=== PATIENT | female | born 1955 | race Caucasian/White ===

== ENCOUNTER 2018-11-24 14:44 | Inpatient (IN) | payer OTHER ==
--- NOTE | 2018-11-24 16:06 | R.PREADM ---
SCREENING DATE AND TIME 11/24/2018 15:05 (CDT) ANTICIPATED REHAB ADMISSION DATE 11/26/2018 REFERRING FACILITY [facility] REFERRAL DATE AND TIME 11/24/2018 15:05 (CDT) ACUTE ADMIT DATE 11/18/2018 Previous Rehabilitation(s): No. 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 Kevin Paniagua M.D. MR# [id number] [facility] [id number] NAME CARLI SINGH ADDRESS [address] [place] [address] DATE OF 1955 AGE 63 SSN# [id number] GENDER female MARITAL STATUS RACE white ADMIT FROM 02 - [facility] PRE-HOSPITAL LIVING SETTING 01 - Home (private home/apt. board/care, assisted living, jail, transitional living) HOME TYPE AND DETAILS Type of home: single family house # of levels in the residence: 1 # of steps to enter the residence: 0 # of steps within the residence: 0 PRE-HOSPITAL LIVING WITH Family/Relatives FAMILY SUPPORT Yes PRIMARY FAMILY CONTACT NAME Nuvia Humphrey PRIMARY FAMILY CONTACT PHONE PRIMARY FAMILY CONTACT RELATIONSHIP Friend PHONE PRIMARY FAMILY CONTACT ON ADM.? no IS PRIMARY FAMILY CONTACT AUTH. REP.? no 1ST EMERGENCY CONTACT Nuvia Humphrey 1ST CONTACT PHONE 1ST CONTACT RELATIONSHIP Friend PHONE 1ST CONTACT ON ADM. no IS 1ST CONTACT AUTH. REP.? no PHONE 2ND CONTACT ON ADM.? no PATIENT EMPLOYMENT STATUS Retired (for age) PATIENT EMPLOYER No Employer PAYOR INFORMATION: 1ST PAYOR NAME HERMINIO 1ST PAYOR INJURY/ILLNESS DUE TO ACCIDENT? No ANOTHER GREEN PARTY RESPONSIBLE? No PRIMARY REHAB/ACUTE DIAGNOSIS: Left Middle Cerebellar Peduncle and Left Cerebellar Hemisphere ONSET DATE 11/18/2018 REHAB IMPAIRMENT CATEGORY (JING): 01 Stroke (STR) MEETS 60% rule AFFECTED EXTREMITIES: RLE, and RUE PRIMARY DIAGNOSIS-RELATED SURGERIES: Thrombectomy COMORBID REHAB/ACUTE DIAGNOSES: - N/A COPD Heavy smoker HTN Atrial Fibrillation CAD Heart failure with pacemaker INTERVENTIONS: - COPD 02 sats Medications Nebulizers Oxygen Resp. therapy X-rays - Atrial Fibrillation Anticoagulation Medications VS - CAD 02 sats Activity management Medications VS RISK FOR COMPLICATIONS: - COPD Acute Resp failure Pneumonia Resp. Arrest - Atrial Fibrillation CVA Heart failure Limb embolus - CAD CHF Cardiac Arrest VT Pain SUMMARY OF ACUTE HOSPITALIZATION: Pt. is a 63 yo Right-handed white female. On 11/18/2018 Pt. presented to [facility] with sudden onset of right-side weakness. On 11/18/2018 she was admitted to [facility] with diagnosis Left Middle Cerebellar Peduncle and Left Cerebellar Hemisphere. Her impairment category is Stroke 01 - Right Body (Left Brain) (01.2). Pre-morbidly, Pt. was independent/mod-I in Self-Care, Sphincter Control, Transfers Control, Locomotio n, Communication, and Social Cognition; and she had good Sphincter Control. Currently, she has deficits of Self-Care, Transfers Control, Locomotion, Endurance, Balance, and Safe ty Awareness. Pt. is now referred to [facility] for acute in-patient rehabilitation in order to maximize patient's functional independence in activities of daily living, strength, ROM, and mobi lity. Patient has realistic goal of being discharged at assistance level 6-Mauricio to reside at Home with Fam liset/Relatives. Carli Singh is a 63 year old female that lives in a single jourdan house with her , not driving or working. Patient was independent without an assistive device. On 11/18/2018, daughter heard the patient screaming for her and when she walked into the room, she noted that patients leg was kicked out, confused and attempted to stand up but unable to and was attempting to reach her nebulizer machine and brought to ER and was admitted to [facility] and treated. She is now medically stable but in need of 24-hour nursing, doctor supervision and oversite while receivi ng active and ongoing intensive PT, OT expected to participate in 3hours of therapy a day/15 hours per week and receive care with an intensive interdisciplinary approach. PAST MEDICAL HISTORY Atrial Fibrillation CAD COPD HTN Heart failure with pacemaker Heavy smoker PAST SURGICAL HISTORY: Angioplasty, multiple PACEMAKER PLACEMENT MEDICATION ALLERGIES: No Known Drug Allergies (NKDA) ENVIRONMENTAL ALLERGIES: None Known - Substance Allergies None Known - Other Allergies None Known CODE STATUS: Full code WEIGHT/HEIGHT/BMI: WEIGHT 140 lbs HEIGHT 5' 6" BMI 22.6 DIET: - Diet Type Regular - Diet - Solid Texture Regular - Diet - Liquid Texture Regular - Tube Feed N/A REVIEW OF SYSTEMS: - Gen Alert and awake Lying in bed No apparent distress Oriented to: person, time, and place - Vital Signs Temperature: 96.1 F SBP/DBP: 137/70 Pulse: 79 Resp: 19 Vital signs stable, afebrile - CVS RRR VITAL SIGNS Temperature: 96.1 F SBP/DBP: 137/70 Pulse: 79 Resp: 19 Vital signs stable, afebrile CURRENT SPHINCTER CONTROL: Pre-hospital bladder status: continent # of bladder accidents in the last 7 days prior to screenin Pre-hospital bowel status: continent # of bowel accidents in the last 7 days prior to screenin Last Bowel Movement Date: 11/24/2018 DETAILED CURRENT FUNCTIONAL STATUS: - Bladder accident frequency: Ind - No accidents in the past 7 days - Bowel accident frequency: Ind - No accidents in the past 7 days - Walking score based on distance walked: 1(<=50ft) - Wheelchair score based on distance traveled: 0(N/A) FUNCTIONAL STATUS: - Self-Care A. Eating Ind sup B. Grooming Ind sup C. Bathing Ind Syeda D. Dressing - Upper Ind Syeda E. Dressing - Lower Ind modA F. Toileting Ind modA - Sphincter Control G: Bladder control Ind Ind H: Bowel control Ind Ind - Transfers Control I. Bed/Chair/Wheelchair Ind Syeda J. Toilet Ind Syeda K. Tub/Shower Ind ADNO - Locomotion L. Walk/Wheelchair (C) Ind modA L. Walk/Wheelchair (W) Ind modA M. Stairs Ind ADNO - Communication N. Comprehension (B) Ind Ind O. Expression (B) Ind Ind - Social Cognition P. Social Interaction Ind Ind Q. Problem Solving Ind Ind R. Memory Ind Ind - Endurance Fair - Balance Fair - Safety Awareness Fair CURRENT FUNC. DEFICITS: Self-Care, Transfers Control, Locomotion, Endurance, Balance, and Safety Awareness THERAPY NOTES FROM ACUTE CARE: Attached. SPECIAL NEEDS: - Safety Concerns Skin breakdown precautions needed due to skin breakdown risk PATIENT NEEDS ACTIVE AND ONGOING THERAPEUTIC INTERVENTION OF MULTIPLE THERAPY DISCIPLINES, INCLUDING: - Occupational Therapy Evaluate and Treat. Visual Perceptual Training. Cognitive Retraining. - Speech Therapy Cognitive Training. Memory Strategies. Expressive Language Skills. Speech Intelligibility Training. R eceptive Language Skills. - Physical Therapy Evaluate and Treat. PATIENT NEEDS CLOSE MEDICAL SUPERVISION BY A REHABILITATION PHYSICIAN FOR: Bowel and Bladder Management Coordination of Treatment Team Medical and Co-Morbidity Management Pain Management DVT Management PATIENT REQUIRES 24X7 REHAB NURSING FOR MEDICAL AND FUNCTIONAL MGT. OF THE FOLLOWING DEFICITS: ADL's Ambulation Bowel and Bladder Management Communication Disease Management Medication Management Patient/Family Education Providing Safe Environment Transfers Pain Management DVT Management PATIENT REQUIRES INTENSIVE, COORDINATED INTERDISCIPLINARY APPROACH TO REHAB: Arranging Home Equipment/Services Discharge Planning Family Intervention/Training Knowledge Architect/Case Management PATIENT REHAB POTENTIAL: Expected level of measurable improvement will be of a practical value to patient's functional capacit y or adaptations to impairments Has a viable Discharge Plan Medically appropriate; condition is sufficiently stable to participate in intensive rehab program Patient is able and expected to receive 3 hours of individualized therapy daily on at least 5 of ever y 7 days Patient's prognosis for significant practical improvement within a reasonable period of time appears Good DISCHARGE PLAN: - Estimated Length of Stay (days) 17. - Consensus on plan Discharge plan has been discussed with primary caregiver. Patient/Family is in agreement with the renee n. Primary caregiver is in agreement with the plan. - Patient/Family Goals Return home with assistance. - Planned Living Setting Upon Discharge Home, to live with Family/Relatives. Transitional Living. RECOMMENDED CARE LEVEL: IRF RECOMMENDATION DETAILS: Recommended Admission to Comprehensive Rehabilitation Program to Increase Functional [place] SCREENER'S COMPLETENESS CONFIRMATION: - Screening Confirmation The patient data collection on this preadmission screening form is finished PHYSICIANS REVIEW AND ADMISSION DETERMINATION Admit - Based on my review of the Pre-Admission Screening results, in my medical judgment and experie nce, I concur with the findings and recommend admission to [facility], as this patient requires an IRF level of care. SIGNATURE PANEL: Clinical Liaison - [electronically] signed by Raymond Barger on 11/24/2018 at 15:34 (CDT) Physician Reviewer - [electronically] signed by Dr. Kevin Paniagua M.D. on 11/24/2018 at 16:07 (CDT )
--- OUTSIDE RECORDS SUMMARY | 2018-11-25 10:56 | XMS REPORT | Clinical Summary ---
:1955 Author Organization [facility] Address [address] [place] [id number] Care Team Providers Name Role Phone Unavailable Primary Care Provider Unavailable Allergies Not on File Medications Not on file Active Problems Not on file Social History Tobacco Use Types Packs/Day Years Used Date Never Assessed Sex Assigned at Date Recorded Not on file Job Start Date Occupation Industry Not on file Not on file Not on file Travel History Travel Start Travel End No recent travel history available. Last Filed Vital Signs Not on file Plan of Treatment Not on file Results Not on fileafter 11/24/2017 Insurance Payer Benefit Plan / Group Subscriber ID Type Phone Address HERMINIO DURHAM AXSON xxxxxxxxxxx
[2018-11-25] MEDS ORDERED: ALBUTEROL INHALER 60 PUFF/8 GM IH PRN (12:30)
[2018-11-25] MEDS: GABAPENTIN 100 MG CAP PO SCH ×2 (14:05→21:35)
[2018-11-25] MEDS: NA CHLORIDE 0.9% 1,000 ML IV SCH (14:05)
[2018-11-25] MEDS: METOPROLOL TAR 25 MG TAB PO SCH ×2 (17:01→23:46)
[2018-11-25] MEDS ORDERED: DOCUSATE NA/SENNA CONC 1 TAB PO PRN (18:50)
[2018-11-25] MEDS: NYSTATIN 500,000 UNIT/5 ML UDC PO SCH (21:36)
[2018-11-25] MEDS: ATORVASTATIN 80 MG TAB PO SCH (21:36)
[2018-11-25] MEDS: APIXABAN 5 MG TABLET PO SCH (21:36)
[2018-11-25] MEDS: ADVAIR IH SCH (21:37)
[2018-11-25] MEDS: DOXEPIN HCL 25 MG CAP PO SCH (21:55)
[2018-11-25] MEDS ORDERED: DOXEPIN HCL 25 MG CAP ONE (22:09)
--- NOTE | 2018-11-26 00:53 | FAST ---
SHIFT START DATE/TIME: 11/25/2018 19:00 (CDT) SHIFT END DATE/TIME: 11/26/2018 07:00 (CDT) NAME BRITTANY SINGH DATE OF : 1955 DATE OF ADMISSION: 11/25/2018 10:53 (CDT) PHONE: AGE: 63 N# [id number] GENDER: Female ENCOUNTER PHYSICIAN: Dr. Kevin Paniagua M.D. ADMISSION DIAGNOSIS: - Stroke 01 - Right Body (Left Brain) (01.2) Left Middle Cerebellar Peduncle and Left Cerebellar Hemisphere. EATING: Activity did not occur on this shift EATING - SCORE: 0-UNK GROOMING: Activity did not occur on this shift GROOMING - SCORE: 0-UNK BATHING: Activity did not occur on this shift BATHING - SCORE: 0-UNK DRESSING - UPPER BODY: Patient is not dressing in public clothing ARTICLES SCORE Total number of steps: 0 DRESSING - UPPER BODY - SCORE: 0-UNK DRESSING - LOWER BODY: Patient is not dressing in public clothing ARTICLES SCORE Total number of steps: 0 DRESSING - LOWER BODY - SCORE: 0-UNK TOILETING: TOILETING - STEP 1: Does the patient require the assistance of a person or device, or need extra time with toileting? Yes . TOILETING - STEP 2: Does the patient require the assistance of a helper? Yes. TOILETING - STEP 3: How much assistance does the patient require from the helper? Hands-on assistance from the helper TOILETING - STEP 4: Of the 3 tasks: 1) Adjusting clothing prior to use, 2) Cleansing of perineal area, 3) Adjusting clot cierra after use; How many tasks does the patient perform WITHOUT assistance of the helper? Two tasks TOILETING - SCORE: 3-MOD BLADDER MANAGEMENT: BLADDER MANAGEMENT - STEP 1: Does the patient control the bladder completely and intentionally without equipment or devices or med ications, and is always continent? No. BLADDER MANAGEMENT - STEP 2: Does the patient require the assistance of a helper? Yes. BLADDER MANAGEMENT - STEP 3: How much assistance does the patient require from the helper? Only set-up of equipment - such as plac ing it within reach of the patient or emptying a device - to maintain either satisfactory voiding pat tern or managing an external device, such as an absorbent pad, ileal device, or catheter BLADDER MANAGEMENT - SCORE: 5-SUP BOWEL MANAGEMENT: Activity did not occur on this shift BOWEL MANAGEMENT - SCORE: 7-IND TRANSFERS: BED, CHAIR, WHEELCHAIR: TRANSFERS: BED, CHAIR, WHEELCHAIR - STEP 1: Does the patient require assistance of a person or device, or need extra time with bed, chair, or whe elchair transfers? Yes. TRANSFERS: BED, CHAIR, WHEELCHAIR - STEP 2: Does the patient require the assistance of a helper? Yes. TRANSFERS: BED, CHAIR, WHEELCHAIR - STEP 3: How much assistance does the patient require from the helper? Steadying/guiding assistance TRANSFERS: BED, CHAIR, WHEELCHAIR - SCORE: 4-MIN TRANSFERS: TOILET: TRANSFERS: TOILET - STEP 1: Does the patient require the assistance of a person or device, or need extra time with toilet transfe rs? Yes. TRANSFERS: TOILET - STEP 2: Does the patient require the assistance of a helper? Yes. TRANSFERS: TOILET - STEP 3: How much assistance does the patient require from the helper? Patient performs half or more of the tr ansferring tasks TRANSFERS: TOILET - STEP 4: Does the patient need only incidental help such as contact guard or steadying during toilet transfer? Yes. TRANSFERS: TOILET - SCORE: 4-MIN TRANSFERS: SHOWER: Activity did not occur on this shift TRANSFERS: SHOWER - SCORE: 0-UNK TRANSFERS: TUB: Activity did not occur on this shift TRANSFERS: TUB - SCORE: 0-UNK LOCOMOTION: WALK: Activity did not occur on this shift LOCOMOTION: WALK - SCORE: 0-UNK LOCOMOTION: WHEELCHAIR: Activity did not occur on this shift LOCOMOTION: WHEELCHAIR - SCORE: 0-UNK COMPREHENSION: COMPREHENSION: TYPE: Both COMPREHENSION - STEP 1: Does the patient require help from a person or device, or need extra time to understand complex and a bstract ideas (such as current events, finances, discharge planning, medical issues, relationships, e tc)? Yes. COMPREHENSION - STEP 2: Does the patient require help to understand questions or statements about basic needs or ideas (such as hunger, thirst, sleep, safety, daily schedule, room location, or discomfort) half or more of the t tashi? Yes. COMPREHENSION - STEP 3: Is the patient basically able to understand and respond appropriately and consistently? Yes. COMPREHENSION - SCORE: 2-MAX EXPRESSION EXPRESSION: TYPE: Both EXPRESSION - STEP 1: Does the patient require help from a person or device, or need extra time expressing complex and abst ract ideas (such as current events, finances, discharge planning, medical issues, relationships, etc) ? Yes. EXPRESSION - STEP 2: Does the patient require help to express basic necessities or ideas (such as hunger, thirst, sleep, s afety, daily schedule, room location, or discomfort) half or more of the time? Yes. EXPRESSION - STEP 3: Is the patient basically unable to express or does s/he express inappropriately or inconsistently corrie pite prompting? No. EXPRESSION - SCORE: 2-MAX SOCIAL INTERACTION: SOCIAL INTERACTION - STEP 1: Does the patient require a helper to interact with others in social and therapeutic situations? No. SOCIAL INTERACTION - STEP 2: Does the patient need extra time in social situations, OR does s/he interact with staff, other patien ts, and family members ONLY in structured environments, OR does s/he require medication for social in teraction? Yes, patient requires medication for social interaction SOCIAL INTERACTION - SCORE: 6-NAHUN PROBLEM SOLVING: PROBLEM SOLVING - STEP 1: Does the patient need help from a person or device, or need extra time to solve complex problems such as managing a checking account or confronting interpersonal problems? Yes. PROBLEM SOLVING - STEP 2: Does the patient solve basic routine problems half or more of the time? No. PROBLEM SOLVING - STEP 3: Does the patient need help to solve problems all the time or is s/he unable to solve problems? Yes. P atient needs help to solve problems all the time or is unable to solve problems PROBLEM SOLVING - SCORE: 1-DEP MEMORY: MEMORY - STEP 1: Does the patient need help from a person or device, or need extra time to remember frequently encount ered people, daily routines, and executing requests? Yes. MEMORY - STEP 2: How often does the patient need help to remember frequently encountered people, daily routines, and e xecuting requests? More than 50% of the time MEMORY - STEP 3: Does the patient need help to remember all of the time OR does s/he not effectively recognize and rem ember? No. Patient does not need help all the time MEMORY - SCORE: 2-MAX SIGNATURE PANEL: The following modified sections: Eating - Score, Grooming - Score, Dressing - Upper Body - Score, Tavo ssing - Lower Body - Score, Toileting - Score, Bladder Management - Score, Bowel Management - Score, Transfers: Bed, Chair, Wheelchair - Score, Transfers: Toilet - Score, Transfers: Shower - Score, Lewis sfers: Tub - Score, Locomotion: Walk - Score, Locomotion: Wheelchair - Score, Comprehension - Score, Expression - Score, Social Interaction - Score, Problem Solving - Score, Memory - Score were [electro nically] signed by Elli Perez CNA on TueNov 26 2018 00:52:31 GMT-0500 (Central Daylight Time)
[2018-11-26] MEDS: NA CHLORIDE 0.9% 1,000 ML IV SCH ×3 (02:15→20:59)
[2018-11-26] MEDS: METOPROLOL TAR 25 MG TAB PO SCH ×3 (05:30→16:55)
[2018-11-26 06:10] LABS: Eosinophils % 1.6 % (0-4.4); Hematocrit 35.2 % (36.0-45.0); Lymphocytes % 42.9 % (15.3-44.8); MPV 10.8 fL (7.6-11.3); Monocytes % 6.9 % (3.3-12.3)
[2018-11-26 06:29] LABS: Albumin 3.3 g/dL (3.4-5.0); Magnesium 1.9 mg/dL (1.8-2.4); Potassium 3.6 mmol/L (3.5-5.1); Prealbumin 19.2 mg/dL (20-40)
[2018-11-26 06:47] LABS: Urine White Blood Cell Casts OK
[2018-11-26 06:48] LABS: Anisocytosis 1+; Blood Morphology Comment NOTED (NOT SEEN); Platelet Estimate ADEQ
[2018-11-26] MEDS ORDERED: AMLODIPINE 5 MG TAB PO SCH (08:00)
[2018-11-26] MEDS: ADVAIR IH SCH ×2 (08:00→20:58)
[2018-11-26] MEDS ORDERED: LISINOPRIL 20 MG TAB PO SCH (08:00)
[2018-11-26] MEDS: GABAPENTIN 100 MG CAP PO SCH ×3 (08:05→20:57)
[2018-11-26] MEDS: FUROSEMIDE 20 MG TABLET PO SCH (08:05)
[2018-11-26] MEDS: APIXABAN 5 MG TABLET PO SCH ×2 (08:06→20:57)
[2018-11-26] MEDS: NYSTATIN 500,000 UNIT/5 ML UDC PO SCH ×3 (08:07→20:57)
[2018-11-26] MEDS: NICOTINE 14 MG/PAT TD SCH (12:44)
--- NOTE | 2018-11-26 12:59 | FAST ---
ENCOUNTER DATE AND TIME: 11/26/2018 08:00 (CDT) NAME BRITTANY SINGH DATE OF : 1955 DATE OF ADMISSION: 11/25/2018 10:53 (CDT) PHONE: AGE: 63 SSN# [id number] GENDER: Female ENCOUNTER PHYSICIAN: Dr. Kevin Paniagua M.D. ADMISSION DIAGNOSIS: - Stroke 01 - Right Body (Left Brain) (01.2) Left Middle Cerebellar Peduncle and Left Cerebellar Hemisphere. EATING: Activity did not occur on this shift EATING - SCORE: 0-UNK GROOMING: Comb/brush hair Oral care Wash, rinse, and dry face GROOMING - STEP 1: Does the patient require the assistance of a person or device, or need extra time when grooming? Yes. GROOMING - STEP 2: Does the patient require the assistance of a helper? Yes. GROOMING - STEP 3: How much assistance does the patient require from the helper? Only prior equipment preparation/set up from the helper GROOMING - SCORE: 5-SUP BATHING: Abdomen Buttocks Chest Left arm Left lower leg and foot Left upper leg Perineal area Right arm Right lower leg and foot Right upper leg BATHING - STEP 1: Does the patient require the assistance of a person or device, or need extra time when bathing? Yes. BATHING - STEP 2: Does the patient require the assistance of a helper? Yes. BATHING - STEP 3: How much assistance does the patient require from the helper? More than just incidental help BATHING - STEP 4: What percent of the body parts did the patient bathe WITHOUT the helper? Half or more of the body par ts BATHING - SCORE: 3-MOD DRESSING - UPPER BODY: Patient is not dressing in public clothing ARTICLES SCORE Total number of steps: 0 DRESSING - UPPER BODY - SCORE: 0-UNK DRESSING - LOWER BODY: Sock - Left foot (one step) Sock - Right foot (one step) Underwear (three steps) ARTICLES SCORE Total number of steps: 5 DRESSING - LOWER BODY - STEP 1: Does the patient require help from a person or device, or need extra time when dressing below the diego st? Yes. DRESSING - LOWER BODY - STEP 2: Does the patient require the assistance of a helper? Yes. DRESSING - LOWER BODY - STEP 3: Does the helper touch the patient while dressing? Yes. DRESSING - LOWER BODY - STEP 4: How many of the total steps does the patient complete on his/her own? 0 DRESSING - LOWER BODY - STEP 5: Does patient require total assistance for dressing below the waist such as the helper holding clothin g and performing basically all the activities? Yes. DRESSING - LOWER BODY - SCORE: 1-DEP TOILETING: TOILETING - STEP 1: Does the patient require the assistance of a person or device, or need extra time with toileting? Yes . TOILETING - STEP 2: Does the patient require the assistance of a helper? Yes. TOILETING - STEP 3: How much assistance does the patient require from the helper? Hands-on assistance from the helper TOILETING - STEP 4: Of the 3 tasks: 1) Adjusting clothing prior to use, 2) Cleansing of perineal area, 3) Adjusting clot cierra after use; How many tasks does the patient perform WITHOUT assistance of the helper? One task TOILETING - SCORE: 2-MAX BLADDER MANAGEMENT: Activity did not occur on this shift BLADDER MANAGEMENT - SCORE: 7-IND BOWEL MANAGEMENT: Activity did not occur on this shift BOWEL MANAGEMENT - SCORE: 7-IND TRANSFERS: BED, CHAIR, WHEELCHAIR: Activity did not occur on this shift TRANSFERS: BED, CHAIR, WHEELCHAIR - SCORE: 0-UNK TRANSFERS: TOILET: TRANSFERS: TOILET - STEP 1: Does the patient require the assistance of a person or device, or need extra time with toilet transfe rs? Yes. TRANSFERS: TOILET - STEP 2: Does the patient require the assistance of a helper? Yes. TRANSFERS: TOILET - STEP 3: How much assistance does the patient require from the helper? Patient performs less than half of the transferring tasks TRANSFERS: TOILET - STEP 4: Does the patient require total assistance for the toilet transfer such as the helper doing basically all the lifting? No. TRANSFERS: TOILET - SCORE: 2-MAX TRANSFERS: SHOWER: Activity did not occur on this shift TRANSFERS: SHOWER - SCORE: 0-UNK TRANSFERS: TUB: TRANSFERS: TUB - STEP 1: Does the patient require the assistance of a person or device, or need extra time with tub transfers? Yes. TRANSFERS: TUB - STEP 2: Does the patient require the assistance of a helper? Yes. TRANSFERS: TUB - STEP 3: How much assistance does the patient require from the helper? More than incidental help TRANSFERS: TUB - STEP 4: How much more help does the patient require from the helper? Fraser lifts patient up out of the wheel chair AND down onto the tub bench TRANSFERS: TUB - SCORE: 2-MAX LOCOMOTION: WALK: Activity did not occur on this shift LOCOMOTION: WALK - SCORE: 0-UNK LOCOMOTION: WHEELCHAIR: Activity did not occur on this shift LOCOMOTION: WHEELCHAIR - SCORE: 0-UNK LOCOMOTION: STAIRS: Activity did not occur on this shift LOCOMOTION: STAIRS - SCORE: 0-UNK COMPREHENSION: COMPREHENSION: TYPE: Both COMPREHENSION - STEP 1: Does the patient require help from a person or device, or need extra time to understand complex and a bstract ideas (such as current events, finances, discharge planning, medical issues, relationships, e tc)? Yes. COMPREHENSION - STEP 2: Does the patient require help to understand questions or statements about basic needs or ideas (such as hunger, thirst, sleep, safety, daily schedule, room location, or discomfort) half or more of the t tashi? No. COMPREHENSION - STEP 3: How often does the patient need help to understand directions and conversation about basic needs? 10% - 24% of the time COMPREHENSION - SCORE: 4-MIN EXPRESSION EXPRESSION: TYPE: Both EXPRESSION - STEP 1: Does the patient require help from a person or device, or need extra time expressing complex and abst ract ideas (such as current events, finances, discharge planning, medical issues, relationships, etc) ? Yes. EXPRESSION - STEP 2: Does the patient require help to express basic necessities or ideas (such as hunger, thirst, sleep, s afety, daily schedule, room location, or discomfort) half or more of the time? No. EXPRESSION - STEP 3: How often does the patient need help to express directions and conversation about basic needs? 10-24% of the time EXPRESSION - SCORE: 4-MIN SOCIAL INTERACTION: SOCIAL INTERACTION - STEP 1: Does the patient require a helper to interact with others in social and therapeutic situations? Yes. SOCIAL INTERACTION - STEP 2: Does the patient interact appropriately half or more of the time? Yes. SOCIAL INTERACTION - STEP 3: How often does the patient need help to interact appropriately? 10-24% of the time SOCIAL INTERACTION - SCORE: 4-MIN PROBLEM SOLVING: PROBLEM SOLVING - STEP 1: Does the patient need help from a person or device, or need extra time to solve complex problems such as managing a checking account or confronting interpersonal problems? Yes. PROBLEM SOLVING - STEP 2: Does the patient solve basic routine problems half or more of the time? Yes. PROBLEM SOLVING - STEP 3: How often does the patient need help to solve basic routine problems? 25%-49% of the time PROBLEM SOLVING - SCORE: 3-MOD MEMORY: MEMORY - STEP 1: Does the patient need help from a person or device, or need extra time to remember frequently encount ered people, daily routines, and executing requests? Yes. MEMORY - STEP 2: How often does the patient need help to remember frequently encountered people, daily routines, and e xecuting requests? 25% - 49% of the time MEMORY - SCORE: 3-MOD SIGNATURE PANEL: The following modified sections: Problem Solving - Score, Memory - Score, Social Interaction - Score, Expression - Score, Comprehension - Score, Transfers: Bed, Chair, Wheelchair - Score, Transfers: Miriam wer - Score, Transfers: Toilet - Score, Transfers: Tub - Score, Eating - Score, Grooming - Score, Bat cierra - Score, Dressing - Upper Body - Score, Dressing - Lower Body - Score, Toileting - Score were [e lectronically] signed by Viridiana Lowery OT on TueNov 26 2018 12:58:36 T-0500 ([facility])
--- NOTE | 2018-11-26 15:02 | FAST ---
SHIFT START DATE/TIME: 11/26/2018 07:00 (CDT) SHIFT END DATE/TIME: 11/26/2018 19:00 (CDT) NAME BRITTANY SINGH DATE OF : 1955 DATE OF ADMISSION: 11/25/2018 10:53 (CDT) PHONE: AGE: 63 N# [id number] GENDER: Female ENCOUNTER PHYSICIAN: Dr. Kevin Paniagua M.D. ADMISSION DIAGNOSIS: - Stroke 01 - Right Body (Left Brain) (01.2) Left Middle Cerebellar Peduncle and Left Cerebellar Hemisphere. EATING: EATING - STEP 1: Does the patient require the assistance of a person or device, or need extra time when eating? Yes. EATING - STEP 2: Does the patient require the assistance of a helper? Yes. EATING - STEP 3: Does the patient perform half or more of the eating tasks? Yes. EATING - STEP 4: Does the patient need only supervision, cuing, coaxing OR help to apply an orthosis OR help to cut fo od, open containers, pour liquids, or butter bread? Yes. EATING - SCORE: 5-SUP GROOMING: Comb/brush hair Wash, rinse, and dry face Wash, rinse, and dry hands GROOMING - STEP 1: Does the patient require the assistance of a person or device, or need extra time when grooming? Yes. GROOMING - STEP 2: Does the patient require the assistance of a helper? Yes. GROOMING - STEP 3: How much assistance does the patient require from the helper? Incidental touching assistance from the helper while grooming GROOMING - SCORE: 4-MIN BATHING: Activity did not occur on this shift BATHING - SCORE: 0-UNK DRESSING - UPPER BODY: Activity did not occur on this shift ARTICLES SCORE Total number of steps: 0 DRESSING - UPPER BODY - SCORE: 0-UNK DRESSING - LOWER BODY: Activity did not occur on this shift ARTICLES SCORE Total number of steps: 0 DRESSING - LOWER BODY - SCORE: 0-UNK TOILETING: TOILETING - STEP 1: Does the patient require the assistance of a person or device, or need extra time with toileting? Yes . TOILETING - STEP 2: Does the patient require the assistance of a helper? Yes. TOILETING - STEP 3: How much assistance does the patient require from the helper? Hands-on assistance from the helper TOILETING - STEP 4: Of the 3 tasks: 1) Adjusting clothing prior to use, 2) Cleansing of perineal area, 3) Adjusting clot cierra after use; How many tasks does the patient perform WITHOUT assistance of the helper? One task TOILETING - SCORE: 2-MAX BLADDER MANAGEMENT: BLADDER MANAGEMENT - STEP 1: Does the patient control the bladder completely and intentionally without equipment or devices or med ications, and is always continent? No. BLADDER MANAGEMENT - STEP 2: Does the patient require the assistance of a helper? Yes. BLADDER MANAGEMENT - STEP 3: How much assistance does the patient require from the helper? Only supervision, stand-by, cuing, or c oaxing BLADDER MANAGEMENT - SCORE: 5-SUP BLADDER MANAGEMENT - FREQUENCY OF ACCIDENTS: BLADDER MANAGEMENT(FA) - STEP 1: How many accidents has the patient had during the current shift? 0 BOWEL MANAGEMENT: Activity did not occur on this shift BOWEL MANAGEMENT - SCORE: 7-IND BOWEL MANAGEMENT - FREQUENCY OF ACCIDENTS: BOWEL MANAGEMENT(FA) - STEP 1: How many accidents has the patient had during the current shift? 0 TRANSFERS: BED, CHAIR, WHEELCHAIR: TRANSFERS: BED, CHAIR, WHEELCHAIR - STEP 1: Does the patient require assistance of a person or device, or need extra time with bed, chair, or whe elchair transfers? Yes. TRANSFERS: BED, CHAIR, WHEELCHAIR - STEP 2: Does the patient require the assistance of a helper? Yes. TRANSFERS: BED, CHAIR, WHEELCHAIR - STEP 3: How much assistance does the patient require from the helper? Steadying/guiding assistance TRANSFERS: BED, CHAIR, WHEELCHAIR - SCORE: 4-MIN TRANSFERS: TOILET: TRANSFERS: TOILET - STEP 1: Does the patient require the assistance of a person or device, or need extra time with toilet transfe rs? Yes. TRANSFERS: TOILET - STEP 2: Does the patient require the assistance of a helper? Yes. TRANSFERS: TOILET - STEP 3: How much assistance does the patient require from the helper? Patient performs less than half of the transferring tasks TRANSFERS: TOILET - STEP 4: Does the patient require total assistance for the toilet transfer such as the helper doing basically all the lifting? Yes. TRANSFERS: TOILET - SCORE: 1-DEP TRANSFERS: SHOWER: Activity did not occur on this shift TRANSFERS: SHOWER - SCORE: 0-UNK TRANSFERS: TUB: Activity did not occur on this shift TRANSFERS: TUB - SCORE: 0-UNK LOCOMOTION: WALK: Activity did not occur on this shift LOCOMOTION: WALK - SCORE: 0-UNK LOCOMOTION: WHEELCHAIR: Activity did not occur on this shift LOCOMOTION: WHEELCHAIR - SCORE: 0-UNK COMPREHENSION: COMPREHENSION: TYPE: Both COMPREHENSION - STEP 1: Does the patient require help from a person or device, or need extra time to understand complex and a bstract ideas (such as current events, finances, discharge planning, medical issues, relationships, e tc)? Yes. COMPREHENSION - STEP 2: Does the patient require help to understand questions or statements about basic needs or ideas (such as hunger, thirst, sleep, safety, daily schedule, room location, or discomfort) half or more of the t tashi? Yes. COMPREHENSION - STEP 3: Is the patient basically able to understand and respond appropriately and consistently? Yes. COMPREHENSION - SCORE: 2-MAX EXPRESSION EXPRESSION: TYPE: Both EXPRESSION - STEP 1: Does the patient require help from a person or device, or need extra time expressing complex and abst ract ideas (such as current events, finances, discharge planning, medical issues, relationships, etc) ? Yes. EXPRESSION - STEP 2: Does the patient require help to express basic necessities or ideas (such as hunger, thirst, sleep, s afety, daily schedule, room location, or discomfort) half or more of the time? No. EXPRESSION - STEP 3: How often does the patient need help to express directions and conversation about basic needs? 10-24% of the time EXPRESSION - SCORE: 4-MIN SOCIAL INTERACTION: SOCIAL INTERACTION - STEP 1: Does the patient require a helper to interact with others in social and therapeutic situations? Yes. SOCIAL INTERACTION - STEP 2: Does the patient interact appropriately half or more of the time? Yes. SOCIAL INTERACTION - STEP 3: How often does the patient need help to interact appropriately? 10-24% of the time SOCIAL INTERACTION - SCORE: 4-MIN PROBLEM SOLVING: PROBLEM SOLVING - STEP 1: Does the patient need help from a person or device, or need extra time to solve complex problems such as managing a checking account or confronting interpersonal problems? Yes. PROBLEM SOLVING - STEP 2: Does the patient solve basic routine problems half or more of the time? Yes. PROBLEM SOLVING - STEP 3: How often does the patient need help to solve basic routine problems? 25%-49% of the time PROBLEM SOLVING - SCORE: 3-MOD MEMORY: MEMORY - STEP 1: Does the patient need help from a person or device, or need extra time to remember frequently encount ered people, daily routines, and executing requests? Yes. MEMORY - STEP 2: How often does the patient need help to remember frequently encountered people, daily routines, and e xecuting requests? 25% - 49% of the time MEMORY - SCORE: 3-MOD SIGNATURE PANEL: The following modified sections: Eating - Score, Grooming - Score, Bathing - Score, Dressing - Upper Body - Score, Dressing - Lower Body - Score, Toileting - Score, Bladder Management - Score, Bowel Man agement - Score, Transfers: Bed, Chair, Wheelchair - Score, Transfers: Shower - Score, Transfers: Tub - Score, Locomotion: Walk - Score, Locomotion: Wheelchair - Score, Comprehension - Score, Expression - Score, Social Interaction - Score, Problem Solving - Score, Memory - Score, Transfers: Toilet - Sc ore were [electronically] signed by Natasha Seo, C.N.A. on TueNov 26 2018 15:01:32 T-0500 ([facility])
[2018-11-26 18:09] LABS: Urine Appearance CLOUDY; Urine Bilirubin NEGATIVE (NEG); Urine Blood NEGATIVE (NEG); Urine Color YELLOW; Urine Glucose NEGATIVE (NEG); Urine Protein NEGATIVE (NEG); Urine Specific Gravity 1.015 (1.005-1.030); Urine Urobilinogen 0.2 mg/dL (0.2-1.0); Urine pH 5.5 (5.0-7.0)
[2018-11-26 18:34] LABS: Urine Bacteria 20-50 /HPF (<20); Urine Culture Reflex Order NOT NEEDED; Urine Mucus MOD /HPF (NONE SEEN); Urine RBC NONE SEEN /HPF (NONE SEEN)
[2018-11-26] MEDS: DOXEPIN HCL 25 MG CAP PO SCH (20:57)
[2018-11-26] MEDS: ATORVASTATIN 80 MG TAB PO SCH (20:57)
[2018-11-26] MEDS: DOCUSATE NA/SENNA CONC 1 TAB PO SCH (20:58)
[2018-11-26] MEDS: D5 0.45 NS 1,000 ML IV SCH (21:46)
--- NOTE | 2018-11-26 22:48 | R.HP ---
FACILITY: [facility] ENCOUNTER DATE AND TIME: 11/26/2018 22:42 (CDT) MR#: [id number] NAME CARLI SINGH ADDRESS: [address] [place]: [place] [address] PHONE: DATE OF : 1955 AGE: 63 SSN# [id number] GENDER: Female DEXTERITY Right-handed MARITAL STATUS RACE White PRE-HOSPITAL LIVING SETTING 01 - Home (private home/apt. board/care, assisted living, detention, transitional living) PRE-HOSPITAL LIVING WITH Family/Relatives ENCOUNTER PHYSICIAN: Dr. Kevin Paniagua M.D. REFERRING DOCTOR: maricruz Rankin DATE OF ADMISSION: 11/25/2018 10:53 (CDT) REFERRING FACILITY [facility] HOME TYPE AND DETAILS: Type of home: single family house # of levels in the residence: 1 # of steps to enter the residence: 0 # of steps within the residence: 0 ADMISSION DIAGNOSIS: Left Middle Cerebellar Peduncle and Left Cerebellar Hemisphere ONSET DATE: 11/18/2018 PRIMARY DIAGNOSIS-RELATED SURGERIES: Thrombectomy SECONDARY/COMORBID DIAGNOSES (TIERED): - N/A COPD Heavy smoker HTN Atrial Fibrillation CAD Heart failure with pacemaker HISTORY OF PRESENT ILLNESS (HPI): Pt. is a 63 yo Right-handed white female. On 11/18/2018 Pt. presented to [facility] with sudden onset of right-side weakness. On 11/18/2018 she was admitted to [facility] with diagnosis Left Middle Cerebellar Peduncle and Left Cerebellar Hemisphere. Her impairment category is Stroke 01 - Right Body (Left Brain) (01.2). Pre-morbidly, Pt. was independent/mod-I in Self-Care, Sphincter Control, Transfers Control, Locomotio n, Communication, and Social Cognition; and she had good Sphincter Control. Currently, she has deficits of Self-Care, Transfers Control, Locomotion, Endurance, Balance, and Safe ty Awareness. Pt. is now referred to [facility] for acute in-patient rehabilitation in order to maximize patient's functional independence in activities of daily living, strength, ROM, and mobi lity. Patient has realistic goal of being discharged at assistance level 6-Mauricio to reside at Home with Fam liset/Relatives. Carli Singh is a 63 year old female that lives in a single jourdan house with her , not driving or working. Patient was independent without an assistive device. On 11/18/2018, daughter heard the patient screaming for her and when she walked into the room, she noted that patients leg was kicked out, confused and attempted to stand up but unable to and was attempting to reach her nebulizer machine and brought to ER and was admitted to [facility] and treated. She is now medically stable but in need of 24-hour nursing, doctor supervision and oversite while receivi ng active and ongoing intensive PT, OT expected to participate in 3hours of therapy a day/15 hours per week and receive care with an intensive interdisciplinary approach. MEDICATION ALLERGIES: No Known Drug Allergies (NKDA) ENVIRONMENTAL ALLERGIES: None Known - Substance Allergies None Known - Other Allergies None Known PAST MEDICAL HISTORY: Atrial Fibrillation CAD COPD HTN Heart failure with pacemaker Heavy smoker PAST SURGICAL HISTORY: Angioplasty, multiple PACEMAKER PLACEMENT FAMILY HISTORY: Family history is not contributory. SOCIAL HISTORY: - Home Living Family/Relatives REVIEW OF SYSTEMS: - Gen No Chills Fatigue No Fever - Eyes Double Vision No itchiness - ENMT Difficulty Swallowing - CVS No Chest Discomfort No Chest Pain Fatigue No Weight Gain - Resp No Cough No Shortness of Breath - GI Continent No Abdominal Pain No Constipation No Diarrhea - Continent No Kidney Pain No Painful Urination No Urinary Urgency - MSK No Joint Pain No Muscle Cramps Stiffness - Skin No Itching No Rash No Suspicious Lesions - Neuro Coordination Difficulty Difficulty with Concentration Memory Loss No Seizures Weakness - Psych No Anxiety No Depression No HIV Exposure No Persistent Infections No Seasonal Allergies - Endo No Cold/Heat Intolerance No Excessive Hunger No Excessive Thirst No Excessive Urination PHYSICAL EXAM - Gen Alert and awake Lying in bed No apparent distress Oriented to: person, time, and place - Skin No breakdown No abnormalities - Eyes No abnormalities - ENMT No abnormalities - Neck No abnormalities - CVS RRR - Chest No abnormalities - Abd + bowel sounds - GI Soft Deferred - No abnormalities - Ext No significant edema. - MSK Right lower extremity incoordination and mild weakness - Neuro Right lower extremity incoordination and mild weakness - Psych No abnormalities VITAL SIGNS Temperature: 96.1 F SBP/DBP: 137/70 Pulse: 79 Resp: 19 NURSING: - Shower allowing shower - Bladder care per protocol - Skin care per protocol PRECAUTIONS: - Weight Bearing Precaution WBAT right LE ACTIVITIES OOB only with supervision FUNCTIONAL STATUS: - Self-Care A. Eating Ind sup B. Grooming Ind sup C. Bathing Ind Syeda D. Dressing - Upper Ind Syeda E. Dressing - Lower Ind modA F. Toileting Ind modA - Sphincter Control G: Bladder control Ind Ind H: Bowel control Ind Ind - Transfers Control I. Bed/Chair/Wheelchair Ind Syeda J. Toilet Ind Syeda K. Tub/Shower Ind ADNO - Locomotion L. Walk/Wheelchair (C) Ind modA L. Walk/Wheelchair (W) Ind modA M. Stairs Ind ADNO - Communication N. Comprehension (B) Ind Ind O. Expression (B) Ind Ind - Social Cognition P. Social Interaction Ind Ind Q. Problem Solving Ind Ind R. Memory Ind Ind - Endurance Fair - Balance Fair - Safety Awareness Fair [facility] DEFICITS: Self-Care, Transfers Control, Locomotion, Endurance, Balance, and Safety Awareness ASSESSMENT: Pt. is a 63 yo Right-handed white female.On 11/18/2018 Pt. presented to [facility] with sudden onset of right-side weakness.On 11/18/2018 she was admitted to [facility] with diagnosis Left M iddle Cerebellar Peduncle and Left Cerebellar Hemisphere.Her impairment category is Stroke 01 - Righ t Body (Left Brain) (01.2).Pre-morbidly, Pt. was independent/mod-I in Self-Care, Sphincter Control, T ransfers Control, Locomotion, Communication, and Social Cognition; and she had good Sphincter Control .Currently, she has deficits of Self-Care, Transfers Control, Locomotion, Endurance, Balance, and Saf ety Awareness.[facility]. [facility] maximize patient's functional independence in activities of daily living, strength, ROM, and mobility.- Rehab Goal Patient has realistic goal of being discharged at assistance level 6-Mauricio to reside at Home with Fam liset/Relatives. Carli Singh is a 63 year old female that lives in a single jourdan house with her , not driving or working. Patient was independent without an assistive device. On 11/18/2018, daughter heard the patient screaming for her and when she walked into the room, she noted that patients leg was kicked out, confused and attempted to stand up but unable to and was attempting to reach her nebulizer machine and brought to ER and was admitted to [facility] and treated. She is now medically stable but in need of 24-hour nursing, doctor supervision and oversite while joel ng active and ongoing intensive PT, OT expected to participate in 3hours of therapy a day/15 hours per week and receive care with an intensive interdisciplinary approach.REHAB PLAN: for Dementia, TBI, Stroke, or others - Physical Therapy Gait dysfunction - to improve, our physical therapists will perform initial evaluation of pt's status upon admission and devise an individualized program for Gait Training, and Wheel Chair mobility Inability to transfer - to improve, our physical therapists will perform initial evaluation of pt's s tatus upon admission and devise an individualized program for Bed mobility Need for home safety evaluation - to improve, our physical therapists will perform initial evaluation of pt's status upon admission and devise an individualized program for Home Evaluation Need in caregiver upon discharge - to improve, our physical therapists will perform initial evaluatio n of pt's status upon admission and devise an individualized program for Caregiver Training New precaution - to improve, our physical therapists will perform initial evaluation of pt's status u ramonita admission and devise an individualized program for Patient precaution education Edema - to improve, our physical therapists will perform initial evaluation of pt's status upon admi ssion and devise an individualized program for Elevation Training, and Lymphedema Therapy Poor balance - to improve, our physical therapists will perform initial evaluation of pt's status upo n admission and devise an individualized program for Balance Training Poor endurance - to improve, our physical therapists will perform initial evaluation of pt's status u ramonita admission and devise an individualized program for Endurance Training Weakness - to improve, our physical therapists will perform initial evaluation of pt's status upon ad mission and devise an individualized program for Aquatic Therapy, Neuromuscular Reeducation, and Stre ngthening Achieving independence - to improve, our physical therapists will perform initial evaluation of pt's status upon admission and devise an individualized program for Community Reintegration Activities - Occupational Therapy ADL deficits - to improve, our occupation therapists will perform initial evaluation of pt's status u ramonita admission and devise an individualized program for Bathing, Bed mobility, Community Reintegration , Cooking, Dressing, Eating, Fine Motor Skills, Grooming, Homemaking, Kitchen Mobility, Laundry, Gloria ent Education, Safety Awareness, Splinting - Positioning, Transfers(Toilet, Tub, Shower), and Wheel C hair Management Need for care management coordinator - to improve, our occupation therapists will perform initial evaluation of pt's s tatus upon admission and devise an individualized program for Caregiver Training Weakness - to improve, our occupation therapists will perform initial evaluation of pt's status upon admission and devise an individualized program for Aquatic Therapy, Balance, Endurance, UE ROM, and U E strengthening MEDICAL PLAN: - Diet Type Regular - Diet - Liquid Texture Regular - Tube Feed N/A - Bladder care per protocol - Weight Bearing Precaution WBAT LE - Skin care per protocol - Diet - Solid Texture Regular - Shower shower DISCHARGE PLAN: - Estimated Length of Stay (days) 17. - Consensus on plan Discharge plan has been discussed with primary caregiver. Patient/Family is in agreement with the renee n. Primary caregiver is in agreement with the plan. - Patient/Family Goals Return home with assistance. - Planned Living Setting Upon Discharge Home, to live with Family/Relatives. Transitional Living. SIGNATURE PANEL: (CDT)
--- NOTE | 2018-11-27 01:11 | FAST ---
SHIFT START DATE/TIME: 11/26/2018 19:00 (CDT) SHIFT END DATE/TIME: 11/27/2018 07:00 (CDT) NAME BRITTANY SINGH DATE OF : 1955 DATE OF ADMISSION: 11/25/2018 10:53 (CDT) PHONE: AGE: 63 N# [id number] GENDER: Female ENCOUNTER PHYSICIAN: Dr. Kevin Paniagua M.D. ADMISSION DIAGNOSIS: - Stroke 01 - Right Body (Left Brain) (01.2) Left Middle Cerebellar Peduncle and Left Cerebellar Hemisphere. EATING: Activity did not occur on this shift EATING - SCORE: 0-UNK GROOMING: Activity did not occur on this shift GROOMING - SCORE: 0-UNK BATHING: Activity did not occur on this shift BATHING - SCORE: 0-UNK DRESSING - UPPER BODY: Patient is not dressing in public clothing ARTICLES SCORE Total number of steps: 0 DRESSING - UPPER BODY - SCORE: 0-UNK DRESSING - LOWER BODY: Patient is not dressing in public clothing ARTICLES SCORE Total number of steps: 0 DRESSING - LOWER BODY - SCORE: 0-UNK TOILETING: TOILETING - STEP 1: Does the patient require the assistance of a person or device, or need extra time with toileting? Yes . TOILETING - STEP 2: Does the patient require the assistance of a helper? Yes. TOILETING - STEP 3: How much assistance does the patient require from the helper? Hands-on assistance from the helper TOILETING - STEP 4: Of the 3 tasks: 1) Adjusting clothing prior to use, 2) Cleansing of perineal area, 3) Adjusting clot cierra after use; How many tasks does the patient perform WITHOUT assistance of the helper? No tasks; h elper performs all three tasks TOILETING - SCORE: 1-DEP BLADDER MANAGEMENT: [place] removes incontinent device (Depends, pull ups, etc.); cleans the patient after accident / inco ntinent episode; and, applies new incontinent device. BLADDER MANAGEMENT - SCORE: 1-DEP BOWEL MANAGEMENT: Activity did not occur on this shift BOWEL MANAGEMENT - SCORE: 7-IND TRANSFERS: BED, CHAIR, WHEELCHAIR: TRANSFERS: BED, CHAIR, WHEELCHAIR - STEP 1: Does the patient require assistance of a person or device, or need extra time with bed, chair, or whe elchair transfers? Yes. TRANSFERS: BED, CHAIR, WHEELCHAIR - STEP 2: Does the patient require the assistance of a helper? Yes. TRANSFERS: BED, CHAIR, WHEELCHAIR - STEP 3: How much assistance does the patient require from the helper? Steadying/guiding assistance TRANSFERS: BED, CHAIR, WHEELCHAIR - SCORE: 4-MIN TRANSFERS: TOILET: TRANSFERS: TOILET - STEP 1: Does the patient require the assistance of a person or device, or need extra time with toilet transfe rs? Yes. TRANSFERS: TOILET - STEP 2: Does the patient require the assistance of a helper? Yes. TRANSFERS: TOILET - STEP 3: How much assistance does the patient require from the helper? Patient performs half or more of the tr ansferring tasks TRANSFERS: TOILET - STEP 4: Does the patient need only incidental help such as contact guard or steadying during toilet transfer? Yes. TRANSFERS: TOILET - SCORE: 4-MIN TRANSFERS: SHOWER: Activity did not occur on this shift TRANSFERS: SHOWER - SCORE: 0-UNK TRANSFERS: TUB: Activity did not occur on this shift TRANSFERS: TUB - SCORE: 0-UNK LOCOMOTION: WALK: Activity did not occur on this shift LOCOMOTION: WALK - SCORE: 0-UNK LOCOMOTION: WHEELCHAIR: Activity did not occur on this shift LOCOMOTION: WHEELCHAIR - SCORE: 0-UNK COMPREHENSION: COMPREHENSION: TYPE: Both COMPREHENSION - STEP 1: Does the patient require help from a person or device, or need extra time to understand complex and a bstract ideas (such as current events, finances, discharge planning, medical issues, relationships, e tc)? Yes. COMPREHENSION - STEP 2: Does the patient require help to understand questions or statements about basic needs or ideas (such as hunger, thirst, sleep, safety, daily schedule, room location, or discomfort) half or more of the t tashi? Yes. COMPREHENSION - STEP 3: Is the patient basically able to understand and respond appropriately and consistently? Yes. COMPREHENSION - SCORE: 2-MAX EXPRESSION EXPRESSION: TYPE: Both EXPRESSION - STEP 1: Does the patient require help from a person or device, or need extra time expressing complex and abst ract ideas (such as current events, finances, discharge planning, medical issues, relationships, etc) ? Yes. EXPRESSION - STEP 2: Does the patient require help to express basic necessities or ideas (such as hunger, thirst, sleep, s afety, daily schedule, room location, or discomfort) half or more of the time? Yes. EXPRESSION - STEP 3: Is the patient basically unable to express or does s/he express inappropriately or inconsistently corrie pite prompting? No. EXPRESSION - SCORE: 2-MAX SOCIAL INTERACTION: SOCIAL INTERACTION - STEP 1: Does the patient require a helper to interact with others in social and therapeutic situations? Yes. SOCIAL INTERACTION - STEP 2: Does the patient interact appropriately half or more of the time? No. SOCIAL INTERACTION - STEP 3: How often does the patient interact appropriately? More than 25% of the time SOCIAL INTERACTION - SCORE: 2-MAX PROBLEM SOLVING: PROBLEM SOLVING - STEP 1: Does the patient need help from a person or device, or need extra time to solve complex problems such as managing a checking account or confronting interpersonal problems? Yes. PROBLEM SOLVING - STEP 2: Does the patient solve basic routine problems half or more of the time? No. PROBLEM SOLVING - STEP 3: Does the patient need help to solve problems all the time or is s/he unable to solve problems? No. Kirit langley can sometimes solve problems PROBLEM SOLVING - SCORE: 2-MAX MEMORY: MEMORY - STEP 1: Does the patient need help from a person or device, or need extra time to remember frequently encount ered people, daily routines, and executing requests? Yes. MEMORY - STEP 2: How often does the patient need help to remember frequently encountered people, daily routines, and e xecuting requests? More than 50% of the time MEMORY - STEP 3: Does the patient need help to remember all of the time OR does s/he not effectively recognize and rem ember? No. Patient does not need help all the time MEMORY - SCORE: 2-MAX SIGNATURE PANEL: The following modified sections: Eating - Score, Grooming - Score, Dressing - Upper Body - Score, Tavo ssing - Lower Body - Score, Toileting - Score, Bladder Management - Score, Bowel Management - Score, Transfers: Bed, Chair, Wheelchair - Score, Transfers: Toilet - Score, Transfers: Shower - Score, Lewis sfers: Tub - Score, Locomotion: Walk - Score, Locomotion: Wheelchair - Score, Comprehension - Score, Expression - Score, Social Interaction - Score, Problem Solving - Score, Memory - Score were [electro nically] signed by Elli Perez CNA on TueNov 27 2018 01:10:40 GMT-0500 (Central Daylight Time)
[2018-11-27] MEDS: METOPROLOL TAR 25 MG TAB PO SCH ×2 (05:23→17:01)
[2018-11-27] MEDS: ADVAIR IH SCH ×2 (07:39→20:50)
[2018-11-27] MEDS: NICOTINE 14 MG/PAT TD SCH (07:40)
[2018-11-27] MEDS: LISINOPRIL 20 MG TAB PO SCH (07:41)
[2018-11-27] MEDS: APIXABAN 5 MG TABLET PO SCH ×2 (07:41→20:49)
[2018-11-27] MEDS: DIGOXIN 0.125 MG TABLET PO SCH (07:42)
[2018-11-27] MEDS: FUROSEMIDE 20 MG TABLET PO SCH (07:42)
[2018-11-27 07:57] LABS: Digoxin Level 0.1 ng/mL (0.80-2.00); Potassium 3.8 mmol/L (3.5-5.1)
[2018-11-27] MEDS: GABAPENTIN 100 MG CAP PO SCH ×3 (08:53→20:49)
[2018-11-27] MEDS: NYSTATIN 500,000 UNIT/5 ML UDC PO SCH ×3 (08:54→20:49)
--- NOTE | 2018-11-27 11:45 | RAD REPORT ---
EXAM DESCRIPTION: RAD - Barium Swallow Modified - 11/27/2018 11:26 am CLINICAL HISTORY: CVA FINDINGS: Laryngeal penetration cleared. Aspiration with delayed ineffective cough with thin by teaspoon. Pharyngeal residue vallecular posterior wall mild with honey cleared on subsequent swallow. Delayed onset swakkiw (1-2 seconds),reduced laryngeal elevation and hyolaryngeal protraction reduced mastication (took +45 seconds to chew small piece of terry cracker. Fluoroscopy time 3 MINS AND 52 SECS Twenty-one fluoroscopic spot series obtained
--- NOTE | 2018-11-27 12:29 | FAST ---
ENCOUNTER DATE AND TIME: 11/27/2018 08:00 (CDT) NAME BRITTANY SINGH DATE OF : 1955 DATE OF ADMISSION: 11/25/2018 10:53 (CDT) PHONE: AGE: 63 SSN# [id number] GENDER: Female ENCOUNTER PHYSICIAN: Dr. Kevin Paniagua M.D. ADMISSION DIAGNOSIS: - Stroke 01 - Right Body (Left Brain) (01.2) Left Middle Cerebellar Peduncle and Left Cerebellar Hemisphere. EATING: Activity did not occur on this shift EATING - SCORE: 0-UNK GROOMING: Activity did not occur on this shift GROOMING - SCORE: 0-UNK BATHING: Activity did not occur on this shift BATHING - SCORE: 0-UNK DRESSING - UPPER BODY: Activity did not occur on this shift Patient is not dressing in public clothing ARTICLES SCORE Total number of steps: 0 DRESSING - UPPER BODY - SCORE: 0-UNK DRESSING - LOWER BODY: Activity did not occur on this shift Patient is not dressing in public clothing ARTICLES SCORE Total number of steps: 0 DRESSING - LOWER BODY - SCORE: 0-UNK TOILETING: Activity did not occur on this shift TOILETING - SCORE: 0-UNK BLADDER MANAGEMENT: Activity did not occur on this shift BLADDER MANAGEMENT - SCORE: 7-IND BOWEL MANAGEMENT: Activity did not occur on this shift BOWEL MANAGEMENT - SCORE: 7-IND TRANSFERS: BED, CHAIR, WHEELCHAIR: TRANSFERS: BED, CHAIR, WHEELCHAIR - STEP 1: Does the patient require assistance of a person or device, or need extra time with bed, chair, or whe elchair transfers? Yes. TRANSFERS: BED, CHAIR, WHEELCHAIR - STEP 2: Does the patient require the assistance of a helper? Yes. TRANSFERS: BED, CHAIR, WHEELCHAIR - STEP 3: How much assistance does the patient require from the helper? Steadying/guiding assistance TRANSFERS: BED, CHAIR, WHEELCHAIR - SCORE: 4-MIN TRANSFERS: TOILET: Activity did not occur on this shift TRANSFERS: TOILET - SCORE: 0-UNK TRANSFERS: SHOWER: Activity did not occur on this shift TRANSFERS: SHOWER - SCORE: 0-UNK TRANSFERS: TUB: Activity did not occur on this shift TRANSFERS: TUB - SCORE: 0-UNK LOCOMOTION: WALK: LOCOMOTION: WALK - STEP 1: Does the patient need help from a person or device, or need extra time to walk 150 feet? Yes. LOCOMOTION: WALK - STEP 2: How much assistance does the patient require to walk a minimum of 150 feet? Only incidental help such as contact guarding or steadying LOCOMOTION: WALK - SCORE: 4-MIN LOCOMOTION: WHEELCHAIR: LOCOMOTION: WHEELCHAIR - STEP 1: Does the patient need help to go 150 feet in a wheelchair? Yes. LOCOMOTION: WHEELCHAIR - STEP 2: How much assistance does the patient need from the helper? More than incidental help LOCOMOTION: WHEELCHAIR - SCORE: 3-MOD LOCOMOTION: STAIRS: Activity did not occur on this shift LOCOMOTION: STAIRS - SCORE: 0-UNK COMPREHENSION: COMPREHENSION - SCORE: 0-UNK EXPRESSION EXPRESSION - SCORE: 0-UNK SOCIAL INTERACTION: SOCIAL INTERACTION - SCORE: 0-UNK PROBLEM SOLVING: PROBLEM SOLVING - SCORE: 0-UNK MEMORY: MEMORY - SCORE: 0-UNK SIGNATURE PANEL: The following modified sections: Transfers: Bed, Chair, Wheelchair - Score, Transfers: Toilet - Score , Locomotion: Walk - Score, Locomotion: Wheelchair - Score, Locomotion: Stairs - Score were [[email or web address]] signed by Tania Jarrett PTA on TueNov 27 2018 12:29:07 GMT-0500 (Central Daylight Time)
--- NOTE | 2018-11-27 14:19 | FAST ---
SHIFT START DATE/TIME: 11/27/2018 07:00 (CDT) SHIFT END DATE/TIME: 11/27/2018 19:00 (CDT) NAME BRITTANY SINGH DATE OF : 1955 DATE OF ADMISSION: 11/25/2018 10:53 (CDT) PHONE: AGE: 63 N# [id number] GENDER: Female ENCOUNTER PHYSICIAN: Dr. Kevin Paniagua M.D. ADMISSION DIAGNOSIS: - Stroke 01 - Right Body (Left Brain) (01.2) Left Middle Cerebellar Peduncle and Left Cerebellar Hemisphere. EATING: EATING - STEP 1: Does the patient require the assistance of a person or device, or need extra time when eating? Yes. EATING - STEP 2: Does the patient require the assistance of a helper? Yes. EATING - STEP 3: Does the patient perform half or more of the eating tasks? Yes. EATING - STEP 4: Does the patient need only supervision, cuing, coaxing OR help to apply an orthosis OR help to cut fo od, open containers, pour liquids, or butter bread? Yes. EATING - SCORE: 5-SUP GROOMING: Activity did not occur on this shift GROOMING - SCORE: 0-UNK BATHING: Activity did not occur on this shift BATHING - SCORE: 0-UNK DRESSING - UPPER BODY: Activity did not occur on this shift ARTICLES SCORE Total number of steps: 0 DRESSING - UPPER BODY - SCORE: 0-UNK DRESSING - LOWER BODY: Activity did not occur on this shift ARTICLES SCORE Total number of steps: 0 DRESSING - LOWER BODY - SCORE: 0-UNK TOILETING: TOILETING - STEP 1: Does the patient require the assistance of a person or device, or need extra time with toileting? Yes . TOILETING - STEP 2: Does the patient require the assistance of a helper? Yes. TOILETING - STEP 3: How much assistance does the patient require from the helper? Hands-on assistance from the helper TOILETING - STEP 4: Of the 3 tasks: 1) Adjusting clothing prior to use, 2) Cleansing of perineal area, 3) Adjusting clot cierra after use; How many tasks does the patient perform WITHOUT assistance of the helper? Two tasks TOILETING - SCORE: 3-MOD BLADDER MANAGEMENT: BLADDER MANAGEMENT - STEP 1: Does the patient control the bladder completely and intentionally without equipment or devices or med ications, and is always continent? No. BLADDER MANAGEMENT - STEP 2: Does the patient require the assistance of a helper? No, patient requires and independently uses an a ssistive device, such as a urinal, bedpan, bedside commode, catheter, absorbent pad, or collecting de vice BLADDER MANAGEMENT - SCORE: 6-NAHUN BOWEL MANAGEMENT: Activity did not occur on this shift BOWEL MANAGEMENT - SCORE: 7-IND TRANSFERS: BED, CHAIR, WHEELCHAIR: TRANSFERS: BED, CHAIR, WHEELCHAIR - STEP 1: Does the patient require assistance of a person or device, or need extra time with bed, chair, or whe elchair transfers? Yes. TRANSFERS: BED, CHAIR, WHEELCHAIR - STEP 2: Does the patient require the assistance of a helper? Yes. TRANSFERS: BED, CHAIR, WHEELCHAIR - STEP 3: How much assistance does the patient require from the helper? Steadying/guiding assistance TRANSFERS: BED, CHAIR, WHEELCHAIR - SCORE: 4-MIN TRANSFERS: TOILET: TRANSFERS: TOILET - STEP 1: Does the patient require the assistance of a person or device, or need extra time with toilet transfe rs? Yes. TRANSFERS: TOILET - STEP 2: Does the patient require the assistance of a helper? Yes. TRANSFERS: TOILET - STEP 3: How much assistance does the patient require from the helper? Patient performs half or more of the tr ansferring tasks TRANSFERS: TOILET - STEP 4: Does the patient need only incidental help such as contact guard or steadying during toilet transfer? Yes. TRANSFERS: TOILET - SCORE: 4-MIN TRANSFERS: SHOWER: Activity did not occur on this shift TRANSFERS: SHOWER - SCORE: 0-UNK TRANSFERS: TUB: Activity did not occur on this shift TRANSFERS: TUB - SCORE: 0-UNK LOCOMOTION: WALK: Activity did not occur on this shift LOCOMOTION: WALK - SCORE: 0-UNK LOCOMOTION: WHEELCHAIR: Activity did not occur on this shift LOCOMOTION: WHEELCHAIR - SCORE: 0-UNK COMPREHENSION: COMPREHENSION - SCORE: 0-UNK EXPRESSION EXPRESSION - SCORE: 0-UNK SOCIAL INTERACTION: SOCIAL INTERACTION - SCORE: 0-UNK PROBLEM SOLVING: PROBLEM SOLVING - SCORE: 0-UNK MEMORY: MEMORY - SCORE: 0-UNK SIGNATURE PANEL: The following modified sections: Eating - Score, Grooming - Score, Bathing - Score, Dressing - Upper Body - Score, Dressing - Lower Body - Score, Toileting - Score, Bladder Management - Score, Bowel Man agement - Score, Transfers: Bed, Chair, Wheelchair - Score, Transfers: Toilet - Score, Transfers: Miriam wer - Score, Transfers: Tub - Score, Locomotion: Walk - Score, Locomotion: Wheelchair - Score, Compre hension - Score, Expression - Score, Social Interaction - Score, Problem Solving - Score, Memory - Sc ore were [electronically] signed by Nick Palencia on TueNov 27 2018 14:19:19 GMT-0500 (Central Daylight Time)
[2018-11-27] MEDS: D5 0.45 NS 1,000 ML IV SCH ×2 (14:43→17:01)
[2018-11-27] MEDS: DOXEPIN HCL 25 MG CAP PO SCH (20:48)
[2018-11-27] MEDS: ATORVASTATIN 80 MG TAB PO SCH (20:49)
[2018-11-27] MEDS: DOCUSATE NA/SENNA CONC 1 TAB PO SCH (20:50)
--- NOTE | 2018-11-28 02:34 | FAST ---
SHIFT START DATE/TIME: 11/27/2018 19:00 (CDT) SHIFT END DATE/TIME: 11/28/2018 07:00 (CDT) NAME BRITTANY SINGH DATE OF : 1955 DATE OF ADMISSION: 11/25/2018 10:53 (CDT) PHONE: AGE: 63 N# [id number] GENDER: Female ENCOUNTER PHYSICIAN: Dr. Kevin Paniagua M.D. ADMISSION DIAGNOSIS: - Stroke 01 - Right Body (Left Brain) (01.2) Left Middle Cerebellar Peduncle and Left Cerebellar Hemisphere. EATING: Activity did not occur on this shift EATING - SCORE: 0-UNK GROOMING: Activity did not occur on this shift GROOMING - SCORE: 0-UNK BATHING: Activity did not occur on this shift BATHING - SCORE: 0-UNK DRESSING - UPPER BODY: Patient is not dressing in public clothing ARTICLES SCORE Total number of steps: 0 DRESSING - UPPER BODY - SCORE: 0-UNK DRESSING - LOWER BODY: Patient is not dressing in public clothing ARTICLES SCORE Total number of steps: 0 DRESSING - LOWER BODY - SCORE: 0-UNK TOILETING: TOILETING - STEP 1: Does the patient require the assistance of a person or device, or need extra time with toileting? Yes . TOILETING - STEP 2: Does the patient require the assistance of a helper? Yes. TOILETING - STEP 3: How much assistance does the patient require from the helper? Hands-on assistance from the helper TOILETING - STEP 4: Of the 3 tasks: 1) Adjusting clothing prior to use, 2) Cleansing of perineal area, 3) Adjusting clot cierra after use; How many tasks does the patient perform WITHOUT assistance of the helper? No tasks; h elper performs all three tasks TOILETING - SCORE: 1-DEP BLADDER MANAGEMENT: BLADDER MANAGEMENT - STEP 1: Does the patient control the bladder completely and intentionally without equipment or devices or med ications, and is always continent? Yes. BLADDER MANAGEMENT - SCORE: 7-IND BOWEL MANAGEMENT: Activity did not occur on this shift BOWEL MANAGEMENT - SCORE: 7-IND TRANSFERS: BED, CHAIR, WHEELCHAIR: TRANSFERS: BED, CHAIR, WHEELCHAIR - STEP 1: Does the patient require assistance of a person or device, or need extra time with bed, chair, or whe elchair transfers? Yes. TRANSFERS: BED, CHAIR, WHEELCHAIR - STEP 2: Does the patient require the assistance of a helper? Yes. TRANSFERS: BED, CHAIR, WHEELCHAIR - STEP 3: How much assistance does the patient require from the helper? Steadying/guiding assistance TRANSFERS: BED, CHAIR, WHEELCHAIR - SCORE: 4-MIN TRANSFERS: TOILET: TRANSFERS: TOILET - STEP 1: Does the patient require the assistance of a person or device, or need extra time with toilet transfe rs? Yes. TRANSFERS: TOILET - STEP 2: Does the patient require the assistance of a helper? Yes. TRANSFERS: TOILET - STEP 3: How much assistance does the patient require from the helper? Patient performs half or more of the tr ansferring tasks TRANSFERS: TOILET - STEP 4: Does the patient need only incidental help such as contact guard or steadying during toilet transfer? Yes. TRANSFERS: TOILET - SCORE: 4-MIN TRANSFERS: SHOWER: Activity did not occur on this shift TRANSFERS: SHOWER - SCORE: 0-UNK TRANSFERS: TUB: Activity did not occur on this shift TRANSFERS: TUB - SCORE: 0-UNK LOCOMOTION: WALK: Activity did not occur on this shift LOCOMOTION: WALK - SCORE: 0-UNK LOCOMOTION: WHEELCHAIR: Activity did not occur on this shift LOCOMOTION: WHEELCHAIR - SCORE: 0-UNK COMPREHENSION: COMPREHENSION: TYPE: Both COMPREHENSION - STEP 1: Does the patient require help from a person or device, or need extra time to understand complex and a bstract ideas (such as current events, finances, discharge planning, medical issues, relationships, e tc)? Yes. COMPREHENSION - STEP 2: Does the patient require help to understand questions or statements about basic needs or ideas (such as hunger, thirst, sleep, safety, daily schedule, room location, or discomfort) half or more of the t tashi? No. COMPREHENSION - STEP 3: How often does the patient need help to understand directions and conversation about basic needs? 10% - 24% of the time COMPREHENSION - SCORE: 4-MIN EXPRESSION EXPRESSION: TYPE: Both EXPRESSION - STEP 1: Does the patient require help from a person or device, or need extra time expressing complex and abst ract ideas (such as current events, finances, discharge planning, medical issues, relationships, etc) ? No. EXPRESSION - STEP 2: Does the patient need extra time, require an assistive device (such as augmentive communication syste m or a communication board), OR does s/he have mild difficulty expressing complex and abstract ideas (including mild dysarthria or mild word-find problems)? No. EXPRESSION - SCORE: 7-IND SOCIAL INTERACTION: SOCIAL INTERACTION - STEP 1: Does the patient require a helper to interact with others in social and therapeutic situations? No. SOCIAL INTERACTION - STEP 2: Does the patient need extra time in social situations, OR does s/he interact with staff, other patien ts, and family members ONLY in structured environments, OR does s/he require medication for social in teraction? No. SOCIAL INTERACTION - SCORE: 7-IND PROBLEM SOLVING: Patient requires bed/chair alarms due to attempts to get up unassisted when helper is needed. PROBLEM SOLVING - STEP 1: How often do the bed/chair alarms go off? Occasionally - the alarms go off about 25% or less PROBLEM SOLVING - SCORE: 4-MIN MEMORY: MEMORY - STEP 1: How often do the bed/chair alarms go off? Occasionally - the alarms go off about 25% of the time or l ess MEMORY - SCORE: 4-MIN SIGNATURE PANEL: The following modified sections: Eating - Score, Grooming - Score, Bathing - Score, Dressing - Upper Body - Score, Dressing - Lower Body - Score, Toileting - Score, Bladder Management - Score, Bowel Man agement - Score, Transfers: Bed, Chair, Wheelchair - Score, Transfers: Toilet - Score, Transfers: Miriam wer - Score, Transfers: Tub - Score, Locomotion: Walk - Score, Locomotion: Wheelchair - Score, Compre hension - Score, Expression - Score, Social Interaction - Score, Problem Solving - Score, Memory - Sc ore were [electronically] signed by Benita Barrios CNA on TueNov 28 2018 02:33:54 GMT-0500 ([place])
[2018-11-28] MEDS: METOPROLOL TAR 25 MG TAB PO SCH ×2 (05:01→16:59)
[2018-11-28] MEDS: NICOTINE 14 MG/PAT TD SCH (07:54)
[2018-11-28] MEDS: ADVAIR IH SCH ×2 (07:54→20:37)
[2018-11-28] MEDS: LISINOPRIL 20 MG TAB PO SCH (07:55)
[2018-11-28] MEDS: DIGOXIN 0.125 MG TABLET PO SCH (07:55)
[2018-11-28] MEDS: FUROSEMIDE 20 MG TABLET PO SCH (07:55)
[2018-11-28] MEDS: APIXABAN 5 MG TABLET PO SCH ×2 (07:56→20:38)
[2018-11-28] MEDS: GABAPENTIN 100 MG CAP PO SCH ×3 (07:59→20:38)
[2018-11-28] MEDS: NYSTATIN 500,000 UNIT/5 ML UDC PO SCH ×3 (07:59→20:39)
[2018-11-28] MEDS ORDERED: MELATONIN 5 MG TABLET PO PRN (14:17)
--- NOTE | 2018-11-28 14:20 | FAST ---
ENCOUNTER DATE AND TIME: 11/28/2018 08:00 (CDT) NAME BRITTANY SINGH DATE OF : 1955 DATE OF ADMISSION: 11/25/2018 10:53 (CDT) PHONE: AGE: 63 SSN# [id number] GENDER: Female ENCOUNTER PHYSICIAN: Dr. Kevin Paniagua M.D. ADMISSION DIAGNOSIS: - Stroke 01 - Right Body (Left Brain) (01.2) Left Middle Cerebellar Peduncle and Left Cerebellar Hemisphere. EATING: Activity did not occur on this shift EATING - SCORE: 0-UNK GROOMING: Activity did not occur on this shift GROOMING - SCORE: 0-UNK BATHING: Activity did not occur on this shift BATHING - SCORE: 0-UNK DRESSING - UPPER BODY: Activity did not occur on this shift Patient is not dressing in public clothing ARTICLES SCORE Total number of steps: 0 DRESSING - UPPER BODY - SCORE: 0-UNK DRESSING - LOWER BODY: Activity did not occur on this shift Patient is not dressing in public clothing ARTICLES SCORE Total number of steps: 0 DRESSING - LOWER BODY - SCORE: 0-UNK TOILETING: Activity did not occur on this shift TOILETING - SCORE: 0-UNK BLADDER MANAGEMENT: Activity did not occur on this shift BLADDER MANAGEMENT - SCORE: 7-IND BOWEL MANAGEMENT: Activity did not occur on this shift BOWEL MANAGEMENT - SCORE: 7-IND TRANSFERS: BED, CHAIR, WHEELCHAIR: TRANSFERS: BED, CHAIR, WHEELCHAIR - STEP 1: Does the patient require assistance of a person or device, or need extra time with bed, chair, or whe elchair transfers? Yes. TRANSFERS: BED, CHAIR, WHEELCHAIR - STEP 2: Does the patient require the assistance of a helper? Yes. TRANSFERS: BED, CHAIR, WHEELCHAIR - STEP 3: How much assistance does the patient require from the helper? Steadying/guiding assistance TRANSFERS: BED, CHAIR, WHEELCHAIR - SCORE: 4-MIN TRANSFERS: TOILET: Activity did not occur on this shift TRANSFERS: TOILET - SCORE: 0-UNK TRANSFERS: SHOWER: Activity did not occur on this shift TRANSFERS: SHOWER - SCORE: 0-UNK TRANSFERS: TUB: Activity did not occur on this shift TRANSFERS: TUB - SCORE: 0-UNK LOCOMOTION: WALK: LOCOMOTION: WALK - STEP 1: Does the patient need help from a person or device, or need extra time to walk 150 feet? Yes. LOCOMOTION: WALK - STEP 2: How much assistance does the patient require to walk a minimum of 150 feet? Only incidental help such as contact guarding or steadying LOCOMOTION: WALK - SCORE: 4-MIN LOCOMOTION: WHEELCHAIR: LOCOMOTION: WHEELCHAIR - STEP 1: Does the patient need help to go 150 feet in a wheelchair? Yes. LOCOMOTION: WHEELCHAIR - STEP 2: How much assistance does the patient need from the helper? More than incidental help LOCOMOTION: WHEELCHAIR - SCORE: 3-MOD LOCOMOTION: STAIRS: Activity did not occur on this shift LOCOMOTION: STAIRS - SCORE: 0-UNK COMPREHENSION: COMPREHENSION - SCORE: 0-UNK EXPRESSION EXPRESSION - SCORE: 0-UNK SOCIAL INTERACTION: SOCIAL INTERACTION - SCORE: 0-UNK PROBLEM SOLVING: PROBLEM SOLVING - SCORE: 0-UNK MEMORY: MEMORY - SCORE: 0-UNK SIGNATURE PANEL: The following modified sections: Transfers: Bed, Chair, Wheelchair - Score, Transfers: Toilet - Score , Locomotion: Walk - Score, Locomotion: Wheelchair - Score, Locomotion: Stairs - Score were [nazanin estrada] signed by Tania Jarrett PTA on TueNov 28 2018 14:19:48 GMT-0500 (Central Daylight Time)
--- NOTE | 2018-11-28 15:29 | FAST ---
ENCOUNTER DATE AND TIME: 11/28/2018 08:00 (CDT) NAME BRITTANY SINGH DATE OF : 1955 DATE OF ADMISSION: 11/25/2018 10:53 (CDT) PHONE: AGE: 63 SSN# [id number] GENDER: Female ENCOUNTER PHYSICIAN: Dr. Kevin Paniagua M.D. ADMISSION DIAGNOSIS: - Stroke 01 - Right Body (Left Brain) (01.2) Left Middle Cerebellar Peduncle and Left Cerebellar Hemisphere. EATING: Activity did not occur on this shift EATING - SCORE: 0-UNK GROOMING: Comb/brush hair Wash, rinse, and dry face Wash, rinse, and dry hands GROOMING - STEP 1: Does the patient require the assistance of a person or device, or need extra time when grooming? Yes. GROOMING - STEP 2: Does the patient require the assistance of a helper? Yes. GROOMING - STEP 3: How much assistance does the patient require from the helper? Incidental touching assistance from the helper while grooming GROOMING - SCORE: 4-MIN BATHING: Abdomen Buttocks Chest Left arm Left lower leg and foot Left upper leg Perineal area Right arm Right lower leg and foot Right upper leg BATHING - STEP 1: Does the patient require the assistance of a person or device, or need extra time when bathing? Yes. BATHING - STEP 2: Does the patient require the assistance of a helper? Yes. BATHING - STEP 3: How much assistance does the patient require from the helper? Only incidental help such as placement of a wash cloth in his/her hand a few times as s/he bathes OR help to bathe just one or two areas of the body BATHING - SCORE: 4-MIN DRESSING - UPPER BODY: T-shirt/pullover shirt (four steps) ARTICLES SCORE Total number of steps: 4 DRESSING - UPPER BODY - STEP 1: Does the patient require help from a person or device, or need extra time when dressing above the diego st? Yes. DRESSING - UPPER BODY - STEP 2: Does the patient require the assistance of a helper? Yes. DRESSING - UPPER BODY - STEP 3: Does the helper touch the patient while dressing? Yes. DRESSING - UPPER BODY - STEP 4: How many of the total steps does the patient complete on his/her own? 3 DRESSING - UPPER BODY - SCORE: 4-MIN DRESSING - LOWER BODY: Sock - Left foot (one step) Sock - Right foot (one step) Underwear (three steps) Zippered pants (four steps) ARTICLES SCORE Total number of steps: 9 DRESSING - LOWER BODY - STEP 1: Does the patient require help from a person or device, or need extra time when dressing below the diego st? Yes. DRESSING - LOWER BODY - STEP 2: Does the patient require the assistance of a helper? Yes. DRESSING - LOWER BODY - STEP 3: Does the helper touch the patient while dressing? Yes. DRESSING - LOWER BODY - STEP 4: How many of the total steps does the patient complete on his/her own? 7 DRESSING - LOWER BODY - SCORE: 4-MIN TOILETING: Activity did not occur on this shift TOILETING - SCORE: 0-UNK BLADDER MANAGEMENT: Activity did not occur on this shift BLADDER MANAGEMENT - SCORE: 7-IND BOWEL MANAGEMENT: Activity did not occur on this shift BOWEL MANAGEMENT - SCORE: 7-IND TRANSFERS: BED, CHAIR, WHEELCHAIR: Activity did not occur on this shift TRANSFERS: BED, CHAIR, WHEELCHAIR - SCORE: 0-UNK TRANSFERS: TOILET: Activity did not occur on this shift TRANSFERS: TOILET - SCORE: 0-UNK TRANSFERS: SHOWER: TRANSFERS: SHOWER - STEP 1: Does the patient require the assistance of a person or device, or need extra time with shower transfe rs? Yes. TRANSFERS: SHOWER - STEP 2: Does the patient require the assistance of a helper? Yes. TRANSFERS: SHOWER - STEP 3: How much assistance does the patient require from the helper? More than incidental help TRANSFERS: SHOWER - STEP 4: How much more help does the patient require from the helper? Lifting the patient either up OR down fr om the wheelchair onto the shower chair TRANSFERS: SHOWER - SCORE: 3-MOD TRANSFERS: TUB: Activity did not occur on this shift TRANSFERS: TUB - SCORE: 0-UNK LOCOMOTION: WALK: Activity did not occur on this shift LOCOMOTION: WALK - SCORE: 0-UNK LOCOMOTION: WHEELCHAIR: Activity did not occur on this shift LOCOMOTION: WHEELCHAIR - SCORE: 0-UNK LOCOMOTION: STAIRS: Activity did not occur on this shift LOCOMOTION: STAIRS - SCORE: 0-UNK COMPREHENSION: COMPREHENSION - SCORE: 0-UNK EXPRESSION EXPRESSION - SCORE: 0-UNK SOCIAL INTERACTION: SOCIAL INTERACTION - SCORE: 0-UNK PROBLEM SOLVING: PROBLEM SOLVING - SCORE: 0-UNK MEMORY: MEMORY - SCORE: 0-UNK SIGNATURE PANEL: The following modified sections: Eating - Score, Grooming - Score, Bathing - Score, Dressing - Upper Body - Score, Dressing - Lower Body - Score, Toileting - Score, Transfers: Bed, Chair, Wheelchair - S core, Transfers: Toilet - Score, Transfers: Shower - Score, Transfers: Tub - Score, Comprehension - S core, Expression - Score, Social Interaction - Score, Problem Solving - Score, Memory - Score were [e lectronically] signed by JEANNE Voss on TueNov 28 2018 15:28:50 T-0500 ([facility])
--- NOTE | 2018-11-28 18:37 | R.PN ---
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 SUBJECTIVE: Pt denied any Shortness of Breath. Pt denied any depression. Ambulated 800' with rolling walker with supervision to minimum assistance. VITAL SIGNS Temperature: 97.0 F SBP/DBP: 139/73 Pulse: 57 Resp: 16 MEDICATION ALLERGIES: No Known Drug Allergies (NKDA) ENVIRONMENTAL ALLERGIES: None Known - Substance Allergies None Known - Other Allergies None Known NURSING: - Shower allowing shower - Bladder care per protocol - Skin care per protocol PRECAUTIONS: - Weight Bearing Precaution WBAT right LE ACTIVITIES OOB only with supervision THERAPIES: - Occupational Therapy Evaluate and Treat. Visual Perceptual Training. Cognitive Retraining. - Speech Therapy Cognitive Training. Memory Strategies. Expressive Language Skills. Speech Intelligibility Training. R eceptive Language Skills. - Physical Therapy Evaluate and Treat. PHYSICAL EXAM - Gen Alert and awake Lying in bed No apparent distress Oriented to: person, time, and place - Skin No breakdown No abnormalities - Eyes No abnormalities - ENMT No abnormalities - Neck No abnormalities - CVS RRR - Chest No abnormalities - Abd + bowel sounds - GI Soft Deferred - No abnormalities - Ext No significant edema. - MSK Right lower extremity incoordination and mild weakness - Neuro Right lower extremity incoordination and mild weakness - Psych No abnormalities ASSESSMENT: Pt. is a 63 yo Right-handed white female.On 11/18/2018 Pt. presented to [facility] with sudden onset of right-side weakness.On 11/18/2018 she was admitted to [facility] with diagnosis Left M iddle Cerebellar Peduncle and Left Cerebellar Hemisphere.Her impairment category is Stroke 01 - Righ t Body (Left Brain) (01.2).Pre-morbidly, Pt. was independent/mod-I in Self-Care, Sphincter Control, T ransfers Control, Locomotion, Communication, and Social Cognition; and she had good Sphincter Control .Currently, she has deficits of Self-Care, Transfers Control, Locomotion, Endurance, Balance, and Saf ety Awareness.Pt. is now referred to [facility] for acute in-patient rehabilit ation in order to maximize patient's functional independence in activities of daily living, strength, ROM, and mobility.- Rehab Goal Patient has realistic goal of being discharged at assistance level 6-Mauricio to reside at Home with Fam liset/Relatives. MDM/PLAN: - Physical Therapy Gait dysfunction - to improve, our physical therapists will perform initial evaluation of pt's statu s upon admission and devise an individualized program for Gait Training, and Wheel Chair mobility Inability to transfer - to improve, our physical therapists will perform initial evaluation of pt's status upon admission and devise an individualized program for Bed mobility Need for home safety evaluation - to improve, our physical therapists will perform initial evaluatio n of pt's status upon admission and devise an individualized program for Home Evaluation Need in caregiver upon discharge - to improve, our physical therapists will perform initial evaluati on of pt's status upon admission and devise an individualized program for Caregiver Training Edema - to improve, our physical therapists will perform initial evaluation of pt's status upon admis alexandra and devise an individualized program for Elevation Training, and Lymphedema Therapy New precaution - to improve, our physical therapists will perform initial evaluation of pt's status upon admission and devise an individualized program for Patient precaution education Poor balance - to improve, our physical therapists will perform initial evaluation of pt's status up on admission and devise an individualized program for Balance Training Poor endurance - to improve, our physical therapists will perform initial evaluation of pt's status upon admission and devise an individualized program for Endurance Training Weakness - to improve, our physical therapists will perform initial evaluation of pt's status upon a dmission and devise an individualized program for Aquatic Therapy, Neuromuscular Reeducation, and Str engthening Achieving independence - to improve, our physical therapists will perform initial evaluation of pt's status upon admission and devise an individualized program for Community Reintegration Activities - Occupational Therapy ADL deficits - to improve, our occupation therapists will perform initial evaluation of pt's status upon admission and devise an individualized program for Bathing, Bed mobility, Community Reintegratio n, Cooking, Dressing, Eating, Fine Motor Skills, Grooming, Homemaking, Kitchen Mobility, Laundry, Pat ient Education, Safety Awareness, Splinting - Positioning, Transfers(Toilet, Tub, Shower), and Wheel Chair Management Need for care coordinator - to improve, our occupation therapists will perform initial evaluation of pt's status upon admission and devise an individualized program for Caregiver Training Weakness - to improve, our occupation therapists will perform initial evaluation of pt's status upon admission and devise an individualized program for Aquatic Therapy, Balance, Endurance, UE ROM, and UE strengthening - Diet Type Continue Regular - Diet - Liquid Texture Continue Regular - Tube Feed Continue N/A - Bladder care per protocol - Weight Bearing Precaution WBAT right LE - Skin care per protocol - Diet - Solid Texture Continue Regular - Shower allowing shower for Dementia, TBI, Stroke, or others FUNCTIONAL STATUS: UPDATED AT WEEKLY TEAM CONFERENCE - Bladder Same accident frequency: 7-Ind - No accidents in the past 7 days - Bowel Same accident frequency: 7-Ind - No accidents in the past 7 days - Walking Same score based on distance walked: 1(<=50ft) - Wheelchair Same score based on distance traveled: 0(N/A) FUNCTIONAL STATUS: - Self-Care A. Eating sup B. Grooming sup C. Bathing Syeda D. Dressing - Upper Syeda E. Dressing - Lower modA F. Toileting modA - Sphincter Control G: Bladder control Ind H: Bowel control Ind - Transfers Control I. Bed/Chair/Wheelchair Syeda J. Toilet Syeda K. Tub/Shower ADNO - Locomotion L. Walk/Wheelchair (C) modA L. Walk/Wheelchair (W) modA M. Stairs ADNO - Communication N. Comprehension (B) Ind O. Expression (B) Ind - Social Cognition P. Social Interaction Ind Q. Problem Solving Ind R. Memory Ind - Endurance Fair - Balance Fair - Safety Awareness Fair CURRENT FUNC. DEFICITS: Self-Care, Transfers Control, Locomotion, Endurance, Balance, and Safety Awareness SIGNATURE PANEL: (CDT)
[2018-11-28] MEDS: MAGNESIUM OXIDE 400 MG TAB PO SCH (20:37)
[2018-11-28] MEDS: DOCUSATE NA/SENNA CONC 1 TAB PO SCH (20:38)
[2018-11-28] MEDS: ATORVASTATIN 80 MG TAB PO SCH (20:38)
[2018-11-28] MEDS: DOXEPIN HCL 25 MG CAP PO SCH (20:38)
[2018-11-29] MEDS: METOPROLOL TAR 25 MG TAB PO SCH ×3 (05:31→18:00)
[2018-11-29] MEDS: ADVAIR IH SCH (08:32)
[2018-11-29] MEDS: NYSTATIN 500,000 UNIT/5 ML UDC PO SCH ×2 (08:32→21:33)
[2018-11-29] MEDS: NICOTINE 14 MG/PAT TD SCH (08:32)
[2018-11-29] MEDS: GABAPENTIN 100 MG CAP PO SCH ×2 (08:33→15:09)
[2018-11-29] MEDS: APIXABAN 5 MG TABLET PO SCH ×2 (08:33→21:32)
[2018-11-29] MEDS: DIGOXIN 0.125 MG TABLET PO SCH (08:33)
[2018-11-29] MEDS: CYANOCOBALAMIN 1,000 MCG TAB PO SCH (08:33)
[2018-11-29] MEDS: FUROSEMIDE 20 MG TABLET PO SCH (08:33)
[2018-11-29] MEDS: MAGNESIUM OXIDE 400 MG TAB PO SCH ×2 (08:33→21:33)
[2018-11-29] MEDS: LISINOPRIL 20 MG TAB PO SCH (11:05)
[2018-11-29] MEDS ORDERED: ADVAIR IH PRN (12:45)
[2018-11-29 18:15] LABS: Arterial Blood Carboxyhemoglob 1.5 % (0-1.5); Blood O2 Saturation 95.9 % (92-98.5)
[2018-11-29] MEDS ORDERED: DOXEPIN HCL 25 MG CAP PO SCH (21:00)
[2018-11-29] MEDS: ATORVASTATIN 80 MG TAB PO SCH (21:33)
[2018-11-29] MEDS: MELATONIN 3 MG TABLET PO PRN (21:34)
[2018-11-29] MEDS: DOCUSATE NA/SENNA CONC 1 TAB PO SCH (21:35)
[2018-11-30] MEDS: METOPROLOL TAR 25 MG TAB PO SCH ×2 (05:11→17:47)
[2018-11-30 06:55] LABS: Absolute Lymphocytes (CBC) 2.1 K/uL (0.7-4.9); Basophils % 12.7 % (0-1.3); Eosinophils % 1.6 % (0-4.4); Hematocrit 34.9 % (36.0-45.0); Lymphocytes % 26.3 % (15.3-44.8); MPV 11.4 fL (7.6-11.3); Monocytes % 4.3 % (3.3-12.3); RBC Red Blood Cell Count 4.52 M/uL (3.86-4.86)
[2018-11-30 07:37] LABS: Albumin 3.2 g/dL (3.4-5.0); Magnesium 2.1 mg/dL (1.8-2.4); Potassium 3.2 mmol/L (3.5-5.1); Prealbumin 15.1 mg/dL (20-40)
[2018-11-30] MEDS: GABAPENTIN 100 MG CAP PO SCH ×4 (08:00→21:34)
[2018-11-30] MEDS: CYANOCOBALAMIN 1,000 MCG TAB PO SCH (08:25)
[2018-11-30] MEDS: DIGOXIN 0.125 MG TABLET PO SCH (08:25)
[2018-11-30] MEDS: MAGNESIUM OXIDE 400 MG TAB PO SCH ×2 (08:25→21:34)
[2018-11-30] MEDS: FUROSEMIDE 20 MG TABLET PO SCH (08:25)
[2018-11-30] MEDS: APIXABAN 5 MG TABLET PO SCH ×2 (08:25→21:34)
[2018-11-30] MEDS: NICOTINE 14 MG/PAT TD SCH (08:26)
[2018-11-30] MEDS: NYSTATIN 500,000 UNIT/5 ML UDC PO SCH ×2 (08:26→21:35)
[2018-11-30 10:01] LABS: Blood Morphology Comment NOTED (NOT SEEN); Platelet Estimate ADEQ; Platelets, Giant PRESENT
[2018-11-30 10:02] LABS: Anisocytosis 2+; Burr Cells 1+; Ovalocytes 2+
[2018-11-30] MEDS: LISINOPRIL 20 MG TAB PO SCH (13:20)
[2018-11-30] MEDS: POTASSIUM 25 MEQ EFFERV TAB PO SCH (14:57)
[2018-11-30] MEDS ORDERED: POTASSIUM CL SA 10 MEQ TAB PO SCH (15:00)
--- NOTE | 2018-11-30 16:02 | FAST ---
ENCOUNTER DATE AND TIME: 11/30/2018 08:00 (CDT) NAME BRITTANY SINGH DATE OF : 1955 DATE OF ADMISSION: 11/25/2018 10:53 (CDT) PHONE: AGE: 63 SSN# [id number] GENDER: Female ENCOUNTER PHYSICIAN: Dr. Kevin Paniagua M.D. ADMISSION DIAGNOSIS: - Stroke 01 - Right Body (Left Brain) (01.2) Left Middle Cerebellar Peduncle and Left Cerebellar Hemisphere. EATING: Activity did not occur on this shift EATING - SCORE: 0-UNK GROOMING: Comb/brush hair Wash, rinse, and dry face Wash, rinse, and dry hands GROOMING - STEP 1: Does the patient require the assistance of a person or device, or need extra time when grooming? Yes. GROOMING - STEP 2: Does the patient require the assistance of a helper? Yes. GROOMING - STEP 3: How much assistance does the patient require from the helper? Incidental touching assistance from the helper while grooming GROOMING - SCORE: 4-MIN BATHING: Abdomen Buttocks Chest Left arm Left lower leg and foot Left upper leg Perineal area Right arm Right lower leg and foot Right upper leg BATHING - STEP 1: Does the patient require the assistance of a person or device, or need extra time when bathing? Yes. BATHING - STEP 2: Does the patient require the assistance of a helper? Yes. BATHING - STEP 3: How much assistance does the patient require from the helper? Only incidental help such as placement of a wash cloth in his/her hand a few times as s/he bathes OR help to bathe just one or two areas of the body BATHING - SCORE: 4-MIN DRESSING - UPPER BODY: T-shirt/pullover shirt (four steps) ARTICLES SCORE Total number of steps: 4 DRESSING - UPPER BODY - STEP 1: Does the patient require help from a person or device, or need extra time when dressing above the diego st? Yes. DRESSING - UPPER BODY - STEP 2: Does the patient require the assistance of a helper? Yes. DRESSING - UPPER BODY - STEP 3: Does the helper touch the patient while dressing? No. DRESSING - UPPER BODY - SCORE: 5-SUP DRESSING - LOWER BODY: Elastic waist pants (three steps) Sock - Left foot (one step) Sock - Right foot (one step) Underwear (three steps) ARTICLES SCORE Total number of steps: 8 DRESSING - LOWER BODY - STEP 1: Does the patient require help from a person or device, or need extra time when dressing below the diego st? Yes. DRESSING - LOWER BODY - STEP 2: Does the patient require the assistance of a helper? Yes. DRESSING - LOWER BODY - STEP 3: Does the helper touch the patient while dressing? Yes. DRESSING - LOWER BODY - STEP 4: How many of the total steps does the patient complete on his/her own? 8 DRESSING - LOWER BODY - SCORE: 4-MIN TOILETING: Activity did not occur on this shift TOILETING - SCORE: 0-UNK BLADDER MANAGEMENT: Activity did not occur on this shift BLADDER MANAGEMENT - SCORE: 7-IND BOWEL MANAGEMENT: Activity did not occur on this shift BOWEL MANAGEMENT - SCORE: 7-IND TRANSFERS: BED, CHAIR, WHEELCHAIR: Activity did not occur on this shift TRANSFERS: BED, CHAIR, WHEELCHAIR - SCORE: 0-UNK TRANSFERS: TOILET: Activity did not occur on this shift TRANSFERS: TOILET - SCORE: 0-UNK TRANSFERS: SHOWER: TRANSFERS: SHOWER - STEP 1: Does the patient require the assistance of a person or device, or need extra time with shower transfe rs? Yes. TRANSFERS: SHOWER - STEP 2: Does the patient require the assistance of a helper? Yes. TRANSFERS: SHOWER - STEP 3: How much assistance does the patient require from the helper? Only incidental help such as contact gu arding or steadying during shower transfers, or help to lift one leg into the shower TRANSFERS: SHOWER - SCORE: 4-MIN TRANSFERS: TUB: Activity did not occur on this shift TRANSFERS: TUB - SCORE: 0-UNK LOCOMOTION: WALK: Activity did not occur on this shift LOCOMOTION: WALK - SCORE: 0-UNK LOCOMOTION: WHEELCHAIR: Activity did not occur on this shift LOCOMOTION: WHEELCHAIR - SCORE: 0-UNK LOCOMOTION: STAIRS: Activity did not occur on this shift LOCOMOTION: STAIRS - SCORE: 0-UNK COMPREHENSION: COMPREHENSION: TYPE: Visual COMPREHENSION - SCORE: 0-UNK EXPRESSION EXPRESSION - SCORE: 0-UNK SOCIAL INTERACTION: SOCIAL INTERACTION - SCORE: 0-UNK PROBLEM SOLVING: PROBLEM SOLVING - SCORE: 0-UNK MEMORY: MEMORY - SCORE: 0-UNK SIGNATURE PANEL: The following modified sections: Eating - Score, Grooming - Score, Bathing - Score, Dressing - Upper Body - Score, Dressing - Lower Body - Score, Toileting - Score, Transfers: Bed, Chair, Wheelchair - S core, Transfers: Toilet - Score, Transfers: Shower - Score, Transfers: Tub - Score, Comprehension - S core, Expression - Score, Social Interaction - Score, Problem Solving - Score, Memory - Score were [e lectronically] signed by JEANNE Voss on TueNov 30 2018 16:01:05 [facility]-0500 ([facility] Time)
--- NOTE | 2018-11-30 16:22 | FAST ---
ENCOUNTER DATE AND TIME: 11/29/2018 08:00 (CDT) NAME BRITTANY SINGH DATE OF : 1955 DATE OF ADMISSION: 11/25/2018 10:53 (CDT) PHONE: AGE: 63 SSN# [id number] GENDER: Female ENCOUNTER PHYSICIAN: Dr. Kevin Paniagua M.D. ADMISSION DIAGNOSIS: - Stroke 01 - Right Body (Left Brain) (01.2) Left Middle Cerebellar Peduncle and Left Cerebellar Hemisphere. EATING: Activity did not occur on this shift EATING - SCORE: 0-UNK GROOMING: Activity did not occur on this shift GROOMING - SCORE: 0-UNK BATHING: Activity did not occur on this shift BATHING - SCORE: 0-UNK DRESSING - UPPER BODY: Activity did not occur on this shift Patient is not dressing in public clothing ARTICLES SCORE Total number of steps: 0 DRESSING - UPPER BODY - SCORE: 0-UNK DRESSING - LOWER BODY: Activity did not occur on this shift Patient is not dressing in public clothing ARTICLES SCORE Total number of steps: 0 DRESSING - LOWER BODY - SCORE: 0-UNK TOILETING: Activity did not occur on this shift TOILETING - SCORE: 0-UNK BLADDER MANAGEMENT: Activity did not occur on this shift BLADDER MANAGEMENT - SCORE: 7-IND BOWEL MANAGEMENT: Activity did not occur on this shift BOWEL MANAGEMENT - SCORE: 7-IND TRANSFERS: BED, CHAIR, WHEELCHAIR: TRANSFERS: BED, CHAIR, WHEELCHAIR - STEP 1: Does the patient require assistance of a person or device, or need extra time with bed, chair, or whe elchair transfers? Yes. TRANSFERS: BED, CHAIR, WHEELCHAIR - STEP 2: Does the patient require the assistance of a helper? Yes. TRANSFERS: BED, CHAIR, WHEELCHAIR - STEP 3: How much assistance does the patient require from the helper? Steadying/guiding assistance TRANSFERS: BED, CHAIR, WHEELCHAIR - SCORE: 4-MIN TRANSFERS: TOILET: Activity did not occur on this shift TRANSFERS: TOILET - SCORE: 0-UNK TRANSFERS: SHOWER: Activity did not occur on this shift TRANSFERS: SHOWER - SCORE: 0-UNK TRANSFERS: TUB: Activity did not occur on this shift TRANSFERS: TUB - SCORE: 0-UNK LOCOMOTION: WALK: LOCOMOTION: WALK - STEP 1: Does the patient need help from a person or device, or need extra time to walk 150 feet? Yes. LOCOMOTION: WALK - STEP 2: How much assistance does the patient require to walk a minimum of 150 feet? Only incidental help such as contact guarding or steadying LOCOMOTION: WALK - SCORE: 4-MIN LOCOMOTION: WHEELCHAIR: LOCOMOTION: WHEELCHAIR - STEP 1: Does the patient need help to go 150 feet in a wheelchair? Yes. LOCOMOTION: WHEELCHAIR - STEP 2: How much assistance does the patient need from the helper? Only incidental help such as around corner s or over thresholds LOCOMOTION: WHEELCHAIR - SCORE: 4-MIN LOCOMOTION: STAIRS: LOCOMOTION: STAIRS - STEP 1: Does the patient need help to go up and down 12 to 14 stairs? Yes. LOCOMOTION: STAIRS - STEP 2: How much assistance does the patient need from the helper to go a minimum of 12 to 14 stairs? More th an incidental help LOCOMOTION: STAIRS - SCORE: 3-MOD COMPREHENSION: COMPREHENSION - SCORE: 0-UNK EXPRESSION EXPRESSION - SCORE: 0-UNK SOCIAL INTERACTION: SOCIAL INTERACTION - SCORE: 0-UNK PROBLEM SOLVING: PROBLEM SOLVING - SCORE: 0-UNK MEMORY: MEMORY - SCORE: 0-UNK SIGNATURE PANEL: The following modified sections: Transfers: Bed, Chair, Wheelchair - Score, Transfers: Toilet - Score , Locomotion: Walk - Score, Locomotion: Wheelchair - Score, Locomotion: Stairs - Score were [nazanin estrada] signed by Tania Jarrett PTA on TueNov 30 2018 16:21:31 GMT-0500 (Central Daylight Time)
--- NOTE | 2018-11-30 16:52 | FAST ---
SHIFT START DATE/TIME: 11/29/2018 07:00 (CDT) SHIFT END DATE/TIME: 11/29/2018 19:00 (CDT) NAME BRITTANY SINGH DATE OF : 1955 DATE OF ADMISSION: 11/25/2018 10:53 (CDT) PHONE: AGE: 63 N# [id number] GENDER: Female ENCOUNTER PHYSICIAN: Dr. Kevin Paniagua M.D. ADMISSION DIAGNOSIS: - Stroke 01 - Right Body (Left Brain) (01.2) Left Middle Cerebellar Peduncle and Left Cerebellar Hemisphere. EATING: EATING - STEP 1: Does the patient require the assistance of a person or device, or need extra time when eating? Yes. EATING - STEP 2: Does the patient require the assistance of a helper? Yes. EATING - STEP 3: Does the patient perform half or more of the eating tasks? Yes. EATING - STEP 4: Does the patient need only supervision, cuing, coaxing OR help to apply an orthosis OR help to cut fo od, open containers, pour liquids, or butter bread? Yes. EATING - SCORE: 5-SUP GROOMING: Activity did not occur on this shift GROOMING - SCORE: 0-UNK BATHING: Activity did not occur on this shift BATHING - SCORE: 0-UNK DRESSING - UPPER BODY: Activity did not occur on this shift ARTICLES SCORE Total number of steps: 0 DRESSING - UPPER BODY - SCORE: 0-UNK DRESSING - LOWER BODY: Activity did not occur on this shift ARTICLES SCORE Total number of steps: 0 DRESSING - LOWER BODY - SCORE: 0-UNK TOILETING: TOILETING - STEP 1: Does the patient require the assistance of a person or device, or need extra time with toileting? Yes . TOILETING - STEP 2: Does the patient require the assistance of a helper? Yes. TOILETING - STEP 3: How much assistance does the patient require from the helper? Hands-on assistance from the helper TOILETING - STEP 4: Of the 3 tasks: 1) Adjusting clothing prior to use, 2) Cleansing of perineal area, 3) Adjusting clot cierra after use; How many tasks does the patient perform WITHOUT assistance of the helper? One task TOILETING - SCORE: 2-MAX BLADDER MANAGEMENT: BLADDER MANAGEMENT - STEP 1: Does the patient control the bladder completely and intentionally without equipment or devices or med ications, and is always continent? No. BLADDER MANAGEMENT - STEP 2: Does the patient require the assistance of a helper? Yes. BLADDER MANAGEMENT - STEP 3: How much assistance does the patient require from the helper? Only supervision, stand-by, cuing, or c oaxing BLADDER MANAGEMENT - SCORE: 5-SUP BLADDER MANAGEMENT - FREQUENCY OF ACCIDENTS: BLADDER MANAGEMENT(FA) - STEP 1: How many accidents has the patient had during the current shift? 0 BOWEL MANAGEMENT: BOWEL MANAGEMENT - STEP 1: Does the patient control bowels completely and intentionally without equipment devices or medications AND is always continent? No. BOWEL MANAGEMENT - STEP 2: Does the patient require the assistance of a helper? No, patient requires medication for control such as stool softeners, suppositories, laxatives, enemas, or OTC medications BOWEL MANAGEMENT - SCORE: 6-NAHUN BOWEL MANAGEMENT - FREQUENCY OF ACCIDENTS: BOWEL MANAGEMENT(FA) - STEP 1: How many accidents has the patient had during the current shift? 0 TRANSFERS: BED, CHAIR, WHEELCHAIR: TRANSFERS: BED, CHAIR, WHEELCHAIR - STEP 1: Does the patient require assistance of a person or device, or need extra time with bed, chair, or whe elchair transfers? Yes. TRANSFERS: BED, CHAIR, WHEELCHAIR - STEP 2: Does the patient require the assistance of a helper? Yes. TRANSFERS: BED, CHAIR, WHEELCHAIR - STEP 3: How much assistance does the patient require from the helper? Steadying/guiding assistance TRANSFERS: BED, CHAIR, WHEELCHAIR - SCORE: 4-MIN TRANSFERS: TOILET: TRANSFERS: TOILET - STEP 1: Does the patient require the assistance of a person or device, or need extra time with toilet transfe rs? Yes. TRANSFERS: TOILET - STEP 2: Does the patient require the assistance of a helper? Yes. TRANSFERS: TOILET - STEP 3: How much assistance does the patient require from the helper? Patient performs less than half of the transferring tasks TRANSFERS: TOILET - STEP 4: Does the patient require total assistance for the toilet transfer such as the helper doing basically all the lifting? No. TRANSFERS: TOILET - SCORE: 2-MAX TRANSFERS: SHOWER: Activity did not occur on this shift TRANSFERS: SHOWER - SCORE: 0-UNK TRANSFERS: TUB: Activity did not occur on this shift TRANSFERS: TUB - SCORE: 0-UNK LOCOMOTION: WALK: Activity did not occur on this shift LOCOMOTION: WALK - SCORE: 0-UNK LOCOMOTION: WHEELCHAIR: Activity did not occur on this shift LOCOMOTION: WHEELCHAIR - SCORE: 0-UNK COMPREHENSION: COMPREHENSION: TYPE: Both COMPREHENSION - STEP 1: Does the patient require help from a person or device, or need extra time to understand complex and a bstract ideas (such as current events, finances, discharge planning, medical issues, relationships, e tc)? Yes. COMPREHENSION - STEP 2: Does the patient require help to understand questions or statements about basic needs or ideas (such as hunger, thirst, sleep, safety, daily schedule, room location, or discomfort) half or more of the t tashi? Yes. COMPREHENSION - STEP 3: Is the patient basically able to understand and respond appropriately and consistently? No, patient i s basically UNABLE to understand, OR responds inappropriately/inconsistently despite prompting COMPREHENSION - SCORE: 1-DEP EXPRESSION EXPRESSION: TYPE: Both EXPRESSION - STEP 1: Does the patient require help from a person or device, or need extra time expressing complex and abst ract ideas (such as current events, finances, discharge planning, medical issues, relationships, etc) ? Yes. EXPRESSION - STEP 2: Does the patient require help to express basic necessities or ideas (such as hunger, thirst, sleep, s afety, daily schedule, room location, or discomfort) half or more of the time? Yes. EXPRESSION - STEP 3: Is the patient basically unable to express or does s/he express inappropriately or inconsistently corrie pite prompting? Yes. Patient is basically unable to express. EXPRESSION - SCORE: 1-DEP SOCIAL INTERACTION: SOCIAL INTERACTION - STEP 1: Does the patient require a helper to interact with others in social and therapeutic situations? Yes. SOCIAL INTERACTION - STEP 2: Does the patient interact appropriately half or more of the time? Yes. SOCIAL INTERACTION - STEP 3: How often does the patient need help to interact appropriately? 10-24% of the time SOCIAL INTERACTION - SCORE: 4-MIN PROBLEM SOLVING: PROBLEM SOLVING - STEP 1: Does the patient need help from a person or device, or need extra time to solve complex problems such as managing a checking account or confronting interpersonal problems? Yes. PROBLEM SOLVING - STEP 2: Does the patient solve basic routine problems half or more of the time? No. PROBLEM SOLVING - STEP 3: Does the patient need help to solve problems all the time or is s/he unable to solve problems? No. Kriit langley can sometimes solve problems PROBLEM SOLVING - SCORE: 2-MAX MEMORY: MEMORY - STEP 1: Does the patient need help from a person or device, or need extra time to remember frequently encount ered people, daily routines, and executing requests? No. MEMORY - STEP 2: Does the patient have slight difficulty recognizing frequently encountered people, daily routines, or executing requests without the need for repetition or using self-initiated or environmental cues to remember? Yes. MEMORY - SCORE: 6-NAHUN SIGNATURE PANEL: The following modified sections: Eating - Score, Grooming - Score, Bathing - Score, Dressing - Upper Body - Score, Dressing - Lower Body - Score, Toileting - Score, Bladder Management - Score, Bowel Man agement - Score, Transfers: Bed, Chair, Wheelchair - Score, Transfers: Toilet - Score, Transfers: Miriam wer - Score, Transfers: Tub - Score, Locomotion: Walk - Score, Locomotion: Wheelchair - Score, Compre hension - Score, Expression - Score, Social Interaction - Score, Problem Solving - Score, Memory - Sc ore were [electronically] signed by Natasha Seo C.N.A. on TueNov 30 2018 16:52:16 T-0500 (Centra [place] Daylight Time)
--- NOTE | 2018-11-30 17:26 | FAST ---
SHIFT START DATE/TIME: 11/30/2018 07:00 (CDT) SHIFT END DATE/TIME: 11/30/2018 19:00 (CDT) NAME BRITTANY SINGH DATE OF : 1955 DATE OF ADMISSION: 11/25/2018 10:53 (CDT) PHONE: AGE: 63 N# [id number] GENDER: Female ENCOUNTER PHYSICIAN: Dr. Kevin Paniagua M.D. ADMISSION DIAGNOSIS: - Stroke 01 - Right Body (Left Brain) (01.2) Left Middle Cerebellar Peduncle and Left Cerebellar Hemisphere. EATING: EATING - STEP 1: Does the patient require the assistance of a person or device, or need extra time when eating? Yes. EATING - STEP 2: Does the patient require the assistance of a helper? Yes. EATING - STEP 3: Does the patient perform half or more of the eating tasks? Yes. EATING - STEP 4: Does the patient need only supervision, cuing, coaxing OR help to apply an orthosis OR help to cut fo od, open containers, pour liquids, or butter bread? Yes. EATING - SCORE: 5-SUP GROOMING: Activity did not occur on this shift Comb/brush hair Oral care Wash, rinse, and dry face Wash, rinse, and dry hands GROOMING - SCORE: 0-UNK BATHING: Activity did not occur on this shift BATHING - SCORE: 0-UNK DRESSING - UPPER BODY: Activity did not occur on this shift ARTICLES SCORE Total number of steps: 0 DRESSING - UPPER BODY - SCORE: 0-UNK DRESSING - LOWER BODY: Activity did not occur on this shift Elastic waist pants (three steps) Sock - Left foot (one step) Sock - Right foot (one step) Tied or buckled shoe - Left foot (two steps) Tied or buckled shoe - Right foot (two steps) Underwear (three steps) ARTICLES SCORE Total number of steps: 12 DRESSING - LOWER BODY - SCORE: 0-UNK TOILETING: TOILETING - STEP 1: Does the patient require the assistance of a person or device, or need extra time with toileting? Yes . TOILETING - STEP 2: Does the patient require the assistance of a helper? Yes. TOILETING - STEP 3: How much assistance does the patient require from the helper? Only supervision TOILETING - SCORE: 5-SUP BLADDER MANAGEMENT: BLADDER MANAGEMENT - STEP 1: Does the patient control the bladder completely and intentionally without equipment or devices or med ications, and is always continent? No. BLADDER MANAGEMENT - STEP 2: Does the patient require the assistance of a helper? Yes. BLADDER MANAGEMENT - STEP 3: How much assistance does the patient require from the helper? Patient requires contact assistance fro m the helper BLADDER MANAGEMENT - STEP 4: How much contact assistance does the patient require from the helper? Patient requires minimal assist ance to maintain an external device - by positioning, and the patient performs 75% or more of bladder management tasks, while the helper provides less than 25% of the assistance to position patient on / off bedpan BLADDER MANAGEMENT - SCORE: 4-MIN BLADDER MANAGEMENT - FREQUENCY OF ACCIDENTS: BLADDER MANAGEMENT(FA) - STEP 1: How many accidents has the patient had during the current shift? 0 BOWEL MANAGEMENT: Activity did not occur on this shift BOWEL MANAGEMENT - SCORE: 7-IND BOWEL MANAGEMENT - FREQUENCY OF ACCIDENTS: BOWEL MANAGEMENT(FA) - STEP 1: How many accidents has the patient had during the current shift? 0 TRANSFERS: BED, CHAIR, WHEELCHAIR: TRANSFERS: BED, CHAIR, WHEELCHAIR - STEP 1: Does the patient require assistance of a person or device, or need extra time with bed, chair, or whe elchair transfers? Yes. TRANSFERS: BED, CHAIR, WHEELCHAIR - STEP 2: Does the patient require the assistance of a helper? Yes. TRANSFERS: BED, CHAIR, WHEELCHAIR - STEP 3: How much assistance does the patient require from the helper? Steadying/guiding assistance TRANSFERS: BED, CHAIR, WHEELCHAIR - SCORE: 4-MIN TRANSFERS: TOILET: TRANSFERS: TOILET - STEP 1: Does the patient require the assistance of a person or device, or need extra time with toilet transfe rs? Yes. TRANSFERS: TOILET - STEP 2: Does the patient require the assistance of a helper? Yes. TRANSFERS: TOILET - STEP 3: How much assistance does the patient require from the helper? Patient performs half or more of the tr ansferring tasks TRANSFERS: TOILET - STEP 4: Does the patient need only incidental help such as contact guard or steadying during toilet transfer? Yes. TRANSFERS: TOILET - SCORE: 4-MIN TRANSFERS: SHOWER: Activity did not occur on this shift TRANSFERS: SHOWER - SCORE: 0-UNK TRANSFERS: TUB: Activity did not occur on this shift TRANSFERS: TUB - SCORE: 0-UNK LOCOMOTION: WALK: Activity did not occur on this shift LOCOMOTION: WALK - SCORE: 0-UNK LOCOMOTION: WHEELCHAIR: Activity did not occur on this shift LOCOMOTION: WHEELCHAIR - SCORE: 0-UNK COMPREHENSION: COMPREHENSION: TYPE: Both COMPREHENSION - STEP 1: Does the patient require help from a person or device, or need extra time to understand complex and a bstract ideas (such as current events, finances, discharge planning, medical issues, relationships, e tc)? Yes. COMPREHENSION - STEP 2: Does the patient require help to understand questions or statements about basic needs or ideas (such as hunger, thirst, sleep, safety, daily schedule, room location, or discomfort) half or more of the t tashi? Yes. COMPREHENSION - STEP 3: Is the patient basically able to understand and respond appropriately and consistently? No, patient i s basically UNABLE to understand, OR responds inappropriately/inconsistently despite prompting COMPREHENSION - SCORE: 1-DEP EXPRESSION EXPRESSION: TYPE: Both EXPRESSION - STEP 1: Does the patient require help from a person or device, or need extra time expressing complex and abst ract ideas (such as current events, finances, discharge planning, medical issues, relationships, etc) ? Yes. EXPRESSION - STEP 2: Does the patient require help to express basic necessities or ideas (such as hunger, thirst, sleep, s afety, daily schedule, room location, or discomfort) half or more of the time? Yes. EXPRESSION - STEP 3: Is the patient basically unable to express or does s/he express inappropriately or inconsistently corrie pite prompting? Yes. Patient is basically unable to express. EXPRESSION - SCORE: 1-DEP SOCIAL INTERACTION: SOCIAL INTERACTION - STEP 1: Does the patient require a helper to interact with others in social and therapeutic situations? Yes. SOCIAL INTERACTION - STEP 2: Does the patient interact appropriately half or more of the time? Yes. SOCIAL INTERACTION - STEP 3: How often does the patient need help to interact appropriately? 10-24% of the time SOCIAL INTERACTION - SCORE: 4-MIN PROBLEM SOLVING: PROBLEM SOLVING - STEP 1: Does the patient need help from a person or device, or need extra time to solve complex problems such as managing a checking account or confronting interpersonal problems? Yes. PROBLEM SOLVING - STEP 2: Does the patient solve basic routine problems half or more of the time? No. PROBLEM SOLVING - STEP 3: Does the patient need help to solve problems all the time or is s/he unable to solve problems? Yes. P atient needs help to solve problems all the time or is unable to solve problems PROBLEM SOLVING - SCORE: 1-DEP MEMORY: MEMORY - STEP 1: Does the patient need help from a person or device, or need extra time to remember frequently encount ered people, daily routines, and executing requests? Yes. MEMORY - STEP 2: How often does the patient need help to remember frequently encountered people, daily routines, and e xecuting requests? 10% - 24% of the time MEMORY - SCORE: 4-MIN SIGNATURE PANEL: The following modified sections: Eating - Score, Grooming - Score, Bathing - Score, Dressing - Upper Body - Score, Dressing - Lower Body - Score, Toileting - Score, Bladder Management - Score, Bowel Man agement - Score, Transfers: Bed, Chair, Wheelchair - Score, Transfers: Toilet - Score, Transfers: Miriam wer - Score, Transfers: Tub - Score, Locomotion: Walk - Score, Locomotion: Wheelchair - Score, Compre hension - Score, Expression - Score, Social Interaction - Score, Problem Solving - Score, Memory - Sc ore were [electronically] signed by Natasha Seo C.N.A. on TueNov 30 2018 17:25:21 T-0500 (Centra l Daylight Time)
--- NOTE | 2018-11-30 18:50 | R.PN ---
ENCOUNTER DATE AND TIME: 11/30/2018 18:49 (CDT) NAME BRITTANY SINGH DATE OF : 1955 DATE OF ADMISSION: 11/25/2018 10:53 (CDT) Left Middle Cerebellar Peduncle and Left Cerebellar HemisphereCHIEF COMPLAINT: Left hemispheric stroke with right sided weakness. SUBJECTIVE: Pt denied any Shortness of Breath. Pt denied any depression. Ambulated 800' with rolling walker with supervision to minimum assistance. VITAL SIGNS Temperature: 97.3 F SBP/DBP: 115/51 Pulse: 67 Resp: 16 MEDICATION ALLERGIES: No Known Drug Allergies (NKDA) ENVIRONMENTAL ALLERGIES: None Known - Substance Allergies None Known - Other Allergies None Known NURSING: - Shower allowing shower - Bladder care per protocol - Skin care per protocol PRECAUTIONS: - Weight Bearing Precaution WBAT right LE ACTIVITIES OOB only with supervision THERAPIES: - Occupational Therapy Evaluate and Treat. Visual Perceptual Training. Cognitive Retraining. - Speech Therapy Cognitive Training. Memory Strategies. Expressive Language Skills. Speech Intelligibility Training. R eceptive Language Skills. - Physical Therapy Evaluate and Treat. PHYSICAL EXAM - Gen Alert and awake Lying in bed No apparent distress Oriented to: person, time, and place - Skin No breakdown No abnormalities - Eyes No abnormalities - ENMT No abnormalities - Neck No abnormalities - CVS RRR - Chest No abnormalities - Abd + bowel sounds - GI Soft Deferred - No abnormalities - Ext No significant edema. - MSK Right lower extremity incoordination and mild weakness - Neuro Right lower extremity incoordination and mild weakness - Psych No abnormalities ASSESSMENT: Pt. is a 63 yo Right-handed white female.On 11/18/2018 Pt. presented to [facility] with sudden onset of right-side weakness.On 11/18/2018 she was admitted to [facility] with diagnosis Left M iddle Cerebellar Peduncle and Left Cerebellar Hemisphere.Her impairment category is Stroke 01 - Righ t Body (Left Brain) (01.2).Pre-morbidly, Pt. was independent/mod-I in Self-Care, Sphincter Control, T ransfers Control, Locomotion, Communication, and Social Cognition; and she had good Sphincter Control .Currently, she has deficits of Self-Care, Transfers Control, Locomotion, Endurance, Balance, and Saf ety Awareness.Pt. is now referred to [facility] for acute in-patient rehabilit ation in order to maximize patient's functional independence in activities of daily living, strength, ROM, and mobility.- Rehab Goal Patient has realistic goal of being discharged at assistance level 6-Mauricio to reside at Home with Fam liset/Relatives. MDM/PLAN: - Physical Therapy Gait dysfunction - to improve, our physical therapists will perform initial evaluation of pt's statu s upon admission and devise an individualized program for Gait Training, and Wheel Chair mobility Inability to transfer - to improve, our physical therapists will perform initial evaluation of pt's status upon admission and devise an individualized program for Bed mobility Need for home safety evaluation - to improve, our physical therapists will perform initial evaluatio n of pt's status upon admission and devise an individualized program for Home Evaluation Need in caregiver upon discharge - to improve, our physical therapists will perform initial evaluati on of pt's status upon admission and devise an individualized program for Caregiver Training Edema - to improve, our physical therapists will perform initial evaluation of pt's status upon admis alexandra and devise an individualized program for Elevation Training, and Lymphedema Therapy New precaution - to improve, our physical therapists will perform initial evaluation of pt's status upon admission and devise an individualized program for Patient precaution education Poor balance - to improve, our physical therapists will perform initial evaluation of pt's status up on admission and devise an individualized program for Balance Training Poor endurance - to improve, our physical therapists will perform initial evaluation of pt's status upon admission and devise an individualized program for Endurance Training Weakness - to improve, our physical therapists will perform initial evaluation of pt's status upon a dmission and devise an individualized program for Aquatic Therapy, Neuromuscular Reeducation, and Str engthening Achieving independence - to improve, our physical therapists will perform initial evaluation of pt's status upon admission and devise an individualized program for Community Reintegration Activities - Occupational Therapy ADL deficits - to improve, our occupation therapists will perform initial evaluation of pt's status upon admission and devise an individualized program for Bathing, Bed mobility, Community Reintegratio n, Cooking, Dressing, Eating, Fine Motor Skills, Grooming, Homemaking, Kitchen Mobility, Laundry, Pat ient Education, Safety Awareness, Splinting - Positioning, Transfers(Toilet, Tub, Shower), and Wheel Chair Management Need for care center manager - to improve, our occupation therapists will perform initial evaluation of pt's status upon admission and devise an individualized program for Caregiver Training Weakness - to improve, our occupation therapists will perform initial evaluation of pt's status upon admission and devise an individualized program for Aquatic Therapy, Balance, Endurance, UE ROM, and UE strengthening - Diet Type Continue Regular - Diet - Liquid Texture Continue Regular - Tube Feed Continue N/A - Bladder care per protocol - Weight Bearing Precaution WBAT right LE - Skin care per protocol - Diet - Solid Texture Continue Regular - Shower allowing shower for Dementia, TBI, Stroke, or others FUNCTIONAL STATUS: UPDATED AT WEEKLY TEAM CONFERENCE - Bladder Same accident frequency: 7-Ind - No accidents in the past 7 days - Bowel Same accident frequency: 7-Ind - No accidents in the past 7 days - Walking Same score based on distance walked: 1(<=50ft) - Wheelchair Same score based on distance traveled: 0(N/A) FUNCTIONAL STATUS: - Self-Care A. Eating sup B. Grooming sup C. Bathing Syeda D. Dressing - Upper Syeda E. Dressing - Lower modA F. Toileting modA - Sphincter Control G: Bladder control Ind H: Bowel control Ind - Transfers Control I. Bed/Chair/Wheelchair Syeda J. Toilet Syeda K. Tub/Shower ADNO - Locomotion L. Walk/Wheelchair (C) modA L. Walk/Wheelchair (W) modA M. Stairs ADNO - Communication N. Comprehension (B) Ind O. Expression (B) Ind - Social Cognition P. Social Interaction Ind Q. Problem Solving Ind R. Memory Ind - Endurance Fair - Balance Fair - Safety Awareness Fair CURRENT FUNC. DEFICITS: Self-Care, Transfers Control, Locomotion, Endurance, Balance, and Safety Awareness SIGNATURE PANEL: (CDT)
--- NOTE | 2018-11-30 19:08 | FAST ---
SHIFT START DATE/TIME: 11/29/2018 19:00 (CDT) SHIFT END DATE/TIME: 11/30/2018 07:00 (CDT) NAME BRITTANY SINGH DATE OF : 1955 DATE OF ADMISSION: 11/25/2018 10:53 (CDT) PHONE: AGE: 63 N# [id number] GENDER: Female ENCOUNTER PHYSICIAN: Dr. Kevin Paniagua M.D. ADMISSION DIAGNOSIS: - Stroke 01 - Right Body (Left Brain) (01.2) Left Middle Cerebellar Peduncle and Left Cerebellar Hemisphere. EATING: Activity did not occur on this shift EATING - SCORE: 0-UNK GROOMING: Activity did not occur on this shift GROOMING - SCORE: 0-UNK BATHING: Activity did not occur on this shift BATHING - SCORE: 0-UNK DRESSING - UPPER BODY: Patient is not dressing in public clothing ARTICLES SCORE Total number of steps: 0 DRESSING - UPPER BODY - SCORE: 0-UNK DRESSING - LOWER BODY: Patient is not dressing in public clothing ARTICLES SCORE Total number of steps: 0 DRESSING - LOWER BODY - SCORE: 0-UNK TOILETING: TOILETING - STEP 1: Does the patient require the assistance of a person or device, or need extra time with toileting? Yes . TOILETING - STEP 2: Does the patient require the assistance of a helper? Yes. TOILETING - STEP 3: How much assistance does the patient require from the helper? Hands-on assistance from the helper TOILETING - STEP 4: Of the 3 tasks: 1) Adjusting clothing prior to use, 2) Cleansing of perineal area, 3) Adjusting clot cierra after use; How many tasks does the patient perform WITHOUT assistance of the helper? No tasks; h ruben performs all three tasks TOILETING - SCORE: 1-DEP BLADDER MANAGEMENT: BLADDER MANAGEMENT - STEP 1: Does the patient control the bladder completely and intentionally without equipment or devices or med ications, and is always continent? No. BLADDER MANAGEMENT - STEP 2: Does the patient require the assistance of a helper? Yes. BLADDER MANAGEMENT - STEP 3: How much assistance does the patient require from the helper? Only set-up of equipment - such as plac ing it within reach of the patient or emptying a device - to maintain either satisfactory voiding pat tern or managing an external device, such as an absorbent pad, ileal device, or catheter BLADDER MANAGEMENT - SCORE: 5-SUP BOWEL MANAGEMENT: Activity did not occur on this shift BOWEL MANAGEMENT - SCORE: 7-IND TRANSFERS: BED, CHAIR, WHEELCHAIR: TRANSFERS: BED, CHAIR, WHEELCHAIR - STEP 1: Does the patient require assistance of a person or device, or need extra time with bed, chair, or whe elchair transfers? Yes. TRANSFERS: BED, CHAIR, WHEELCHAIR - STEP 2: Does the patient require the assistance of a helper? Yes. TRANSFERS: BED, CHAIR, WHEELCHAIR - STEP 3: How much assistance does the patient require from the helper? Steadying/guiding assistance TRANSFERS: BED, CHAIR, WHEELCHAIR - SCORE: 4-MIN TRANSFERS: TOILET: TRANSFERS: TOILET - STEP 1: Does the patient require the assistance of a person or device, or need extra time with toilet transfe rs? Yes. TRANSFERS: TOILET - STEP 2: Does the patient require the assistance of a helper? Yes. TRANSFERS: TOILET - STEP 3: How much assistance does the patient require from the helper? Patient performs half or more of the tr ansferring tasks TRANSFERS: TOILET - STEP 4: Does the patient need only incidental help such as contact guard or steadying during toilet transfer? Yes. TRANSFERS: TOILET - SCORE: 4-MIN TRANSFERS: SHOWER: Activity did not occur on this shift TRANSFERS: SHOWER - SCORE: 0-UNK TRANSFERS: TUB: Activity did not occur on this shift TRANSFERS: TUB - SCORE: 0-UNK LOCOMOTION: WALK: Activity did not occur on this shift LOCOMOTION: WALK - SCORE: 0-UNK LOCOMOTION: WHEELCHAIR: Activity did not occur on this shift LOCOMOTION: WHEELCHAIR - SCORE: 0-UNK COMPREHENSION: COMPREHENSION: TYPE: Both COMPREHENSION - STEP 1: Does the patient require help from a person or device, or need extra time to understand complex and a bstract ideas (such as current events, finances, discharge planning, medical issues, relationships, e tc)? Yes. COMPREHENSION - STEP 2: Does the patient require help to understand questions or statements about basic needs or ideas (such as hunger, thirst, sleep, safety, daily schedule, room location, or discomfort) half or more of the t tashi? No. COMPREHENSION - STEP 3: How often does the patient need help to understand directions and conversation about basic needs? 25% - 49% of the time COMPREHENSION - SCORE: 3-MOD EXPRESSION EXPRESSION: TYPE: Both EXPRESSION - STEP 1: Does the patient require help from a person or device, or need extra time expressing complex and abst ract ideas (such as current events, finances, discharge planning, medical issues, relationships, etc) ? Yes. EXPRESSION - STEP 2: Does the patient require help to express basic necessities or ideas (such as hunger, thirst, sleep, s afety, daily schedule, room location, or discomfort) half or more of the time? No. EXPRESSION - STEP 3: How often does the patient need help to express directions and conversation about basic needs? 25-49% of the time EXPRESSION - SCORE: 3-MOD SOCIAL INTERACTION: SOCIAL INTERACTION - STEP 1: Does the patient require a helper to interact with others in social and therapeutic situations? No. SOCIAL INTERACTION - STEP 2: Does the patient need extra time in social situations, OR does s/he interact with staff, other patien ts, and family members ONLY in structured environments, OR does s/he require medication for social in teraction? Yes, patient requires medication for social interaction SOCIAL INTERACTION - SCORE: 6-NAHUN PROBLEM SOLVING: PROBLEM SOLVING - STEP 1: Does the patient need help from a person or device, or need extra time to solve complex problems such as managing a checking account or confronting interpersonal problems? Yes. PROBLEM SOLVING - STEP 2: Does the patient solve basic routine problems half or more of the time? Yes. PROBLEM SOLVING - STEP 3: How often does the patient need help to solve basic routine problems? 25%-49% of the time PROBLEM SOLVING - SCORE: 3-MOD MEMORY: MEMORY - STEP 1: Does the patient need help from a person or device, or need extra time to remember frequently encount ered people, daily routines, and executing requests? Yes. MEMORY - STEP 2: How often does the patient need help to remember frequently encountered people, daily routines, and e xecuting requests? 25% - 49% of the time MEMORY - SCORE: 3-MOD SIGNATURE PANEL: The following modified sections: Eating - Score, Grooming - Score, Dressing - Upper Body - Score, Tavo ssing - Lower Body - Score, Toileting - Score, Bladder Management - Score, Bowel Management - Score, Transfers: Bed, Chair, Wheelchair - Score, Transfers: Toilet - Score, Transfers: Shower - Score, Lewis sfers: Tub - Score, Locomotion: Walk - Score, Locomotion: Wheelchair - Score, Comprehension - Score, Expression - Score, Social Interaction - Score, Problem Solving - Score, Memory - Score were [electro nically] signed by Elli Perez CNA on TueNov 30 2018 19:07:37 GMT-0500 (Central Daylight Time)
[2018-11-30] MEDS: DOCUSATE NA/SENNA CONC 1 TAB PO SCH (21:00)
[2018-11-30] MEDS: ATORVASTATIN 80 MG TAB PO SCH (21:34)
[2018-11-30] MEDS: DOXEPIN HCL 25 MG CAP PO SCH (21:35)
--- NOTE | 2018-12-01 00:53 | FAST ---
SHIFT START DATE/TIME: 11/30/2018 19:00 (CDT) SHIFT END DATE/TIME: 12/01/2018 07:00 (CDT) NAME BRITTANY SINGH DATE OF : 1955 DATE OF ADMISSION: 11/25/2018 10:53 (CDT) PHONE: AGE: 63 N# [id number] GENDER: Female ENCOUNTER PHYSICIAN: Dr. Kevin Paniagua M.D. ADMISSION DIAGNOSIS: - Stroke 01 - Right Body (Left Brain) (01.2) Left Middle Cerebellar Peduncle and Left Cerebellar Hemisphere. EATING: Activity did not occur on this shift EATING - SCORE: 0-UNK GROOMING: Activity did not occur on this shift GROOMING - SCORE: 0-UNK BATHING: Activity did not occur on this shift BATHING - SCORE: 0-UNK DRESSING - UPPER BODY: Patient is not dressing in public clothing ARTICLES SCORE Total number of steps: 0 DRESSING - UPPER BODY - SCORE: 0-UNK DRESSING - LOWER BODY: Patient is not dressing in public clothing ARTICLES SCORE Total number of steps: 0 DRESSING - LOWER BODY - SCORE: 0-UNK TOILETING: TOILETING - STEP 1: Does the patient require the assistance of a person or device, or need extra time with toileting? Yes . TOILETING - STEP 2: Does the patient require the assistance of a helper? Yes. TOILETING - STEP 3: How much assistance does the patient require from the helper? Hands-on assistance from the helper TOILETING - STEP 4: Of the 3 tasks: 1) Adjusting clothing prior to use, 2) Cleansing of perineal area, 3) Adjusting clot cierra after use; How many tasks does the patient perform WITHOUT assistance of the helper? No tasks; h ruben performs all three tasks TOILETING - SCORE: 1-DEP BLADDER MANAGEMENT: BLADDER MANAGEMENT - STEP 1: Does the patient control the bladder completely and intentionally without equipment or devices or med ications, and is always continent? No. BLADDER MANAGEMENT - STEP 2: Does the patient require the assistance of a helper? Yes. BLADDER MANAGEMENT - STEP 3: How much assistance does the patient require from the helper? Only set-up of equipment - such as plac ing it within reach of the patient or emptying a device - to maintain either satisfactory voiding pat tern or managing an external device, such as an absorbent pad, ileal device, or catheter BLADDER MANAGEMENT - SCORE: 5-SUP BOWEL MANAGEMENT: Activity did not occur on this shift BOWEL MANAGEMENT - SCORE: 7-IND TRANSFERS: BED, CHAIR, WHEELCHAIR: TRANSFERS: BED, CHAIR, WHEELCHAIR - STEP 1: Does the patient require assistance of a person or device, or need extra time with bed, chair, or whe elchair transfers? Yes. TRANSFERS: BED, CHAIR, WHEELCHAIR - STEP 2: Does the patient require the assistance of a helper? Yes. TRANSFERS: BED, CHAIR, WHEELCHAIR - STEP 3: How much assistance does the patient require from the helper? Steadying/guiding assistance TRANSFERS: BED, CHAIR, WHEELCHAIR - SCORE: 4-MIN TRANSFERS: TOILET: TRANSFERS: TOILET - STEP 1: Does the patient require the assistance of a person or device, or need extra time with toilet transfe rs? Yes. TRANSFERS: TOILET - STEP 2: Does the patient require the assistance of a helper? Yes. TRANSFERS: TOILET - STEP 3: How much assistance does the patient require from the helper? Patient performs half or more of the tr ansferring tasks TRANSFERS: TOILET - STEP 4: Does the patient need only incidental help such as contact guard or steadying during toilet transfer? Yes. TRANSFERS: TOILET - SCORE: 4-MIN TRANSFERS: SHOWER: Activity did not occur on this shift TRANSFERS: SHOWER - SCORE: 0-UNK TRANSFERS: TUB: Activity did not occur on this shift TRANSFERS: TUB - SCORE: 0-UNK LOCOMOTION: WALK: Activity did not occur on this shift LOCOMOTION: WALK - SCORE: 0-UNK LOCOMOTION: WHEELCHAIR: Activity did not occur on this shift LOCOMOTION: WHEELCHAIR - SCORE: 0-UNK COMPREHENSION: COMPREHENSION: TYPE: Both COMPREHENSION - STEP 1: Does the patient require help from a person or device, or need extra time to understand complex and a bstract ideas (such as current events, finances, discharge planning, medical issues, relationships, e tc)? Yes. COMPREHENSION - STEP 2: Does the patient require help to understand questions or statements about basic needs or ideas (such as hunger, thirst, sleep, safety, daily schedule, room location, or discomfort) half or more of the t tashi? Yes. COMPREHENSION - STEP 3: Is the patient basically able to understand and respond appropriately and consistently? Yes. COMPREHENSION - SCORE: 2-MAX EXPRESSION EXPRESSION: TYPE: Both EXPRESSION - STEP 1: Does the patient require help from a person or device, or need extra time expressing complex and abst ract ideas (such as current events, finances, discharge planning, medical issues, relationships, etc) ? Yes. EXPRESSION - STEP 2: Does the patient require help to express basic necessities or ideas (such as hunger, thirst, sleep, s afety, daily schedule, room location, or discomfort) half or more of the time? No. EXPRESSION - STEP 3: How often does the patient need help to express directions and conversation about basic needs? 10-24% of the time EXPRESSION - SCORE: 4-MIN SOCIAL INTERACTION: SOCIAL INTERACTION - STEP 1: Does the patient require a helper to interact with others in social and therapeutic situations? No. SOCIAL INTERACTION - STEP 2: Does the patient need extra time in social situations, OR does s/he interact with staff, other patien ts, and family members ONLY in structured environments, OR does s/he require medication for social in teraction? Yes, patient requires medication for social interaction SOCIAL INTERACTION - SCORE: 6-NAHUN PROBLEM SOLVING: PROBLEM SOLVING - STEP 1: Does the patient need help from a person or device, or need extra time to solve complex problems such as managing a checking account or confronting interpersonal problems? Yes. PROBLEM SOLVING - STEP 2: Does the patient solve basic routine problems half or more of the time? Yes. PROBLEM SOLVING - STEP 3: How often does the patient need help to solve basic routine problems? 25%-49% of the time PROBLEM SOLVING - SCORE: 3-MOD MEMORY: MEMORY - STEP 1: Does the patient need help from a person or device, or need extra time to remember frequently encount ered people, daily routines, and executing requests? Yes. MEMORY - STEP 2: How often does the patient need help to remember frequently encountered people, daily routines, and e xecuting requests? 25% - 49% of the time MEMORY - SCORE: 3-MOD SIGNATURE PANEL: The following modified sections: Eating - Score, Grooming - Score, Dressing - Upper Body - Score, Tavo ssing - Lower Body - Score, Toileting - Score, Bladder Management - Score, Bowel Management - Score, Transfers: Bed, Chair, Wheelchair - Score, Transfers: Toilet - Score, Transfers: Shower - Score, Lewis sfers: Tub - Score, Locomotion: Walk - Score, Locomotion: Wheelchair - Score, Comprehension - Score, Expression - Score, Social Interaction - Score, Problem Solving - Score, Memory - Score were [electro nically] signed by Elli Perez CNA on TueDec 01 2018 00:52:28 GMT-0500 (Central Daylight Time)
[2018-12-01] MEDS: METOPROLOL TAR 25 MG TAB PO SCH ×2 (05:24→17:07)
[2018-12-01] MEDS: NICOTINE 14 MG/PAT TD SCH (07:12)
[2018-12-01] MEDS: DIGOXIN 0.125 MG TABLET PO SCH (07:13)
[2018-12-01] MEDS: FUROSEMIDE 20 MG TABLET PO SCH ×2 (07:13→07:32)
[2018-12-01] MEDS: POTASSIUM 25 MEQ EFFERV TAB PO SCH (07:13)
[2018-12-01] MEDS: CYANOCOBALAMIN 1,000 MCG TAB PO SCH (07:13)
[2018-12-01] MEDS: APIXABAN 5 MG TABLET PO SCH ×2 (07:14→21:31)
[2018-12-01] MEDS: NYSTATIN 500,000 UNIT/5 ML UDC PO SCH ×2 (07:14→21:32)
[2018-12-01] MEDS: MAGNESIUM OXIDE 400 MG TAB PO SCH ×2 (07:14→21:31)
[2018-12-01] MEDS: LISINOPRIL 20 MG TAB PO SCH ×2 (07:14→07:33)
--- NOTE | 2018-12-01 09:54 | P.RH.PN ---
Estimated Length of Stay: 18 Expected Discharge Date: 11/11/18 Discharge Disposition Plan: Home Family Support: Yes Long-Term Goal: Mobility, Transfers, Self Care Vital Signs: Last Vital Signs Temp 97.9 F 12/01/18 07:00 Pulse 64 12/01/18 07:33 Resp 16 12/01/18 07:00 BP 114/71 12/01/18 07:33 Pulse Ox 87 L 12/01/18 07:00 Laboratory: Laboratory Last Values WBC 8.0 K/uL (4.3-10.9) D 11/30/18 06:35 RBC 4.52 M/uL (3.86-4.86) 11/30/18 06:35 Hgb 11.7 g/dL (12.0-15.0) L 11/30/18 06:35 Hct 34.9 % (36.0-45.0) L 11/30/18 06:35 MCV 77.1 fL (80-100) L 11/30/18 06:35 MCH 25.8 pg (27.0-35.0) L 11/30/18 06:35 MCHC 33.5 g/dL (32.0-36.0) 11/30/18 06:35 RDW 22.6 % (12.1-15.2) H 11/30/18 06:35 Plt Count 169 K/uL (152-406) 11/30/18 06:35 MPV 11.4 fL (7.6-11.3) H 11/30/18 06:35 Neutrophils % 55.1 % (41.7-73.7) 11/30/18 06:35 Lymphocytes % 26.3 % (15.3-44.8) 11/30/18 06:35 Monocytes % 4.3 % (3.3-12.3) 11/30/18 06:35 Eosinophils % 1.6 % (0-4.4) 11/30/18 06:35 Basophils % 12.7 % (0-1.3) H 11/30/18 06:35 Absolute Neutrophils 4.4 K/uL (1.8-8.0) 11/30/18 06:35 Segmented Neutrophils 60 % (40-80) 11/30/18 06:35 Band Neutrophils 2 % (0-1) H 11/30/18 06:35 Absolute Lymphocytes 2.1 K/uL (0.7-4.9) 11/30/18 06:35 Lymphocytes 26 % (15-42) 11/30/18 06:35 Monocytes 5 % (0-10) 11/30/18 06:35 Absolute Monocytes 0.3 K/uL (0.1-1.3) 11/30/18 06:35 Eosinophils 2 % (0-3) 11/30/18 06:35 Absolute Eosinophils 0.1 K/uL (0-0.5) 11/30/18 06:35 Basophils 5 % (0-1) H 11/30/18 06:35 Absolute Basophils 1.0 K/uL (0-0.5) H 11/30/18 06:35 Giant Platelets Present 11/30/18 06:35 Anisocytosis 2+ 11/30/18 06:35 Ovalocytes 2+ 11/30/18 06:35 Ibis Cells 1+ 11/30/18 06:35 Schistocytes 1+ 11/30/18 06:35 Morphology Comment Noted (NOT SEEN) 11/30/18 06:35 pH 7.45 (7.35-7.45) 11/29/18 17:37 pCO2 36.9 mmHG (35-45) 11/29/18 17:37 pO2 77.6 mmHG (75-100) 11/29/18 17:37 HCO3 25.3 mmol/L (22-28) 11/29/18 17:37 Base Excess 1.7 mmol/L 11/29/18 17:37 Oxyhemoglobin 94.0 % (94-97) 11/29/18 17:37 ABG O2 Sat (Measured) 95.9 % (92-98.5) 11/29/18 17:37 ABG Carboxyhemoglobin 1.5 % (0-1.5) 11/29/18 17:37 ABG Methemoglobin 0.5 % (0-1.5) 11/29/18 17:37 Other Total Hgb 11.2 g/dl (12-18) L 11/29/18 17:37 Inspired O2 21.0 % 11/29/18 17:37 Sodium 144 mmol/L (136-145) 11/30/18 06:35 Potassium 3.2 mmol/L (3.5-5.1) L 11/30/18 06:35 Chloride 111 mmol/L (98-107) H 11/30/18 06:35 Carbon Dioxide 27 mmol/L (21-32) 11/30/18 06:35 BUN 10 mg/dL (7-18) 11/30/18 06:35 Creatinine 0.86 mg/dL (0.55-1.3) 11/30/18 06:35 Estimated GFR 67 mL/min (=/>90) L 11/30/18 06:35 Glucose 125 mg/dL (74-106) H 11/30/18 06:35 Calcium 8.7 mg/dL (8.5-10.1) 11/30/18 06:35 Magnesium 2.1 mg/dL (1.8-2.4) 11/30/18 06:35 Albumin 3.2 g/dL (3.4-5.0) L 11/30/18 06:35 Prealbumin 15.1 mg/dL (20-40) L 11/30/18 06:35 Urine Color Yellow 11/26/18 17:55 Urine Appearance Cloudy 11/26/18 17:55 Urine pH 5.5 (5.0-7.0) 11/26/18 17:55 Ur Specific [place] 1.015 (1.005-1.030) 11/26/18 17:55 Urine Ketones Negative (NEG) 11/26/18 17:55 Urine Blood Negative (NEG) 11/26/18 17:55 Urine Nitrite Negative (NEG) 11/26/18 17:55 Urine Bilirubin Negative (NEG) 11/26/18 17:55 Urine Urobilinogen 0.2 mg/dL (0.2-1.0) 11/26/18 17:55 Ur Leukocyte Esterase 1+ (NEG) H 11/26/18 17:55 Urine RBC None seen /HPF (NONE SEEN) 11/26/18 17:55 Urine WBC 10-20 /HPF (<5) H 11/26/18 17:55 Ur Squamous Epith Cells 5-10 /HPF (NONE SEEN) H 11/26/18 17:55 Urine Bacteria 20-50 /HPF (<20) H 11/26/18 17:55 Urine Mucus Mod /HPF (NONE SEEN) 11/26/18 17:55 Urine Culture Reflexed Not needed 11/26/18 17:55 Urine Glucose Negative (NEG) 11/26/18 17:55 Urine Total Protein Negative (NEG) 11/26/18 17:55 Digoxin 0.10 ng/mL (0.80-2.00) L 11/27/18 06:40 Weight: 130 lb 1 oz Wound Present: Yes Closed Surgical Incision Present: Yes Negative Pressure Wound Therapy Present: No Physician Update: Labs have been reviewed and are stable. Her K is low and she has 10 meq of K daily. She is mild progress with ADL but is impulsive. She is doing better with swallowing when alert. Will start vitamin B12 1000 mcg daily. Functional Improvement: Patient has not met goals at this time. Patient is currently working to improve technique w/ transfers and gait training, however cognition is an issue. Functional Improvement Occupational Therapy: Cont to address pt's vision with exercises to increase pt's focus and cont to educate and train pt on safety and energy conservation techniques for safety due to pt's fall risk for impulsiveness and weakness. cont to encourage pt to participate in therapy. Summary: Patient's care plan and shelter goals have been reviewed and revised as necessary. Please see the Rehabilitation Signature page for all necessary signatures.
--- NOTE | 2018-12-01 11:32 | FAST ---
ENCOUNTER DATE AND TIME: 12/01/2018 08:00 (CDT) NAME BRITTANY SINGH DATE OF : 1955 DATE OF ADMISSION: 11/25/2018 10:53 (CDT) PHONE: AGE: 63 N# [id number] GENDER: Female ENCOUNTER PHYSICIAN: Dr. Kevin Paniagua M.D. ADMISSION DIAGNOSIS: - Stroke 01 - Right Body (Left Brain) (01.2) Left Middle Cerebellar Peduncle and Left Cerebellar Hemisphere. EATING: Activity did not occur on this shift EATING - SCORE: 0-UNK GROOMING: Wash, rinse, and dry face Wash, rinse, and dry hands GROOMING - STEP 1: Does the patient require the assistance of a person or device, or need extra time when grooming? Yes. GROOMING - STEP 2: Does the patient require the assistance of a helper? Yes. GROOMING - STEP 3: How much assistance does the patient require from the helper? Cuing, coaxing, instructions, or encour agement for completion of grooming GROOMING - SCORE: 5-SUP BATHING: Activity did not occur on this shift BATHING - SCORE: 0-UNK DRESSING - UPPER BODY: Activity did not occur on this shift ARTICLES SCORE Total number of steps: 0 DRESSING - UPPER BODY - SCORE: 0-UNK DRESSING - LOWER BODY: Sock - Left foot (one step) Sock - Right foot (one step) Underwear (three steps) Zippered pants (four steps) ARTICLES SCORE Total number of steps: 9 DRESSING - LOWER BODY - STEP 1: Does the patient require help from a person or device, or need extra time when dressing below the diego st? Yes. DRESSING - LOWER BODY - STEP 2: Does the patient require the assistance of a helper? Yes. DRESSING - LOWER BODY - STEP 3: Does the helper touch the patient while dressing? No. DRESSING - LOWER BODY - SCORE: 5-SUP TOILETING: TOILETING - STEP 1: Does the patient require the assistance of a person or device, or need extra time with toileting? Yes . TOILETING - STEP 2: Does the patient require the assistance of a helper? Yes. TOILETING - STEP 3: How much assistance does the patient require from the helper? Only supervision TOILETING - SCORE: 5-SUP BLADDER MANAGEMENT: Activity did not occur on this shift BLADDER MANAGEMENT - SCORE: 7-IND BOWEL MANAGEMENT: Activity did not occur on this shift BOWEL MANAGEMENT - SCORE: 7-IND TRANSFERS: BED, CHAIR, WHEELCHAIR: TRANSFERS: BED, CHAIR, WHEELCHAIR - STEP 1: Does the patient require assistance of a person or device, or need extra time with bed, chair, or whe elchair transfers? Yes. TRANSFERS: BED, CHAIR, WHEELCHAIR - STEP 2: Does the patient require the assistance of a helper? Yes. TRANSFERS: BED, CHAIR, WHEELCHAIR - STEP 3: How much assistance does the patient require from the helper? Steadying/guiding assistance TRANSFERS: BED, CHAIR, WHEELCHAIR - SCORE: 4-MIN TRANSFERS: TOILET: TRANSFERS: TOILET - STEP 1: Does the patient require the assistance of a person or device, or need extra time with toilet transfe rs? Yes. TRANSFERS: TOILET - STEP 2: Does the patient require the assistance of a helper? Yes. TRANSFERS: TOILET - STEP 3: How much assistance does the patient require from the helper? Patient performs half or more of the tr ansferring tasks TRANSFERS: TOILET - STEP 4: Does the patient need only incidental help such as contact guard or steadying during toilet transfer? Yes. TRANSFERS: TOILET - SCORE: 4-MIN TRANSFERS: SHOWER: Activity did not occur on this shift TRANSFERS: SHOWER - SCORE: 0-UNK TRANSFERS: TUB: Activity did not occur on this shift TRANSFERS: TUB - SCORE: 0-UNK LOCOMOTION: WALK: Activity did not occur on this shift LOCOMOTION: WALK - SCORE: 0-UNK LOCOMOTION: WHEELCHAIR: Activity did not occur on this shift LOCOMOTION: WHEELCHAIR - SCORE: 0-UNK LOCOMOTION: STAIRS: Activity did not occur on this shift LOCOMOTION: STAIRS - SCORE: 0-UNK COMPREHENSION: COMPREHENSION: TYPE: Auditory COMPREHENSION - STEP 1: Does the patient require help from a person or device, or need extra time to understand complex and a bstract ideas (such as current events, finances, discharge planning, medical issues, relationships, e tc)? Yes. COMPREHENSION - STEP 2: Does the patient require help to understand questions or statements about basic needs or ideas (such as hunger, thirst, sleep, safety, daily schedule, room location, or discomfort) half or more of the t tashi? No. COMPREHENSION - STEP 3: How often does the patient need help to understand directions and conversation about basic needs? 25% - 49% of the time COMPREHENSION - SCORE: 3-MOD EXPRESSION EXPRESSION: TYPE: Both EXPRESSION - STEP 1: Does the patient require help from a person or device, or need extra time expressing complex and abst ract ideas (such as current events, finances, discharge planning, medical issues, relationships, etc) ? Yes. EXPRESSION - STEP 2: Does the patient require help to express basic necessities or ideas (such as hunger, thirst, sleep, s afety, daily schedule, room location, or discomfort) half or more of the time? No. EXPRESSION - STEP 3: How often does the patient need help to express directions and conversation about basic needs? 25-49% of the time EXPRESSION - SCORE: 3-MOD SOCIAL INTERACTION: SOCIAL INTERACTION - STEP 1: Does the patient require a helper to interact with others in social and therapeutic situations? Yes. SOCIAL INTERACTION - STEP 2: Does the patient interact appropriately half or more of the time? Yes. SOCIAL INTERACTION - STEP 3: How often does the patient need help to interact appropriately? 25-49% of the time SOCIAL INTERACTION - SCORE: 3-MOD PROBLEM SOLVING: PROBLEM SOLVING - STEP 1: Does the patient need help from a person or device, or need extra time to solve complex problems such as managing a checking account or confronting interpersonal problems? Yes. PROBLEM SOLVING - STEP 2: Does the patient solve basic routine problems half or more of the time? No. PROBLEM SOLVING - STEP 3: Does the patient need help to solve problems all the time or is s/he unable to solve problems? No. Pa thangnt can sometimes solve problems PROBLEM SOLVING - SCORE: 2-MAX MEMORY: MEMORY - STEP 1: Does the patient need help from a person or device, or need extra time to remember frequently encount ered people, daily routines, and executing requests? Yes. MEMORY - STEP 2: How often does the patient need help to remember frequently encountered people, daily routines, and e xecuting requests? More than 50% of the time MEMORY - STEP 3: Does the patient need help to remember all of the time OR does s/he not effectively recognize and rem ember? No. Patient does not need help all the time MEMORY - SCORE: 2-MAX SIGNATURE PANEL: The following modified sections: Eating - Score, Grooming - Score, Bathing - Score, Dressing - Upper Body - Score, Dressing - Lower Body - Score, Toileting - Score, Transfers: Bed, Chair, Wheelchair - S core, Transfers: Toilet - Score, Transfers: Shower - Score, Transfers: Tub - Score, Comprehension - S core, Expression - Score, Social Interaction - Score, Problem Solving - Score, Memory - Score were [e lectronically] signed by Tania Damon OT on TueDec 01 2018 11:31:08 [facility]-0500 ([facility] ylight Time)
--- NOTE | 2018-12-01 11:45 | FAST ---
SHIFT START DATE/TIME: 12/01/2018 07:00 (CDT) SHIFT END DATE/TIME: 12/01/2018 19:00 (CDT) NAME BRITTANY SINGH DATE OF : 1955 DATE OF ADMISSION: 11/25/2018 10:53 (CDT) PHONE: AGE: 63 N# [id number] GENDER: Female ENCOUNTER PHYSICIAN: Dr. Kevin Paniagua M.D. ADMISSION DIAGNOSIS: - Stroke 01 - Right Body (Left Brain) (01.2) Left Middle Cerebellar Peduncle and Left Cerebellar Hemisphere. EATING: EATING - STEP 1: Does the patient require the assistance of a person or device, or need extra time when eating? No. EATING - SCORE: 7-IND GROOMING: Activity did not occur on this shift GROOMING - SCORE: 0-UNK BATHING: Activity did not occur on this shift BATHING - SCORE: 0-UNK DRESSING - UPPER BODY: Activity did not occur on this shift ARTICLES SCORE Total number of steps: 0 DRESSING - UPPER BODY - SCORE: 0-UNK DRESSING - LOWER BODY: Elastic waist pants (three steps) Sock - Left foot (one step) Sock - Right foot (one step) ARTICLES SCORE Total number of steps: 5 DRESSING - LOWER BODY - STEP 1: Does the patient require help from a person or device, or need extra time when dressing below the diego st? Yes. DRESSING - LOWER BODY - STEP 2: Does the patient require the assistance of a helper? Yes. DRESSING - LOWER BODY - STEP 3: Does the helper touch the patient while dressing? Yes. DRESSING - LOWER BODY - STEP 4: How many of the total steps does the patient complete on his/her own? 4 DRESSING - LOWER BODY - SCORE: 4-MIN TOILETING: TOILETING - STEP 1: Does the patient require the assistance of a person or device, or need extra time with toileting? Yes . TOILETING - STEP 2: Does the patient require the assistance of a helper? Yes. TOILETING - STEP 3: How much assistance does the patient require from the helper? Only supervision TOILETING - SCORE: 5-SUP BLADDER MANAGEMENT: BLADDER MANAGEMENT - STEP 1: Does the patient control the bladder completely and intentionally without equipment or devices or med ications, and is always continent? Yes. BLADDER MANAGEMENT - SCORE: 7-IND BLADDER MANAGEMENT - FREQUENCY OF ACCIDENTS: BLADDER MANAGEMENT(FA) - STEP 1: How many accidents has the patient had during the current shift? 0 BOWEL MANAGEMENT: BOWEL MANAGEMENT - STEP 1: Does the patient control bowels completely and intentionally without equipment devices or medications AND is always continent? Yes. BOWEL MANAGEMENT - SCORE: 7-IND BOWEL MANAGEMENT - FREQUENCY OF ACCIDENTS: BOWEL MANAGEMENT(FA) - STEP 1: How many accidents has the patient had during the current shift? 0 TRANSFERS: BED, CHAIR, WHEELCHAIR: TRANSFERS: BED, CHAIR, WHEELCHAIR - STEP 1: Does the patient require assistance of a person or device, or need extra time with bed, chair, or whe elchair transfers? Yes. TRANSFERS: BED, CHAIR, WHEELCHAIR - STEP 2: Does the patient require the assistance of a helper? Yes. TRANSFERS: BED, CHAIR, WHEELCHAIR - STEP 3: How much assistance does the patient require from the helper? Only supervision TRANSFERS: BED, CHAIR, WHEELCHAIR - SCORE: 5-SUP TRANSFERS: TOILET: TRANSFERS: TOILET - STEP 1: Does the patient require the assistance of a person or device, or need extra time with toilet transfe rs? Yes. TRANSFERS: TOILET - STEP 2: Does the patient require the assistance of a helper? Yes. TRANSFERS: TOILET - STEP 3: How much assistance does the patient require from the helper? Only supervision, cuing, coaxing, OR he lp to set out transfer equipment or to lock brakes and/or lift foot rests TRANSFERS: TOILET - SCORE: 5-SUP TRANSFERS: SHOWER: Activity did not occur on this shift TRANSFERS: SHOWER - SCORE: 0-UNK TRANSFERS: TUB: Activity did not occur on this shift TRANSFERS: TUB - SCORE: 0-UNK LOCOMOTION: WALK: Activity did not occur on this shift LOCOMOTION: WALK - SCORE: 0-UNK LOCOMOTION: WHEELCHAIR: Activity did not occur on this shift LOCOMOTION: WHEELCHAIR - SCORE: 0-UNK COMPREHENSION: COMPREHENSION - SCORE: 0-UNK EXPRESSION EXPRESSION - SCORE: 0-UNK SOCIAL INTERACTION: SOCIAL INTERACTION - SCORE: 0-UNK PROBLEM SOLVING: PROBLEM SOLVING - SCORE: 0-UNK MEMORY: MEMORY - SCORE: 0-UNK SIGNATURE PANEL: The following modified sections: Eating - Score, Grooming - Score, Bathing - Score, Dressing - Upper Body - Score, Dressing - Lower Body - Score, Toileting - Score, Bladder Management - Score, Bowel Man agement - Score, Transfers: Bed, Chair, Wheelchair - Score, Transfers: Toilet - Score, Transfers: Miriam wer - Score, Transfers: Tub - Score, Locomotion: Walk - Score, Locomotion: Wheelchair - Score, Compre hension - Score, Expression - Score, Social Interaction - Score, Problem Solving - Score, Memory - Sc ore were [electronically] signed by Merly Gaviria CNA on TueDec 01 2018 11:44:00 T-0500 ([facility])
--- NOTE | 2018-12-01 14:24 | FAST ---
ENCOUNTER DATE AND TIME: 11/30/2018 08:00 (CDT) NAME BRITTANY SINGH DATE OF : 1955 DATE OF ADMISSION: 11/25/2018 10:53 (CDT) PHONE: AGE: 63 SSN# [id number] GENDER: Female ENCOUNTER PHYSICIAN: Dr. Kevin Paniagua M.D. ADMISSION DIAGNOSIS: - Stroke 01 - Right Body (Left Brain) (01.2) Left Middle Cerebellar Peduncle and Left Cerebellar Hemisphere. EATING: Activity did not occur on this shift EATING - SCORE: 0-UNK GROOMING: Activity did not occur on this shift GROOMING - SCORE: 0-UNK BATHING: Activity did not occur on this shift BATHING - SCORE: 0-UNK DRESSING - UPPER BODY: Activity did not occur on this shift Patient is not dressing in public clothing ARTICLES SCORE Total number of steps: 0 DRESSING - UPPER BODY - SCORE: 0-UNK DRESSING - LOWER BODY: Activity did not occur on this shift Patient is not dressing in public clothing ARTICLES SCORE Total number of steps: 0 DRESSING - LOWER BODY - SCORE: 0-UNK TOILETING: Activity did not occur on this shift TOILETING - SCORE: 0-UNK BLADDER MANAGEMENT: Activity did not occur on this shift BLADDER MANAGEMENT - SCORE: 7-IND BOWEL MANAGEMENT: Activity did not occur on this shift BOWEL MANAGEMENT - SCORE: 7-IND TRANSFERS: BED, CHAIR, WHEELCHAIR: TRANSFERS: BED, CHAIR, WHEELCHAIR - STEP 1: Does the patient require assistance of a person or device, or need extra time with bed, chair, or whe elchair transfers? Yes. TRANSFERS: BED, CHAIR, WHEELCHAIR - STEP 2: Does the patient require the assistance of a helper? Yes. TRANSFERS: BED, CHAIR, WHEELCHAIR - STEP 3: How much assistance does the patient require from the helper? Steadying/guiding assistance TRANSFERS: BED, CHAIR, WHEELCHAIR - SCORE: 4-MIN TRANSFERS: TOILET: Activity did not occur on this shift TRANSFERS: TOILET - SCORE: 0-UNK TRANSFERS: SHOWER: Activity did not occur on this shift TRANSFERS: SHOWER - SCORE: 0-UNK TRANSFERS: TUB: Activity did not occur on this shift TRANSFERS: TUB - SCORE: 0-UNK LOCOMOTION: WALK: LOCOMOTION: WALK - STEP 1: Does the patient need help from a person or device, or need extra time to walk 150 feet? Yes. LOCOMOTION: WALK - STEP 2: How much assistance does the patient require to walk a minimum of 150 feet? Only incidental help such as contact guarding or steadying LOCOMOTION: WALK - SCORE: 4-MIN LOCOMOTION: WHEELCHAIR: LOCOMOTION: WHEELCHAIR - STEP 1: Does the patient need help to go 150 feet in a wheelchair? Yes. LOCOMOTION: WHEELCHAIR - STEP 2: How much assistance does the patient need from the helper? Only incidental help such as around corner s or over thresholds LOCOMOTION: WHEELCHAIR - SCORE: 4-MIN LOCOMOTION: STAIRS: Activity did not occur on this shift LOCOMOTION: STAIRS - SCORE: 0-UNK COMPREHENSION: COMPREHENSION - SCORE: 0-UNK EXPRESSION EXPRESSION - SCORE: 0-UNK SOCIAL INTERACTION: SOCIAL INTERACTION - SCORE: 0-UNK PROBLEM SOLVING: PROBLEM SOLVING - SCORE: 0-UNK MEMORY: MEMORY - SCORE: 0-UNK SIGNATURE PANEL: The following modified sections: Transfers: Bed, Chair, Wheelchair - Score, Transfers: Toilet - Score , Locomotion: Walk - Score, Locomotion: Wheelchair - Score, Locomotion: Stairs - Score were [electron sean] signed by Tha Rinaldi PTA on TueDec 01 2018 14:23:21 GMT-0500 (Central Daylight Time)
--- NOTE | 2018-12-01 14:51 | FAST ---
ENCOUNTER DATE AND TIME: 12/01/2018 08:00 (CDT) NAME BRITTANY SINGH DATE OF : 1955 DATE OF ADMISSION: 11/25/2018 10:53 (CDT) PHONE: AGE: 63 SSN# [id number] GENDER: Female ENCOUNTER PHYSICIAN: Dr. Kevin Paniagua M.D. ADMISSION DIAGNOSIS: - Stroke 01 - Right Body (Left Brain) (01.2) Left Middle Cerebellar Peduncle and Left Cerebellar Hemisphere. EATING: Activity did not occur on this shift EATING - SCORE: 0-UNK GROOMING: Activity did not occur on this shift GROOMING - SCORE: 0-UNK BATHING: Activity did not occur on this shift BATHING - SCORE: 0-UNK DRESSING - UPPER BODY: Activity did not occur on this shift Patient is not dressing in public clothing ARTICLES SCORE Total number of steps: 0 DRESSING - UPPER BODY - SCORE: 0-UNK DRESSING - LOWER BODY: Activity did not occur on this shift Patient is not dressing in public clothing ARTICLES SCORE Total number of steps: 0 DRESSING - LOWER BODY - SCORE: 0-UNK TOILETING: Activity did not occur on this shift TOILETING - SCORE: 0-UNK BLADDER MANAGEMENT: Activity did not occur on this shift BLADDER MANAGEMENT - SCORE: 7-IND BOWEL MANAGEMENT: Activity did not occur on this shift BOWEL MANAGEMENT - SCORE: 7-IND TRANSFERS: BED, CHAIR, WHEELCHAIR: TRANSFERS: BED, CHAIR, WHEELCHAIR - STEP 1: Does the patient require assistance of a person or device, or need extra time with bed, chair, or whe elchair transfers? Yes. TRANSFERS: BED, CHAIR, WHEELCHAIR - STEP 2: Does the patient require the assistance of a helper? Yes. TRANSFERS: BED, CHAIR, WHEELCHAIR - STEP 3: How much assistance does the patient require from the helper? Steadying/guiding assistance TRANSFERS: BED, CHAIR, WHEELCHAIR - SCORE: 4-MIN TRANSFERS: TOILET: Activity did not occur on this shift TRANSFERS: TOILET - SCORE: 0-UNK TRANSFERS: SHOWER: Activity did not occur on this shift TRANSFERS: SHOWER - SCORE: 0-UNK TRANSFERS: TUB: Activity did not occur on this shift TRANSFERS: TUB - SCORE: 0-UNK LOCOMOTION: WALK: LOCOMOTION: WALK - STEP 1: Does the patient need help from a person or device, or need extra time to walk 150 feet? Yes. LOCOMOTION: WALK - STEP 2: How much assistance does the patient require to walk a minimum of 150 feet? Only incidental help such as contact guarding or steadying LOCOMOTION: WALK - SCORE: 4-MIN LOCOMOTION: WHEELCHAIR: LOCOMOTION: WHEELCHAIR - STEP 1: Does the patient need help to go 150 feet in a wheelchair? Yes. LOCOMOTION: WHEELCHAIR - STEP 2: How much assistance does the patient need from the helper? Only incidental help such as around corner s or over thresholds LOCOMOTION: WHEELCHAIR - SCORE: 4-MIN LOCOMOTION: STAIRS: Activity did not occur on this shift LOCOMOTION: STAIRS - SCORE: 0-UNK COMPREHENSION: COMPREHENSION - SCORE: 0-UNK EXPRESSION EXPRESSION - SCORE: 0-UNK SOCIAL INTERACTION: SOCIAL INTERACTION - SCORE: 0-UNK PROBLEM SOLVING: PROBLEM SOLVING - SCORE: 0-UNK MEMORY: MEMORY - SCORE: 0-UNK SIGNATURE PANEL: The following modified sections: Transfers: Bed, Chair, Wheelchair - Score, Transfers: Toilet - Score , Locomotion: Walk - Score, Locomotion: Wheelchair - Score, Locomotion: Stairs - Score were [nazanin [email or web address]] signed by Tha Rinaldi PTA on TueDec 01 2018 14:50:05 GMT-0500 (Central Daylight Time)
[2018-12-01] MEDS: ACETAMINOPHEN 500 MG TAB PO PRN (17:40)
--- NOTE | 2018-12-01 20:13 | RAD REPORT ---
EXAM DESCRIPTION: CT - Head Brain Wo Cont - 12/01/2018 7:59 pm CLINICAL HISTORY: Alteration of awareness/confusion COMPARISON: None TECHNIQUE: Computed axial tomography of the head was obtained. IV contrast was not requested. All CT scans are performed using dose optimization technique as appropriate and may include automated exposure control or mA/KV adjustment according to patient size. FINDINGS: 5 millimeter area of increased density is present within the posterior right temporal lobe . The ventricles are normal in caliber. No extra-axial fluid collection is noted. Small low-density area within the left basal ganglia likely represents an old lacunar infarct. Fluid within the sinuses/ mastoids is not seen. IMPRESSION: The patient has a history of a recent bleed. 5 millimeter area of increased density with in the posterior right temporal lobe most likely represents an intraparenchymal bleed. This should be correlated with prior exam.
[2018-12-01] MEDS: TOPIRAMATE 25 MG TAB PO SCH (21:00)
[2018-12-01] MEDS: DOXEPIN HCL 25 MG CAP PO SCH (21:00)
[2018-12-01] MEDS: GABAPENTIN 100 MG CAP PO SCH (21:00)
[2018-12-01] MEDS: DOCUSATE NA/SENNA CONC 1 TAB PO SCH (21:31)
[2018-12-01] MEDS: ATORVASTATIN 80 MG TAB PO SCH (21:31)
[2018-12-01] MEDS: PROMOD 30 ML DOSE PO SCH (21:32)
--- NOTE | 2018-12-02 02:24 | FAST ---
SHIFT START DATE/TIME: 12/01/2018 19:00 (CDT) SHIFT END DATE/TIME: 12/02/2018 07:00 (CDT) NAME BRITTANY SINGH DATE OF : 1955 DATE OF ADMISSION: 11/25/2018 10:53 (CDT) PHONE: AGE: 63 N# [id number] GENDER: Female ENCOUNTER PHYSICIAN: Dr. Kevin Paniagua M.D. ADMISSION DIAGNOSIS: - Stroke 01 - Right Body (Left Brain) (01.2) Left Middle Cerebellar Peduncle and Left Cerebellar Hemisphere. EATING: Activity did not occur on this shift EATING - SCORE: 0-UNK GROOMING: Activity did not occur on this shift GROOMING - SCORE: 0-UNK BATHING: Activity did not occur on this shift BATHING - SCORE: 0-UNK DRESSING - UPPER BODY: Patient is not dressing in public clothing ARTICLES SCORE Total number of steps: 0 DRESSING - UPPER BODY - SCORE: 0-UNK DRESSING - LOWER BODY: Patient is not dressing in public clothing ARTICLES SCORE Total number of steps: 0 DRESSING - LOWER BODY - SCORE: 0-UNK TOILETING: TOILETING - STEP 1: Does the patient require the assistance of a person or device, or need extra time with toileting? Yes . TOILETING - STEP 2: Does the patient require the assistance of a helper? Yes. TOILETING - STEP 3: How much assistance does the patient require from the helper? Hands-on assistance from the helper TOILETING - STEP 4: Of the 3 tasks: 1) Adjusting clothing prior to use, 2) Cleansing of perineal area, 3) Adjusting clot cierra after use; How many tasks does the patient perform WITHOUT assistance of the helper? Three tasks with steadying assistance from the helper TOILETING - SCORE: 4-MIN BLADDER MANAGEMENT: BLADDER MANAGEMENT - STEP 1: Does the patient control the bladder completely and intentionally without equipment or devices or med ications, and is always continent? No. BLADDER MANAGEMENT - STEP 2: Does the patient require the assistance of a helper? Yes. BLADDER MANAGEMENT - STEP 3: How much assistance does the patient require from the helper? Patient requires contact assistance fro m the helper BLADDER MANAGEMENT - STEP 4: How much contact assistance does the patient require from the helper? Patient requires minimal assist ance to maintain an external device - by positioning, and the patient performs 75% or more of bladder management tasks, while the helper provides less than 25% of the assistance to position patient on / off bedpan BLADDER MANAGEMENT - SCORE: 4-MIN BOWEL MANAGEMENT: Activity did not occur on this shift BOWEL MANAGEMENT - SCORE: 7-IND TRANSFERS: BED, CHAIR, WHEELCHAIR: TRANSFERS: BED, CHAIR, WHEELCHAIR - STEP 1: Does the patient require assistance of a person or device, or need extra time with bed, chair, or whe elchair transfers? Yes. TRANSFERS: BED, CHAIR, WHEELCHAIR - STEP 2: Does the patient require the assistance of a helper? Yes. TRANSFERS: BED, CHAIR, WHEELCHAIR - STEP 3: How much assistance does the patient require from the helper? Steadying/guiding assistance TRANSFERS: BED, CHAIR, WHEELCHAIR - SCORE: 4-MIN TRANSFERS: TOILET: TRANSFERS: TOILET - STEP 1: Does the patient require the assistance of a person or device, or need extra time with toilet transfe rs? Yes. TRANSFERS: TOILET - STEP 2: Does the patient require the assistance of a helper? Yes. TRANSFERS: TOILET - STEP 3: How much assistance does the patient require from the helper? Patient performs half or more of the tr ansferring tasks TRANSFERS: TOILET - STEP 4: Does the patient need only incidental help such as contact guard or steadying during toilet transfer? No. Patient needs more than incidental help TRANSFERS: TOILET - SCORE: 3-MOD TRANSFERS: SHOWER: Activity did not occur on this shift TRANSFERS: SHOWER - SCORE: 0-UNK TRANSFERS: TUB: Activity did not occur on this shift TRANSFERS: TUB - SCORE: 0-UNK LOCOMOTION: WALK: Activity did not occur on this shift LOCOMOTION: WALK - SCORE: 0-UNK LOCOMOTION: WHEELCHAIR: Activity did not occur on this shift LOCOMOTION: WHEELCHAIR - SCORE: 0-UNK COMPREHENSION: COMPREHENSION: TYPE: Both COMPREHENSION - STEP 1: Does the patient require help from a person or device, or need extra time to understand complex and a bstract ideas (such as current events, finances, discharge planning, medical issues, relationships, e tc)? Yes. COMPREHENSION - STEP 2: Does the patient require help to understand questions or statements about basic needs or ideas (such as hunger, thirst, sleep, safety, daily schedule, room location, or discomfort) half or more of the t tashi? No. COMPREHENSION - STEP 3: How often does the patient need help to understand directions and conversation about basic needs? 25% - 49% of the time COMPREHENSION - SCORE: 3-MOD EXPRESSION EXPRESSION: TYPE: Both EXPRESSION - STEP 1: Does the patient require help from a person or device, or need extra time expressing complex and abst ract ideas (such as current events, finances, discharge planning, medical issues, relationships, etc) ? Yes. EXPRESSION - STEP 2: Does the patient require help to express basic necessities or ideas (such as hunger, thirst, sleep, s afety, daily schedule, room location, or discomfort) half or more of the time? No. EXPRESSION - STEP 3: How often does the patient need help to express directions and conversation about basic needs? 10-24% of the time EXPRESSION - SCORE: 4-MIN SOCIAL INTERACTION: SOCIAL INTERACTION - STEP 1: Does the patient require a helper to interact with others in social and therapeutic situations? No. SOCIAL INTERACTION - STEP 2: Does the patient need extra time in social situations, OR does s/he interact with staff, other patien ts, and family members ONLY in structured environments, OR does s/he require medication for social in teraction? Yes, patient needs extra time SOCIAL INTERACTION - SCORE: 6-NAHUN PROBLEM SOLVING: PROBLEM SOLVING - STEP 1: Does the patient need help from a person or device, or need extra time to solve complex problems such as managing a checking account or confronting interpersonal problems? Yes. PROBLEM SOLVING - STEP 2: Does the patient solve basic routine problems half or more of the time? Yes. PROBLEM SOLVING - STEP 3: How often does the patient need help to solve basic routine problems? 25%-49% of the time PROBLEM SOLVING - SCORE: 3-MOD MEMORY: MEMORY - STEP 1: Does the patient need help from a person or device, or need extra time to remember frequently encount ered people, daily routines, and executing requests? Yes. MEMORY - STEP 2: How often does the patient need help to remember frequently encountered people, daily routines, and e xecuting requests? 25% - 49% of the time MEMORY - SCORE: 3-MOD
[2018-12-02] MEDS: METOPROLOL TAR 25 MG TAB PO SCH ×2 (05:13→16:37)
[2018-12-02] MEDS: LISINOPRIL 20 MG TAB PO SCH (08:18)
[2018-12-02] MEDS: NYSTATIN 500,000 UNIT/5 ML UDC PO SCH ×3 (08:18→20:40)
[2018-12-02] MEDS: NICOTINE 14 MG/PAT TD SCH (08:18)
[2018-12-02] MEDS: CYANOCOBALAMIN 1,000 MCG TAB PO SCH (08:18)
[2018-12-02] MEDS: POTASSIUM 25 MEQ EFFERV TAB PO SCH (08:18)
[2018-12-02] MEDS: PROMOD 30 ML DOSE PO SCH ×3 (08:19→20:40)
[2018-12-02] MEDS: MAGNESIUM OXIDE 400 MG TAB PO SCH ×2 (08:19→20:31)
[2018-12-02] MEDS: FUROSEMIDE 20 MG TABLET PO SCH (08:19)
[2018-12-02] MEDS: DIGOXIN 0.125 MG TABLET PO SCH (08:19)
--- NOTE | 2018-12-02 08:32 | EKG ---
Test Date: 2018-12-02 Test Time: 00:23:02 [employer] Legal Secretary: RT MEASUREMENT RESULTS: Intervals: Rate: 62 MT: QRSD: 80 QT: 416 QTc: 422 [place]: P: MT: QRS: -37 T: 226 INTERPRETIVE STATEMENTS: Atrial fibrillation Left axis deviation ST & T wave abnormality, consider anterolateral ischemia or digitalis effect Abnormal ECG Compared to ECG 04/10/2013 11:02:47 Left-axis deviation now present Sinus rhythm no longer present Ventricular premature complex(es) no longer present First degree AV block no longer present Ventricular-paced complex(es) or rhythm no longer present Myocardial infarct finding no longer present ST (T wave) deviation still present Possible ischemia still present Electronically Signed On 12-02-18 08:31:41 CDT by Donny Valerio
--- NOTE | 2018-12-02 11:12 | RAD REPORT ---
EXAM DESCRIPTION: CT - Head Brain Wo Cont - 12/02/2018 9:27 am CLINICAL HISTORY: monitor bleed COMPARISON: Head Brain Wo Cont dated 12/01/2018 TECHNIQUE: All CT scans are performed using dose optimization technique as appropriate and may inclu de automated exposure control or mA/KV adjustment according to patient size. FINDINGS: Generalized brain atrophy is present.The small area of increased density right posterior t emporal lobe appears less conspicuous on today's examination. No new or enlarging hemorrhage seen.No areas of brain edema or evidence of midline shift. The paranasal sinuses and mastoids are clear. The calvarium is intact. IMPRESSION: Previously noted area of right-sided intraparenchymal petechial bleed is less prominent on today's study relative to comparison. No new or enlarging hemorrhage is present.
--- NOTE | 2018-12-02 11:15 | FAST ---
SHIFT START DATE/TIME: 12/02/2018 07:00 (CDT) SHIFT END DATE/TIME: 12/02/2018 19:00 (CDT) NAME BRITTANY SINGH DATE OF : 1955 DATE OF ADMISSION: 11/25/2018 10:53 (CDT) PHONE: AGE: 63 N# [id number] GENDER: Female ENCOUNTER PHYSICIAN: Dr. Kevin Paniagua M.D. ADMISSION DIAGNOSIS: - Stroke 01 - Right Body (Left Brain) (01.2) Left Middle Cerebellar Peduncle and Left Cerebellar Hemisphere. EATING: EATING - STEP 1: Does the patient require the assistance of a person or device, or need extra time when eating? Yes. EATING - STEP 2: Does the patient require the assistance of a helper? Yes. EATING - STEP 3: Does the patient perform half or more of the eating tasks? Yes. EATING - STEP 4: Does the patient need only supervision, cuing, coaxing OR help to apply an orthosis OR help to cut fo od, open containers, pour liquids, or butter bread? No. EATING - SCORE: 3-MOD GROOMING: Activity did not occur on this shift GROOMING - SCORE: 0-UNK BATHING: Activity did not occur on this shift BATHING - SCORE: 0-UNK DRESSING - UPPER BODY: Activity did not occur on this shift ARTICLES SCORE Total number of steps: 0 DRESSING - UPPER BODY - SCORE: 0-UNK DRESSING - LOWER BODY: Activity did not occur on this shift ARTICLES SCORE Total number of steps: 0 DRESSING - LOWER BODY - SCORE: 0-UNK TOILETING: TOILETING - STEP 1: Does the patient require the assistance of a person or device, or need extra time with toileting? Yes . TOILETING - STEP 2: Does the patient require the assistance of a helper? Yes. TOILETING - STEP 3: How much assistance does the patient require from the helper? Hands-on assistance from the helper TOILETING - STEP 4: Of the 3 tasks: 1) Adjusting clothing prior to use, 2) Cleansing of perineal area, 3) Adjusting clot cierra after use; How many tasks does the patient perform WITHOUT assistance of the helper? One task TOILETING - SCORE: 2-MAX TOILETING - COMMENTS: Patient is very unsteady BLADDER MANAGEMENT: BLADDER MANAGEMENT - STEP 1: Does the patient control the bladder completely and intentionally without equipment or devices or med ications, and is always continent? No. BLADDER MANAGEMENT - STEP 2: Does the patient require the assistance of a helper? No, patient requires and independently uses an a ssistive device, such as a urinal, bedpan, bedside commode, catheter, absorbent pad, or collecting de vice BLADDER MANAGEMENT - SCORE: 6-NAHUN BOWEL MANAGEMENT: Activity did not occur on this shift BOWEL MANAGEMENT - SCORE: 7-IND TRANSFERS: BED, CHAIR, WHEELCHAIR: TRANSFERS: BED, CHAIR, WHEELCHAIR - STEP 1: Does the patient require assistance of a person or device, or need extra time with bed, chair, or whe elchair transfers? Yes. TRANSFERS: BED, CHAIR, WHEELCHAIR - STEP 2: Does the patient require the assistance of a helper? Yes. TRANSFERS: BED, CHAIR, WHEELCHAIR - STEP 3: How much assistance does the patient require from the helper? Lifting of the patient TRANSFERS: BED, CHAIR, WHEELCHAIR - STEP 4: Does the helper lift the patient ONLY up? ONLY down? Up AND Down? ONLY down. TRANSFERS: BED, CHAIR, WHEELCHAIR - SCORE: 3-MOD TRANSFERS: BED, CHAIR, WHEELCHAIR - COMMENTS: Patient is very unsteady TRANSFERS: TOILET: TRANSFERS: TOILET - STEP 1: Does the patient require the assistance of a person or device, or need extra time with toilet transfe rs? Yes. TRANSFERS: TOILET - STEP 2: Does the patient require the assistance of a helper? Yes. TRANSFERS: TOILET - STEP 3: How much assistance does the patient require from the helper? Patient performs half or more of the tr ansferring tasks TRANSFERS: TOILET - STEP 4: Does the patient need only incidental help such as contact guard or steadying during toilet transfer? No. Patient needs more than incidental help TRANSFERS: TOILET - SCORE: 3-MOD TRANSFERS: TOILET - COMMENTS: Patient is very unsteady TRANSFERS: SHOWER: Activity did not occur on this shift TRANSFERS: SHOWER - SCORE: 0-UNK TRANSFERS: TUB: Activity did not occur on this shift TRANSFERS: TUB - SCORE: 0-UNK LOCOMOTION: WALK: Activity did not occur on this shift LOCOMOTION: WALK - SCORE: 0-UNK LOCOMOTION: WHEELCHAIR: Activity did not occur on this shift LOCOMOTION: WHEELCHAIR - SCORE: 0-UNK COMPREHENSION: COMPREHENSION: TYPE: Both COMPREHENSION - STEP 1: Does the patient require help from a person or device, or need extra time to understand complex and a bstract ideas (such as current events, finances, discharge planning, medical issues, relationships, e tc)? Yes. COMPREHENSION - STEP 2: Does the patient require help to understand questions or statements about basic needs or ideas (such as hunger, thirst, sleep, safety, daily schedule, room location, or discomfort) half or more of the t tashi? No. COMPREHENSION - STEP 3: How often does the patient need help to understand directions and conversation about basic needs? 25% - 49% of the time COMPREHENSION - SCORE: 3-MOD EXPRESSION EXPRESSION: TYPE: Both EXPRESSION - STEP 1: Does the patient require help from a person or device, or need extra time expressing complex and abst ract ideas (such as current events, finances, discharge planning, medical issues, relationships, etc) ? Yes. EXPRESSION - STEP 2: Does the patient require help to express basic necessities or ideas (such as hunger, thirst, sleep, s afety, daily schedule, room location, or discomfort) half or more of the time? No. EXPRESSION - STEP 3: How often does the patient need help to express directions and conversation about basic needs? 25-49% of the time EXPRESSION - SCORE: 3-MOD SOCIAL INTERACTION: SOCIAL INTERACTION - STEP 1: Does the patient require a helper to interact with others in social and therapeutic situations? Yes. SOCIAL INTERACTION - STEP 2: Does the patient interact appropriately half or more of the time? Yes. SOCIAL INTERACTION - STEP 3: How often does the patient need help to interact appropriately? 25-49% of the time SOCIAL INTERACTION - SCORE: 3-MOD PROBLEM SOLVING: PROBLEM SOLVING - STEP 1: Does the patient need help from a person or device, or need extra time to solve complex problems such as managing a checking account or confronting interpersonal problems? Yes. PROBLEM SOLVING - STEP 2: Does the patient solve basic routine problems half or more of the time? Yes. PROBLEM SOLVING - STEP 3: How often does the patient need help to solve basic routine problems? 25%-49% of the time PROBLEM SOLVING - SCORE: 3-MOD MEMORY: MEMORY - STEP 1: Does the patient need help from a person or device, or need extra time to remember frequently encount ered people, daily routines, and executing requests? Yes. MEMORY - STEP 2: How often does the patient need help to remember frequently encountered people, daily routines, and e xecuting requests? 25% - 49% of the time MEMORY - SCORE: 3-MOD SIGNATURE PANEL: The following modified sections: Eating - Score, Grooming - Score, Bathing - Score, Dressing - Upper Body - Score, Dressing - Lower Body - Score, Toileting - Score, Toileting - Comments:, Bladder Manage ment - Score, Bowel Management - Score, Transfers: Bed, Chair, Wheelchair - Score, Transfers: Bed, Ch air, Wheelchair - Comments:, Transfers: Toilet - Score, Transfers: Toilet - Comments:, Transfers: Miriam wer - Score, Transfers: Tub - Score, Locomotion: Walk - Score, Locomotion: Wheelchair - Score, Compre hension - Score, Expression - Score, Social Interaction - Score, Problem Solving - Score, Memory - Sc ore were [electronically] signed by Nick Palencia on Sat Dec 02 2018 11:14:00 GMT-0500 (Central Daylight Time)
--- NOTE | 2018-12-02 16:57 | RAD REPORT ---
EXAM DESCRIPTION: RAD - Chest Single View - 12/02/2018 4:47 pm CLINICAL HISTORY: r/o pneumonia Chest pain. COMPARISON: CHEST SINGLE VIEW dated 04/10/2013; CHEST SINGLE VIEW dated 08/27/2012; CHEST SINGLE VIEW dated 08/26/2012; THORAX W CONTRAST dated 08/27/2012 FINDINGS: Portable technique limits examination quality. The lungs are grossly clear of acute infiltrate. Stable calcified lesion in the right base. Cardiac s ize is normal with a single lead pacer/ defibrillator device. IMPRESSION: No acute intrathoracic process suspected.
[2018-12-02] MEDS: GABAPENTIN 100 MG CAP PO SCH (20:31)
[2018-12-02] MEDS: TOPIRAMATE 25 MG TAB PO SCH (20:31)
[2018-12-02] MEDS: ATORVASTATIN 80 MG TAB PO SCH (20:31)
[2018-12-02] MEDS: DOXEPIN HCL 25 MG CAP PO SCH (20:32)
[2018-12-02] MEDS: DOCUSATE NA/SENNA CONC 1 TAB PO SCH (20:32)
--- NOTE | 2018-12-03 02:31 | FAST ---
SHIFT START DATE/TIME: 12/02/2018 19:00 (CDT) SHIFT END DATE/TIME: 12/03/2018 07:00 (CDT) NAME BRITTANY SINGH DATE OF : 1955 DATE OF ADMISSION: 11/25/2018 10:53 (CDT) PHONE: AGE: 63 N# [id number] GENDER: Female ENCOUNTER PHYSICIAN: Dr. Kevin Paniagua M.D. ADMISSION DIAGNOSIS: - Stroke 01 - Right Body (Left Brain) (01.2) Left Middle Cerebellar Peduncle and Left Cerebellar Hemisphere. EATING: Activity did not occur on this shift EATING - SCORE: 0-UNK GROOMING: Activity did not occur on this shift GROOMING - SCORE: 0-UNK BATHING: Activity did not occur on this shift BATHING - SCORE: 0-UNK DRESSING - UPPER BODY: Patient is not dressing in public clothing ARTICLES SCORE Total number of steps: 0 DRESSING - UPPER BODY - SCORE: 0-UNK DRESSING - LOWER BODY: Patient is not dressing in public clothing ARTICLES SCORE Total number of steps: 0 DRESSING - LOWER BODY - SCORE: 0-UNK TOILETING: TOILETING - STEP 1: Does the patient require the assistance of a person or device, or need extra time with toileting? Yes . TOILETING - STEP 2: Does the patient require the assistance of a helper? Yes. TOILETING - STEP 3: How much assistance does the patient require from the helper? Hands-on assistance from the helper TOILETING - STEP 4: Of the 3 tasks: 1) Adjusting clothing prior to use, 2) Cleansing of perineal area, 3) Adjusting clot cierra after use; How many tasks does the patient perform WITHOUT assistance of the helper? Three tasks with steadying assistance from the helper TOILETING - SCORE: 4-MIN BLADDER MANAGEMENT: BLADDER MANAGEMENT - STEP 1: Does the patient control the bladder completely and intentionally without equipment or devices or med ications, and is always continent? No. BLADDER MANAGEMENT - STEP 2: Does the patient require the assistance of a helper? Yes. BLADDER MANAGEMENT - STEP 3: How much assistance does the patient require from the helper? Only set-up of equipment - such as plac ing it within reach of the patient or emptying a device - to maintain either satisfactory voiding pat tern or managing an external device, such as an absorbent pad, ileal device, or catheter BLADDER MANAGEMENT - SCORE: 5-SUP BOWEL MANAGEMENT: Activity did not occur on this shift BOWEL MANAGEMENT - SCORE: 7-IND TRANSFERS: BED, CHAIR, WHEELCHAIR: Activity did not occur on this shift TRANSFERS: BED, CHAIR, WHEELCHAIR - SCORE: 0-UNK TRANSFERS: TOILET: Activity did not occur on this shift TRANSFERS: TOILET - SCORE: 0-UNK TRANSFERS: SHOWER: Activity did not occur on this shift TRANSFERS: SHOWER - SCORE: 0-UNK TRANSFERS: TUB: Activity did not occur on this shift TRANSFERS: TUB - SCORE: 0-UNK LOCOMOTION: WALK: Activity did not occur on this shift LOCOMOTION: WALK - SCORE: 0-UNK LOCOMOTION: WHEELCHAIR: Activity did not occur on this shift LOCOMOTION: WHEELCHAIR - SCORE: 0-UNK COMPREHENSION: COMPREHENSION: TYPE: Both COMPREHENSION - STEP 1: Does the patient require help from a person or device, or need extra time to understand complex and a bstract ideas (such as current events, finances, discharge planning, medical issues, relationships, e tc)? Yes. COMPREHENSION - STEP 2: Does the patient require help to understand questions or statements about basic needs or ideas (such as hunger, thirst, sleep, safety, daily schedule, room location, or discomfort) half or more of the t tashi? No. COMPREHENSION - STEP 3: How often does the patient need help to understand directions and conversation about basic needs? 25% - 49% of the time COMPREHENSION - SCORE: 3-MOD EXPRESSION EXPRESSION: TYPE: Both EXPRESSION - STEP 1: Does the patient require help from a person or device, or need extra time expressing complex and abst ract ideas (such as current events, finances, discharge planning, medical issues, relationships, etc) ? Yes. EXPRESSION - STEP 2: Does the patient require help to express basic necessities or ideas (such as hunger, thirst, sleep, s afety, daily schedule, room location, or discomfort) half or more of the time? No. EXPRESSION - STEP 3: How often does the patient need help to express directions and conversation about basic needs? 10-24% of the time EXPRESSION - SCORE: 4-MIN SOCIAL INTERACTION: SOCIAL INTERACTION - STEP 1: Does the patient require a helper to interact with others in social and therapeutic situations? No. SOCIAL INTERACTION - STEP 2: Does the patient need extra time in social situations, OR does s/he interact with staff, other patien ts, and family members ONLY in structured environments, OR does s/he require medication for social in teraction? Yes, patient needs extra time SOCIAL INTERACTION - SCORE: 6-NAHUN PROBLEM SOLVING: PROBLEM SOLVING - STEP 1: Does the patient need help from a person or device, or need extra time to solve complex problems such as managing a checking account or confronting interpersonal problems? Yes. PROBLEM SOLVING - STEP 2: Does the patient solve basic routine problems half or more of the time? Yes. PROBLEM SOLVING - STEP 3: How often does the patient need help to solve basic routine problems? 25%-49% of the time PROBLEM SOLVING - SCORE: 3-MOD MEMORY: MEMORY - STEP 1: Does the patient need help from a person or device, or need extra time to remember frequently encount ered people, daily routines, and executing requests? Yes. MEMORY - STEP 2: How often does the patient need help to remember frequently encountered people, daily routines, and e xecuting requests? 25% - 49% of the time MEMORY - SCORE: 3-MOD
[2018-12-03] MEDS: METOPROLOL TAR 25 MG TAB PO SCH ×2 (05:37→17:06)
[2018-12-03] MEDS: PROMOD 30 ML DOSE PO SCH ×2 (08:00→20:39)
[2018-12-03] MEDS: NYSTATIN 500,000 UNIT/5 ML UDC PO SCH ×2 (08:00→20:42)
[2018-12-03] MEDS: CYANOCOBALAMIN 1,000 MCG TAB PO SCH (08:54)
[2018-12-03] MEDS: LISINOPRIL 20 MG TAB PO SCH (08:54)
[2018-12-03] MEDS: POTASSIUM 25 MEQ EFFERV TAB PO SCH (08:54)
[2018-12-03] MEDS: MAGNESIUM OXIDE 400 MG TAB PO SCH ×2 (08:54→20:39)
[2018-12-03] MEDS: FUROSEMIDE 20 MG TABLET PO SCH (08:54)
[2018-12-03] MEDS: NICOTINE 14 MG/PAT TD SCH (08:54)
[2018-12-03] MEDS: DIGOXIN 0.125 MG TABLET PO SCH (08:54)
--- NOTE | 2018-12-03 10:23 | FAST ---
SHIFT START DATE/TIME: 12/03/2018 07:00 (CDT) SHIFT END DATE/TIME: 12/03/2018 19:00 (CDT) NAME BRITTANY SINGH DATE OF : 1955 DATE OF ADMISSION: 11/25/2018 10:53 (CDT) PHONE: AGE: 63 N# [id number] GENDER: Female ENCOUNTER PHYSICIAN: Dr. Kevin Paniagua M.D. ADMISSION DIAGNOSIS: - Stroke 01 - Right Body (Left Brain) (01.2) Left Middle Cerebellar Peduncle and Left Cerebellar Hemisphere. EATING: EATING - STEP 1: Does the patient require the assistance of a person or device, or need extra time when eating? Yes. EATING - STEP 2: Does the patient require the assistance of a helper? Yes. EATING - STEP 3: Does the patient perform half or more of the eating tasks? Yes. EATING - STEP 4: Does the patient need only supervision, cuing, coaxing OR help to apply an orthosis OR help to cut fo od, open containers, pour liquids, or butter bread? No. EATING - SCORE: 3-MOD EATING - COMMENTS: Patient need alot of queing GROOMING: Activity did not occur on this shift GROOMING - SCORE: 0-UNK BATHING: Activity did not occur on this shift BATHING - SCORE: 0-UNK DRESSING - UPPER BODY: Activity did not occur on this shift ARTICLES SCORE Total number of steps: 0 DRESSING - UPPER BODY - SCORE: 0-UNK DRESSING - LOWER BODY: Activity did not occur on this shift ARTICLES SCORE Total number of steps: 0 DRESSING - LOWER BODY - SCORE: 0-UNK TOILETING: TOILETING - STEP 1: Does the patient require the assistance of a person or device, or need extra time with toileting? Yes . TOILETING - STEP 2: Does the patient require the assistance of a helper? Yes. TOILETING - STEP 3: How much assistance does the patient require from the helper? Hands-on assistance from the helper TOILETING - STEP 4: Of the 3 tasks: 1) Adjusting clothing prior to use, 2) Cleansing of perineal area, 3) Adjusting clot cierra after use; How many tasks does the patient perform WITHOUT assistance of the helper? Two tasks TOILETING - SCORE: 3-MOD BLADDER MANAGEMENT: BLADDER MANAGEMENT - STEP 1: Does the patient control the bladder completely and intentionally without equipment or devices or med ications, and is always continent? No. BLADDER MANAGEMENT - STEP 2: Does the patient require the assistance of a helper? No, patient requires and independently uses an a ssistive device, such as a urinal, bedpan, bedside commode, catheter, absorbent pad, or collecting de vice BLADDER MANAGEMENT - SCORE: 6-NAHUN BOWEL MANAGEMENT: Activity did not occur on this shift BOWEL MANAGEMENT - SCORE: 7-IND TRANSFERS: BED, CHAIR, WHEELCHAIR: TRANSFERS: BED, CHAIR, WHEELCHAIR - STEP 1: Does the patient require assistance of a person or device, or need extra time with bed, chair, or whe elchair transfers? Yes. TRANSFERS: BED, CHAIR, WHEELCHAIR - STEP 2: Does the patient require the assistance of a helper? Yes. TRANSFERS: BED, CHAIR, WHEELCHAIR - STEP 3: How much assistance does the patient require from the helper? Steadying/guiding assistance TRANSFERS: BED, CHAIR, WHEELCHAIR - SCORE: 4-MIN TRANSFERS: TOILET: TRANSFERS: TOILET - STEP 1: Does the patient require the assistance of a person or device, or need extra time with toilet transfe rs? Yes. TRANSFERS: TOILET - STEP 2: Does the patient require the assistance of a helper? Yes. TRANSFERS: TOILET - STEP 3: How much assistance does the patient require from the helper? Patient performs half or more of the tr ansferring tasks TRANSFERS: TOILET - STEP 4: Does the patient need only incidental help such as contact guard or steadying during toilet transfer? Yes. TRANSFERS: TOILET - SCORE: 4-MIN TRANSFERS: SHOWER: Activity did not occur on this shift TRANSFERS: SHOWER - SCORE: 0-UNK TRANSFERS: TUB: Activity did not occur on this shift TRANSFERS: TUB - SCORE: 0-UNK LOCOMOTION: WALK: Activity did not occur on this shift LOCOMOTION: WALK - SCORE: 0-UNK LOCOMOTION: WHEELCHAIR: Activity did not occur on this shift LOCOMOTION: WHEELCHAIR - SCORE: 0-UNK COMPREHENSION: COMPREHENSION: TYPE: Both COMPREHENSION - STEP 1: Does the patient require help from a person or device, or need extra time to understand complex and a bstract ideas (such as current events, finances, discharge planning, medical issues, relationships, e tc)? Yes. COMPREHENSION - STEP 2: Does the patient require help to understand questions or statements about basic needs or ideas (such as hunger, thirst, sleep, safety, daily schedule, room location, or discomfort) half or more of the t tashi? No. COMPREHENSION - STEP 3: How often does the patient need help to understand directions and conversation about basic needs? 25% - 49% of the time COMPREHENSION - SCORE: 3-MOD EXPRESSION EXPRESSION: TYPE: Both EXPRESSION - STEP 1: Does the patient require help from a person or device, or need extra time expressing complex and abst ract ideas (such as current events, finances, discharge planning, medical issues, relationships, etc) ? Yes. EXPRESSION - STEP 2: Does the patient require help to express basic necessities or ideas (such as hunger, thirst, sleep, s afety, daily schedule, room location, or discomfort) half or more of the time? No. EXPRESSION - STEP 3: How often does the patient need help to express directions and conversation about basic needs? 25-49% of the time EXPRESSION - SCORE: 3-MOD SOCIAL INTERACTION: SOCIAL INTERACTION - STEP 1: Does the patient require a helper to interact with others in social and therapeutic situations? Yes. SOCIAL INTERACTION - STEP 2: Does the patient interact appropriately half or more of the time? Yes. SOCIAL INTERACTION - STEP 3: How often does the patient need help to interact appropriately? 25-49% of the time SOCIAL INTERACTION - SCORE: 3-MOD PROBLEM SOLVING: PROBLEM SOLVING - STEP 1: Does the patient need help from a person or device, or need extra time to solve complex problems such as managing a checking account or confronting interpersonal problems? Yes. PROBLEM SOLVING - STEP 2: Does the patient solve basic routine problems half or more of the time? Yes. PROBLEM SOLVING - STEP 3: How often does the patient need help to solve basic routine problems? 25%-49% of the time PROBLEM SOLVING - SCORE: 3-MOD MEMORY: MEMORY - STEP 1: Does the patient need help from a person or device, or need extra time to remember frequently encount ered people, daily routines, and executing requests? Yes. MEMORY - STEP 2: How often does the patient need help to remember frequently encountered people, daily routines, and e xecuting requests? More than 50% of the time MEMORY - STEP 3: Does the patient need help to remember all of the time OR does s/he not effectively recognize and rem ember? No. Patient does not need help all the time MEMORY - SCORE: 2-MAX SIGNATURE PANEL: The following modified sections: Eating - Score, Eating - Comments:, Grooming - Score, Bathing - Scor e, Dressing - Upper Body - Score, Dressing - Lower Body - Score, Toileting - Score, Bladder Managemen t - Score, Bowel Management - Score, Transfers: Bed, Chair, Wheelchair - Score, Transfers: Toilet - S core, Transfers: Shower - Score, Transfers: Tub - Score, Locomotion: Walk - Score, Locomotion: Wheelc hair - Score, Comprehension - Score, Expression - Score, Social Interaction - Score, Problem Solving - Score, Memory - Score were [electronically] signed by Nick Palencia on TueDec 03 2018 10:23:42 GMT-05 00 (Central Daylight Time)
[2018-12-03] MEDS: ACETAMINOPHEN 500 MG TAB PO PRN (16:16)
[2018-12-03] MEDS: DOCUSATE NA/SENNA CONC 1 TAB PO SCH (20:40)
[2018-12-03] MEDS: ATORVASTATIN 80 MG TAB PO SCH (20:40)
[2018-12-03] MEDS: TOPIRAMATE 25 MG TAB PO SCH (20:40)
[2018-12-03] MEDS: GABAPENTIN 100 MG CAP PO SCH (20:41)
[2018-12-03] MEDS: DOXEPIN HCL 25 MG CAP PO SCH (20:42)
--- NOTE | 2018-12-04 01:36 | FAST ---
SHIFT START DATE/TIME: 12/03/2018 19:00 (CDT) SHIFT END DATE/TIME: 12/04/2018 07:00 (CDT) NAME BRITTANY SINGH DATE OF : 1955 DATE OF ADMISSION: 11/25/2018 10:53 (CDT) PHONE: AGE: 63 N# [id number] GENDER: Female ENCOUNTER PHYSICIAN: Dr. Kevin Paniagua M.D. ADMISSION DIAGNOSIS: - Stroke 01 - Right Body (Left Brain) (01.2) Left Middle Cerebellar Peduncle and Left Cerebellar Hemisphere. EATING: EATING - STEP 1: Does the patient require the assistance of a person or device, or need extra time when eating? Yes. EATING - STEP 2: Does the patient require the assistance of a helper? Yes. EATING - STEP 3: Does the patient perform half or more of the eating tasks? No. EATING - STEP 4: Does the patient require total assistance to eat, such as the helper holding the utensil and bringing all food and liquids to the mouth? Yes. EATING - SCORE: 1-DEP GROOMING: Activity did not occur on this shift GROOMING - SCORE: 0-UNK BATHING: Activity did not occur on this shift BATHING - SCORE: 0-UNK DRESSING - UPPER BODY: Activity did not occur on this shift ARTICLES SCORE Total number of steps: 0 DRESSING - UPPER BODY - SCORE: 0-UNK DRESSING - LOWER BODY: Activity did not occur on this shift ARTICLES SCORE Total number of steps: 0 DRESSING - LOWER BODY - SCORE: 0-UNK TOILETING: TOILETING - STEP 1: Does the patient require the assistance of a person or device, or need extra time with toileting? Yes . TOILETING - STEP 2: Does the patient require the assistance of a helper? Yes. TOILETING - STEP 3: How much assistance does the patient require from the helper? Hands-on assistance from the helper TOILETING - STEP 4: Of the 3 tasks: 1) Adjusting clothing prior to use, 2) Cleansing of perineal area, 3) Adjusting clot cierra after use; How many tasks does the patient perform WITHOUT assistance of the helper? Three tasks with steadying assistance from the helper TOILETING - SCORE: 4-MIN BLADDER MANAGEMENT: BLADDER MANAGEMENT - STEP 1: Does the patient control the bladder completely and intentionally without equipment or devices or med ications, and is always continent? No. BLADDER MANAGEMENT - STEP 2: Does the patient require the assistance of a helper? Yes. BLADDER MANAGEMENT - STEP 3: How much assistance does the patient require from the helper? Patient requires contact assistance fro m the helper BLADDER MANAGEMENT - STEP 4: How much contact assistance does the patient require from the helper? Patient requires minimal assist ance to maintain an external device - by positioning, and the patient performs 75% or more of bladder management tasks, while the helper provides less than 25% of the assistance to position patient on / off bedpan BLADDER MANAGEMENT - SCORE: 4-MIN BOWEL MANAGEMENT: Activity did not occur on this shift BOWEL MANAGEMENT - SCORE: 7-IND TRANSFERS: BED, CHAIR, WHEELCHAIR: TRANSFERS: BED, CHAIR, WHEELCHAIR - STEP 1: Does the patient require assistance of a person or device, or need extra time with bed, chair, or whe elchair transfers? Yes. TRANSFERS: BED, CHAIR, WHEELCHAIR - STEP 2: Does the patient require the assistance of a helper? Yes. TRANSFERS: BED, CHAIR, WHEELCHAIR - STEP 3: How much assistance does the patient require from the helper? Steadying/guiding assistance TRANSFERS: BED, CHAIR, WHEELCHAIR - SCORE: 4-MIN TRANSFERS: TOILET: TRANSFERS: TOILET - STEP 1: Does the patient require the assistance of a person or device, or need extra time with toilet transfe rs? Yes. TRANSFERS: TOILET - STEP 2: Does the patient require the assistance of a helper? Yes. TRANSFERS: TOILET - STEP 3: How much assistance does the patient require from the helper? Patient performs half or more of the tr ansferring tasks TRANSFERS: TOILET - STEP 4: Does the patient need only incidental help such as contact guard or steadying during toilet transfer? Yes. TRANSFERS: TOILET - SCORE: 4-MIN TRANSFERS: SHOWER: Activity did not occur on this shift TRANSFERS: SHOWER - SCORE: 0-UNK TRANSFERS: TUB: Activity did not occur on this shift TRANSFERS: TUB - SCORE: 0-UNK LOCOMOTION: WALK: Activity did not occur on this shift LOCOMOTION: WALK - SCORE: 0-UNK LOCOMOTION: WHEELCHAIR: Activity did not occur on this shift LOCOMOTION: WHEELCHAIR - SCORE: 0-UNK COMPREHENSION: COMPREHENSION: TYPE: Both COMPREHENSION - STEP 1: Does the patient require help from a person or device, or need extra time to understand complex and a bstract ideas (such as current events, finances, discharge planning, medical issues, relationships, e tc)? Yes. COMPREHENSION - STEP 2: Does the patient require help to understand questions or statements about basic needs or ideas (such as hunger, thirst, sleep, safety, daily schedule, room location, or discomfort) half or more of the t tashi? Yes. COMPREHENSION - STEP 3: Is the patient basically able to understand and respond appropriately and consistently? No, patient i s basically UNABLE to understand, OR responds inappropriately/inconsistently despite prompting COMPREHENSION - SCORE: 1-DEP EXPRESSION EXPRESSION: TYPE: Both EXPRESSION - STEP 1: Does the patient require help from a person or device, or need extra time expressing complex and abst ract ideas (such as current events, finances, discharge planning, medical issues, relationships, etc) ? Yes. EXPRESSION - STEP 2: Does the patient require help to express basic necessities or ideas (such as hunger, thirst, sleep, s afety, daily schedule, room location, or discomfort) half or more of the time? Yes. EXPRESSION - STEP 3: Is the patient basically unable to express or does s/he express inappropriately or inconsistently corrie pite prompting? Yes. Patient is basically unable to express. EXPRESSION - SCORE: 1-DEP SOCIAL INTERACTION: SOCIAL INTERACTION - STEP 1: Does the patient require a helper to interact with others in social and therapeutic situations? Yes. SOCIAL INTERACTION - STEP 2: Does the patient interact appropriately half or more of the time? Yes. SOCIAL INTERACTION - STEP 3: How often does the patient need help to interact appropriately? 10-24% of the time SOCIAL INTERACTION - SCORE: 4-MIN PROBLEM SOLVING: Patient requires bed/chair alarms due to attempts to get up unassisted when helper is needed. PROBLEM SOLVING - STEP 1: How often do the bed/chair alarms go off? Most of the time - the alarms go off about 75% of the time PROBLEM SOLVING - SCORE: 2-MAX MEMORY: MEMORY - STEP 1: How often do the bed/chair alarms go off? Most of the time - the alarms go off about 75% of the time MEMORY - SCORE: 2-MAX SIGNATURE PANEL: The following modified sections: Eating - Score, Grooming - Score, Bathing - Score, Dressing - Upper Body - Score, Dressing - Lower Body - Score, Toileting - Score, Bladder Management - Score, Bowel Man agement - Score, Transfers: Bed, Chair, Wheelchair - Score, Transfers: Toilet - Score, Transfers: Miriam wer - Score, Transfers: Tub - Score, Locomotion: Walk - Score, Locomotion: Wheelchair - Score, Compre hension - Score, Expression - Score, Social Interaction - Score, Problem Solving - Score, Memory - Sc ore were [electronically] signed by Kenyatta Cadena RN on TueDec 04 2018 01:35:37 GMT-0500 ([facility])
[2018-12-04] MEDS: METOPROLOL TAR 25 MG TAB PO SCH ×2 (05:03→17:22)
[2018-12-04] MEDS: LISINOPRIL 20 MG TAB PO SCH (08:00)
[2018-12-04] MEDS: PROMOD 30 ML DOSE PO SCH ×2 (08:00→20:00)
[2018-12-04] MEDS: POTASSIUM 25 MEQ EFFERV TAB PO SCH (08:44)
[2018-12-04] MEDS: FUROSEMIDE 20 MG TABLET PO SCH (08:46)
[2018-12-04] MEDS: DIGOXIN 0.125 MG TABLET PO SCH (08:46)
[2018-12-04] MEDS: NYSTATIN 500,000 UNIT/5 ML UDC PO SCH ×2 (08:46→20:00)
[2018-12-04] MEDS: MAGNESIUM OXIDE 400 MG TAB PO SCH ×2 (08:46→20:00)
[2018-12-04] MEDS: CYANOCOBALAMIN 1,000 MCG TAB PO SCH (08:46)
[2018-12-04] MEDS: NICOTINE 14 MG/PAT TD SCH (08:47)
--- NOTE | 2018-12-04 14:08 | FAST ---
SHIFT START DATE/TIME: 12/04/2018 07:00 (CDT) SHIFT END DATE/TIME: 12/04/2018 19:00 (CDT) NAME BRITTANY SINGH DATE OF : 1955 DATE OF ADMISSION: 11/25/2018 10:53 (CDT) PHONE: AGE: 63 N# [id number] GENDER: Female ENCOUNTER PHYSICIAN: Dr. Kevin Paniagua M.D. ADMISSION DIAGNOSIS: - Stroke 01 - Right Body (Left Brain) (01.2) Left Middle Cerebellar Peduncle and Left Cerebellar Hemisphere. EATING: EATING - STEP 1: Does the patient require the assistance of a person or device, or need extra time when eating? Yes. EATING - STEP 2: Does the patient require the assistance of a helper? Yes. EATING - STEP 3: Does the patient perform half or more of the eating tasks? No. EATING - STEP 4: Does the patient require total assistance to eat, such as the helper holding the utensil and bringing all food and liquids to the mouth? No. EATING - SCORE: 2-MAX GROOMING: Activity did not occur on this shift GROOMING - SCORE: 0-UNK BATHING: Activity did not occur on this shift BATHING - SCORE: 0-UNK DRESSING - UPPER BODY: Activity did not occur on this shift ARTICLES SCORE Total number of steps: 0 DRESSING - UPPER BODY - SCORE: 0-UNK DRESSING - LOWER BODY: Activity did not occur on this shift ARTICLES SCORE Total number of steps: 0 DRESSING - LOWER BODY - SCORE: 0-UNK TOILETING: TOILETING - STEP 1: Does the patient require the assistance of a person or device, or need extra time with toileting? Yes . TOILETING - STEP 2: Does the patient require the assistance of a helper? Yes. TOILETING - STEP 3: How much assistance does the patient require from the helper? Hands-on assistance from the helper TOILETING - STEP 4: Of the 3 tasks: 1) Adjusting clothing prior to use, 2) Cleansing of perineal area, 3) Adjusting clot cierra after use; How many tasks does the patient perform WITHOUT assistance of the helper? Two tasks TOILETING - SCORE: 3-MOD BLADDER MANAGEMENT: BLADDER MANAGEMENT - STEP 1: Does the patient control the bladder completely and intentionally without equipment or devices or med ications, and is always continent? No. BLADDER MANAGEMENT - STEP 2: Does the patient require the assistance of a helper? Yes. BLADDER MANAGEMENT - STEP 3: How much assistance does the patient require from the helper? Only supervision, stand-by, cuing, or c oaxing BLADDER MANAGEMENT - SCORE: 5-SUP BLADDER MANAGEMENT - FREQUENCY OF ACCIDENTS: BLADDER MANAGEMENT(FA) - STEP 1: How many accidents has the patient had during the current shift? 0 BOWEL MANAGEMENT: Activity did not occur on this shift BOWEL MANAGEMENT - SCORE: 7-IND BOWEL MANAGEMENT - FREQUENCY OF ACCIDENTS: BOWEL MANAGEMENT(FA) - STEP 1: How many accidents has the patient had during the current shift? 0 TRANSFERS: BED, CHAIR, WHEELCHAIR: TRANSFERS: BED, CHAIR, WHEELCHAIR - STEP 1: Does the patient require assistance of a person or device, or need extra time with bed, chair, or whe elchair transfers? Yes. TRANSFERS: BED, CHAIR, WHEELCHAIR - STEP 2: Does the patient require the assistance of a helper? Yes. TRANSFERS: BED, CHAIR, WHEELCHAIR - STEP 3: How much assistance does the patient require from the helper? Steadying/guiding assistance TRANSFERS: BED, CHAIR, WHEELCHAIR - SCORE: 4-MIN TRANSFERS: TOILET: TRANSFERS: TOILET - STEP 1: Does the patient require the assistance of a person or device, or need extra time with toilet transfe rs? Yes. TRANSFERS: TOILET - STEP 2: Does the patient require the assistance of a helper? Yes. TRANSFERS: TOILET - STEP 3: How much assistance does the patient require from the helper? Patient performs half or more of the tr ansferring tasks TRANSFERS: TOILET - STEP 4: Does the patient need only incidental help such as contact guard or steadying during toilet transfer? Yes. TRANSFERS: TOILET - SCORE: 4-MIN TRANSFERS: SHOWER: Activity did not occur on this shift TRANSFERS: SHOWER - SCORE: 0-UNK TRANSFERS: TUB: Activity did not occur on this shift TRANSFERS: TUB - SCORE: 0-UNK LOCOMOTION: WALK: Activity did not occur on this shift LOCOMOTION: WALK - SCORE: 0-UNK LOCOMOTION: WHEELCHAIR: Activity did not occur on this shift LOCOMOTION: WHEELCHAIR - SCORE: 0-UNK COMPREHENSION: COMPREHENSION: TYPE: Both COMPREHENSION - STEP 1: Does the patient require help from a person or device, or need extra time to understand complex and a bstract ideas (such as current events, finances, discharge planning, medical issues, relationships, e tc)? Yes. COMPREHENSION - STEP 2: Does the patient require help to understand questions or statements about basic needs or ideas (such as hunger, thirst, sleep, safety, daily schedule, room location, or discomfort) half or more of the t tashi? No. COMPREHENSION - STEP 3: How often does the patient need help to understand directions and conversation about basic needs? 25% - 49% of the time COMPREHENSION - SCORE: 3-MOD EXPRESSION EXPRESSION: TYPE: Both EXPRESSION - STEP 1: Does the patient require help from a person or device, or need extra time expressing complex and abst ract ideas (such as current events, finances, discharge planning, medical issues, relationships, etc) ? Yes. EXPRESSION - STEP 2: Does the patient require help to express basic necessities or ideas (such as hunger, thirst, sleep, s afety, daily schedule, room location, or discomfort) half or more of the time? No. EXPRESSION - STEP 3: How often does the patient need help to express directions and conversation about basic needs? 25-49% of the time EXPRESSION - SCORE: 3-MOD SOCIAL INTERACTION: SOCIAL INTERACTION - STEP 1: Does the patient require a helper to interact with others in social and therapeutic situations? Yes. SOCIAL INTERACTION - STEP 2: Does the patient interact appropriately half or more of the time? No. SOCIAL INTERACTION - STEP 3: How often does the patient interact appropriately? Less than 25% of the time SOCIAL INTERACTION - SCORE: 1-DEP PROBLEM SOLVING: PROBLEM SOLVING - STEP 1: Does the patient need help from a person or device, or need extra time to solve complex problems such as managing a checking account or confronting interpersonal problems? Yes. PROBLEM SOLVING - STEP 2: Does the patient solve basic routine problems half or more of the time? Yes. PROBLEM SOLVING - STEP 3: How often does the patient need help to solve basic routine problems? 25%-49% of the time PROBLEM SOLVING - SCORE: 3-MOD MEMORY: MEMORY - STEP 1: Does the patient need help from a person or device, or need extra time to remember frequently encount ered people, daily routines, and executing requests? Yes. MEMORY - STEP 2: How often does the patient need help to remember frequently encountered people, daily routines, and e xecuting requests? More than 50% of the time MEMORY - STEP 3: Does the patient need help to remember all of the time OR does s/he not effectively recognize and rem ember? No. Patient does not need help all the time MEMORY - SCORE: 2-MAX SIGNATURE PANEL: The following modified sections: Eating - Score, Grooming - Score, Bathing - Score, Dressing - Upper Body - Score, Dressing - Lower Body - Score, Toileting - Score, Bladder Management - Score, Bowel Man agement - Score, Transfers: Bed, Chair, Wheelchair - Score, Transfers: Toilet - Score, Transfers: Miriam wer - Score, Transfers: Tub - Score, Locomotion: Walk - Score, Locomotion: Wheelchair - Score, Compre hension - Score, Expression - Score, Social Interaction - Score, Problem Solving - Score, Memory - Sc ore were [electronically] signed by Natasha Seo C.N.A. on TueDec 04 2018 14:08:30 T-0500 ([facility])
--- NOTE | 2018-12-04 15:38 | FAST ---
ENCOUNTER DATE AND TIME: 12/04/2018 08:00 (CDT) NAME BRITTANY SINGH DATE OF : 1955 DATE OF ADMISSION: 11/25/2018 10:53 (CDT) PHONE: AGE: 63 SSN# [id number] GENDER: Female ENCOUNTER PHYSICIAN: Dr. Kevin Paniagua M.D. ADMISSION DIAGNOSIS: - Stroke 01 - Right Body (Left Brain) (01.2) Left Middle Cerebellar Peduncle and Left Cerebellar Hemisphere. EATING: Activity did not occur on this shift EATING - SCORE: 0-UNK GROOMING: Comb/brush hair Wash, rinse, and dry face Wash, rinse, and dry hands GROOMING - STEP 1: Does the patient require the assistance of a person or device, or need extra time when grooming? Yes. GROOMING - STEP 2: Does the patient require the assistance of a helper? Yes. GROOMING - STEP 3: How much assistance does the patient require from the helper? Steadying assistance from the helper GROOMING - SCORE: 4-MIN BATHING: Abdomen Buttocks Chest Left arm Left lower leg and foot Left upper leg Perineal area Right arm Right lower leg and foot Right upper leg BATHING - STEP 1: Does the patient require the assistance of a person or device, or need extra time when bathing? Yes. BATHING - STEP 2: Does the patient require the assistance of a helper? Yes. BATHING - STEP 3: How much assistance does the patient require from the helper? More than just incidental help BATHING - STEP 4: What percent of the body parts did the patient bathe WITHOUT the helper? Half or more of the body par ts BATHING - SCORE: 3-MOD DRESSING - UPPER BODY: T-shirt/pullover shirt (four steps) ARTICLES SCORE Total number of steps: 4 DRESSING - UPPER BODY - STEP 1: Does the patient require help from a person or device, or need extra time when dressing above the diego st? Yes. DRESSING - UPPER BODY - STEP 2: Does the patient require the assistance of a helper? Yes. DRESSING - UPPER BODY - STEP 3: Does the helper touch the patient while dressing? Yes. DRESSING - UPPER BODY - STEP 4: How many of the total steps does the patient complete on his/her own? 2 DRESSING - UPPER BODY - SCORE: 3-MOD DRESSING - LOWER BODY: Elastic waist pants (three steps) Sock - Left foot (one step) Sock - Right foot (one step) Underwear (three steps) ARTICLES SCORE Total number of steps: 8 DRESSING - LOWER BODY - STEP 1: Does the patient require help from a person or device, or need extra time when dressing below the diego st? Yes. DRESSING - LOWER BODY - STEP 2: Does the patient require the assistance of a helper? Yes. DRESSING - LOWER BODY - STEP 3: Does the helper touch the patient while dressing? Yes. DRESSING - LOWER BODY - STEP 4: How many of the total steps does the patient complete on his/her own? 3 DRESSING - LOWER BODY - STEP 5: Does patient require total assistance for dressing below the waist such as the helper holding clothin g and performing basically all the activities? No. DRESSING - LOWER BODY - SCORE: 2-MAX TOILETING: Activity did not occur on this shift TOILETING - SCORE: 0-UNK BLADDER MANAGEMENT: Activity did not occur on this shift BLADDER MANAGEMENT - SCORE: 7-IND BOWEL MANAGEMENT: Activity did not occur on this shift BOWEL MANAGEMENT - SCORE: 7-IND TRANSFERS: BED, CHAIR, WHEELCHAIR: Activity did not occur on this shift TRANSFERS: BED, CHAIR, WHEELCHAIR - SCORE: 0-UNK TRANSFERS: TOILET: Activity did not occur on this shift TRANSFERS: TOILET - SCORE: 0-UNK TRANSFERS: SHOWER: TRANSFERS: SHOWER - STEP 1: Does the patient require the assistance of a person or device, or need extra time with shower transfe rs? Yes. TRANSFERS: SHOWER - STEP 2: Does the patient require the assistance of a helper? Yes. TRANSFERS: SHOWER - STEP 3: How much assistance does the patient require from the helper? More than incidental help TRANSFERS: SHOWER - STEP 4: How much more help does the patient require from the helper? Lifting the patient up AND down from the wheelchair onto the shower chair TRANSFERS: SHOWER - SCORE: 2-MAX TRANSFERS: TUB: Activity did not occur on this shift TRANSFERS: TUB - SCORE: 0-UNK LOCOMOTION: WALK: Activity did not occur on this shift LOCOMOTION: WALK - SCORE: 0-UNK LOCOMOTION: WHEELCHAIR: Activity did not occur on this shift LOCOMOTION: WHEELCHAIR - SCORE: 0-UNK LOCOMOTION: STAIRS: Activity did not occur on this shift LOCOMOTION: STAIRS - SCORE: 0-UNK COMPREHENSION: COMPREHENSION: TYPE: Visual COMPREHENSION - STEP 1: Does the patient require help from a person or device, or need extra time to understand complex and a bstract ideas (such as current events, finances, discharge planning, medical issues, relationships, e tc)? Yes. COMPREHENSION - STEP 2: Does the patient require help to understand questions or statements about basic needs or ideas (such as hunger, thirst, sleep, safety, daily schedule, room location, or discomfort) half or more of the t tashi? No. COMPREHENSION - STEP 3: How often does the patient need help to understand directions and conversation about basic needs? 25% - 49% of the time COMPREHENSION - SCORE: 3-MOD EXPRESSION EXPRESSION: TYPE: Non-Vocal EXPRESSION - STEP 1: Does the patient require help from a person or device, or need extra time expressing complex and abst ract ideas (such as current events, finances, discharge planning, medical issues, relationships, etc) ? Yes. EXPRESSION - STEP 2: Does the patient require help to express basic necessities or ideas (such as hunger, thirst, sleep, s afety, daily schedule, room location, or discomfort) half or more of the time? No. EXPRESSION - STEP 3: How often does the patient need help to express directions and conversation about basic needs? 10-24% of the time EXPRESSION - SCORE: 4-MIN SOCIAL INTERACTION: SOCIAL INTERACTION - STEP 1: Does the patient require a helper to interact with others in social and therapeutic situations? Yes. SOCIAL INTERACTION - STEP 2: Does the patient interact appropriately half or more of the time? Yes. SOCIAL INTERACTION - STEP 3: How often does the patient need help to interact appropriately? 10-24% of the time SOCIAL INTERACTION - SCORE: 4-MIN PROBLEM SOLVING: PROBLEM SOLVING - STEP 1: Does the patient need help from a person or device, or need extra time to solve complex problems such as managing a checking account or confronting interpersonal problems? Yes. PROBLEM SOLVING - STEP 2: Does the patient solve basic routine problems half or more of the time? Yes. PROBLEM SOLVING - STEP 3: How often does the patient need help to solve basic routine problems? 25%-49% of the time PROBLEM SOLVING - SCORE: 3-MOD MEMORY: MEMORY - STEP 1: Does the patient need help from a person or device, or need extra time to remember frequently encount ered people, daily routines, and executing requests? Yes. MEMORY - STEP 2: How often does the patient need help to remember frequently encountered people, daily routines, and e xecuting requests? 25% - 49% of the time MEMORY - SCORE: 3-MOD SIGNATURE PANEL: The following modified sections: Eating - Score, Grooming - Score, Bathing - Score, Dressing - Upper Body - Score, Dressing - Lower Body - Score, Toileting - Score, Transfers: Bed, Chair, Wheelchair - S core, Transfers: Toilet - Score, Transfers: Shower - Score, Transfers: Tub - Score, Comprehension - S core, Expression - Score, Social Interaction - Score, Problem Solving - Score, Memory - Score were [e lectronically] signed by JEANNE Voss on TueDec 04 2018 15:37:20 T-0500 ([facility] Time)
--- NOTE | 2018-12-04 18:01 | R.PN ---
ENCOUNTER DATE AND TIME: 12/04/2018 17:57 (CDT) NAME BRITTANY SINGH DATE OF : 1955 DATE OF ADMISSION: 11/25/2018 10:53 (CDT) Left Middle Cerebellar Peduncle and Left Cerebellar HemisphereCHIEF COMPLAINT: Left hemispheric stroke with right sided weakness. SUBJECTIVE: Pt denied any Shortness of Breath. Pt denied any depression. Ambulated 800' with rolling walker with supervision to minimum assistance. Hgb 11.7, prealbumin 15.1. Dysphagia training done with minimum assistance. VITAL SIGNS Temperature: 97.3 F SBP/DBP: 127/70 Pulse: 77 Resp: 16 MEDICATION ALLERGIES: No Known Drug Allergies (NKDA) ENVIRONMENTAL ALLERGIES: None Known - Substance Allergies None Known - Other Allergies None Known NURSING: - Shower allowing shower - Bladder care per protocol - Skin care per protocol PRECAUTIONS: - Weight Bearing Precaution WBAT right LE ACTIVITIES OOB only with supervision THERAPIES: - Occupational Therapy Evaluate and Treat. Visual Perceptual Training. Cognitive Retraining. - Speech Therapy Cognitive Training. Memory Strategies. Expressive Language Skills. Speech Intelligibility Training. R eceptive Language Skills. - Physical Therapy Evaluate and Treat. PHYSICAL EXAM - Gen Alert and awake Lying in bed No apparent distress Oriented to: person, time, and place - Skin No breakdown No abnormalities - Eyes No abnormalities - ENMT No abnormalities - Neck No abnormalities - CVS RRR - Chest No abnormalities - Abd + bowel sounds - GI Soft Deferred - No abnormalities - Ext No significant edema. - MSK Right lower extremity incoordination and mild weakness - Neuro Right lower extremity incoordination and mild weakness - Psych No abnormalities ASSESSMENT: Pt. is a 63 yo Right-handed white female.On 11/18/2018 Pt. presented to [facility] with sudden onset of right-side weakness.On 11/18/2018 she was admitted to [facility] with diagnosis Left M iddle Cerebellar Peduncle and Left Cerebellar Hemisphere.Her impairment category is Stroke 01 - Righ t Body (Left Brain) (01.2).Pre-morbidly, Pt. was independent/mod-I in Self-Care, Sphincter Control, T ransfers Control, Locomotion, Communication, and Social Cognition; and she had good Sphincter Control .Currently, she has deficits of Self-Care, Transfers Control, Locomotion, Endurance, Balance, and Saf ety Awareness.Pt. is now referred to [facility] for acute in-patient rehabilit ation in order to maximize patient's functional independence in activities of daily living, strength, ROM, and mobility.- Rehab Goal Patient has realistic goal of being discharged at assistance level 6-Mauricio to reside at Home with Fam liset/Relatives. MDM/PLAN: - Physical Therapy Gait dysfunction - to improve, our physical therapists will perform initial evaluation of pt's statu s upon admission and devise an individualized program for Gait Training, and Wheel Chair mobility Inability to transfer - to improve, our physical therapists will perform initial evaluation of pt's status upon admission and devise an individualized program for Bed mobility Need for home safety evaluation - to improve, our physical therapists will perform initial evaluatio n of pt's status upon admission and devise an individualized program for Home Evaluation Need in caregiver upon discharge - to improve, our physical therapists will perform initial evaluati on of pt's status upon admission and devise an individualized program for Caregiver Training Edema - to improve, our physical therapists will perform initial evaluation of pt's status upon admi ssion and devise an individualized program for Elevation Training, and Lymphedema Therapy New precaution - to improve, our physical therapists will perform initial evaluation of pt's status upon admission and devise an individualized program for Patient precaution education Poor balance - to improve, our physical therapists will perform initial evaluation of pt's status up on admission and devise an individualized program for Balance Training Poor endurance - to improve, our physical therapists will perform initial evaluation of pt's status upon admission and devise an individualized program for Endurance Training Weakness - to improve, our physical therapists will perform initial evaluation of pt's status upon a dmission and devise an individualized program for Aquatic Therapy, Neuromuscular Reeducation, and Str engthening Achieving independence - to improve, our physical therapists will perform initial evaluation of pt's status upon admission and devise an individualized program for Community Reintegration Activities - Occupational Therapy ADL deficits - to improve, our occupation therapists will perform initial evaluation of pt's status upon admission and devise an individualized program for Bathing, Bed mobility, Community Reintegratio n, Cooking, Dressing, Eating, Fine Motor Skills, Grooming, Homemaking, Kitchen Mobility, Laundry, Pat ient Education, Safety Awareness, Splinting - Positioning, Transfers(Toilet, Tub, Shower), and Wheel Chair Management Need for healthcare social worker - to improve, our occupation therapists will perform initial evaluation of pt's status upon admission and devise an individualized program for Caregiver Training Weakness - to improve, our occupation therapists will perform initial evaluation of pt's status upon admission and devise an individualized program for Aquatic Therapy, Balance, Endurance, UE ROM, and UE strengthening - Diet Type Continue Regular - Diet - Liquid Texture Continue Regular - Tube Feed Continue N/A - Bladder care per protocol - Weight Bearing Precaution WBAT right LE - Skin care per protocol - Diet - Solid Texture Continue Regular - Shower allowing shower for Dementia, TBI, Stroke, or others FUNCTIONAL STATUS: UPDATED AT WEEKLY TEAM CONFERENCE - Bladder Same accident frequency: 7-Ind - No accidents in the past 7 days - Bowel Same accident frequency: 7-Ind - No accidents in the past 7 days - Walking Same score based on distance walked: 1(<=50ft) - Wheelchair Same score based on distance traveled: 0(N/A) FUNCTIONAL STATUS: - Self-Care A. Eating sup B. Grooming sup C. Bathing Syeda D. Dressing - Upper Syeda E. Dressing - Lower modA F. Toileting modA - Sphincter Control G: Bladder control Ind H: Bowel control Ind - Transfers Control I. Bed/Chair/Wheelchair Syeda J. Toilet Syeda K. Tub/Shower ADNO - Locomotion L. Walk/Wheelchair (C) modA L. Walk/Wheelchair (W) modA M. Stairs ADNO - Communication N. Comprehension (B) Ind O. Expression (B) Ind - Social Cognition P. Social Interaction Ind Q. Problem Solving Ind R. Memory Ind - Endurance Fair - Balance Fair - Safety Awareness Fair CURRENT FUNC. DEFICITS: Self-Care, Transfers Control, Locomotion, Endurance, Balance, and Safety Awareness SIGNATURE PANEL: (CDT)
[2018-12-04] MEDS: APIXABAN 5 MG TABLET PO SCH (19:59)
[2018-12-04] MEDS: GABAPENTIN 100 MG CAP PO SCH (20:00)
[2018-12-04] MEDS: ATORVASTATIN 80 MG TAB PO SCH (20:00)
[2018-12-04] MEDS: TOPIRAMATE 25 MG TAB PO SCH (20:01)
[2018-12-04] MEDS: DOCUSATE NA/SENNA CONC 1 TAB PO SCH (20:01)
[2018-12-04] MEDS: MELATONIN 3 MG TABLET PO PRN (20:01)
--- NOTE | 2018-12-05 01:45 | FAST ---
SHIFT START DATE/TIME: 12/04/2018 19:00 (CDT) SHIFT END DATE/TIME: 12/05/2018 07:00 (CDT) NAME BRITTANY SINGH DATE OF : 1955 DATE OF ADMISSION: 11/25/2018 10:53 (CDT) PHONE: AGE: 63 N# [id number] GENDER: Female ENCOUNTER PHYSICIAN: Dr. Kevin Paniagua M.D. ADMISSION DIAGNOSIS: - Stroke 01 - Right Body (Left Brain) (01.2) Left Middle Cerebellar Peduncle and Left Cerebellar Hemisphere. EATING: Activity did not occur on this shift EATING - SCORE: 0-UNK GROOMING: Activity did not occur on this shift GROOMING - SCORE: 0-UNK BATHING: Activity did not occur on this shift BATHING - SCORE: 0-UNK DRESSING - UPPER BODY: Patient is not dressing in public clothing ARTICLES SCORE Total number of steps: 0 DRESSING - UPPER BODY - SCORE: 0-UNK DRESSING - LOWER BODY: Patient is not dressing in public clothing ARTICLES SCORE Total number of steps: 0 DRESSING - LOWER BODY - SCORE: 0-UNK TOILETING: TOILETING - STEP 1: Does the patient require the assistance of a person or device, or need extra time with toileting? Yes . TOILETING - STEP 2: Does the patient require the assistance of a helper? Yes. TOILETING - STEP 3: How much assistance does the patient require from the helper? Hands-on assistance from the helper TOILETING - STEP 4: Of the 3 tasks: 1) Adjusting clothing prior to use, 2) Cleansing of perineal area, 3) Adjusting clot cierra after use; How many tasks does the patient perform WITHOUT assistance of the helper? Two tasks TOILETING - SCORE: 3-MOD BLADDER MANAGEMENT: BLADDER MANAGEMENT - STEP 1: Does the patient control the bladder completely and intentionally without equipment or devices or med ications, and is always continent? No. BLADDER MANAGEMENT - STEP 2: Does the patient require the assistance of a helper? Yes. BLADDER MANAGEMENT - STEP 3: How much assistance does the patient require from the helper? Only supervision, stand-by, cuing, or c oaxing BLADDER MANAGEMENT - SCORE: 5-SUP BOWEL MANAGEMENT: Activity did not occur on this shift BOWEL MANAGEMENT - SCORE: 7-IND TRANSFERS: BED, CHAIR, WHEELCHAIR: TRANSFERS: BED, CHAIR, WHEELCHAIR - STEP 1: Does the patient require assistance of a person or device, or need extra time with bed, chair, or whe elchair transfers? Yes. TRANSFERS: BED, CHAIR, WHEELCHAIR - STEP 2: Does the patient require the assistance of a helper? Yes. TRANSFERS: BED, CHAIR, WHEELCHAIR - STEP 3: How much assistance does the patient require from the helper? Steadying/guiding assistance TRANSFERS: BED, CHAIR, WHEELCHAIR - SCORE: 4-MIN TRANSFERS: TOILET: TRANSFERS: TOILET - STEP 1: Does the patient require the assistance of a person or device, or need extra time with toilet transfe rs? Yes. TRANSFERS: TOILET - STEP 2: Does the patient require the assistance of a helper? Yes. TRANSFERS: TOILET - STEP 3: How much assistance does the patient require from the helper? Patient performs half or more of the tr ansferring tasks TRANSFERS: TOILET - STEP 4: Does the patient need only incidental help such as contact guard or steadying during toilet transfer? Yes. TRANSFERS: TOILET - SCORE: 4-MIN TRANSFERS: SHOWER: Activity did not occur on this shift TRANSFERS: SHOWER - SCORE: 0-UNK TRANSFERS: TUB: Activity did not occur on this shift TRANSFERS: TUB - SCORE: 0-UNK LOCOMOTION: WALK: Activity did not occur on this shift LOCOMOTION: WALK - SCORE: 0-UNK LOCOMOTION: WHEELCHAIR: Activity did not occur on this shift LOCOMOTION: WHEELCHAIR - SCORE: 0-UNK COMPREHENSION: COMPREHENSION: TYPE: Both COMPREHENSION - STEP 1: Does the patient require help from a person or device, or need extra time to understand complex and a bstract ideas (such as current events, finances, discharge planning, medical issues, relationships, e tc)? Yes. COMPREHENSION - STEP 2: Does the patient require help to understand questions or statements about basic needs or ideas (such as hunger, thirst, sleep, safety, daily schedule, room location, or discomfort) half or more of the t tashi? No. COMPREHENSION - STEP 3: How often does the patient need help to understand directions and conversation about basic needs? 25% - 49% of the time COMPREHENSION - SCORE: 3-MOD EXPRESSION EXPRESSION: TYPE: Both EXPRESSION - STEP 1: Does the patient require help from a person or device, or need extra time expressing complex and abst ract ideas (such as current events, finances, discharge planning, medical issues, relationships, etc) ? No. EXPRESSION - STEP 2: Does the patient need extra time, require an assistive device (such as augmentive communication syste m or a communication board), OR does s/he have mild difficulty expressing complex and abstract ideas (including mild dysarthria or mild word-find problems)? Yes. EXPRESSION - SCORE: 6-NAHUN SOCIAL INTERACTION: SOCIAL INTERACTION - STEP 1: Does the patient require a helper to interact with others in social and therapeutic situations? No. SOCIAL INTERACTION - STEP 2: Does the patient need extra time in social situations, OR does s/he interact with staff, other patien ts, and family members ONLY in structured environments, OR does s/he require medication for social in teraction? Yes, patient needs extra time SOCIAL INTERACTION - SCORE: 6-NAHUN PROBLEM SOLVING: PROBLEM SOLVING - STEP 1: Does the patient need help from a person or device, or need extra time to solve complex problems such as managing a checking account or confronting interpersonal problems? Yes. PROBLEM SOLVING - STEP 2: Does the patient solve basic routine problems half or more of the time? Yes. PROBLEM SOLVING - STEP 3: How often does the patient need help to solve basic routine problems? 25%-49% of the time PROBLEM SOLVING - SCORE: 3-MOD MEMORY: MEMORY - STEP 1: Does the patient need help from a person or device, or need extra time to remember frequently encount ered people, daily routines, and executing requests? Yes. MEMORY - STEP 2: How often does the patient need help to remember frequently encountered people, daily routines, and e xecuting requests? 25% - 49% of the time MEMORY - SCORE: 3-MOD SIGNATURE PANEL: The following modified sections: Eating - Score, Grooming - Score, Dressing - Upper Body - Score, Tavo ssing - Lower Body - Score, Toileting - Score, Bladder Management - Score, Bowel Management - Score, Transfers: Bed, Chair, Wheelchair - Score, Transfers: Toilet - Score, Transfers: Shower - Score, Lewis sfers: Tub - Score, Locomotion: Walk - Score, Locomotion: Wheelchair - Score, Comprehension - Score, Expression - Score, Social Interaction - Score, Problem Solving - Score, Memory - Score were [electro nically] signed by Elli Perez CNA on TueDec 05 2018 01:44:48 GMT-0500 (Central Daylight Time)
[2018-12-05] MEDS: METOPROLOL TAR 25 MG TAB PO SCH ×2 (05:32→17:14)
[2018-12-05 07:02] LABS: Potassium 3.8 mmol/L (3.5-5.1)
[2018-12-05] MEDS: PROMOD 30 ML DOSE PO SCH ×2 (08:00→20:35)
[2018-12-05] MEDS: NICOTINE 14 MG/PAT TD SCH (09:15)
[2018-12-05] MEDS: DIGOXIN 0.125 MG TABLET PO SCH (09:15)
[2018-12-05] MEDS: POTASSIUM 25 MEQ EFFERV TAB PO SCH (09:15)
[2018-12-05] MEDS: MAGNESIUM OXIDE 400 MG TAB PO SCH ×2 (09:16→20:36)
[2018-12-05] MEDS: CYANOCOBALAMIN 1,000 MCG TAB PO SCH (09:16)
[2018-12-05] MEDS: FUROSEMIDE 20 MG TABLET PO SCH (09:16)
[2018-12-05] MEDS: APIXABAN 5 MG TABLET PO SCH ×2 (09:16→20:35)
[2018-12-05] MEDS: NYSTATIN 500,000 UNIT/5 ML UDC PO SCH ×2 (09:17→20:36)
--- NOTE | 2018-12-05 11:07 | RAD REPORT ---
EXAM DESCRIPTION: CT - Head Brain Wo Cont - 12/05/2018 9:51 am CLINICAL HISTORY: Comparison Headache, drowsiness, history of intraparenchymal bleed. COMPARISON: Head Brain Wo Cont dated 12/02/2018; Head Brain Wo Cont dated 12/01/2018 TECHNIQUE: All CT scans are performed using dose optimization technique as appropriate and may inclu de automated exposure control or mA/KV adjustment according to patient size. FINDINGS: No intracranial hemorrhage, hydrocephalus or extra-axial fluid collection.Previously noted intraparenchymal bleed is no longer clearly seen. Generalized brain atrophy is present.No areas of b rain edema or evidence of midline shift. The paranasal sinuses and mastoids are clear. The calvarium is intact. IMPRESSION: No acute intracranial abnormality.
[2018-12-05] MEDS: LISINOPRIL 20 MG TAB PO SCH (13:08)
--- NOTE | 2018-12-05 15:08 | FAST ---
SHIFT START DATE/TIME: 12/05/2018 07:00 (CDT) SHIFT END DATE/TIME: 12/05/2018 19:00 (CDT) NAME BRITTANY SINGH DATE OF : 1955 DATE OF ADMISSION: 11/25/2018 10:53 (CDT) PHONE: AGE: 63 N# [id number] GENDER: Female ENCOUNTER PHYSICIAN: Dr. Kevin Paniagua M.D. ADMISSION DIAGNOSIS: - Stroke 01 - Right Body (Left Brain) (01.2) Left Middle Cerebellar Peduncle and Left Cerebellar Hemisphere. EATING: EATING - STEP 1: Does the patient require the assistance of a person or device, or need extra time when eating? Yes. EATING - STEP 2: Does the patient require the assistance of a helper? Yes. EATING - STEP 3: Does the patient perform half or more of the eating tasks? Yes. EATING - STEP 4: Does the patient need only supervision, cuing, coaxing OR help to apply an orthosis OR help to cut fo od, open containers, pour liquids, or butter bread? Yes. EATING - SCORE: 5-SUP GROOMING: Activity did not occur on this shift GROOMING - SCORE: 0-UNK BATHING: Activity did not occur on this shift BATHING - SCORE: 0-UNK DRESSING - UPPER BODY: Activity did not occur on this shift ARTICLES SCORE Total number of steps: 0 DRESSING - UPPER BODY - SCORE: 0-UNK DRESSING - LOWER BODY: Activity did not occur on this shift ARTICLES SCORE Total number of steps: 0 DRESSING - LOWER BODY - SCORE: 0-UNK TOILETING: TOILETING - STEP 1: Does the patient require the assistance of a person or device, or need extra time with toileting? Yes . TOILETING - STEP 2: Does the patient require the assistance of a helper? Yes. TOILETING - STEP 3: How much assistance does the patient require from the helper? Hands-on assistance from the helper TOILETING - STEP 4: Of the 3 tasks: 1) Adjusting clothing prior to use, 2) Cleansing of perineal area, 3) Adjusting clot cierra after use; How many tasks does the patient perform WITHOUT assistance of the helper? Three tasks with steadying assistance from the helper TOILETING - SCORE: 4-MIN BLADDER MANAGEMENT: BLADDER MANAGEMENT - STEP 1: Does the patient control the bladder completely and intentionally without equipment or devices or med ications, and is always continent? No. BLADDER MANAGEMENT - STEP 2: Does the patient require the assistance of a helper? Yes. BLADDER MANAGEMENT - STEP 3: How much assistance does the patient require from the helper? Only supervision, stand-by, cuing, or c oaxing BLADDER MANAGEMENT - SCORE: 5-SUP BLADDER MANAGEMENT - FREQUENCY OF ACCIDENTS: BLADDER MANAGEMENT(FA) - STEP 1: How many accidents has the patient had during the current shift? 0 BOWEL MANAGEMENT: Activity did not occur on this shift BOWEL MANAGEMENT - SCORE: 7-IND BOWEL MANAGEMENT - FREQUENCY OF ACCIDENTS: BOWEL MANAGEMENT(FA) - STEP 1: How many accidents has the patient had during the current shift? 0 TRANSFERS: BED, CHAIR, WHEELCHAIR: TRANSFERS: BED, CHAIR, WHEELCHAIR - STEP 1: Does the patient require assistance of a person or device, or need extra time with bed, chair, or whe elchair transfers? Yes. TRANSFERS: BED, CHAIR, WHEELCHAIR - STEP 2: Does the patient require the assistance of a helper? Yes. TRANSFERS: BED, CHAIR, WHEELCHAIR - STEP 3: How much assistance does the patient require from the helper? Steadying/guiding assistance TRANSFERS: BED, CHAIR, WHEELCHAIR - SCORE: 4-MIN TRANSFERS: TOILET: TRANSFERS: TOILET - STEP 1: Does the patient require the assistance of a person or device, or need extra time with toilet transfe rs? Yes. TRANSFERS: TOILET - STEP 2: Does the patient require the assistance of a helper? Yes. TRANSFERS: TOILET - STEP 3: How much assistance does the patient require from the helper? Patient performs half or more of the tr ansferring tasks TRANSFERS: TOILET - STEP 4: Does the patient need only incidental help such as contact guard or steadying during toilet transfer? Yes. TRANSFERS: TOILET - SCORE: 4-MIN TRANSFERS: SHOWER: Activity did not occur on this shift TRANSFERS: SHOWER - SCORE: 0-UNK TRANSFERS: TUB: Activity did not occur on this shift TRANSFERS: TUB - SCORE: 0-UNK LOCOMOTION: WALK: Activity did not occur on this shift LOCOMOTION: WALK - SCORE: 0-UNK LOCOMOTION: WHEELCHAIR: Activity did not occur on this shift LOCOMOTION: WHEELCHAIR - SCORE: 0-UNK COMPREHENSION: COMPREHENSION: TYPE: Both COMPREHENSION - STEP 1: Does the patient require help from a person or device, or need extra time to understand complex and a bstract ideas (such as current events, finances, discharge planning, medical issues, relationships, e tc)? Yes. COMPREHENSION - STEP 2: Does the patient require help to understand questions or statements about basic needs or ideas (such as hunger, thirst, sleep, safety, daily schedule, room location, or discomfort) half or more of the t tashi? No. COMPREHENSION - STEP 3: How often does the patient need help to understand directions and conversation about basic needs? 25% - 49% of the time COMPREHENSION - SCORE: 3-MOD EXPRESSION EXPRESSION: TYPE: Both EXPRESSION - STEP 1: Does the patient require help from a person or device, or need extra time expressing complex and abst ract ideas (such as current events, finances, discharge planning, medical issues, relationships, etc) ? Yes. EXPRESSION - STEP 2: Does the patient require help to express basic necessities or ideas (such as hunger, thirst, sleep, s afety, daily schedule, room location, or discomfort) half or more of the time? Yes. EXPRESSION - STEP 3: Is the patient basically unable to express or does s/he express inappropriately or inconsistently corrie pite prompting? Yes. Patient is basically unable to express. EXPRESSION - SCORE: 1-DEP SOCIAL INTERACTION: SOCIAL INTERACTION - STEP 1: Does the patient require a helper to interact with others in social and therapeutic situations? Yes. SOCIAL INTERACTION - STEP 2: Does the patient interact appropriately half or more of the time? No. SOCIAL INTERACTION - STEP 3: How often does the patient interact appropriately? More than 25% of the time SOCIAL INTERACTION - SCORE: 2-MAX PROBLEM SOLVING: PROBLEM SOLVING - STEP 1: Does the patient need help from a person or device, or need extra time to solve complex problems such as managing a checking account or confronting interpersonal problems? Yes. PROBLEM SOLVING - STEP 2: Does the patient solve basic routine problems half or more of the time? Yes. PROBLEM SOLVING - STEP 3: How often does the patient need help to solve basic routine problems? 25%-49% of the time PROBLEM SOLVING - SCORE: 3-MOD MEMORY: MEMORY - STEP 1: Does the patient need help from a person or device, or need extra time to remember frequently encount ered people, daily routines, and executing requests? Yes. MEMORY - STEP 2: How often does the patient need help to remember frequently encountered people, daily routines, and e xecuting requests? More than 50% of the time MEMORY - STEP 3: Does the patient need help to remember all of the time OR does s/he not effectively recognize and rem ember? No. Patient does not need help all the time MEMORY - SCORE: 2-MAX SIGNATURE PANEL: The following modified sections: Eating - Score, Grooming - Score, Bathing - Score, Dressing - Upper Body - Score, Dressing - Lower Body - Score, Toileting - Score, Bowel Management - Score, Transfers: Bed, Chair, Wheelchair - Score, Transfers: Toilet - Score, Transfers: Shower - Score, Transfers: Tub - Score, Locomotion: Walk - Score, Locomotion: Wheelchair - Score, Comprehension - Score, Expression - Score, Problem Solving - Score, Memory - Score, Bladder Management - Score, Social Interaction - Sc ore were [electronically] signed by Rene ZhangNLucia on TueDec 05 2018 15:07:06 T-0500 (Centra l Daylight Time)
--- NOTE | 2018-12-05 19:08 | R.PN ---
ENCOUNTER DATE AND TIME: 12/05/2018 19:05 (CDT) NAME BRITTANY SINGH DATE OF : 1955 DATE OF ADMISSION: 11/25/2018 10:53 (CDT) Left Middle Cerebellar Peduncle and Left Cerebellar HemisphereCHIEF COMPLAINT: Left hemispheric stroke with right sided weakness. SUBJECTIVE: Pt denied any Shortness of Breath. Pt denied any depression. Ambulated 250' with rolling walker with contact guard assistance. Hgb 11.7, prealbumin 15.1, glucose 124. Dysphagia training done with modified independence. VITAL SIGNS Temperature: 97.3 F SBP/DBP: 129/68 Pulse: 68 Resp: 16 MEDICATION ALLERGIES: No Known Drug Allergies (NKDA) ENVIRONMENTAL ALLERGIES: None Known - Substance Allergies None Known - Other Allergies None Known NURSING: - Shower allowing shower - Bladder care per protocol - Skin care per protocol PRECAUTIONS: - Weight Bearing Precaution WBAT right LE ACTIVITIES OOB only with supervision THERAPIES: - Occupational Therapy Evaluate and Treat. Visual Perceptual Training. Cognitive Retraining. - Speech Therapy Cognitive Training. Memory Strategies. Expressive Language Skills. Speech Intelligibility Training. R eceptive Language Skills. - Physical Therapy Evaluate and Treat. PHYSICAL EXAM - Gen Alert and awake Lying in bed No apparent distress Oriented to: person, time, and place - Skin No breakdown No abnormalities - Eyes No abnormalities - ENMT No abnormalities - Neck No abnormalities - CVS RRR - Chest No abnormalities - Abd + bowel sounds - GI Soft Deferred - No abnormalities - Ext No significant edema. - MSK Right lower extremity incoordination and mild weakness - Neuro Right lower extremity incoordination and mild weakness - Psych No abnormalities ASSESSMENT: Pt. is a 63 yo Right-handed white female.On 11/18/2018 Pt. presented to [facility] with sudden onset of right-side weakness.On 11/18/2018 she was admitted to [facility] with diagnosis Left M iddle Cerebellar Peduncle and Left Cerebellar Hemisphere.Her impairment category is Stroke 01 - Righ t Body (Left Brain) (01.2).Pre-morbidly, Pt. was independent/mod-I in Self-Care, Sphincter Control, T ransfers Control, Locomotion, Communication, and Social Cognition; and she had good Sphincter Control .Currently, she has deficits of Self-Care, Transfers Control, Locomotion, Endurance, Balance, and Saf ety Awareness.Pt. is now referred to [facility] for acute in-patient rehabilit ation in order to maximize patient's functional independence in activities of daily living, strength, ROM, and mobility.- Rehab Goal Patient has realistic goal of being discharged at assistance level 6-Mauricio to reside at Home with Fam liset/Relatives. MDM/PLAN: - Physical Therapy Gait dysfunction - to improve, our physical therapists will perform initial evaluation of pt's statu s upon admission and devise an individualized program for Gait Training, and Wheel Chair mobility Inability to transfer - to improve, our physical therapists will perform initial evaluation of pt's status upon admission and devise an individualized program for Bed mobility Need for home safety evaluation - to improve, our physical therapists will perform initial evaluatio n of pt's status upon admission and devise an individualized program for Home Evaluation Need in caregiver upon discharge - to improve, our physical therapists will perform initial evaluati on of pt's status upon admission and devise an individualized program for Caregiver Training Edema - to improve, our physical therapists will perform initial evaluation of pt's status upon admi ssion and devise an individualized program for Elevation Training, and Lymphedema Therapy New precaution - to improve, our physical therapists will perform initial evaluation of pt's status upon admission and devise an individualized program for Patient precaution education Poor balance - to improve, our physical therapists will perform initial evaluation of pt's status up on admission and devise an individualized program for Balance Training Poor endurance - to improve, our physical therapists will perform initial evaluation of pt's status upon admission and devise an individualized program for Endurance Training Weakness - to improve, our physical therapists will perform initial evaluation of pt's status upon a dmission and devise an individualized program for Aquatic Therapy, Neuromuscular Reeducation, and Str engthening Achieving independence - to improve, our physical therapists will perform initial evaluation of pt's status upon admission and devise an individualized program for Community Reintegration Activities - Occupational Therapy ADL deficits - to improve, our occupation therapists will perform initial evaluation of pt's status upon admission and devise an individualized program for Bathing, Bed mobility, Community Reintegratio n, Cooking, Dressing, Eating, Fine Motor Skills, Grooming, Homemaking, Kitchen Mobility, Laundry, Pat ient Education, Safety Awareness, Splinting - Positioning, Transfers(Toilet, Tub, Shower), and Wheel Chair Management Need for resident care assistant - to improve, our occupation therapists will perform initial evaluation of pt's status upon admission and devise an individualized program for Caregiver Training Weakness - to improve, our occupation therapists will perform initial evaluation of pt's status upon admission and devise an individualized program for Aquatic Therapy, Balance, Endurance, UE ROM, and UE strengthening - Diet Type Continue Regular - Diet - Liquid Texture Continue Regular - Tube Feed Continue N/A - Bladder care per protocol - Weight Bearing Precaution WBAT right LE - Skin care per protocol - Diet - Solid Texture Continue Regular - Shower allowing shower for Dementia, TBI, Stroke, or others FUNCTIONAL STATUS: UPDATED AT WEEKLY TEAM CONFERENCE - Bladder Same accident frequency: 7-Ind - No accidents in the past 7 days - Bowel Same accident frequency: 7-Ind - No accidents in the past 7 days - Walking Same score based on distance walked: 1(<=50ft) - Wheelchair Same score based on distance traveled: 0(N/A) FUNCTIONAL STATUS: - Self-Care A. Eating sup B. Grooming sup C. Bathing Syeda D. Dressing - Upper Syeda E. Dressing - Lower modA F. Toileting modA - Sphincter Control G: Bladder control Ind H: Bowel control Ind - Transfers Control I. Bed/Chair/Wheelchair Syeda J. Toilet Syeda K. Tub/Shower ADNO - Locomotion L. Walk/Wheelchair (C) modA L. Walk/Wheelchair (W) modA M. Stairs ADNO - Communication N. Comprehension (B) Ind O. Expression (B) Ind - Social Cognition P. Social Interaction Ind Q. Problem Solving Ind R. Memory Ind - Endurance Fair - Balance Fair - Safety Awareness Fair CURRENT FUNC. DEFICITS: Self-Care, Transfers Control, Locomotion, Endurance, Balance, and Safety Awareness SIGNATURE PANEL: (CDT)
[2018-12-05] MEDS: ATORVASTATIN 80 MG TAB PO SCH (20:35)
[2018-12-05] MEDS: GABAPENTIN 100 MG CAP PO SCH (20:35)
[2018-12-05] MEDS: DOCUSATE NA/SENNA CONC 1 TAB PO SCH (20:36)
[2018-12-05] MEDS: MELATONIN 3 MG TABLET PO PRN (20:36)
[2018-12-05] MEDS: TOPIRAMATE 25 MG TAB PO SCH (20:36)
--- NOTE | 2018-12-06 00:23 | FAST ---
SHIFT START DATE/TIME: 12/05/2018 19:00 (CDT) SHIFT END DATE/TIME: 12/06/2018 07:00 (CDT) NAME BRITTANY SINGH DATE OF : 1955 DATE OF ADMISSION: 11/25/2018 10:53 (CDT) PHONE: AGE: 63 N# [id number] GENDER: Female ENCOUNTER PHYSICIAN: Dr. Kevin Paniagua M.D. ADMISSION DIAGNOSIS: - Stroke 01 - Right Body (Left Brain) (01.2) Left Middle Cerebellar Peduncle and Left Cerebellar Hemisphere. EATING: Activity did not occur on this shift EATING - SCORE: 0-UNK GROOMING: Activity did not occur on this shift GROOMING - SCORE: 0-UNK BATHING: Activity did not occur on this shift BATHING - SCORE: 0-UNK DRESSING - UPPER BODY: Patient is not dressing in public clothing ARTICLES SCORE Total number of steps: 0 DRESSING - UPPER BODY - SCORE: 0-UNK DRESSING - LOWER BODY: Patient is not dressing in public clothing ARTICLES SCORE Total number of steps: 0 DRESSING - LOWER BODY - SCORE: 0-UNK TOILETING: TOILETING - STEP 1: Does the patient require the assistance of a person or device, or need extra time with toileting? Yes . TOILETING - STEP 2: Does the patient require the assistance of a helper? Yes. TOILETING - STEP 3: How much assistance does the patient require from the helper? Hands-on assistance from the helper TOILETING - STEP 4: Of the 3 tasks: 1) Adjusting clothing prior to use, 2) Cleansing of perineal area, 3) Adjusting clot cierra after use; How many tasks does the patient perform WITHOUT assistance of the helper? Three tasks with steadying assistance from the helper TOILETING - SCORE: 4-MIN BLADDER MANAGEMENT: BLADDER MANAGEMENT - STEP 1: Does the patient control the bladder completely and intentionally without equipment or devices or med ications, and is always continent? No. BLADDER MANAGEMENT - STEP 2: Does the patient require the assistance of a helper? Yes. BLADDER MANAGEMENT - STEP 3: How much assistance does the patient require from the helper? Only set-up of equipment - such as plac ing it within reach of the patient or emptying a device - to maintain either satisfactory voiding pat tern or managing an external device, such as an absorbent pad, ileal device, or catheter BLADDER MANAGEMENT - SCORE: 5-SUP BOWEL MANAGEMENT: Activity did not occur on this shift BOWEL MANAGEMENT - SCORE: 7-IND TRANSFERS: BED, CHAIR, WHEELCHAIR: TRANSFERS: BED, CHAIR, WHEELCHAIR - STEP 1: Does the patient require assistance of a person or device, or need extra time with bed, chair, or whe elchair transfers? Yes. TRANSFERS: BED, CHAIR, WHEELCHAIR - STEP 2: Does the patient require the assistance of a helper? Yes. TRANSFERS: BED, CHAIR, WHEELCHAIR - STEP 3: How much assistance does the patient require from the helper? Steadying/guiding assistance TRANSFERS: BED, CHAIR, WHEELCHAIR - SCORE: 4-MIN TRANSFERS: TOILET: TRANSFERS: TOILET - STEP 1: Does the patient require the assistance of a person or device, or need extra time with toilet transfe rs? Yes. TRANSFERS: TOILET - STEP 2: Does the patient require the assistance of a helper? Yes. TRANSFERS: TOILET - STEP 3: How much assistance does the patient require from the helper? Only supervision, cuing, coaxing, OR he lp to set out transfer equipment or to lock brakes and/or lift foot rests TRANSFERS: TOILET - SCORE: 5-SUP TRANSFERS: SHOWER: Activity did not occur on this shift TRANSFERS: SHOWER - SCORE: 0-UNK TRANSFERS: TUB: Activity did not occur on this shift TRANSFERS: TUB - SCORE: 0-UNK LOCOMOTION: WALK: Activity did not occur on this shift LOCOMOTION: WALK - SCORE: 0-UNK LOCOMOTION: WHEELCHAIR: Activity did not occur on this shift LOCOMOTION: WHEELCHAIR - SCORE: 0-UNK COMPREHENSION: COMPREHENSION: TYPE: Both COMPREHENSION - STEP 1: Does the patient require help from a person or device, or need extra time to understand complex and a bstract ideas (such as current events, finances, discharge planning, medical issues, relationships, e tc)? Yes. COMPREHENSION - STEP 2: Does the patient require help to understand questions or statements about basic needs or ideas (such as hunger, thirst, sleep, safety, daily schedule, room location, or discomfort) half or more of the t tashi? No. COMPREHENSION - STEP 3: How often does the patient need help to understand directions and conversation about basic needs? 25% - 49% of the time COMPREHENSION - SCORE: 3-MOD EXPRESSION EXPRESSION: TYPE: Both EXPRESSION - STEP 1: Does the patient require help from a person or device, or need extra time expressing complex and abst ract ideas (such as current events, finances, discharge planning, medical issues, relationships, etc) ? No. EXPRESSION - STEP 2: Does the patient need extra time, require an assistive device (such as augmentive communication syste m or a communication board), OR does s/he have mild difficulty expressing complex and abstract ideas (including mild dysarthria or mild word-find problems)? Yes. EXPRESSION - SCORE: 6-NAHUN SOCIAL INTERACTION: SOCIAL INTERACTION - STEP 1: Does the patient require a helper to interact with others in social and therapeutic situations? No. SOCIAL INTERACTION - STEP 2: Does the patient need extra time in social situations, OR does s/he interact with staff, other patien ts, and family members ONLY in structured environments, OR does s/he require medication for social in teraction? Yes, patient needs extra time SOCIAL INTERACTION - SCORE: 6-NAHUN PROBLEM SOLVING: PROBLEM SOLVING - STEP 1: Does the patient need help from a person or device, or need extra time to solve complex problems such as managing a checking account or confronting interpersonal problems? Yes. PROBLEM SOLVING - STEP 2: Does the patient solve basic routine problems half or more of the time? Yes. PROBLEM SOLVING - STEP 3: How often does the patient need help to solve basic routine problems? 25%-49% of the time PROBLEM SOLVING - SCORE: 3-MOD MEMORY: MEMORY - STEP 1: Does the patient need help from a person or device, or need extra time to remember frequently encount ered people, daily routines, and executing requests? Yes. MEMORY - STEP 2: How often does the patient need help to remember frequently encountered people, daily routines, and e xecuting requests? 25% - 49% of the time MEMORY - SCORE: 3-MOD SIGNATURE PANEL: The following modified sections: Eating - Score, Grooming - Score, Dressing - Upper Body - Score, Tavo ssing - Lower Body - Score, Toileting - Score, Bladder Management - Score, Bowel Management - Score, Transfers: Bed, Chair, Wheelchair - Score, Transfers: Toilet - Score, Transfers: Shower - Score, Lewis sfers: Tub - Score, Locomotion: Walk - Score, Locomotion: Wheelchair - Score, Comprehension - Score, Expression - Score, Social Interaction - Score, Problem Solving - Score, Memory - Score were [electro nically] signed by Elli Perez CNA on TueDec 06 2018 00:22:43 GMT-0500 (Central Daylight Time)
[2018-12-06] MEDS: METOPROLOL TAR 25 MG TAB PO SCH ×2 (05:23→17:12)
[2018-12-06] MEDS: NYSTATIN 500,000 UNIT/5 ML UDC PO SCH ×2 (07:51→20:16)
[2018-12-06] MEDS: PROMOD 30 ML DOSE PO SCH ×2 (07:52→20:13)
[2018-12-06] MEDS: CYANOCOBALAMIN 1,000 MCG TAB PO SCH (07:52)
[2018-12-06] MEDS: NICOTINE 14 MG/PAT TD SCH (07:52)
[2018-12-06] MEDS: POTASSIUM 25 MEQ EFFERV TAB PO SCH (07:52)
[2018-12-06] MEDS: APIXABAN 5 MG TABLET PO SCH ×2 (07:53→20:14)
[2018-12-06] MEDS: DIGOXIN 0.125 MG TABLET PO SCH (07:53)
[2018-12-06] MEDS: MAGNESIUM OXIDE 400 MG TAB PO SCH ×2 (07:53→20:15)
[2018-12-06] MEDS: LISINOPRIL 20 MG TAB PO SCH (08:00)
[2018-12-06] MEDS: FUROSEMIDE 20 MG TABLET PO SCH (08:00)
--- NOTE | 2018-12-06 12:23 | FAST ---
ENCOUNTER DATE AND TIME: 12/06/2018 08:00 (CDT) NAME BRITTANY SINGH DATE OF : 1955 DATE OF ADMISSION: 11/25/2018 10:53 (CDT) PHONE: AGE: 63 SSN# [id number] GENDER: Female ENCOUNTER PHYSICIAN: Dr. Kevin Paniagua M.D. ADMISSION DIAGNOSIS: - Stroke 01 - Right Body (Left Brain) (01.2) Left Middle Cerebellar Peduncle and Left Cerebellar Hemisphere. EATING: Activity did not occur on this shift EATING - SCORE: 0-UNK GROOMING: Comb/brush hair Oral care Wash, rinse, and dry face Wash, rinse, and dry hands GROOMING - STEP 1: Does the patient require the assistance of a person or device, or need extra time when grooming? Yes. GROOMING - STEP 2: Does the patient require the assistance of a helper? Yes. GROOMING - STEP 3: How much assistance does the patient require from the helper? Incidental touching assistance from the helper while grooming GROOMING - SCORE: 4-MIN BATHING: Abdomen Buttocks Chest Left arm Left lower leg and foot Left upper leg Perineal area Right arm Right lower leg and foot Right upper leg BATHING - STEP 1: Does the patient require the assistance of a person or device, or need extra time when bathing? Yes. BATHING - STEP 2: Does the patient require the assistance of a helper? Yes. BATHING - STEP 3: How much assistance does the patient require from the helper? Only incidental help such as placement of a wash cloth in his/her hand a few times as s/he bathes OR help to bathe just one or two areas of the body BATHING - SCORE: 4-MIN DRESSING - UPPER BODY: T-shirt/pullover shirt (four steps) ARTICLES SCORE Total number of steps: 4 DRESSING - UPPER BODY - STEP 1: Does the patient require help from a person or device, or need extra time when dressing above the diego st? Yes. DRESSING - UPPER BODY - STEP 2: Does the patient require the assistance of a helper? Yes. DRESSING - UPPER BODY - STEP 3: Does the helper touch the patient while dressing? No. DRESSING - UPPER BODY - SCORE: 5-SUP DRESSING - LOWER BODY: Sock - Left foot (one step) Sock - Right foot (one step) Underwear (three steps) Zippered pants (four steps) ARTICLES SCORE Total number of steps: 9 DRESSING - LOWER BODY - STEP 1: Does the patient require help from a person or device, or need extra time when dressing below the diego st? Yes. DRESSING - LOWER BODY - STEP 2: Does the patient require the assistance of a helper? Yes. DRESSING - LOWER BODY - STEP 3: Does the helper touch the patient while dressing? Yes. DRESSING - LOWER BODY - STEP 4: How many of the total steps does the patient complete on his/her own? 9 DRESSING - LOWER BODY - SCORE: 4-MIN TOILETING: Activity did not occur on this shift TOILETING - SCORE: 0-UNK BLADDER MANAGEMENT: Activity did not occur on this shift BLADDER MANAGEMENT - SCORE: 7-IND BOWEL MANAGEMENT: Activity did not occur on this shift BOWEL MANAGEMENT - SCORE: 7-IND TRANSFERS: BED, CHAIR, WHEELCHAIR: Activity did not occur on this shift TRANSFERS: BED, CHAIR, WHEELCHAIR - SCORE: 0-UNK TRANSFERS: TOILET: Activity did not occur on this shift TRANSFERS: TOILET - SCORE: 0-UNK TRANSFERS: SHOWER: Activity did not occur on this shift TRANSFERS: SHOWER - SCORE: 0-UNK TRANSFERS: TUB: TRANSFERS: TUB - STEP 1: Does the patient require the assistance of a person or device, or need extra time with tub transfers? Yes. TRANSFERS: TUB - STEP 2: Does the patient require the assistance of a helper? Yes. TRANSFERS: TUB - STEP 3: How much assistance does the patient require from the helper? Incidental help such as contact guardin g or steadying, OR help to lift one leg into the tub TRANSFERS: TUB - SCORE: 4-MIN LOCOMOTION: WALK: Activity did not occur on this shift LOCOMOTION: WALK - SCORE: 0-UNK LOCOMOTION: WHEELCHAIR: Activity did not occur on this shift LOCOMOTION: WHEELCHAIR - SCORE: 0-UNK LOCOMOTION: STAIRS: Activity did not occur on this shift LOCOMOTION: STAIRS - SCORE: 0-UNK COMPREHENSION: COMPREHENSION: TYPE: Visual COMPREHENSION - STEP 1: Does the patient require help from a person or device, or need extra time to understand complex and a bstract ideas (such as current events, finances, discharge planning, medical issues, relationships, e tc)? Yes. COMPREHENSION - STEP 2: Does the patient require help to understand questions or statements about basic needs or ideas (such as hunger, thirst, sleep, safety, daily schedule, room location, or discomfort) half or more of the t tashi? No. COMPREHENSION - STEP 3: How often does the patient need help to understand directions and conversation about basic needs? Les s than 10% of the time COMPREHENSION - SCORE: 5-SUP EXPRESSION EXPRESSION: TYPE: Non-Vocal EXPRESSION - STEP 1: Does the patient require help from a person or device, or need extra time expressing complex and abst ract ideas (such as current events, finances, discharge planning, medical issues, relationships, etc) ? Yes. EXPRESSION - STEP 2: Does the patient require help to express basic necessities or ideas (such as hunger, thirst, sleep, s afety, daily schedule, room location, or discomfort) half or more of the time? No. EXPRESSION - STEP 3: How often does the patient need help to express directions and conversation about basic needs? Less t patino 10% of the time EXPRESSION - SCORE: 5-SUP SOCIAL INTERACTION: SOCIAL INTERACTION - STEP 1: Does the patient require a helper to interact with others in social and therapeutic situations? No. SOCIAL INTERACTION - STEP 2: Does the patient need extra time in social situations, OR does s/he interact with staff, other patien ts, and family members ONLY in structured environments, OR does s/he require medication for social in teraction? Yes, patient needs extra time SOCIAL INTERACTION - SCORE: 6-NAHUN PROBLEM SOLVING: PROBLEM SOLVING - STEP 1: Does the patient need help from a person or device, or need extra time to solve complex problems such as managing a checking account or confronting interpersonal problems? Yes. PROBLEM SOLVING - STEP 2: Does the patient solve basic routine problems half or more of the time? Yes. PROBLEM SOLVING - STEP 3: How often does the patient need help to solve basic routine problems? Less than 10% of the time PROBLEM SOLVING - SCORE: 5-SUP MEMORY: MEMORY - STEP 1: Does the patient need help from a person or device, or need extra time to remember frequently encount ered people, daily routines, and executing requests? Yes. MEMORY - STEP 2: How often does the patient need help to remember frequently encountered people, daily routines, and e xecuting requests? Less than 10% of the time MEMORY - SCORE: 5-SUP SIGNATURE PANEL: The following modified sections: Eating - Score, Grooming - Score, Bathing - Score, Dressing - Upper Body - Score, Dressing - Lower Body - Score, Toileting - Score, Transfers: Bed, Chair, Wheelchair - S core, Transfers: Toilet - Score, Transfers: Shower - Score, Transfers: Tub - Score, Comprehension - S core, Expression - Score, Social Interaction - Score, Problem Solving - Score, Memory - Score were [e lectronically] signed by JEANNE Voss on TueDec 06 2018 12:22:02 [facility]-0500 ([facility] Time)
--- NOTE | 2018-12-06 14:18 | FAST ---
SHIFT START DATE/TIME: 12/06/2018 07:00 (CDT) SHIFT END DATE/TIME: 12/06/2018 19:00 (CDT) NAME BRITTANY SINGH DATE OF : 1955 DATE OF ADMISSION: 11/25/2018 10:53 (CDT) PHONE: AGE: 63 N# [id number] GENDER: Female ENCOUNTER PHYSICIAN: Dr. Kevin Paniagua M.D. ADMISSION DIAGNOSIS: - Stroke 01 - Right Body (Left Brain) (01.2) Left Middle Cerebellar Peduncle and Left Cerebellar Hemisphere. EATING: EATING - STEP 1: Does the patient require the assistance of a person or device, or need extra time when eating? Yes. EATING - STEP 2: Does the patient require the assistance of a helper? Yes. EATING - STEP 3: Does the patient perform half or more of the eating tasks? No. EATING - STEP 4: Does the patient require total assistance to eat, such as the helper holding the utensil and bringing all food and liquids to the mouth? No. EATING - SCORE: 2-MAX EATING - COMMENTS: Pt need queing GROOMING: Activity did not occur on this shift GROOMING - SCORE: 0-UNK BATHING: Activity did not occur on this shift BATHING - SCORE: 0-UNK DRESSING - UPPER BODY: Activity did not occur on this shift ARTICLES SCORE Total number of steps: 0 DRESSING - UPPER BODY - SCORE: 0-UNK DRESSING - LOWER BODY: Activity did not occur on this shift ARTICLES SCORE Total number of steps: 0 DRESSING - LOWER BODY - SCORE: 0-UNK TOILETING: TOILETING - STEP 1: Does the patient require the assistance of a person or device, or need extra time with toileting? Yes . TOILETING - STEP 2: Does the patient require the assistance of a helper? Yes. TOILETING - STEP 3: How much assistance does the patient require from the helper? Hands-on assistance from the helper TOILETING - STEP 4: Of the 3 tasks: 1) Adjusting clothing prior to use, 2) Cleansing of perineal area, 3) Adjusting clot cierra after use; How many tasks does the patient perform WITHOUT assistance of the helper? Two tasks TOILETING - SCORE: 3-MOD BLADDER MANAGEMENT: BLADDER MANAGEMENT - STEP 1: Does the patient control the bladder completely and intentionally without equipment or devices or med ications, and is always continent? No. BLADDER MANAGEMENT - STEP 2: Does the patient require the assistance of a helper? Yes. BLADDER MANAGEMENT - STEP 3: How much assistance does the patient require from the helper? Only supervision, stand-by, cuing, or c oaxing BLADDER MANAGEMENT - SCORE: 5-SUP BLADDER MANAGEMENT - FREQUENCY OF ACCIDENTS: BLADDER MANAGEMENT(FA) - STEP 1: How many accidents has the patient had during the current shift? 0 BOWEL MANAGEMENT: Activity did not occur on this shift BOWEL MANAGEMENT - SCORE: 7-IND BOWEL MANAGEMENT - FREQUENCY OF ACCIDENTS: BOWEL MANAGEMENT(FA) - STEP 1: How many accidents has the patient had during the current shift? 0 TRANSFERS: BED, CHAIR, WHEELCHAIR: TRANSFERS: BED, CHAIR, WHEELCHAIR - STEP 1: Does the patient require assistance of a person or device, or need extra time with bed, chair, or whe elchair transfers? Yes. TRANSFERS: BED, CHAIR, WHEELCHAIR - STEP 2: Does the patient require the assistance of a helper? Yes. TRANSFERS: BED, CHAIR, WHEELCHAIR - STEP 3: How much assistance does the patient require from the helper? Steadying/guiding assistance TRANSFERS: BED, CHAIR, WHEELCHAIR - SCORE: 4-MIN TRANSFERS: TOILET: TRANSFERS: TOILET - STEP 1: Does the patient require the assistance of a person or device, or need extra time with toilet transfe rs? Yes. TRANSFERS: TOILET - STEP 2: Does the patient require the assistance of a helper? Yes. TRANSFERS: TOILET - STEP 3: How much assistance does the patient require from the helper? Patient performs half or more of the tr ansferring tasks TRANSFERS: TOILET - STEP 4: Does the patient need only incidental help such as contact guard or steadying during toilet transfer? Yes. TRANSFERS: TOILET - SCORE: 4-MIN TRANSFERS: SHOWER: Activity did not occur on this shift TRANSFERS: SHOWER - SCORE: 0-UNK TRANSFERS: TUB: Activity did not occur on this shift TRANSFERS: TUB - SCORE: 0-UNK LOCOMOTION: WALK: Activity did not occur on this shift LOCOMOTION: WALK - SCORE: 0-UNK LOCOMOTION: WHEELCHAIR: Activity did not occur on this shift LOCOMOTION: WHEELCHAIR - SCORE: 0-UNK COMPREHENSION: COMPREHENSION: TYPE: Both COMPREHENSION - STEP 1: Does the patient require help from a person or device, or need extra time to understand complex and a bstract ideas (such as current events, finances, discharge planning, medical issues, relationships, e tc)? Yes. COMPREHENSION - STEP 2: Does the patient require help to understand questions or statements about basic needs or ideas (such as hunger, thirst, sleep, safety, daily schedule, room location, or discomfort) half or more of the t tashi? No. COMPREHENSION - STEP 3: How often does the patient need help to understand directions and conversation about basic needs? 25% - 49% of the time COMPREHENSION - SCORE: 3-MOD EXPRESSION EXPRESSION: TYPE: Both EXPRESSION - STEP 1: Does the patient require help from a person or device, or need extra time expressing complex and abst ract ideas (such as current events, finances, discharge planning, medical issues, relationships, etc) ? Yes. EXPRESSION - STEP 2: Does the patient require help to express basic necessities or ideas (such as hunger, thirst, sleep, s afety, daily schedule, room location, or discomfort) half or more of the time? No. EXPRESSION - STEP 3: How often does the patient need help to express directions and conversation about basic needs? 25-49% of the time EXPRESSION - SCORE: 3-MOD SOCIAL INTERACTION: SOCIAL INTERACTION - STEP 1: Does the patient require a helper to interact with others in social and therapeutic situations? Yes. SOCIAL INTERACTION - STEP 2: Does the patient interact appropriately half or more of the time? No. SOCIAL INTERACTION - STEP 3: How often does the patient interact appropriately? More than 25% of the time SOCIAL INTERACTION - SCORE: 2-MAX PROBLEM SOLVING: PROBLEM SOLVING - STEP 1: Does the patient need help from a person or device, or need extra time to solve complex problems such as managing a checking account or confronting interpersonal problems? Yes. PROBLEM SOLVING - STEP 2: Does the patient solve basic routine problems half or more of the time? Yes. PROBLEM SOLVING - STEP 3: How often does the patient need help to solve basic routine problems? 25%-49% of the time PROBLEM SOLVING - SCORE: 3-MOD MEMORY: MEMORY - STEP 1: Does the patient need help from a person or device, or need extra time to remember frequently encount ered people, daily routines, and executing requests? Yes. MEMORY - STEP 2: How often does the patient need help to remember frequently encountered people, daily routines, and e xecuting requests? More than 50% of the time MEMORY - STEP 3: Does the patient need help to remember all of the time OR does s/he not effectively recognize and rem ember? No. Patient does not need help all the time MEMORY - SCORE: 2-MAX SIGNATURE PANEL: The following modified sections: Eating - Score, Eating - Comments:, Grooming - Score, Bathing - Scor e, Dressing - Upper Body - Score, Dressing - Lower Body - Score, Toileting - Score, Bladder Managemen t - Score, Bowel Management - Score, Transfers: Bed, Chair, Wheelchair - Score, Transfers: Toilet - S core, Transfers: Shower - Score, Transfers: Tub - Score, Locomotion: Walk - Score, Locomotion: Wheelc hair - Score, Comprehension - Score, Expression - Score, Social Interaction - Score, Problem Solving - Score, Memory - Score were [electronically] signed by Natasha Seo C.N.A. on TueDec 06 2018 14:17 :23 T-0500 (Central Daylight Time)
[2018-12-06] MEDS: ATORVASTATIN 80 MG TAB PO SCH (20:15)
[2018-12-06] MEDS: GABAPENTIN 100 MG CAP PO SCH (20:15)
[2018-12-06] MEDS: TOPIRAMATE 25 MG TAB PO SCH (20:16)
[2018-12-06] MEDS: DOCUSATE NA/SENNA CONC 1 TAB PO SCH (20:16)
--- NOTE | 2018-12-07 01:33 | FAST ---
SHIFT START DATE/TIME: 12/06/2018 19:00 (CDT) SHIFT END DATE/TIME: 12/07/2018 07:00 (CDT) NAME BRITTANY SINGH DATE OF : 1955 DATE OF ADMISSION: 11/25/2018 10:53 (CDT) PHONE: AGE: 63 N# [id number] GENDER: Female ENCOUNTER PHYSICIAN: Dr. eKvin Paniagua M.D. ADMISSION DIAGNOSIS: - Stroke 01 - Right Body (Left Brain) (01.2) Left Middle Cerebellar Peduncle and Left Cerebellar Hemisphere. EATING: Activity did not occur on this shift EATING - SCORE: 0-UNK GROOMING: Activity did not occur on this shift GROOMING - SCORE: 0-UNK BATHING: Activity did not occur on this shift BATHING - SCORE: 0-UNK DRESSING - UPPER BODY: Patient is not dressing in public clothing ARTICLES SCORE Total number of steps: 0 DRESSING - UPPER BODY - SCORE: 0-UNK DRESSING - LOWER BODY: Patient is not dressing in public clothing ARTICLES SCORE Total number of steps: 0 DRESSING - LOWER BODY - SCORE: 0-UNK TOILETING: TOILETING - STEP 1: Does the patient require the assistance of a person or device, or need extra time with toileting? Yes . TOILETING - STEP 2: Does the patient require the assistance of a helper? Yes. TOILETING - STEP 3: How much assistance does the patient require from the helper? Hands-on assistance from the helper TOILETING - STEP 4: Of the 3 tasks: 1) Adjusting clothing prior to use, 2) Cleansing of perineal area, 3) Adjusting clot cierra after use; How many tasks does the patient perform WITHOUT assistance of the helper? Three tasks with steadying assistance from the helper TOILETING - SCORE: 4-MIN BLADDER MANAGEMENT: BLADDER MANAGEMENT - STEP 1: Does the patient control the bladder completely and intentionally without equipment or devices or med ications, and is always continent? No. BLADDER MANAGEMENT - STEP 2: Does the patient require the assistance of a helper? Yes. BLADDER MANAGEMENT - STEP 3: How much assistance does the patient require from the helper? Patient requires contact assistance fro m the helper BLADDER MANAGEMENT - STEP 4: How much contact assistance does the patient require from the helper? Patient requires minimal assist ance to maintain an external device - by positioning, and the patient performs 75% or more of bladder management tasks, while the helper provides less than 25% of the assistance to position patient on / off bedpan BLADDER MANAGEMENT - SCORE: 4-MIN BOWEL MANAGEMENT: Activity did not occur on this shift BOWEL MANAGEMENT - SCORE: 7-IND TRANSFERS: BED, CHAIR, WHEELCHAIR: TRANSFERS: BED, CHAIR, WHEELCHAIR - STEP 1: Does the patient require assistance of a person or device, or need extra time with bed, chair, or whe elchair transfers? Yes. TRANSFERS: BED, CHAIR, WHEELCHAIR - STEP 2: Does the patient require the assistance of a helper? Yes. TRANSFERS: BED, CHAIR, WHEELCHAIR - STEP 3: How much assistance does the patient require from the helper? Steadying/guiding assistance TRANSFERS: BED, CHAIR, WHEELCHAIR - SCORE: 4-MIN TRANSFERS: TOILET: TRANSFERS: TOILET - STEP 1: Does the patient require the assistance of a person or device, or need extra time with toilet transfe rs? Yes. TRANSFERS: TOILET - STEP 2: Does the patient require the assistance of a helper? Yes. TRANSFERS: TOILET - STEP 3: How much assistance does the patient require from the helper? Patient performs half or more of the tr ansferring tasks TRANSFERS: TOILET - STEP 4: Does the patient need only incidental help such as contact guard or steadying during toilet transfer? No. Patient needs more than incidental help TRANSFERS: TOILET - SCORE: 3-MOD TRANSFERS: SHOWER: Activity did not occur on this shift TRANSFERS: SHOWER - SCORE: 0-UNK TRANSFERS: TUB: Activity did not occur on this shift TRANSFERS: TUB - SCORE: 0-UNK LOCOMOTION: WALK: Activity did not occur on this shift LOCOMOTION: WALK - SCORE: 0-UNK LOCOMOTION: WHEELCHAIR: Activity did not occur on this shift LOCOMOTION: WHEELCHAIR - SCORE: 0-UNK COMPREHENSION: COMPREHENSION: TYPE: Both COMPREHENSION - STEP 1: Does the patient require help from a person or device, or need extra time to understand complex and a bstract ideas (such as current events, finances, discharge planning, medical issues, relationships, e tc)? Yes. COMPREHENSION - STEP 2: Does the patient require help to understand questions or statements about basic needs or ideas (such as hunger, thirst, sleep, safety, daily schedule, room location, or discomfort) half or more of the t tashi? Yes. COMPREHENSION - STEP 3: Is the patient basically able to understand and respond appropriately and consistently? No, patient i s basically UNABLE to understand, OR responds inappropriately/inconsistently despite prompting COMPREHENSION - SCORE: 1-DEP EXPRESSION EXPRESSION: TYPE: Both EXPRESSION - STEP 1: Does the patient require help from a person or device, or need extra time expressing complex and abst ract ideas (such as current events, finances, discharge planning, medical issues, relationships, etc) ? Yes. EXPRESSION - STEP 2: Does the patient require help to express basic necessities or ideas (such as hunger, thirst, sleep, s afety, daily schedule, room location, or discomfort) half or more of the time? Yes. EXPRESSION - STEP 3: Is the patient basically unable to express or does s/he express inappropriately or inconsistently corrie pite prompting? Yes. Patient is basically unable to express. EXPRESSION - SCORE: 1-DEP SOCIAL INTERACTION: SOCIAL INTERACTION - STEP 1: Does the patient require a helper to interact with others in social and therapeutic situations? Yes. SOCIAL INTERACTION - STEP 2: Does the patient interact appropriately half or more of the time? Yes. SOCIAL INTERACTION - STEP 3: How often does the patient need help to interact appropriately? 25-49% of the time SOCIAL INTERACTION - SCORE: 3-MOD PROBLEM SOLVING: Patient requires bed/chair alarms due to attempts to get up unassisted when helper is needed. PROBLEM SOLVING - STEP 1: How often do the bed/chair alarms go off? Most of the time - the alarms go off about 75% of the time PROBLEM SOLVING - SCORE: 2-MAX MEMORY: MEMORY - STEP 1: How often do the bed/chair alarms go off? Most of the time - the alarms go off about 75% of the time MEMORY - SCORE: 2-MAX SIGNATURE PANEL: The following modified sections: Eating - Score, Grooming - Score, Bathing - Score, Dressing - Upper Body - Score, Dressing - Lower Body - Score, Toileting - Score, Bladder Management - Score, Bowel Man agement - Score, Transfers: Bed, Chair, Wheelchair - Score, Transfers: Toilet - Score, Transfers: Miriam wer - Score, Transfers: Tub - Score, Locomotion: Walk - Score, Locomotion: Wheelchair - Score, Compre hension - Score, Expression - Score, Social Interaction - Score, Problem Solving - Score, Memory - Sc ore were [electronically] signed by Kenyatta Cadena RN on TueDec 07 2018 01:32:07 T-0500 ([facility] Time)
[2018-12-07] MEDS: METOPROLOL TAR 25 MG TAB PO SCH ×2 (05:04→17:15)
[2018-12-07 05:16] VITALS: BMI 20.5
[2018-12-07] MEDS: NICOTINE 14 MG/PAT TD SCH (07:00)
[2018-12-07] MEDS: NYSTATIN 500,000 UNIT/5 ML UDC PO SCH ×2 (07:00→20:51)
[2018-12-07] MEDS: ACETAMINOPHEN 500 MG TAB PO PRN (07:01)
[2018-12-07] MEDS: CYANOCOBALAMIN 1,000 MCG TAB PO SCH (07:01)
[2018-12-07] MEDS: MAGNESIUM OXIDE 400 MG TAB PO SCH ×2 (07:01→20:51)
[2018-12-07] MEDS: APIXABAN 5 MG TABLET PO SCH ×2 (07:01→20:50)
[2018-12-07] MEDS: LISINOPRIL 20 MG TAB PO SCH (07:02)
[2018-12-07] MEDS: DIGOXIN 0.125 MG TABLET PO SCH (07:03)
[2018-12-07] MEDS: FUROSEMIDE 20 MG TABLET PO SCH (07:04)
[2018-12-07] MEDS: PROMOD 30 ML DOSE PO SCH ×2 (07:05→20:51)
[2018-12-07] MEDS: POTASSIUM 25 MEQ EFFERV TAB PO SCH (07:05)
[2018-12-07 07:20] LABS: Absolute Lymphocytes (CBC) 3.5 K/uL (0.7-4.9); Eosinophils % 1.7 % (0-4.4); Hematocrit 35.9 % (36.0-45.0); Lymphocytes % 44.5 % (15.3-44.8); MPV 11.1 fL (7.6-11.3); Monocytes % 7.5 % (3.3-12.3); RBC Red Blood Cell Count 4.61 M/uL (3.86-4.86)
[2018-12-07 07:34] LABS: Albumin 3.3 g/dL (3.4-5.0); Potassium 3.9 mmol/L (3.5-5.1); Prealbumin 19.7 mg/dL (20-40)
[2018-12-07 08:39] LABS: Anisocytosis 2+; Blood Morphology Comment NOTED (NOT SEEN); Burr Cells 2+; Platelet Estimate ADEQ; Urine White Blood Cell Casts OK
--- NOTE | 2018-12-07 14:52 | FAST ---
SHIFT START DATE/TIME: 12/07/2018 07:00 (CDT) SHIFT END DATE/TIME: 12/07/2018 19:00 (CDT) NAME BRITTANY SINGH DATE OF : 1955 DATE OF ADMISSION: 11/25/2018 10:53 (CDT) PHONE: AGE: 63 N# [id number] GENDER: Female ENCOUNTER PHYSICIAN: Dr. Kevin Paniagua M.D. ADMISSION DIAGNOSIS: - Stroke 01 - Right Body (Left Brain) (01.2) Left Middle Cerebellar Peduncle and Left Cerebellar Hemisphere. EATING: EATING - STEP 1: Does the patient require the assistance of a person or device, or need extra time when eating? Yes. EATING - STEP 2: Does the patient require the assistance of a helper? Yes. EATING - STEP 3: Does the patient perform half or more of the eating tasks? No. EATING - STEP 4: Does the patient require total assistance to eat, such as the helper holding the utensil and bringing all food and liquids to the mouth? Yes. EATING - SCORE: 1-DEP GROOMING: Activity did not occur on this shift GROOMING - SCORE: 0-UNK BATHING: Activity did not occur on this shift BATHING - SCORE: 0-UNK DRESSING - UPPER BODY: Activity did not occur on this shift ARTICLES SCORE Total number of steps: 0 DRESSING - UPPER BODY - SCORE: 0-UNK DRESSING - LOWER BODY: Elastic waist pants (three steps) Sock - Left foot (one step) Sock - Right foot (one step) Tied or buckled shoe - Left foot (two steps) Tied or buckled shoe - Right foot (two steps) ARTICLES SCORE Total number of steps: 9 DRESSING - LOWER BODY - STEP 1: Does the patient require help from a person or device, or need extra time when dressing below the diego st? Yes. DRESSING - LOWER BODY - STEP 2: Does the patient require the assistance of a helper? Yes. DRESSING - LOWER BODY - STEP 3: Does the helper touch the patient while dressing? Yes. DRESSING - LOWER BODY - STEP 4: How many of the total steps does the patient complete on his/her own? 0 DRESSING - LOWER BODY - STEP 5: Does patient require total assistance for dressing below the waist such as the helper holding clothin g and performing basically all the activities? Yes. DRESSING - LOWER BODY - SCORE: 1-DEP TOILETING: TOILETING - STEP 1: Does the patient require the assistance of a person or device, or need extra time with toileting? Yes . TOILETING - STEP 2: Does the patient require the assistance of a helper? Yes. TOILETING - STEP 3: How much assistance does the patient require from the helper? Hands-on assistance from the helper TOILETING - STEP 4: Of the 3 tasks: 1) Adjusting clothing prior to use, 2) Cleansing of perineal area, 3) Adjusting clot cierra after use; How many tasks does the patient perform WITHOUT assistance of the helper? Three tasks with steadying assistance from the helper TOILETING - SCORE: 4-MIN BLADDER MANAGEMENT: BLADDER MANAGEMENT - STEP 1: Does the patient control the bladder completely and intentionally without equipment or devices or med ications, and is always continent? No. BLADDER MANAGEMENT - STEP 2: Does the patient require the assistance of a helper? Yes. BLADDER MANAGEMENT - STEP 3: How much assistance does the patient require from the helper? Patient requires contact assistance fro m the helper BLADDER MANAGEMENT - STEP 4: How much contact assistance does the patient require from the helper? Patient requires maximal assist ance, and only performs 25% to 49% of bladder management tasks BLADDER MANAGEMENT - SCORE: 2-MAX BLADDER MANAGEMENT - FREQUENCY OF ACCIDENTS: BLADDER MANAGEMENT(FA) - STEP 1: How many accidents has the patient had during the current shift? 0 BOWEL MANAGEMENT: Activity did not occur on this shift BOWEL MANAGEMENT - SCORE: 7-IND TRANSFERS: BED, CHAIR, WHEELCHAIR: TRANSFERS: BED, CHAIR, WHEELCHAIR - STEP 1: Does the patient require assistance of a person or device, or need extra time with bed, chair, or whe elchair transfers? Yes. TRANSFERS: BED, CHAIR, WHEELCHAIR - STEP 2: Does the patient require the assistance of a helper? Yes. TRANSFERS: BED, CHAIR, WHEELCHAIR - STEP 3: How much assistance does the patient require from the helper? Steadying/guiding assistance TRANSFERS: BED, CHAIR, WHEELCHAIR - SCORE: 4-MIN TRANSFERS: TOILET: TRANSFERS: TOILET - STEP 1: Does the patient require the assistance of a person or device, or need extra time with toilet transfe rs? Yes. TRANSFERS: TOILET - STEP 2: Does the patient require the assistance of a helper? Yes. TRANSFERS: TOILET - STEP 3: How much assistance does the patient require from the helper? Patient performs half or more of the tr ansferring tasks TRANSFERS: TOILET - STEP 4: Does the patient need only incidental help such as contact guard or steadying during toilet transfer? Yes. TRANSFERS: TOILET - SCORE: 4-MIN TRANSFERS: SHOWER: Activity did not occur on this shift TRANSFERS: SHOWER - SCORE: 0-UNK TRANSFERS: TUB: Activity did not occur on this shift TRANSFERS: TUB - SCORE: 0-UNK LOCOMOTION: WALK: Activity did not occur on this shift LOCOMOTION: WALK - SCORE: 0-UNK LOCOMOTION: WHEELCHAIR: Activity did not occur on this shift LOCOMOTION: WHEELCHAIR - SCORE: 0-UNK COMPREHENSION: COMPREHENSION: TYPE: Both COMPREHENSION - STEP 1: Does the patient require help from a person or device, or need extra time to understand complex and a bstract ideas (such as current events, finances, discharge planning, medical issues, relationships, e tc)? Yes. COMPREHENSION - STEP 2: Does the patient require help to understand questions or statements about basic needs or ideas (such as hunger, thirst, sleep, safety, daily schedule, room location, or discomfort) half or more of the t tashi? No. COMPREHENSION - STEP 3: How often does the patient need help to understand directions and conversation about basic needs? 25% - 49% of the time COMPREHENSION - SCORE: 3-MOD EXPRESSION EXPRESSION: TYPE: Both EXPRESSION - STEP 1: Does the patient require help from a person or device, or need extra time expressing complex and abst ract ideas (such as current events, finances, discharge planning, medical issues, relationships, etc) ? Yes. EXPRESSION - STEP 2: Does the patient require help to express basic necessities or ideas (such as hunger, thirst, sleep, s afety, daily schedule, room location, or discomfort) half or more of the time? No. EXPRESSION - STEP 3: How often does the patient need help to express directions and conversation about basic needs? 25-49% of the time EXPRESSION - SCORE: 3-MOD SOCIAL INTERACTION: SOCIAL INTERACTION - STEP 1: Does the patient require a helper to interact with others in social and therapeutic situations? Yes. SOCIAL INTERACTION - STEP 2: Does the patient interact appropriately half or more of the time? Yes. SOCIAL INTERACTION - STEP 3: How often does the patient need help to interact appropriately? 25-49% of the time SOCIAL INTERACTION - SCORE: 3-MOD PROBLEM SOLVING: PROBLEM SOLVING - STEP 1: Does the patient need help from a person or device, or need extra time to solve complex problems such as managing a checking account or confronting interpersonal problems? Yes. PROBLEM SOLVING - STEP 2: Does the patient solve basic routine problems half or more of the time? Yes. PROBLEM SOLVING - STEP 3: How often does the patient need help to solve basic routine problems? 25%-49% of the time PROBLEM SOLVING - SCORE: 3-MOD MEMORY: MEMORY - STEP 1: Does the patient need help from a person or device, or need extra time to remember frequently encount ered people, daily routines, and executing requests? Yes. MEMORY - STEP 2: How often does the patient need help to remember frequently encountered people, daily routines, and e xecuting requests? More than 50% of the time MEMORY - STEP 3: Does the patient need help to remember all of the time OR does s/he not effectively recognize and rem ember? No. Patient does not need help all the time MEMORY - SCORE: 2-MAX SIGNATURE PANEL: The following modified sections: Eating - Score, Grooming - Score, Bathing - Score, Dressing - Upper Body - Score, Dressing - Lower Body - Score, Toileting - Score, Bladder Management - Score, Bowel Man agement - Score, Transfers: Bed, Chair, Wheelchair - Score, Transfers: Toilet - Score, Transfers: Miriam wer - Score, Transfers: Tub - Score, Locomotion: Walk - Score, Locomotion: Wheelchair - Score, Compre hension - Score, Expression - Score, Social Interaction - Score, Memory - Score, Problem Solving - Sc ore were [electronically] signed by Natasha Seo C.N.A. on TueDec 07 2018 14:51:48 GMT-0500 ([facility] Time)
--- NOTE | 2018-12-07 19:18 | R.PN ---
ENCOUNTER DATE AND TIME: 12/07/2018 19:16 (CDT) NAME BRITTANY SINGH DATE OF : 1955 DATE OF ADMISSION: 11/25/2018 10:53 (CDT) Left Middle Cerebellar Peduncle and Left Cerebellar HemisphereCHIEF COMPLAINT: Left hemispheric stroke with right sided weakness. SUBJECTIVE: Pt denied any Shortness of Breath. Pt denied any depression. Ambulated 250' with rolling walker with contact guard assistance. Hgb 11.9, prealbumin 19.7, glucose 103. Dysphagia training done with modified independence. VITAL SIGNS Temperature: 97.6 F SBP/DBP: 120/65 Pulse: 76 Resp: 16 MEDICATION ALLERGIES: No Known Drug Allergies (NKDA) ENVIRONMENTAL ALLERGIES: None Known - Substance Allergies None Known - Other Allergies None Known NURSING: - Shower allowing shower - Bladder care per protocol - Skin care per protocol PRECAUTIONS: - Weight Bearing Precaution WBAT right LE ACTIVITIES OOB only with supervision THERAPIES: - Occupational Therapy Evaluate and Treat. Visual Perceptual Training. Cognitive Retraining. - Speech Therapy Cognitive Training. Memory Strategies. Expressive Language Skills. Speech Intelligibility Training. R eceptive Language Skills. - Physical Therapy Evaluate and Treat. PHYSICAL EXAM - Gen Alert and awake Lying in bed No apparent distress Oriented to: person, time, and place - Skin No breakdown No abnormalities - Eyes No abnormalities - ENMT No abnormalities - Neck No abnormalities - CVS RRR - Chest No abnormalities - Abd + bowel sounds - GI Soft Deferred - No abnormalities - Ext No significant edema. - MSK Right lower extremity incoordination and mild weakness - Neuro Right lower extremity incoordination and mild weakness - Psych No abnormalities ASSESSMENT: Pt. is a 63 yo Right-handed white female.On 11/18/2018 Pt. presented to [facility] with sudden onset of right-side weakness.On 11/18/2018 she was admitted to [facility] with diagnosis Left M iddle Cerebellar Peduncle and Left Cerebellar Hemisphere.Her impairment category is Stroke 01 - Righ t Body (Left Brain) (01.2).Pre-morbidly, Pt. was independent/mod-I in Self-Care, Sphincter Control, T ransfers Control, Locomotion, Communication, and Social Cognition; and she had good Sphincter Control .Currently, she has deficits of Self-Care, Transfers Control, Locomotion, Endurance, Balance, and Saf ety Awareness.Pt. is now referred to [facility] for acute in-patient rehabilit ation in order to maximize patient's functional independence in activities of daily living, strength, ROM, and mobility.- Rehab Goal Patient has realistic goal of being discharged at assistance level 6-Mauricio to reside at Home with Fam liset/Relatives. MDM/PLAN: - Physical Therapy Gait dysfunction - to improve, our physical therapists will perform initial evaluation of pt's statu s upon admission and devise an individualized program for Gait Training, and Wheel Chair mobility Inability to transfer - to improve, our physical therapists will perform initial evaluation of pt's status upon admission and devise an individualized program for Bed mobility Need for home safety evaluation - to improve, our physical therapists will perform initial evaluatio n of pt's status upon admission and devise an individualized program for Home Evaluation Need in caregiver upon discharge - to improve, our physical therapists will perform initial evaluati on of pt's status upon admission and devise an individualized program for Caregiver Training Edema - to improve, our physical therapists will perform initial evaluation of pt's status upon admi ssion and devise an individualized program for Elevation Training, and Lymphedema Therapy New precaution - to improve, our physical therapists will perform initial evaluation of pt's status upon admission and devise an individualized program for Patient precaution education Poor balance - to improve, our physical therapists will perform initial evaluation of pt's status up on admission and devise an individualized program for Balance Training Poor endurance - to improve, our physical therapists will perform initial evaluation of pt's status upon admission and devise an individualized program for Endurance Training Weakness - to improve, our physical therapists will perform initial evaluation of pt's status upon a dmission and devise an individualized program for Aquatic Therapy, Neuromuscular Reeducation, and Str engthening Achieving independence - to improve, our physical therapists will perform initial evaluation of pt's status upon admission and devise an individualized program for Community Reintegration Activities - Occupational Therapy ADL deficits - to improve, our occupation therapists will perform initial evaluation of pt's status upon admission and devise an individualized program for Bathing, Bed mobility, Community Reintegratio n, Cooking, Dressing, Eating, Fine Motor Skills, Grooming, Homemaking, Kitchen Mobility, Laundry, Pat ient Education, Safety Awareness, Splinting - Positioning, Transfers(Toilet, Tub, Shower), and Wheel Chair Management Need for manager career - to improve, our occupation therapists will perform initial evaluation of pt's status upon admission and devise an individualized program for Caregiver Training Weakness - to improve, our occupation therapists will perform initial evaluation of pt's status upon admission and devise an individualized program for Aquatic Therapy, Balance, Endurance, UE ROM, and UE strengthening - Diet Type Continue Regular - Diet - Liquid Texture Continue Regular - Tube Feed Continue N/A - Bladder care per protocol - Weight Bearing Precaution WBAT right LE - Skin care per protocol - Diet - Solid Texture Continue Regular - Shower allowing shower for Dementia, TBI, Stroke, or others FUNCTIONAL STATUS: UPDATED AT WEEKLY TEAM CONFERENCE - Bladder Same accident frequency: 7-Ind - No accidents in the past 7 days - Bowel Same accident frequency: 7-Ind - No accidents in the past 7 days - Walking Same score based on distance walked: 1(<=50ft) - Wheelchair Same score based on distance traveled: 0(N/A) FUNCTIONAL STATUS: - Self-Care A. Eating sup B. Grooming sup C. Bathing Syeda D. Dressing - Upper Syeda E. Dressing - Lower modA F. Toileting modA - Sphincter Control G: Bladder control Ind H: Bowel control Ind - Transfers Control I. Bed/Chair/Wheelchair Syeda J. Toilet Syeda K. Tub/Shower ADNO - Locomotion L. Walk/Wheelchair (C) modA L. Walk/Wheelchair (W) modA M. Stairs ADNO - Communication N. Comprehension (B) Ind O. Expression (B) Ind - Social Cognition P. Social Interaction Ind Q. Problem Solving Ind R. Memory Ind - Endurance Fair - Balance Fair - Safety Awareness Fair CURRENT FUNC. DEFICITS: Self-Care, Transfers Control, Locomotion, Endurance, Balance, and Safety Awareness SIGNATURE PANEL: (CDT)
[2018-12-07] MEDS: TOPIRAMATE 25 MG TAB PO SCH (20:50)
[2018-12-07] MEDS: ATORVASTATIN 80 MG TAB PO SCH (20:50)
[2018-12-07] MEDS: GABAPENTIN 100 MG CAP PO SCH (20:50)
[2018-12-07] MEDS: DOCUSATE NA/SENNA CONC 1 TAB PO SCH (20:50)
--- NOTE | 2018-12-08 04:24 | FAST ---
SHIFT START DATE/TIME: 12/07/2018 19:00 (CDT) SHIFT END DATE/TIME: 12/08/2018 07:00 (CDT) NAME BRITTANY SINGH DATE OF : 1955 DATE OF ADMISSION: 11/25/2018 10:53 (CDT) PHONE: AGE: 63 N# [id number] GENDER: Female ENCOUNTER PHYSICIAN: Dr. Kevin Paniagua M.D. ADMISSION DIAGNOSIS: - Stroke 01 - Right Body (Left Brain) (01.2) Left Middle Cerebellar Peduncle and Left Cerebellar Hemisphere. EATING: Activity did not occur on this shift EATING - SCORE: 0-UNK GROOMING: Activity did not occur on this shift GROOMING - SCORE: 0-UNK BATHING: Activity did not occur on this shift BATHING - SCORE: 0-UNK DRESSING - UPPER BODY: Patient is not dressing in public clothing ARTICLES SCORE Total number of steps: 0 DRESSING - UPPER BODY - SCORE: 0-UNK DRESSING - LOWER BODY: Patient is not dressing in public clothing ARTICLES SCORE Total number of steps: 0 DRESSING - LOWER BODY - SCORE: 0-UNK TOILETING: TOILETING - STEP 1: Does the patient require the assistance of a person or device, or need extra time with toileting? Yes . TOILETING - STEP 2: Does the patient require the assistance of a helper? Yes. TOILETING - STEP 3: How much assistance does the patient require from the helper? Hands-on assistance from the helper TOILETING - STEP 4: Of the 3 tasks: 1) Adjusting clothing prior to use, 2) Cleansing of perineal area, 3) Adjusting clot cierra after use; How many tasks does the patient perform WITHOUT assistance of the helper? One task TOILETING - SCORE: 2-MAX BLADDER MANAGEMENT: BLADDER MANAGEMENT - STEP 1: Does the patient control the bladder completely and intentionally without equipment or devices or med ications, and is always continent? No. BLADDER MANAGEMENT - STEP 2: Does the patient require the assistance of a helper? Yes. BLADDER MANAGEMENT - STEP 3: How much assistance does the patient require from the helper? Patient requires contact assistance fro m the helper BLADDER MANAGEMENT - STEP 4: How much contact assistance does the patient require from the helper? Patient requires moderate bere tance, and performs 50% to 75% of bladder management tasks - [place] positions AND holds urinal or bed nesbitt BLADDER MANAGEMENT - SCORE: 3-MOD BOWEL MANAGEMENT: Activity did not occur on this shift BOWEL MANAGEMENT - SCORE: 7-IND TRANSFERS: BED, CHAIR, WHEELCHAIR: TRANSFERS: BED, CHAIR, WHEELCHAIR - STEP 1: Does the patient require assistance of a person or device, or need extra time with bed, chair, or whe elchair transfers? Yes. TRANSFERS: BED, CHAIR, WHEELCHAIR - STEP 2: Does the patient require the assistance of a helper? Yes. TRANSFERS: BED, CHAIR, WHEELCHAIR - STEP 3: How much assistance does the patient require from the helper? Steadying/guiding assistance TRANSFERS: BED, CHAIR, WHEELCHAIR - SCORE: 4-MIN TRANSFERS: TOILET: TRANSFERS: TOILET - STEP 1: Does the patient require the assistance of a person or device, or need extra time with toilet transfe rs? Yes. TRANSFERS: TOILET - STEP 2: Does the patient require the assistance of a helper? Yes. TRANSFERS: TOILET - STEP 3: How much assistance does the patient require from the helper? Patient performs half or more of the tr ansferring tasks TRANSFERS: TOILET - STEP 4: Does the patient need only incidental help such as contact guard or steadying during toilet transfer? No. Patient needs more than incidental help TRANSFERS: TOILET - SCORE: 3-MOD TRANSFERS: SHOWER: Activity did not occur on this shift TRANSFERS: SHOWER - SCORE: 0-UNK TRANSFERS: TUB: Activity did not occur on this shift TRANSFERS: TUB - SCORE: 0-UNK LOCOMOTION: WALK: Activity did not occur on this shift LOCOMOTION: WALK - SCORE: 0-UNK LOCOMOTION: WHEELCHAIR: Activity did not occur on this shift LOCOMOTION: WHEELCHAIR - SCORE: 0-UNK COMPREHENSION: COMPREHENSION: TYPE: Both COMPREHENSION - STEP 1: Does the patient require help from a person or device, or need extra time to understand complex and a bstract ideas (such as current events, finances, discharge planning, medical issues, relationships, e tc)? Yes. COMPREHENSION - STEP 2: Does the patient require help to understand questions or statements about basic needs or ideas (such as hunger, thirst, sleep, safety, daily schedule, room location, or discomfort) half or more of the t tashi? Yes. COMPREHENSION - STEP 3: Is the patient basically able to understand and respond appropriately and consistently? Yes. COMPREHENSION - SCORE: 2-MAX EXPRESSION EXPRESSION: TYPE: Both EXPRESSION - STEP 1: Does the patient require help from a person or device, or need extra time expressing complex and abst ract ideas (such as current events, finances, discharge planning, medical issues, relationships, etc) ? Yes. EXPRESSION - STEP 2: Does the patient require help to express basic necessities or ideas (such as hunger, thirst, sleep, s afety, daily schedule, room location, or discomfort) half or more of the time? Yes. EXPRESSION - STEP 3: Is the patient basically unable to express or does s/he express inappropriately or inconsistently corrie pite prompting? No. EXPRESSION - SCORE: 2-MAX SOCIAL INTERACTION: SOCIAL INTERACTION - STEP 1: Does the patient require a helper to interact with others in social and therapeutic situations? Yes. SOCIAL INTERACTION - STEP 2: Does the patient interact appropriately half or more of the time? No. SOCIAL INTERACTION - STEP 3: How often does the patient interact appropriately? More than 25% of the time SOCIAL INTERACTION - SCORE: 2-MAX PROBLEM SOLVING: Patient requires bed/chair alarms due to attempts to get up unassisted when helper is needed. PROBLEM SOLVING - STEP 1: How often do the bed/chair alarms go off? Most of the time - the alarms go off about 75% of the time PROBLEM SOLVING - SCORE: 2-MAX MEMORY: MEMORY - STEP 1: How often do the bed/chair alarms go off? Most of the time - the alarms go off about 75% of the time MEMORY - SCORE: 2-MAX SIGNATURE PANEL: The following modified sections: Eating - Score, Grooming - Score, Bathing - Score, Dressing - Upper Body - Score, Dressing - Lower Body - Score, Toileting - Score, Bladder Management - Score, Bowel Man agement - Score, Transfers: Bed, Chair, Wheelchair - Score, Transfers: Toilet - Score, Transfers: Miriam wer - Score, Transfers: Tub - Score, Locomotion: Walk - Score, Locomotion: Wheelchair - Score, Compre hension - Score, Expression - Score, Social Interaction - Score, Problem Solving - Score, Memory - Sc ore were [electronically] signed by Kenyatta Cadena RN on TueDec 08 2018 04:24:11 GMT-0500 ([place] ght Time)
[2018-12-08] MEDS: METOPROLOL TAR 25 MG TAB PO SCH ×2 (05:05→17:15)
[2018-12-08] MEDS: NICOTINE 14 MG/PAT TD SCH (07:18)
[2018-12-08] MEDS: APIXABAN 5 MG TABLET PO SCH ×2 (07:19→21:12)
[2018-12-08] MEDS: MAGNESIUM OXIDE 400 MG TAB PO SCH ×2 (07:19→21:11)
[2018-12-08] MEDS: POTASSIUM 25 MEQ EFFERV TAB PO SCH (07:19)
[2018-12-08] MEDS: CYANOCOBALAMIN 1,000 MCG TAB PO SCH (07:19)
[2018-12-08] MEDS: DIGOXIN 0.125 MG TABLET PO SCH (07:19)
[2018-12-08] MEDS: ACETAMINOPHEN 500 MG TAB PO PRN (07:20)
[2018-12-08] MEDS: PROMOD 30 ML DOSE PO SCH ×2 (07:24→21:13)
[2018-12-08] MEDS: LISINOPRIL 20 MG TAB PO SCH (07:24)
[2018-12-08] MEDS: FUROSEMIDE 20 MG TABLET PO SCH (07:25)
[2018-12-08] MEDS: NYSTATIN 500,000 UNIT/5 ML UDC PO SCH ×2 (07:25→21:12)
--- NOTE | 2018-12-08 09:43 | P.RH.PN ---
Estimated Length of Stay: 18 Expected Discharge Date: 12/12/18 Discharge Disposition Plan: Home Family Support: Yes [facility] Goal: Mobility, Transfers, Self Care Vital Signs: Last Vital Signs Temp 97.4 F 12/08/18 06:35 Pulse 58 12/08/18 07:24 Resp 18 12/08/18 06:35 BP 114/59 L 12/08/18 07:24 Pulse Ox 94 12/08/18 06:35 Laboratory: Laboratory Last Values WBC 7.8 K/uL (4.3-10.9) 12/07/18 07:09 RBC 4.61 M/uL (3.86-4.86) 12/07/18 07:09 Hgb 11.9 g/dL (12.0-15.0) L 12/07/18 07:09 Hct 35.9 % (36.0-45.0) L 12/07/18 07:09 MCV 77.9 fL (80-100) L 12/07/18 07:09 MCH 25.8 pg (27.0-35.0) L 12/07/18 07:09 MCHC 33.0 g/dL (32.0-36.0) 12/07/18 07:09 RDW 22.1 % (12.1-15.2) H 12/07/18 07:09 Plt Count 198 K/uL (152-406) 12/07/18 07:09 MPV 11.1 fL (7.6-11.3) 12/07/18 07:09 Neutrophils % 37.3 % (41.7-73.7) L 12/07/18 07:09 Lymphocytes % 44.5 % (15.3-44.8) 12/07/18 07:09 Monocytes % 7.5 % (3.3-12.3) 12/07/18 07:09 Eosinophils % 1.7 % (0-4.4) 12/07/18 07:09 Basophils % 9.0 % (0-1.3) H 12/07/18 07:09 Absolute Neutrophils 2.9 K/uL (1.8-8.0) 12/07/18 07:09 Segmented Neutrophils 44 % (40-80) 12/07/18 07:09 Band Neutrophils 1 % (0-1) 12/07/18 07:09 Absolute Lymphocytes 3.5 K/uL (0.7-4.9) 12/07/18 07:09 Lymphocytes 51 % (15-42) H 12/07/18 07:09 Monocytes 4 % (0-10) 12/07/18 07:09 Absolute Monocytes 0.6 K/uL (0.1-1.3) 12/07/18 07:09 Eosinophils 2 % (0-3) 11/30/18 06:35 Absolute Eosinophils 0.1 K/uL (0-0.5) 12/07/18 07:09 Basophils 5 % (0-1) H 11/30/18 06:35 Absolute Basophils 0.7 K/uL (0-0.5) H 12/07/18 07:09 Giant Platelets Present 11/30/18 06:35 Anisocytosis 2+ 12/07/18 07:09 Ovalocytes 2+ 11/30/18 06:35 [place] Cells 2+ 12/07/18 07:09 Schistocytes 1+ 11/30/18 06:35 Morphology Comment Noted (NOT SEEN) 12/07/18 07:09 pH 7.45 (7.35-7.45) 11/29/18 17:37 pCO2 36.9 mmHG (35-45) 11/29/18 17:37 pO2 77.6 mmHG (75-100) 11/29/18 17:37 HCO3 25.3 mmol/L (22-28) 11/29/18 17:37 Base Excess 1.7 mmol/L 11/29/18 17:37 Oxyhemoglobin 94.0 % (94-97) 11/29/18 17:37 ABG O2 Sat (Measured) 95.9 % (92-98.5) 11/29/18 17:37 ABG Carboxyhemoglobin 1.5 % (0-1.5) 11/29/18 17:37 ABG Methemoglobin 0.5 % (0-1.5) 11/29/18 17:37 Other Total Hgb 11.2 g/dl (12-18) L 11/29/18 17:37 Inspired O2 21.0 % 11/29/18 17:37 Sodium 146 mmol/L (136-145) H 12/07/18 07:09 Potassium 3.9 mmol/L (3.5-5.1) 12/07/18 07:09 Chloride 110 mmol/L (98-107) H 12/07/18 07:09 Carbon Dioxide 29 mmol/L (21-32) 12/07/18 07:09 BUN 20 mg/dL (7-18) H 12/07/18 07:09 Creatinine 1.07 mg/dL (0.55-1.3) 12/07/18 07:09 Estimated GFR 52 mL/min (=/>90) L 12/07/18 07:09 Glucose 103 mg/dL (74-106) 12/07/18 07:09 Calcium 8.8 mg/dL (8.5-10.1) 12/07/18 07:09 Magnesium 2.1 mg/dL (1.8-2.4) 11/30/18 06:35 Albumin 3.3 g/dL (3.4-5.0) L 12/07/18 07:09 Prealbumin 19.7 mg/dL (20-40) L 12/07/18 07:09 Urine Color Yellow 11/26/18 17:55 Urine Appearance Cloudy 11/26/18 17:55 Urine pH 5.5 (5.0-7.0) 11/26/18 17:55 Ur Specific [place] 1.015 (1.005-1.030) 11/26/18 17:55 Urine Ketones Negative (NEG) 11/26/18 17:55 Urine Blood Negative (NEG) 11/26/18 17:55 Urine Nitrite Negative (NEG) 11/26/18 17:55 Urine Bilirubin Negative (NEG) 11/26/18 17:55 Urine Urobilinogen 0.2 mg/dL (0.2-1.0) 11/26/18 17:55 Ur Leukocyte Esterase 1+ (NEG) H 11/26/18 17:55 Urine RBC None seen /HPF (NONE SEEN) 11/26/18 17:55 Urine WBC 10-20 /HPF (<5) H 11/26/18 17:55 Ur Squamous Epith Cells 5-10 /HPF (NONE SEEN) H 11/26/18 17:55 Urine Bacteria 20-50 /HPF (<20) H 11/26/18 17:55 Urine Mucus Mod /HPF (NONE SEEN) 11/26/18 17:55 Urine Culture Reflexed Not needed 11/26/18 17:55 Urine Glucose Negative (NEG) 11/26/18 17:55 Urine Total Protein Negative (NEG) 11/26/18 17:55 Digoxin 0.10 ng/mL (0.80-2.00) L 11/27/18 06:40 Weight: 127 lb 1.6 oz Wound Present: Yes Closed Surgical Incision Present: Yes Negative Pressure Wound Therapy Present: No Physician Update: Labs have been reviewed and are stable. She seems more awake today. She is close to standby assistance for transfers, ADLs and mobilization. Medical Issues: DVT Prophylaxis - Eliquis 5mg BID PO Functional Improvement: Patient has not met goals at this time. Patient is currently working to improve technique w/ transfers and gait training, however cognition is an issue. Functional Improvement Occupational Therapy: pt can benifit with further therapy to address andcont to increase pt's visual acuity by providing handouts to scan/focus when completing adl and functional tasks. cont to educate and train pt on safety. pt is unsafe at this time due to pt's impulseness and because unsteady at times when standing for transfers and for clothing mgmt cont to strength pt's static standing balance and safety. cont to increase pt's endurance and UB strength , pt required max encouragement at times to participate with therapy tasks due to fatique recommend pt to have 24hrs of supervision due to high fall risk and pt's safety awareness. Speech Therapy Update: Pt.'s progress in ST has been limited by her fluctuating mentation and chronic drowsiness. Pt.'s eyes are closed >90% of the time despite max verbal cues/instruction to open her eyes. Pt. has difficulty remaining alert during sessions and at times becomes emotionally labile. Pt. cont. to present with severe deficits in overall cognition, attention, STM, and problem solving/safety awareness. Pt. is currently on nectar thickened liquids and mechanical soft solids, and tolerates trials of thin liquids with FORESTRY CONSERVATION WORKER and trained family 80% of the time without overt s/s of aspiration. Pt. must employ a small sip paired with a [id number] position in order to reduce s/s of aspiration. Pt. requires constant supervision and max verbal cues to do this correctly and consistently. Pt. is at SUPV for Auditory Comprehension, MOD I for Verbal Expression, SUPV for Social Interaction, MOD to MAX A for Safety Awareness and MOD A for Memory. Pt. will require close, constant supervision once discharged due to cognition. Summary: Patient's care plan and terminal operations manager goals have been reviewed and revised as necessary. Please see the Rehabilitation Signature page for all necessary signatures.
--- NOTE | 2018-12-08 15:39 | FAST ---
ENCOUNTER DATE AND TIME: 12/04/2018 08:00 (CDT) NAME BRITTANY SINGH DATE OF : 1955 DATE OF ADMISSION: 11/25/2018 10:53 (CDT) PHONE: AGE: 63 SSN# [id number] GENDER: Female ENCOUNTER PHYSICIAN: Dr. Kevin Paniagua M.D. ADMISSION DIAGNOSIS: - Stroke 01 - Right Body (Left Brain) (01.2) Left Middle Cerebellar Peduncle and Left Cerebellar Hemisphere. EATING: Activity did not occur on this shift EATING - SCORE: 0-UNK GROOMING: Activity did not occur on this shift GROOMING - SCORE: 0-UNK BATHING: Activity did not occur on this shift BATHING - SCORE: 0-UNK DRESSING - UPPER BODY: Activity did not occur on this shift Patient is not dressing in public clothing ARTICLES SCORE Total number of steps: 0 DRESSING - UPPER BODY - SCORE: 0-UNK DRESSING - LOWER BODY: Activity did not occur on this shift Patient is not dressing in public clothing ARTICLES SCORE Total number of steps: 0 DRESSING - LOWER BODY - SCORE: 0-UNK TOILETING: Activity did not occur on this shift TOILETING - SCORE: 0-UNK BLADDER MANAGEMENT: Activity did not occur on this shift BLADDER MANAGEMENT - SCORE: 7-IND BOWEL MANAGEMENT: Activity did not occur on this shift BOWEL MANAGEMENT - SCORE: 7-IND TRANSFERS: BED, CHAIR, WHEELCHAIR: TRANSFERS: BED, CHAIR, WHEELCHAIR - STEP 1: Does the patient require assistance of a person or device, or need extra time with bed, chair, or whe elchair transfers? Yes. TRANSFERS: BED, CHAIR, WHEELCHAIR - STEP 2: Does the patient require the assistance of a helper? Yes. TRANSFERS: BED, CHAIR, WHEELCHAIR - STEP 3: How much assistance does the patient require from the helper? Steadying/guiding assistance TRANSFERS: BED, CHAIR, WHEELCHAIR - SCORE: 4-MIN TRANSFERS: TOILET: Activity did not occur on this shift TRANSFERS: TOILET - SCORE: 0-UNK TRANSFERS: SHOWER: Activity did not occur on this shift TRANSFERS: SHOWER - SCORE: 0-UNK TRANSFERS: TUB: Activity did not occur on this shift TRANSFERS: TUB - SCORE: 0-UNK LOCOMOTION: WALK: LOCOMOTION: WALK - STEP 1: Does the patient need help from a person or device, or need extra time to walk 150 feet? Yes. LOCOMOTION: WALK - STEP 2: How much assistance does the patient require to walk a minimum of 150 feet? Only incidental help such as contact guarding or steadying LOCOMOTION: WALK - SCORE: 4-MIN LOCOMOTION: WHEELCHAIR: LOCOMOTION: WHEELCHAIR - STEP 1: Does the patient need help to go 150 feet in a wheelchair? Yes. LOCOMOTION: WHEELCHAIR - STEP 2: How much assistance does the patient need from the helper? Only incidental help such as around corner s or over thresholds LOCOMOTION: WHEELCHAIR - SCORE: 4-MIN LOCOMOTION: STAIRS: Activity did not occur on this shift LOCOMOTION: STAIRS - SCORE: 0-UNK COMPREHENSION: COMPREHENSION - SCORE: 0-UNK EXPRESSION EXPRESSION - SCORE: 0-UNK SOCIAL INTERACTION: SOCIAL INTERACTION - SCORE: 0-UNK PROBLEM SOLVING: PROBLEM SOLVING - SCORE: 0-UNK MEMORY: MEMORY - SCORE: 0-UNK SIGNATURE PANEL: The following modified sections: Transfers: Bed, Chair, Wheelchair - Score, Transfers: Toilet - Score , Locomotion: Walk - Score, Locomotion: Wheelchair - Score, Locomotion: Stairs - Score were [electron sean] signed by Tha Rinaldi PTA on TueDec 08 2018 15:38:37 GMT-0500 (Central Daylight Time)
--- NOTE | 2018-12-08 15:45 | FAST ---
ENCOUNTER DATE AND TIME: 12/08/2018 08:00 (CDT) NAME BRITTANY SINGH DATE OF : 1955 DATE OF ADMISSION: 11/25/2018 10:53 (CDT) PHONE: AGE: 63 SSN# [id number] GENDER: Female ENCOUNTER PHYSICIAN: Dr. Kevin Paniagua M.D. ADMISSION DIAGNOSIS: - Stroke 01 - Right Body (Left Brain) (01.2) Left Middle Cerebellar Peduncle and Left Cerebellar Hemisphere. EATING: Activity did not occur on this shift EATING - SCORE: 0-UNK GROOMING: Comb/brush hair Wash, rinse, and dry face Wash, rinse, and dry hands GROOMING - STEP 1: Does the patient require the assistance of a person or device, or need extra time when grooming? Yes. GROOMING - STEP 2: Does the patient require the assistance of a helper? Yes. GROOMING - STEP 3: How much assistance does the patient require from the helper? Cuing, coaxing, instructions, or encour agement for completion of grooming GROOMING - SCORE: 5-SUP BATHING: Abdomen Buttocks Chest Left arm Left lower leg and foot Left upper leg Perineal area Right arm Right lower leg and foot Right upper leg BATHING - STEP 1: Does the patient require the assistance of a person or device, or need extra time when bathing? Yes. BATHING - STEP 2: Does the patient require the assistance of a helper? Yes. BATHING - STEP 3: How much assistance does the patient require from the helper? Only incidental help such as placement of a wash cloth in his/her hand a few times as s/he bathes OR help to bathe just one or two areas of the body BATHING - SCORE: 4-MIN DRESSING - UPPER BODY: Bra (three steps) T-shirt/pullover shirt (four steps) ARTICLES SCORE Total number of steps: 7 DRESSING - UPPER BODY - STEP 1: Does the patient require help from a person or device, or need extra time when dressing above the diego st? Yes. DRESSING - UPPER BODY - STEP 2: Does the patient require the assistance of a helper? Yes. DRESSING - UPPER BODY - STEP 3: Does the helper touch the patient while dressing? Yes. DRESSING - UPPER BODY - STEP 4: How many of the total steps does the patient complete on his/her own? 6 DRESSING - UPPER BODY - SCORE: 4-MIN DRESSING - LOWER BODY: Elastic waist pants (three steps) Sock - Left foot (one step) Sock - Right foot (one step) Tied or buckled shoe - Left foot (two steps) Tied or buckled shoe - Right foot (two steps) Underwear (three steps) ARTICLES SCORE Total number of steps: 12 DRESSING - LOWER BODY - STEP 1: Does the patient require help from a person or device, or need extra time when dressing below the diego st? Yes. DRESSING - LOWER BODY - STEP 2: Does the patient require the assistance of a helper? Yes. DRESSING - LOWER BODY - STEP 3: Does the helper touch the patient while dressing? Yes. DRESSING - LOWER BODY - STEP 4: How many of the total steps does the patient complete on his/her own? 12 DRESSING - LOWER BODY - SCORE: 4-MIN TOILETING: Activity did not occur on this shift TOILETING - SCORE: 0-UNK BLADDER MANAGEMENT: Activity did not occur on this shift BLADDER MANAGEMENT - SCORE: 7-IND BOWEL MANAGEMENT: Activity did not occur on this shift BOWEL MANAGEMENT - SCORE: 7-IND TRANSFERS: BED, CHAIR, WHEELCHAIR: Activity did not occur on this shift TRANSFERS: BED, CHAIR, WHEELCHAIR - SCORE: 0-UNK TRANSFERS: TOILET: Activity did not occur on this shift TRANSFERS: TOILET - SCORE: 0-UNK TRANSFERS: SHOWER: TRANSFERS: SHOWER - STEP 1: Does the patient require the assistance of a person or device, or need extra time with shower transfe rs? Yes. TRANSFERS: SHOWER - STEP 2: Does the patient require the assistance of a helper? Yes. TRANSFERS: SHOWER - STEP 3: How much assistance does the patient require from the helper? Only incidental help such as contact gu arding or steadying during shower transfers, or help to lift one leg into the shower TRANSFERS: SHOWER - SCORE: 4-MIN TRANSFERS: TUB: Activity did not occur on this shift TRANSFERS: TUB - SCORE: 0-UNK LOCOMOTION: WALK: Activity did not occur on this shift LOCOMOTION: WALK - SCORE: 0-UNK LOCOMOTION: WHEELCHAIR: Activity did not occur on this shift LOCOMOTION: WHEELCHAIR - SCORE: 0-UNK LOCOMOTION: STAIRS: Activity did not occur on this shift LOCOMOTION: STAIRS - SCORE: 0-UNK COMPREHENSION: COMPREHENSION - SCORE: 0-UNK EXPRESSION EXPRESSION - SCORE: 0-UNK SOCIAL INTERACTION: SOCIAL INTERACTION - SCORE: 0-UNK PROBLEM SOLVING: PROBLEM SOLVING - SCORE: 0-UNK MEMORY: MEMORY - SCORE: 0-UNK SIGNATURE PANEL: The following modified sections: Eating - Score, Grooming - Score, Bathing - Score, Dressing - Upper Body - Score, Dressing - Lower Body - Score, Toileting - Score, Transfers: Bed, Chair, Wheelchair - S core, Transfers: Toilet - Score, Transfers: Shower - Score, Transfers: Tub - Score, Comprehension - S core, Expression - Score, Social Interaction - Score, Problem Solving - Score, Memory - Score were [e lectronically] signed by JEANNE Voss on TueDec 08 2018 15:44:14 T-0500 ([facility])
--- NOTE | 2018-12-08 16:01 | FAST ---
ENCOUNTER DATE AND TIME: 12/06/2018 08:00 (CDT) NAME BRITTANY SINGH DATE OF : 1955 DATE OF ADMISSION: 11/25/2018 10:53 (CDT) PHONE: AGE: 63 SSN# [id number] GENDER: Female ENCOUNTER PHYSICIAN: Dr. Kevin Paniagua M.D. ADMISSION DIAGNOSIS: - Stroke 01 - Right Body (Left Brain) (01.2) Left Middle Cerebellar Peduncle and Left Cerebellar Hemisphere. EATING: Activity did not occur on this shift EATING - SCORE: 0-UNK GROOMING: Activity did not occur on this shift GROOMING - SCORE: 0-UNK BATHING: Activity did not occur on this shift BATHING - SCORE: 0-UNK DRESSING - UPPER BODY: Activity did not occur on this shift Patient is not dressing in public clothing ARTICLES SCORE Total number of steps: 0 DRESSING - UPPER BODY - SCORE: 0-UNK DRESSING - LOWER BODY: Activity did not occur on this shift Patient is not dressing in public clothing ARTICLES SCORE Total number of steps: 0 DRESSING - LOWER BODY - SCORE: 0-UNK TOILETING: Activity did not occur on this shift TOILETING - SCORE: 0-UNK BLADDER MANAGEMENT: Activity did not occur on this shift BLADDER MANAGEMENT - SCORE: 7-IND BOWEL MANAGEMENT: Activity did not occur on this shift BOWEL MANAGEMENT - SCORE: 7-IND TRANSFERS: BED, CHAIR, WHEELCHAIR: TRANSFERS: BED, CHAIR, WHEELCHAIR - STEP 1: Does the patient require assistance of a person or device, or need extra time with bed, chair, or whe elchair transfers? Yes. TRANSFERS: BED, CHAIR, WHEELCHAIR - STEP 2: Does the patient require the assistance of a helper? Yes. TRANSFERS: BED, CHAIR, WHEELCHAIR - STEP 3: How much assistance does the patient require from the helper? Steadying/guiding assistance TRANSFERS: BED, CHAIR, WHEELCHAIR - SCORE: 4-MIN TRANSFERS: TOILET: Activity did not occur on this shift TRANSFERS: TOILET - SCORE: 0-UNK TRANSFERS: SHOWER: Activity did not occur on this shift TRANSFERS: SHOWER - SCORE: 0-UNK TRANSFERS: TUB: Activity did not occur on this shift TRANSFERS: TUB - SCORE: 0-UNK LOCOMOTION: WALK: LOCOMOTION: WALK - STEP 1: Does the patient need help from a person or device, or need extra time to walk 150 feet? Yes. LOCOMOTION: WALK - STEP 2: How much assistance does the patient require to walk a minimum of 150 feet? Only incidental help such as contact guarding or steadying LOCOMOTION: WALK - SCORE: 4-MIN LOCOMOTION: WHEELCHAIR: LOCOMOTION: WHEELCHAIR - STEP 1: Does the patient need help to go 150 feet in a wheelchair? Yes. LOCOMOTION: WHEELCHAIR - STEP 2: How much assistance does the patient need from the helper? Only incidental help such as around corner s or over thresholds LOCOMOTION: WHEELCHAIR - SCORE: 4-MIN LOCOMOTION: STAIRS: Activity did not occur on this shift LOCOMOTION: STAIRS - SCORE: 0-UNK COMPREHENSION: COMPREHENSION - SCORE: 0-UNK EXPRESSION EXPRESSION - SCORE: 0-UNK SOCIAL INTERACTION: SOCIAL INTERACTION - SCORE: 0-UNK PROBLEM SOLVING: PROBLEM SOLVING - SCORE: 0-UNK MEMORY: MEMORY - SCORE: 0-UNK SIGNATURE PANEL: The following modified sections: Transfers: Bed, Chair, Wheelchair - Score, Transfers: Toilet - Score , Locomotion: Walk - Score, Locomotion: Wheelchair - Score, Locomotion: Stairs - Score were [nazanin [email or web address]] signed by Tha Rinaldi PTA on TueDec 08 2018 16:00:06 GMT-0500 (Central Daylight Time)
--- NOTE | 2018-12-08 16:45 | FAST ---
ENCOUNTER DATE AND TIME: 12/08/2018 08:00 (CDT) NAME BRITTANY SINGH DATE OF : 1955 DATE OF ADMISSION: 11/25/2018 10:53 (CDT) PHONE: AGE: 63 SSN# [id number] GENDER: Female ENCOUNTER PHYSICIAN: Dr. Kevin Paniagua M.D. ADMISSION DIAGNOSIS: - Stroke 01 - Right Body (Left Brain) (01.2) Left Middle Cerebellar Peduncle and Left Cerebellar Hemisphere. EATING: Activity did not occur on this shift EATING - SCORE: 0-UNK GROOMING: Activity did not occur on this shift GROOMING - SCORE: 0-UNK BATHING: Activity did not occur on this shift BATHING - SCORE: 0-UNK DRESSING - UPPER BODY: Activity did not occur on this shift Patient is not dressing in public clothing ARTICLES SCORE Total number of steps: 0 DRESSING - UPPER BODY - SCORE: 0-UNK DRESSING - LOWER BODY: Activity did not occur on this shift Patient is not dressing in public clothing ARTICLES SCORE Total number of steps: 0 DRESSING - LOWER BODY - SCORE: 0-UNK TOILETING: Activity did not occur on this shift TOILETING - SCORE: 0-UNK BLADDER MANAGEMENT: Activity did not occur on this shift BLADDER MANAGEMENT - SCORE: 7-IND BOWEL MANAGEMENT: Activity did not occur on this shift BOWEL MANAGEMENT - SCORE: 7-IND TRANSFERS: BED, CHAIR, WHEELCHAIR: TRANSFERS: BED, CHAIR, WHEELCHAIR - STEP 1: Does the patient require assistance of a person or device, or need extra time with bed, chair, or whe elchair transfers? Yes. TRANSFERS: BED, CHAIR, WHEELCHAIR - STEP 2: Does the patient require the assistance of a helper? Yes. TRANSFERS: BED, CHAIR, WHEELCHAIR - STEP 3: How much assistance does the patient require from the helper? Steadying/guiding assistance TRANSFERS: BED, CHAIR, WHEELCHAIR - SCORE: 4-MIN TRANSFERS: TOILET: Activity did not occur on this shift TRANSFERS: TOILET - SCORE: 0-UNK TRANSFERS: SHOWER: Activity did not occur on this shift TRANSFERS: SHOWER - SCORE: 0-UNK TRANSFERS: TUB: Activity did not occur on this shift TRANSFERS: TUB - SCORE: 0-UNK LOCOMOTION: WALK: LOCOMOTION: WALK - STEP 1: Does the patient need help from a person or device, or need extra time to walk 150 feet? Yes. LOCOMOTION: WALK - STEP 2: How much assistance does the patient require to walk a minimum of 150 feet? More than incidental help LOCOMOTION: WALK - SCORE: 3-MOD LOCOMOTION: WHEELCHAIR: LOCOMOTION: WHEELCHAIR - STEP 1: Does the patient need help to go 150 feet in a wheelchair? Yes. LOCOMOTION: WHEELCHAIR - STEP 2: How much assistance does the patient need from the helper? Patient goes less than 150 feet - but more than 50 feet - with the assistance of only one helper LOCOMOTION: WHEELCHAIR - SCORE: 2-MAX LOCOMOTION: STAIRS: Activity did not occur on this shift LOCOMOTION: STAIRS - SCORE: 0-UNK COMPREHENSION: COMPREHENSION - SCORE: 0-UNK EXPRESSION EXPRESSION - SCORE: 0-UNK SOCIAL INTERACTION: SOCIAL INTERACTION - SCORE: 0-UNK PROBLEM SOLVING: PROBLEM SOLVING - SCORE: 0-UNK MEMORY: MEMORY - SCORE: 0-UNK SIGNATURE PANEL: The following modified sections: Transfers: Bed, Chair, Wheelchair - Score, Transfers: Toilet - Score , Locomotion: Walk - Score, Locomotion: Wheelchair - Score, Locomotion: Stairs - Score were [electron sean] signed by Tania Jarrett PTA on TueDec 08 2018 16:45:04 GMT-0500 (Central Daylight Time)
--- NOTE | 2018-12-08 17:24 | FAST ---
SHIFT START DATE/TIME: 12/08/2018 07:00 (CDT) SHIFT END DATE/TIME: 12/08/2018 19:00 (CDT) NAME BRITTANY SINGH DATE OF : 1955 DATE OF ADMISSION: 11/25/2018 10:53 (CDT) PHONE: AGE: 63 N# [id number] GENDER: Female ENCOUNTER PHYSICIAN: Dr. Kevin Paniagua M.D. ADMISSION DIAGNOSIS: - Stroke 01 - Right Body (Left Brain) (01.2) Left Middle Cerebellar Peduncle and Left Cerebellar Hemisphere. EATING: EATING - STEP 1: Does the patient require the assistance of a person or device, or need extra time when eating? Yes. EATING - STEP 2: Does the patient require the assistance of a helper? No, patient only requires an assistive device, O R s/he takes more than reasonable time to eat, OR there is a safety concern, OR s/he requires modifie d food consistency EATING - SCORE: 6-NAHUN GROOMING: Activity did not occur on this shift GROOMING - SCORE: 0-UNK BATHING: Activity did not occur on this shift BATHING - SCORE: 0-UNK DRESSING - UPPER BODY: Activity did not occur on this shift ARTICLES SCORE Total number of steps: 0 DRESSING - UPPER BODY - SCORE: 0-UNK DRESSING - LOWER BODY: Zippered pants (four steps) ARTICLES SCORE Total number of steps: 4 DRESSING - LOWER BODY - STEP 1: Does the patient require help from a person or device, or need extra time when dressing below the diego st? Yes. DRESSING - LOWER BODY - STEP 2: Does the patient require the assistance of a helper? Yes. DRESSING - LOWER BODY - STEP 3: Does the helper touch the patient while dressing? Yes. DRESSING - LOWER BODY - STEP 4: How many of the total steps does the patient complete on his/her own? 2 DRESSING - LOWER BODY - SCORE: 3-MOD TOILETING: TOILETING - STEP 1: Does the patient require the assistance of a person or device, or need extra time with toileting? Yes . TOILETING - STEP 2: Does the patient require the assistance of a helper? No. TOILETING - SCORE: 6-NAHUN BLADDER MANAGEMENT: BLADDER MANAGEMENT - STEP 1: Does the patient control the bladder completely and intentionally without equipment or devices or med ications, and is always continent? Yes. BLADDER MANAGEMENT - SCORE: 7-IND BLADDER MANAGEMENT - FREQUENCY OF ACCIDENTS: BLADDER MANAGEMENT(FA) - STEP 1: How many accidents has the patient had during the current shift? 0 BOWEL MANAGEMENT: BOWEL MANAGEMENT - STEP 1: Does the patient control bowels completely and intentionally without equipment devices or medications AND is always continent? Yes. BOWEL MANAGEMENT - SCORE: 7-IND BOWEL MANAGEMENT - FREQUENCY OF ACCIDENTS: BOWEL MANAGEMENT(FA) - STEP 1: How many accidents has the patient had during the current shift? 0 TRANSFERS: BED, CHAIR, WHEELCHAIR: TRANSFERS: BED, CHAIR, WHEELCHAIR - STEP 1: Does the patient require assistance of a person or device, or need extra time with bed, chair, or whe elchair transfers? Yes. TRANSFERS: BED, CHAIR, WHEELCHAIR - STEP 2: Does the patient require the assistance of a helper? Yes. TRANSFERS: BED, CHAIR, WHEELCHAIR - STEP 3: How much assistance does the patient require from the helper? Steadying/guiding assistance TRANSFERS: BED, CHAIR, WHEELCHAIR - SCORE: 4-MIN TRANSFERS: TOILET: TRANSFERS: TOILET - STEP 1: Does the patient require the assistance of a person or device, or need extra time with toilet transfe rs? Yes. TRANSFERS: TOILET - STEP 2: Does the patient require the assistance of a helper? Yes. TRANSFERS: TOILET - STEP 3: How much assistance does the patient require from the helper? Patient performs half or more of the tr ansferring tasks TRANSFERS: TOILET - STEP 4: Does the patient need only incidental help such as contact guard or steadying during toilet transfer? Yes. TRANSFERS: TOILET - SCORE: 4-MIN TRANSFERS: SHOWER: Activity did not occur on this shift TRANSFERS: SHOWER - SCORE: 0-UNK TRANSFERS: TUB: Activity did not occur on this shift TRANSFERS: TUB - SCORE: 0-UNK LOCOMOTION: WALK: Activity did not occur on this shift LOCOMOTION: WALK - SCORE: 0-UNK LOCOMOTION: WHEELCHAIR: Activity did not occur on this shift LOCOMOTION: WHEELCHAIR - SCORE: 0-UNK COMPREHENSION: COMPREHENSION - SCORE: 0-UNK EXPRESSION EXPRESSION - SCORE: 0-UNK SOCIAL INTERACTION: SOCIAL INTERACTION - SCORE: 0-UNK PROBLEM SOLVING: PROBLEM SOLVING - SCORE: 0-UNK MEMORY: MEMORY - SCORE: 0-UNK SIGNATURE PANEL: The following modified sections: Eating - Score, Grooming - Score, Bathing - Score, Dressing - Upper Body - Score, Dressing - Lower Body - Score, Toileting - Score, Bladder Management - Score, Bowel Man agement - Score, Transfers: Bed, Chair, Wheelchair - Score, Transfers: Toilet - Score, Transfers: Miriam wer - Score, Transfers: Tub - Score, Locomotion: Walk - Score, Locomotion: Wheelchair - Score, Compre hension - Score, Expression - Score, Social Interaction - Score, Problem Solving - Score, Memory - Sc ore were [electronically] signed by Merly Gaviria CNA on TueDec 08 2018 17:24:11 T-0500 (Centra l Daylight Time)
[2018-12-08] MEDS: ENSURE PUDDING 4 OZ CUP PO SCH (20:00)
[2018-12-08] MEDS: ATORVASTATIN 80 MG TAB PO SCH (21:11)
[2018-12-08] MEDS: GABAPENTIN 100 MG CAP PO SCH (21:11)
[2018-12-08] MEDS: MELATONIN 3 MG TABLET PO PRN (21:11)
[2018-12-08] MEDS: TOPIRAMATE 25 MG TAB PO SCH (21:11)
[2018-12-08] MEDS: DOCUSATE NA/SENNA CONC 1 TAB PO SCH (21:13)
[2018-12-09] MEDS: METOPROLOL TAR 25 MG TAB PO SCH ×2 (05:15→17:09)
[2018-12-09] MEDS: LISINOPRIL 20 MG TAB PO SCH (08:00)
[2018-12-09] MEDS: PROMOD 30 ML DOSE PO SCH ×2 (08:00→20:39)
[2018-12-09] MEDS: ENSURE PUDDING 4 OZ CUP PO SCH ×2 (08:00→20:37)
[2018-12-09] MEDS: FUROSEMIDE 20 MG TABLET PO SCH (08:00)
[2018-12-09] MEDS: CYANOCOBALAMIN 1,000 MCG TAB PO SCH (09:13)
[2018-12-09] MEDS: DIGOXIN 0.125 MG TABLET PO SCH (09:14)
[2018-12-09] MEDS: POTASSIUM 25 MEQ EFFERV TAB PO SCH (09:14)
[2018-12-09] MEDS: MAGNESIUM OXIDE 400 MG TAB PO SCH ×2 (09:14→20:35)
[2018-12-09] MEDS: NYSTATIN 500,000 UNIT/5 ML UDC PO SCH (09:15)
[2018-12-09] MEDS: NICOTINE 14 MG/PAT TD SCH (09:15)
[2018-12-09] MEDS: APIXABAN 5 MG TABLET PO SCH ×2 (09:15→20:36)
--- NOTE | 2018-12-09 16:23 | FAST ---
SHIFT START DATE/TIME: 12/09/2018 07:00 (CDT) SHIFT END DATE/TIME: 12/09/2018 19:00 (CDT) NAME BRITTANY SINGH DATE OF : 1955 DATE OF ADMISSION: 11/25/2018 10:53 (CDT) PHONE: AGE: 63 N# [id number] GENDER: Female ENCOUNTER PHYSICIAN: Dr. Kevin Paniagua M.D. ADMISSION DIAGNOSIS: - Stroke 01 - Right Body (Left Brain) (01.2) Left Middle Cerebellar Peduncle and Left Cerebellar Hemisphere. EATING: EATING - STEP 1: Does the patient require the assistance of a person or device, or need extra time when eating? Yes. EATING - STEP 2: Does the patient require the assistance of a helper? Yes. EATING - STEP 3: Does the patient perform half or more of the eating tasks? Yes. EATING - STEP 4: Does the patient need only supervision, cuing, coaxing OR help to apply an orthosis OR help to cut fo od, open containers, pour liquids, or butter bread? Yes. EATING - SCORE: 5-SUP GROOMING: Comb/brush hair Wash, rinse, and dry face GROOMING - STEP 1: Does the patient require the assistance of a person or device, or need extra time when grooming? Yes. GROOMING - STEP 2: Does the patient require the assistance of a helper? Yes. GROOMING - STEP 3: How much assistance does the patient require from the helper? Cuing, coaxing, instructions, or encour agement for completion of grooming GROOMING - SCORE: 5-SUP BATHING: Activity did not occur on this shift BATHING - SCORE: 0-UNK DRESSING - UPPER BODY: Activity did not occur on this shift ARTICLES SCORE Total number of steps: 0 DRESSING - UPPER BODY - SCORE: 0-UNK DRESSING - LOWER BODY: Activity did not occur on this shift ARTICLES SCORE Total number of steps: 0 DRESSING - LOWER BODY - SCORE: 0-UNK TOILETING: TOILETING - STEP 1: Does the patient require the assistance of a person or device, or need extra time with toileting? Yes . TOILETING - STEP 2: Does the patient require the assistance of a helper? No. TOILETING - SCORE: 6-NAHUN BLADDER MANAGEMENT: BLADDER MANAGEMENT - STEP 1: Does the patient control the bladder completely and intentionally without equipment or devices or med ications, and is always continent? No. BLADDER MANAGEMENT - STEP 2: Does the patient require the assistance of a helper? Yes. BLADDER MANAGEMENT - STEP 3: How much assistance does the patient require from the helper? Only supervision, stand-by, cuing, or c oaxing BLADDER MANAGEMENT - SCORE: 5-SUP BLADDER MANAGEMENT - FREQUENCY OF ACCIDENTS: BLADDER MANAGEMENT(FA) - STEP 1: How many accidents has the patient had during the current shift? 0 BOWEL MANAGEMENT: Activity did not occur on this shift BOWEL MANAGEMENT - SCORE: 7-IND BOWEL MANAGEMENT - FREQUENCY OF ACCIDENTS: BOWEL MANAGEMENT(FA) - STEP 1: How many accidents has the patient had during the current shift? 0 TRANSFERS: BED, CHAIR, WHEELCHAIR: TRANSFERS: BED, CHAIR, WHEELCHAIR - STEP 1: Does the patient require assistance of a person or device, or need extra time with bed, chair, or whe elchair transfers? Yes. TRANSFERS: BED, CHAIR, WHEELCHAIR - STEP 2: Does the patient require the assistance of a helper? Yes. TRANSFERS: BED, CHAIR, WHEELCHAIR - STEP 3: How much assistance does the patient require from the helper? Steadying/guiding assistance TRANSFERS: BED, CHAIR, WHEELCHAIR - SCORE: 4-MIN TRANSFERS: TOILET: TRANSFERS: TOILET - STEP 1: Does the patient require the assistance of a person or device, or need extra time with toilet transfe rs? Yes. TRANSFERS: TOILET - STEP 2: Does the patient require the assistance of a helper? Yes. TRANSFERS: TOILET - STEP 3: How much assistance does the patient require from the helper? Patient performs half or more of the tr ansferring tasks TRANSFERS: TOILET - STEP 4: Does the patient need only incidental help such as contact guard or steadying during toilet transfer? Yes. TRANSFERS: TOILET - SCORE: 4-MIN TRANSFERS: SHOWER: Activity did not occur on this shift TRANSFERS: SHOWER - SCORE: 0-UNK TRANSFERS: TUB: Activity did not occur on this shift TRANSFERS: TUB - SCORE: 0-UNK LOCOMOTION: WALK: Activity did not occur on this shift LOCOMOTION: WALK - SCORE: 0-UNK LOCOMOTION: WHEELCHAIR: Activity did not occur on this shift LOCOMOTION: WHEELCHAIR - SCORE: 0-UNK COMPREHENSION: COMPREHENSION - STEP 1: Does the patient require help from a person or device, or need extra time to understand complex and a bstract ideas (such as current events, finances, discharge planning, medical issues, relationships, e tc)? Yes. COMPREHENSION - SCORE: 0-UNK EXPRESSION EXPRESSION: TYPE: Both EXPRESSION - SCORE: 0-UNK SOCIAL INTERACTION: SOCIAL INTERACTION - SCORE: 0-UNK PROBLEM SOLVING: PROBLEM SOLVING - SCORE: 0-UNK MEMORY: MEMORY - SCORE: 0-UNK SIGNATURE PANEL: The following modified sections: Eating - Score, Grooming - Score, Bathing - Score, Dressing - Upper Body - Score, Dressing - Lower Body - Score, Toileting - Score, Bladder Management - Score, Bowel Man agement - Score, Transfers: Bed, Chair, Wheelchair - Score, Transfers: Toilet - Score, Transfers: Miriam wer - Score, Transfers: Tub - Score, Locomotion: Walk - Score, Locomotion: Wheelchair - Score, Compre hension - Score, Expression - Score, Social Interaction - Score, Problem Solving - Score, Memory - Sc ore were [electronically] signed by Rene [email or web address] on TueDec 09 2018 16:21:02 GMT-0500 (Centra l Daylight Time)
[2018-12-09] MEDS ORDERED: NYSTATIN 500,000 UNIT/5 ML UDC PO PRN (19:59)
[2018-12-09] MEDS: CRANBERRY FRUIT EXTRACT 200 MG CAP PO SCH (20:35)
[2018-12-09] MEDS: MELATONIN 3 MG TABLET PO PRN (20:36)
[2018-12-09] MEDS: ATORVASTATIN 80 MG TAB PO SCH (20:36)
[2018-12-09] MEDS: DOCUSATE NA/SENNA CONC 1 TAB PO SCH (20:36)
[2018-12-09] MEDS: TOPIRAMATE 25 MG TAB PO SCH (20:36)
[2018-12-09] MEDS: GABAPENTIN 100 MG CAP PO SCH (20:36)
--- NOTE | 2018-12-10 01:01 | FAST ---
SHIFT START DATE/TIME: 12/09/2018 19:00 (CDT) SHIFT END DATE/TIME: 12/10/2018 07:00 (CDT) NAME BRITTANY SINGH DATE OF : 1955 DATE OF ADMISSION: 11/25/2018 10:53 (CDT) PHONE: AGE: 63 N# [id number] GENDER: Female ENCOUNTER PHYSICIAN: Dr. Kevin Paniagua M.D. ADMISSION DIAGNOSIS: - Stroke 01 - Right Body (Left Brain) (01.2) Left Middle Cerebellar Peduncle and Left Cerebellar Hemisphere. EATING: Activity did not occur on this shift EATING - SCORE: 0-UNK GROOMING: Activity did not occur on this shift GROOMING - SCORE: 0-UNK BATHING: Activity did not occur on this shift BATHING - SCORE: 0-UNK DRESSING - UPPER BODY: Patient is not dressing in public clothing ARTICLES SCORE Total number of steps: 0 DRESSING - UPPER BODY - SCORE: 0-UNK DRESSING - LOWER BODY: Patient is not dressing in public clothing ARTICLES SCORE Total number of steps: 0 DRESSING - LOWER BODY - SCORE: 0-UNK TOILETING: TOILETING - STEP 1: Does the patient require the assistance of a person or device, or need extra time with toileting? Yes . TOILETING - STEP 2: Does the patient require the assistance of a helper? Yes. TOILETING - STEP 3: How much assistance does the patient require from the helper? Hands-on assistance from the helper TOILETING - STEP 4: Of the 3 tasks: 1) Adjusting clothing prior to use, 2) Cleansing of perineal area, 3) Adjusting clot cierra after use; How many tasks does the patient perform WITHOUT assistance of the helper? Three tasks with steadying assistance from the helper TOILETING - SCORE: 4-MIN BLADDER MANAGEMENT: BLADDER MANAGEMENT - STEP 1: Does the patient control the bladder completely and intentionally without equipment or devices or med ications, and is always continent? No. BLADDER MANAGEMENT - STEP 2: Does the patient require the assistance of a helper? Yes. BLADDER MANAGEMENT - STEP 3: How much assistance does the patient require from the helper? Only supervision, stand-by, cuing, or c oaxing BLADDER MANAGEMENT - SCORE: 5-SUP BOWEL MANAGEMENT: BOWEL MANAGEMENT - STEP 1: Does the patient control bowels completely and intentionally without equipment devices or medications AND is always continent? No. BOWEL MANAGEMENT - STEP 2: Does the patient require the assistance of a helper? No, patient requires medication for control such as stool softeners, suppositories, laxatives, enemas, or OTC medications BOWEL MANAGEMENT - SCORE: 6-NAHUN TRANSFERS: BED, CHAIR, WHEELCHAIR: TRANSFERS: BED, CHAIR, WHEELCHAIR - STEP 1: Does the patient require assistance of a person or device, or need extra time with bed, chair, or whe elchair transfers? Yes. TRANSFERS: BED, CHAIR, WHEELCHAIR - STEP 2: Does the patient require the assistance of a helper? Yes. TRANSFERS: BED, CHAIR, WHEELCHAIR - STEP 3: How much assistance does the patient require from the helper? Steadying/guiding assistance TRANSFERS: BED, CHAIR, WHEELCHAIR - SCORE: 4-MIN TRANSFERS: TOILET: TRANSFERS: TOILET - STEP 1: Does the patient require the assistance of a person or device, or need extra time with toilet transfe rs? Yes. TRANSFERS: TOILET - STEP 2: Does the patient require the assistance of a helper? Yes. TRANSFERS: TOILET - STEP 3: How much assistance does the patient require from the helper? Only supervision, cuing, coaxing, OR he lp to set out transfer equipment or to lock brakes and/or lift foot rests TRANSFERS: TOILET - SCORE: 5-SUP TRANSFERS: SHOWER: Activity did not occur on this shift TRANSFERS: SHOWER - SCORE: 0-UNK TRANSFERS: TUB: Activity did not occur on this shift TRANSFERS: TUB - SCORE: 0-UNK LOCOMOTION: WALK: Activity did not occur on this shift LOCOMOTION: WALK - SCORE: 0-UNK LOCOMOTION: WHEELCHAIR: Activity did not occur on this shift LOCOMOTION: WHEELCHAIR - SCORE: 0-UNK COMPREHENSION: COMPREHENSION: TYPE: Both COMPREHENSION - STEP 1: Does the patient require help from a person or device, or need extra time to understand complex and a bstract ideas (such as current events, finances, discharge planning, medical issues, relationships, e tc)? Yes. COMPREHENSION - STEP 2: Does the patient require help to understand questions or statements about basic needs or ideas (such as hunger, thirst, sleep, safety, daily schedule, room location, or discomfort) half or more of the t tashi? No. COMPREHENSION - STEP 3: How often does the patient need help to understand directions and conversation about basic needs? 25% - 49% of the time COMPREHENSION - SCORE: 3-MOD EXPRESSION EXPRESSION: TYPE: Both EXPRESSION - STEP 1: Does the patient require help from a person or device, or need extra time expressing complex and abst ract ideas (such as current events, finances, discharge planning, medical issues, relationships, etc) ? No. EXPRESSION - STEP 2: Does the patient need extra time, require an assistive device (such as augmentive communication syste m or a communication board), OR does s/he have mild difficulty expressing complex and abstract ideas (including mild dysarthria or mild word-find problems)? Yes. EXPRESSION - SCORE: 6-NAHUN SOCIAL INTERACTION: SOCIAL INTERACTION - STEP 1: Does the patient require a helper to interact with others in social and therapeutic situations? No. SOCIAL INTERACTION - STEP 2: Does the patient need extra time in social situations, OR does s/he interact with staff, other patien ts, and family members ONLY in structured environments, OR does s/he require medication for social in teraction? Yes, patient needs extra time SOCIAL INTERACTION - SCORE: 6-NAHUN PROBLEM SOLVING: PROBLEM SOLVING - STEP 1: Does the patient need help from a person or device, or need extra time to solve complex problems such as managing a checking account or confronting interpersonal problems? Yes. PROBLEM SOLVING - STEP 2: Does the patient solve basic routine problems half or more of the time? Yes. PROBLEM SOLVING - STEP 3: How often does the patient need help to solve basic routine problems? 25%-49% of the time PROBLEM SOLVING - SCORE: 3-MOD MEMORY: MEMORY - STEP 1: Does the patient need help from a person or device, or need extra time to remember frequently encount ered people, daily routines, and executing requests? Yes. MEMORY - STEP 2: How often does the patient need help to remember frequently encountered people, daily routines, and e xecuting requests? 25% - 49% of the time MEMORY - SCORE: 3-MOD SIGNATURE PANEL: The following modified sections: Eating - Score, Grooming - Score, Dressing - Upper Body - Score, Tavo ssing - Lower Body - Score, Toileting - Score, Bladder Management - Score, Bowel Management - Score, Transfers: Bed, Chair, Wheelchair - Score, Transfers: Toilet - Score, Transfers: Shower - Score, Lewis sfers: Tub - Score, Locomotion: Walk - Score, Locomotion: Wheelchair - Score, Comprehension - Score, Expression - Score, Social Interaction - Score, Problem Solving - Score, Memory - Score were [electro nically] signed by Elli Perez CNA on TueDec 10 2018 01:00:59 GMT-0500 (Central Daylight Time)
[2018-12-10] MEDS: METOPROLOL TAR 25 MG TAB PO SCH ×2 (05:25→17:47)
[2018-12-10] MEDS: FUROSEMIDE 20 MG TABLET PO SCH (08:00)
[2018-12-10] MEDS: LISINOPRIL 20 MG TAB PO SCH (08:00)
[2018-12-10] MEDS: DIGOXIN 0.125 MG TABLET PO SCH (08:28)
[2018-12-10] MEDS: APIXABAN 5 MG TABLET PO SCH ×2 (08:29→20:10)
[2018-12-10] MEDS: POTASSIUM 25 MEQ EFFERV TAB PO SCH (08:29)
[2018-12-10] MEDS: CRANBERRY FRUIT EXTRACT 200 MG CAP PO SCH ×2 (08:29→20:10)
[2018-12-10] MEDS: PROMOD 30 ML DOSE PO SCH ×2 (08:30→20:00)
[2018-12-10] MEDS: MAGNESIUM OXIDE 400 MG TAB PO SCH ×2 (08:30→20:10)
[2018-12-10] MEDS: NICOTINE 14 MG/PAT TD SCH (08:32)
[2018-12-10] MEDS: CYANOCOBALAMIN 1,000 MCG TAB PO SCH (09:00)
[2018-12-10] MEDS: ENSURE PUDDING 4 OZ CUP PO SCH ×2 (09:00→20:00)
[2018-12-10] MEDS: ATORVASTATIN 80 MG TAB PO SCH (20:10)
[2018-12-10] MEDS: DOCUSATE NA/SENNA CONC 1 TAB PO SCH (20:10)
[2018-12-10] MEDS: MELATONIN 3 MG TABLET PO PRN (20:10)
[2018-12-10] MEDS: TOPIRAMATE 25 MG TAB PO SCH (20:10)
[2018-12-10] MEDS: GABAPENTIN 100 MG CAP PO SCH (20:11)
--- NOTE | 2018-12-11 02:56 | FAST ---
SHIFT START DATE/TIME: 12/10/2018 19:00 (CDT) SHIFT END DATE/TIME: 12/11/2018 07:00 (CDT) NAME BRITTANY SINGH DATE OF : 1955 DATE OF ADMISSION: 11/25/2018 10:53 (CDT) PHONE: AGE: 63 N# [id number] GENDER: Female ENCOUNTER PHYSICIAN: Dr. Kevin Paniagua M.D. ADMISSION DIAGNOSIS: - Stroke 01 - Right Body (Left Brain) (01.2) Left Middle Cerebellar Peduncle and Left Cerebellar Hemisphere. EATING: Activity did not occur on this shift EATING - SCORE: 0-UNK GROOMING: Activity did not occur on this shift GROOMING - SCORE: 0-UNK BATHING: Activity did not occur on this shift BATHING - SCORE: 0-UNK DRESSING - UPPER BODY: Patient is not dressing in public clothing ARTICLES SCORE Total number of steps: 0 DRESSING - UPPER BODY - SCORE: 0-UNK DRESSING - LOWER BODY: Patient is not dressing in public clothing ARTICLES SCORE Total number of steps: 0 DRESSING - LOWER BODY - SCORE: 0-UNK TOILETING: TOILETING - STEP 1: Does the patient require the assistance of a person or device, or need extra time with toileting? Yes . TOILETING - STEP 2: Does the patient require the assistance of a helper? Yes. TOILETING - STEP 3: How much assistance does the patient require from the helper? Hands-on assistance from the helper TOILETING - STEP 4: Of the 3 tasks: 1) Adjusting clothing prior to use, 2) Cleansing of perineal area, 3) Adjusting clot cierra after use; How many tasks does the patient perform WITHOUT assistance of the helper? Three tasks with steadying assistance from the helper TOILETING - SCORE: 4-MIN BLADDER MANAGEMENT: BLADDER MANAGEMENT - STEP 1: Does the patient control the bladder completely and intentionally without equipment or devices or med ications, and is always continent? No. BLADDER MANAGEMENT - STEP 2: Does the patient require the assistance of a helper? Yes. BLADDER MANAGEMENT - STEP 3: How much assistance does the patient require from the helper? Only set-up of equipment - such as plac ing it within reach of the patient or emptying a device - to maintain either satisfactory voiding pat tern or managing an external device, such as an absorbent pad, ileal device, or catheter BLADDER MANAGEMENT - SCORE: 5-SUP BOWEL MANAGEMENT: Activity did not occur on this shift BOWEL MANAGEMENT - SCORE: 7-IND TRANSFERS: BED, CHAIR, WHEELCHAIR: TRANSFERS: BED, CHAIR, WHEELCHAIR - STEP 1: Does the patient require assistance of a person or device, or need extra time with bed, chair, or whe elchair transfers? Yes. TRANSFERS: BED, CHAIR, WHEELCHAIR - STEP 2: Does the patient require the assistance of a helper? Yes. TRANSFERS: BED, CHAIR, WHEELCHAIR - STEP 3: How much assistance does the patient require from the helper? Steadying/guiding assistance TRANSFERS: BED, CHAIR, WHEELCHAIR - SCORE: 4-MIN TRANSFERS: TOILET: TRANSFERS: TOILET - STEP 1: Does the patient require the assistance of a person or device, or need extra time with toilet transfe rs? Yes. TRANSFERS: TOILET - STEP 2: Does the patient require the assistance of a helper? Yes. TRANSFERS: TOILET - STEP 3: How much assistance does the patient require from the helper? Patient performs half or more of the tr ansferring tasks TRANSFERS: TOILET - STEP 4: Does the patient need only incidental help such as contact guard or steadying during toilet transfer? Yes. TRANSFERS: TOILET - SCORE: 4-MIN TRANSFERS: SHOWER: Activity did not occur on this shift TRANSFERS: SHOWER - SCORE: 0-UNK TRANSFERS: TUB: Activity did not occur on this shift TRANSFERS: TUB - SCORE: 0-UNK LOCOMOTION: WALK: Activity did not occur on this shift LOCOMOTION: WALK - SCORE: 0-UNK LOCOMOTION: WHEELCHAIR: Activity did not occur on this shift LOCOMOTION: WHEELCHAIR - SCORE: 0-UNK COMPREHENSION: COMPREHENSION: TYPE: Both COMPREHENSION - STEP 1: Does the patient require help from a person or device, or need extra time to understand complex and a bstract ideas (such as current events, finances, discharge planning, medical issues, relationships, e tc)? Yes. COMPREHENSION - STEP 2: Does the patient require help to understand questions or statements about basic needs or ideas (such as hunger, thirst, sleep, safety, daily schedule, room location, or discomfort) half or more of the t tashi? No. COMPREHENSION - STEP 3: How often does the patient need help to understand directions and conversation about basic needs? 25% - 49% of the time COMPREHENSION - SCORE: 3-MOD EXPRESSION EXPRESSION: TYPE: Both EXPRESSION - STEP 1: Does the patient require help from a person or device, or need extra time expressing complex and abst ract ideas (such as current events, finances, discharge planning, medical issues, relationships, etc) ? No. EXPRESSION - STEP 2: Does the patient need extra time, require an assistive device (such as augmentive communication syste m or a communication board), OR does s/he have mild difficulty expressing complex and abstract ideas (including mild dysarthria or mild word-find problems)? Yes. EXPRESSION - SCORE: 6-NAHUN SOCIAL INTERACTION: SOCIAL INTERACTION - STEP 1: Does the patient require a helper to interact with others in social and therapeutic situations? No. SOCIAL INTERACTION - STEP 2: Does the patient need extra time in social situations, OR does s/he interact with staff, other patien ts, and family members ONLY in structured environments, OR does s/he require medication for social in teraction? Yes, patient requires medication for social interaction SOCIAL INTERACTION - SCORE: 6-NAHUN PROBLEM SOLVING: PROBLEM SOLVING - STEP 1: Does the patient need help from a person or device, or need extra time to solve complex problems such as managing a checking account or confronting interpersonal problems? Yes. PROBLEM SOLVING - STEP 2: Does the patient solve basic routine problems half or more of the time? No. PROBLEM SOLVING - STEP 3: Does the patient need help to solve problems all the time or is s/he unable to solve problems? Yes. P atient needs help to solve problems all the time or is unable to solve problems PROBLEM SOLVING - SCORE: 1-DEP MEMORY: MEMORY - STEP 1: Does the patient need help from a person or device, or need extra time to remember frequently encount ered people, daily routines, and executing requests? Yes. MEMORY - STEP 2: How often does the patient need help to remember frequently encountered people, daily routines, and e xecuting requests? 25% - 49% of the time MEMORY - SCORE: 3-MOD SIGNATURE PANEL: The following modified sections: Eating - Score, Grooming - Score, Dressing - Upper Body - Score, Tavo ssing - Lower Body - Score, Toileting - Score, Bladder Management - Score, Bowel Management - Score, Transfers: Bed, Chair, Wheelchair - Score, Transfers: Toilet - Score, Transfers: Shower - Score, Lewis sfers: Tub - Score, Locomotion: Walk - Score, Locomotion: Wheelchair - Score, Comprehension - Score, Expression - Score, Social Interaction - Score, Problem Solving - Score, Memory - Score were [electro nically] signed by Elli Perez CNA on TueDec 11 2018 02:56:03 GMT-0500 (Central Daylight Time)
[2018-12-11] MEDS: METOPROLOL TAR 25 MG TAB PO SCH (05:30)
[2018-12-11] MEDS: LISINOPRIL 20 MG TAB PO SCH (08:00)
[2018-12-11] MEDS: PROMOD 30 ML DOSE PO SCH (08:00)
[2018-12-11] MEDS: FUROSEMIDE 20 MG TABLET PO SCH (08:00)
[2018-12-11] MEDS: ENSURE PUDDING 4 OZ CUP PO SCH (08:00)
[2018-12-11] MEDS: POTASSIUM 25 MEQ EFFERV TAB PO SCH (09:12)
[2018-12-11] MEDS: DIGOXIN 0.125 MG TABLET PO SCH (09:13)
[2018-12-11] MEDS: CYANOCOBALAMIN 1,000 MCG TAB PO SCH (09:13)
[2018-12-11] MEDS: NICOTINE 14 MG/PAT TD SCH (09:13)
[2018-12-11] MEDS: APIXABAN 5 MG TABLET PO SCH (09:14)
[2018-12-11] MEDS: MAGNESIUM OXIDE 400 MG TAB PO SCH (09:14)
[2018-12-11 09:15] VITALS: BP 115/71
[2018-12-11] MEDS: CRANBERRY FRUIT EXTRACT 200 MG CAP PO SCH (09:25)
[2018-12-11 11:22] VITALS: TEMP 96.8
--- NOTE | 2018-12-11 12:51 | RAD REPORT ---
EXAM DESCRIPTION: CT - Head Brain Wo Cont - 12/11/2018 10:42 am CLINICAL HISTORY: Alteration of awareness/confusion COMPARISON: December 05, 2018 TECHNIQUE: Computed axial tomography of the head was obtained. IV contrast was not requested. All CT scans are performed using dose optimization technique as appropriate and may include automated exposure control or mA/KV adjustment according to patient size. FINDINGS: A 9 millimeter low-density area has become more conspicuous and well-defined within the ri ght thalamus since the prior exam. Equivocal very small left thalamus infarct An intracranial bleed is not seen . The ventricles are normal in caliber. No extra-axial fluid collection is noted. Fluid within the sinuses/ mastoids is not seen. IMPRESSION: 9 millimeter early subacute infarct right thalamus Dr. Paniagua notified
--- NOTE | 2018-12-11 14:08 | RAD REPORT ---
EXAM DESCRIPTION: RAD - Barium Swallow Modified - 12/11/2018 1:52 pm CLINICAL HISTORY: CVA, coughing and choking COMPARISON: None. TECHNIQUE: The patient was given liquid, semi-solid and solid forms of barium. Lateral view fluorosc opic imaging was performed in conjunction with speech pathology service. FINDINGS: Cineloop acquisitions: 25 Fluoro time: 2 minutes 52 seconds laryngeal penetration - cleared with thin by straw with chin down, - not cleared with honey aspiration with thin by cup sip - delayed cough pharyngeal residue vallecular - moderate with dry solid delayed swallow onset 1-2 seconds, delayed cough - ineffective IMPRESSION: Modified barium swallow as summarized above and fully detailed on speech pathology repor tLauri
--- NOTE | 2018-12-11 15:46 | FAST ---
ENCOUNTER DATE AND TIME: 12/11/2018 08:00 (CDT) NAME BRITTANY SINGH DATE OF : 1955 DATE OF ADMISSION: 11/25/2018 10:53 (CDT) PHONE: AGE: 63 SSN# [id number] GENDER: Female ENCOUNTER PHYSICIAN: Dr. Kevin Paniagua M.D. ADMISSION DIAGNOSIS: - Stroke 01 - Right Body (Left Brain) (01.2) Left Middle Cerebellar Peduncle and Left Cerebellar Hemisphere. EATING: Activity did not occur on this shift EATING - SCORE: 0-UNK GROOMING: Comb/brush hair Wash, rinse, and dry face Wash, rinse, and dry hands GROOMING - STEP 1: Does the patient require the assistance of a person or device, or need extra time when grooming? Yes. GROOMING - STEP 2: Does the patient require the assistance of a helper? Yes. GROOMING - STEP 3: How much assistance does the patient require from the helper? Incidental touching assistance from the helper while grooming GROOMING - SCORE: 4-MIN BATHING: Abdomen Buttocks Chest Left arm Left lower leg and foot Left upper leg Perineal area Right arm Right lower leg and foot Right upper leg BATHING - STEP 1: Does the patient require the assistance of a person or device, or need extra time when bathing? Yes. BATHING - STEP 2: Does the patient require the assistance of a helper? Yes. BATHING - STEP 3: How much assistance does the patient require from the helper? Only incidental help such as placement of a wash cloth in his/her hand a few times as s/he bathes OR help to bathe just one or two areas of the body BATHING - SCORE: 4-MIN DRESSING - UPPER BODY: Bra (three steps) T-shirt/pullover shirt (four steps) ARTICLES SCORE Total number of steps: 7 DRESSING - UPPER BODY - STEP 1: Does the patient require help from a person or device, or need extra time when dressing above the diego st? Yes. DRESSING - UPPER BODY - STEP 2: Does the patient require the assistance of a helper? Yes. DRESSING - UPPER BODY - STEP 3: Does the helper touch the patient while dressing? No. DRESSING - UPPER BODY - SCORE: 5-SUP DRESSING - LOWER BODY: Sock - Left foot (one step) Sock - Right foot (one step) Underwear (three steps) Zippered pants (four steps) ARTICLES SCORE Total number of steps: 9 DRESSING - LOWER BODY - STEP 1: Does the patient require help from a person or device, or need extra time when dressing below the diego st? Yes. DRESSING - LOWER BODY - STEP 2: Does the patient require the assistance of a helper? Yes. DRESSING - LOWER BODY - STEP 3: Does the helper touch the patient while dressing? Yes. DRESSING - LOWER BODY - STEP 4: How many of the total steps does the patient complete on his/her own? 8 DRESSING - LOWER BODY - SCORE: 4-MIN TOILETING: TOILETING - STEP 1: Does the patient require the assistance of a person or device, or need extra time with toileting? Yes . TOILETING - STEP 2: Does the patient require the assistance of a helper? Yes. TOILETING - STEP 3: How much assistance does the patient require from the helper? Hands-on assistance from the helper TOILETING - STEP 4: Of the 3 tasks: 1) Adjusting clothing prior to use, 2) Cleansing of perineal area, 3) Adjusting clot cierra after use; How many tasks does the patient perform WITHOUT assistance of the helper? Three tasks with steadying assistance from the helper TOILETING - SCORE: 4-MIN BLADDER MANAGEMENT: Activity did not occur on this shift BLADDER MANAGEMENT - SCORE: 7-IND BOWEL MANAGEMENT: Activity did not occur on this shift BOWEL MANAGEMENT - SCORE: 7-IND TRANSFERS: BED, CHAIR, WHEELCHAIR: Activity did not occur on this shift TRANSFERS: BED, CHAIR, WHEELCHAIR - SCORE: 0-UNK TRANSFERS: TOILET: TRANSFERS: TOILET - STEP 1: Does the patient require the assistance of a person or device, or need extra time with toilet transfe rs? Yes. TRANSFERS: TOILET - STEP 2: Does the patient require the assistance of a helper? Yes. TRANSFERS: TOILET - STEP 3: How much assistance does the patient require from the helper? Patient performs half or more of the tr ansferring tasks TRANSFERS: TOILET - STEP 4: Does the patient need only incidental help such as contact guard or steadying during toilet transfer? Yes. TRANSFERS: TOILET - SCORE: 4-MIN TRANSFERS: SHOWER: TRANSFERS: SHOWER - STEP 1: Does the patient require the assistance of a person or device, or need extra time with shower transfe rs? Yes. TRANSFERS: SHOWER - STEP 2: Does the patient require the assistance of a helper? Yes. TRANSFERS: SHOWER - STEP 3: How much assistance does the patient require from the helper? Only incidental help such as contact gu arding or steadying during shower transfers, or help to lift one leg into the shower TRANSFERS: SHOWER - SCORE: 4-MIN TRANSFERS: TUB: Activity did not occur on this shift TRANSFERS: TUB - SCORE: 0-UNK LOCOMOTION: WALK: Activity did not occur on this shift LOCOMOTION: WALK - SCORE: 0-UNK LOCOMOTION: WHEELCHAIR: Activity did not occur on this shift LOCOMOTION: WHEELCHAIR - SCORE: 0-UNK LOCOMOTION: STAIRS: Activity did not occur on this shift LOCOMOTION: STAIRS - SCORE: 0-UNK COMPREHENSION: COMPREHENSION - SCORE: 0-UNK EXPRESSION EXPRESSION - SCORE: 0-UNK SOCIAL INTERACTION: SOCIAL INTERACTION - SCORE: 0-UNK PROBLEM SOLVING: PROBLEM SOLVING - SCORE: 0-UNK MEMORY: MEMORY - SCORE: 0-UNK SIGNATURE PANEL: The following modified sections: Eating - Score, Grooming - Score, Bathing - Score, Dressing - Upper Body - Score, Dressing - Lower Body - Score, Toileting - Score, Transfers: Bed, Chair, Wheelchair - S core, Transfers: Toilet - Score, Transfers: Shower - Score, Transfers: Tub - Score, Comprehension - S core, Expression - Score, Social Interaction - Score, Problem Solving - Score, Memory - Score were [e lectronically] signed by JEANNE Voss on TueDec 11 2018 15:45:17 [id number] (Formerly [facility])
--- NOTE | 2018-12-15 16:19 | FAST ---
ENCOUNTER DATE AND TIME: 12/11/2018 08:00 (CDT) NAME BRITTANY SINGH DATE OF : 1955 DATE OF ADMISSION: 11/25/2018 10:53 (CDT) PHONE: AGE: 63 SSN# [id number] GENDER: Female ENCOUNTER PHYSICIAN: Dr. Kevin Paniagua M.D. ADMISSION DIAGNOSIS: - Stroke 01 - Right Body (Left Brain) (01.2) Left Middle Cerebellar Peduncle and Left Cerebellar Hemisphere. EATING: Activity did not occur on this shift EATING - SCORE: 0-UNK GROOMING: Activity did not occur on this shift GROOMING - SCORE: 0-UNK BATHING: Activity did not occur on this shift BATHING - SCORE: 0-UNK DRESSING - UPPER BODY: Activity did not occur on this shift Patient is not dressing in public clothing ARTICLES SCORE Total number of steps: 0 DRESSING - UPPER BODY - SCORE: 0-UNK DRESSING - LOWER BODY: Activity did not occur on this shift Patient is not dressing in public clothing ARTICLES SCORE Total number of steps: 0 DRESSING - LOWER BODY - SCORE: 0-UNK TOILETING: Activity did not occur on this shift TOILETING - SCORE: 0-UNK BLADDER MANAGEMENT: Activity did not occur on this shift BLADDER MANAGEMENT - SCORE: 7-IND BOWEL MANAGEMENT: Activity did not occur on this shift BOWEL MANAGEMENT - SCORE: 7-IND TRANSFERS: BED, CHAIR, WHEELCHAIR: TRANSFERS: BED, CHAIR, WHEELCHAIR - STEP 1: Does the patient require assistance of a person or device, or need extra time with bed, chair, or whe elchair transfers? Yes. TRANSFERS: BED, CHAIR, WHEELCHAIR - STEP 2: Does the patient require the assistance of a helper? Yes. TRANSFERS: BED, CHAIR, WHEELCHAIR - STEP 3: How much assistance does the patient require from the helper? Steadying/guiding assistance TRANSFERS: BED, CHAIR, WHEELCHAIR - SCORE: 4-MIN TRANSFERS: TOILET: Activity did not occur on this shift TRANSFERS: TOILET - SCORE: 0-UNK TRANSFERS: SHOWER: Activity did not occur on this shift TRANSFERS: SHOWER - SCORE: 0-UNK TRANSFERS: TUB: Activity did not occur on this shift TRANSFERS: TUB - SCORE: 0-UNK LOCOMOTION: WALK: LOCOMOTION: WALK - STEP 1: Does the patient need help from a person or device, or need extra time to walk 150 feet? Yes. LOCOMOTION: WALK - STEP 2: How much assistance does the patient require to walk a minimum of 150 feet? Only incidental help such as contact guarding or steadying LOCOMOTION: WALK - SCORE: 4-MIN LOCOMOTION: WHEELCHAIR: LOCOMOTION: WHEELCHAIR - STEP 1: Does the patient need help to go 150 feet in a wheelchair? Yes. LOCOMOTION: WHEELCHAIR - STEP 2: How much assistance does the patient need from the helper? Only incidental help such as around corner s or over thresholds LOCOMOTION: WHEELCHAIR - SCORE: 4-MIN LOCOMOTION: STAIRS: Activity did not occur on this shift LOCOMOTION: STAIRS - SCORE: 0-UNK COMPREHENSION: COMPREHENSION - SCORE: 0-UNK EXPRESSION EXPRESSION - SCORE: 0-UNK SOCIAL INTERACTION: SOCIAL INTERACTION - SCORE: 0-UNK PROBLEM SOLVING: PROBLEM SOLVING - SCORE: 0-UNK MEMORY: MEMORY - SCORE: 0-UNK SIGNATURE PANEL: The following modified sections: Transfers: Bed, Chair, Wheelchair - Score, Transfers: Toilet - Score , Locomotion: Walk - Score, Locomotion: Wheelchair - Score, Locomotion: Stairs - Score were [electron sean] signed by Tha Rinaldi PTA on TueDec 15 2018 16:18:21 GMT-0500 (Central Daylight Time)
== END 2018-12-11 16:45 | disposition home health service (06) | DRG 57 ==
LOC: 5TH 11-25 10:53
PROVIDERS: ADMIT Psychiatry & Neurology Neurology with Special Qualifications in Child Neurology; ATTEND Psychiatry & Neurology Neurology with Special Qualifications in Child Neurology
DX: I69.351 Hemiplegia and hemiparesis following cerebral infarction affecting right dominant side (principal); J44.9 Chronic obstructive pulmonary disease, unspecified; F17.200 Nicotine dependence, unspecified, uncomplicated; I10 Essential (primary) hypertension; I48.91 Unspecified atrial fibrillation; I25.10 Atherosclerotic heart disease of native coronary artery without angina pectoris; Z95.0 Presence of cardiac pacemaker
CPT/HCPCS: 36415; 70450; 71045; 74230; 80048; 80162; 81001; 82040; 82805; 83735; 84132; 84134; 85025; 87086; 87088; 92507; 92508; 92523; 92526; 92611; 93005; 97110; 97112; 97116; 97127; 97150; 97163; 97167; 97530; 97542; J7030

== ENCOUNTER 2019-02-04 14:25 | Emergency (ER) | payer OTHER ==
--- OUTSIDE RECORDS SUMMARY | 2019-02-04 14:27 | XMS REPORT ---
:1955 [facility] [address] [place] [address] [address] [place] [address] Care Team Providers Name Role Phone REBEKA REHMAN Primary Care Provider Unavailable REBEKA REHMAN Unavailable Unavailable Problems This patient has no known problems. Allergies, Adverse Reactions, Alerts This patient has no known allergies or adverse reactions. Medications This patient has no known medications. Encounters Start End Encounter Admission Attending Care Care Encounter Date/Time Date/Time Type Type Clinicians Facility Department ID 2017-08-17 2017-08-17 Outpatient [facility] [id number] 19:19:00 19:19:00 REBEKA 2017-02-25 2017-02-25 Outpatient [facility] [id number] 00:00:00 00:00:00 2017-01-27 2017-01-27 Outpatient [facility] [id number] 00:00:00 00:00:00 2017-01-27 2017-01-27 Outpatient [facility] [id number] 00:00:00 00:00:00 2016-11-30 2016-11-30 Outpatient [facility] [id number] 09:47:50 09:47:50 Results Test Description Test Time Test Comments Text Results Atomic Results Result Comments Thyroid Stimulating Hormone (TSH) 2017-08-18 00:14:00 Test Item Value Reference Range Comments TSH (test code=TSH) 1.86 mIU/mL 0.270-4.200 Sed Rate ESR ([place])2017-08-17 21:38:00 Test Item Value Reference Range Comments ESR (test code=HESR) 4 mm/Hr 0-20 Lipid [id number] 20:38:00 Test Item Value Reference Range Comments Cholesterol (test 169 mg/dL 0-200 code=CHOL) Triglycerides (test 323 mg/dL 9-200 Unable to calculate, Trig >400 code=TRIG) HDL (test code=HDL) 31 mg/dL 50-60 Chol/HDL (test 5.5 Ratio 0.0-4.4 code=CHOLPHDL) LDL, Calculated (test 73 mg/dL 0-130 (NOTE)RISK OF HEART code=LDLC) DISEASEPublished by [place] Heart AssociationAnalyte Optimal Boderline Increased RiskCHOL <200 200-239 >240TRIG <150 150-199 >200HDL Male: >60 <40HDL Female: >60 <50LDL <100 130-159 >160LDL NEAR OPTIMAL IS 100-129 VLDL (test code=VLDL) 65 mg/dL 5-40 LDL/HDL (test code=LDLPHDL) 2 Comprehensive Metabolic [id number] 20:38:00 Test Item Value Reference Range Comments Sodium (test code=NA) 141 mmol/L 135-145 Potassium (test code=K) 3.6 mmol/L 3.5-5.1 Chloride (test code=CL) 100 mmol/L 98-105 Carbon Dioxide (test 28 mmol/L 22-29 code=CO2) Glucose (test code=GLU) 105 mg/dL 70-115 Blood Urea Nitrogen (test 11 mg/dL 6-20 code=BUN) Creatinine (test 1.1 mg/dL 0.5-0.9 code=CREAT) Calcium (test code=CA) 9.1 mg/dL 8.3-10.5 Prot Total (test code=TP) 7.8 g/dL 6.4-8.3 Albumin (test code=ALB) 4.3 g/dL 3.5-5.2 A/G Ratio (test 1.2 Ratio code=AGRATIO) Globulin (test code=GLOB) 3.5 2.9-3.1 Bili Total (test 0.5 mg/dL 0.1-0.9 code=TBIL) Alk Phos (test 181 U/L 35-104 code=APHOS) AST (test code=AST) 24 U/L 1-32 ALT (test code=ALT) 16 U/L 1-33 BUN/Creatinine Ratio 10.0 (test code=BCRATIO) Anion Gap (test 13 mmol/L 7-16 code=AGAP) Estimated GFR (test 54 mL/min/1.73m2 eGFR (estimated Glomerular code=GFR) Filtration Rate) is an estimated value,calculated from the patient's serum creatinine using the MDRD equation.It is NOT the patient's actual GFR. The eGFR provides a more clinicallyuseful measure of kidney disease than serum creatinine alone.This calculation takes sex and race into account, if the informationis provided. If the race is not provided, and the patient isAfrican-[place], multiply by 1.212. If sex is not provided, and thepatient is female, multiply by 0.742. Results for patients <18 years ofage have not been validated by the MDRD study and should be interpretedwith caution.eGFR Result Interpretation:eGFR > or=60 is in the Normal RangeeGFR < 60 may mean kidney diseaseeGFR < 15 may mean kidney failureRanges recommended by the National Kidney Foundation,http://nkdep.nih .gov [id number] 20:38:00 Test Item Value Reference Range Comments NT ProBnp (test code=PBNP) 775 pg/mL 0-124 Prothrombin [id number] 20:34:00 Test Item Value Reference Range Comments PT (test code=PT) 19.80 seconds 9.78-13.35 INR (test code=INR) 1.76 Ratio 0.6-1.2 CBC with [id number] 20:13:00 Test Item Value Reference Range Comments WBC (test code=WBC) 11.8 K/cumm 4.4-10.5 RBC (test code=RBC) 5.57 M/cumm 3.75-5.20 Hemoglobin (test code=HGB) 14.4 gm/dL 12.2-14.8 Hematocrit (test code=HCT) 47.5 % 36.5-44.4 MCV (test code=MCV) 85.3 fL 80-100 MCH (test code=MCH) 25.8 pg 27.0-32.5 MCHC (test code=MCHC) 30.3 g/dL 32.0-37.5 RDW (test code=RDW) 19.6 % 11.5-14.5 Platelet Count (test code=PLTCT) 231 K/cumm 140-440 MPV (test code=MPV) 14.8 fL Diff Method (test code=DIFFM) Auto Neutrophil (test code=NEUT) 51.6 % 36-70 Lymphocyte (test code=LYMPH) 41.7 % 12-44 Monocyte (test code=MONO) 3.2 % 0-11 Eosinophil (test code=EOS) 1.9 % 0-7 Basophil (test code=BASO) 1.6 % 0-2 Neutro Abs (test code=ANEUT) 6.1 K/cumm 1.6-7.4 Lymph Abs (test code=ALYMPH) 4.9 K/cumm 0.5-4.6 [place] Abs (test code=AMONO) 0.4 K/cumm 0.0-1.2 Eos Abs (test code=AEOS) 0.22 K/cumm 0.00-0.74 Baso Abs (test code=ABASO) 0.2 K/cumm 0.00-0.21 Anisocytosis (test code=ANISO) Slight Hypochromic (test code=HYPO) Slight
--- NOTE | 2019-02-04 15:30 | RAD REPORT ---
EXAM DESCRIPTION: CT - CTHCSP[facility]OC - 02/04/2019 3:19 pm CLINICAL HISTORY: Fall, head and neck injury COMPARISON: CT head December 2018 TECHNIQUE: Axial 5 mm thick images of the head were obtained. Axial 2 mm thick images of the cervic al spine were obtained with sagittal and coronal reconstruction images generated and reviewed. All CT scans are performed using dose optimization technique as appropriate and may include automated exposure control or mA/KV adjustment according to patient size. FINDINGS: No intracranial hemorrhage, mass, edema or acute intracranial finding. No acute cortical b ased infarction. No cortical edema or sulcal effacement. Patient has underlying atrophy and chronic i schemic change. CSF covering each cerebral hemisphere is accentuated in the setting of atrophy. This appears somewhat asymmetric or slightly greater for the left cerebral hemisphere. This could possibly reflect a chronic left-sided subdural hematoma or subdural hygroma. Neither is of acute clinical sig nificance. Mastoid air cells and paranasal sinuses are clear. No globe or orbit abnormality seen. Pat ient has a frontal scalp hematoma mild to moderate in size. Prominent degenerative changes are present at the dens C1 level. No fracture or acute cervical spine finding seen. Advanced C6-7 disc space narrowing and degenerative disc disease are present. Anterior endplate spurring seen at C5-6. No other significant disc space narrowing. No fracture or acute bony abnormality. Central canal detail is inherently limited. Patient has prominent facet joint degenerati ve change. There is significant right foraminal stenosis at C3-4 and mild bilateral foraminal stenosi s at C4-5. Left C5-6 foraminal stenosis seen and significant left-side and mild right-sided foraminal stenosis at C6-7. No paraspinal mass or hematoma. IMPRESSION: Atrophy and chronic ischemic changes are present. There are no acute intracranial findin gs seen. Slightly asymmetric CSF over the left cerebral hemisphere is probably normal variant or affects of po sitioning rather than chronic subdural hematoma or subdural hygroma. Presence of either of these etio logies would not be acutely clinically significant. Advanced cervical spine degenerative change with no fracture or acute finding seen. Small to moderate frontal scalp hematoma. Underlying bone is intact.
--- NOTE | 2019-02-04 16:00 | ER ---
Nurse's Notes [facility] Name: aCrli Alves Age: 63 yrs Sex: Female : 1955 Arrival Date: 02/04/2019 Time: 14:29 Bed 30 Private MD: Diagnosis: Fall on same level, unspecified;Superficial injury of head;Headache Presentation: 02/04 14:32 Presenting complaint: Patient states: i fell from a standing position and had a cut on hj my forehead and bruising on both my eyes, happened last Tuesday, i went to see my doctor the following day and was told to come to the ER for CAT scan; reports headache;. Transition of care: patient was not received from another setting of care. Onset of symptoms was February 04, 2019. Risk Assessment: Do you want to hurt yourself or someone else? Patient reports no desire to harm self or others. Initial Sepsis Screen: Does the patient meet any 2 criteria? No. Patient's initial sepsis screen is negative. Does the patient have a suspected source of infection? No. Patient's initial sepsis screen is negative. Care prior to arrival: None. 14:32 Method Of Arrival: Ambulatory hj 14:32 Acuity: MELLISSA 3 hj Historical: - Allergies: 14:35 diphenhydramine HCl; hj 14:35 PENICILLINS; hj 14:35 Aspirin; hj 14:35 METOCLOPRAMIDE; hj - PMHx: 14:35 CHF; Atrial Fib; hj - PSHx: 14:35 Knee surgery; hj - Immunization history:: Adult Immunizations up to date. - Social history:: Smoking status: Patient uses tobacco products, smokes one-half pack cigarettes per day. - Ebola Screening: : Patient negative for fever greater than or equal to 101.5 degrees Fahrenheit, and additional compatible Ebola Virus Disease symptoms Patient denies exposure to infectious person Patient denies travel to an Ebola-affected area in the 21 days before illness onset No symptoms or risks identified at this time. Screenin:00 Abuse screen: Denies threats or abuse. Denies injuries from another. Nutritional ca1 screening: No deficits noted. Tuberculosis screening: No symptoms or risk factors identified. Fall Risk Fall in past 12 months (25 points). Secondary diagnosis (15 points) CVA, Ambulatory Aid- Crutches/Cane/Walker (15 pts). Gait- Impaired (20 pts.). Total Lamb Fall Scale indicates High Risk Score (45 or more points). Fall prevention measures have been instituted. Side Rails Up X 2 Frequent Obs/Assessments Occuring Family Present and informed to notify staff if the need to leave the bedside As available patient and family educated on Fall Prevention Program and Strategies. Assessment: 15:00 General: Appears in no apparent distress. comfortable, Behavior is calm, cooperative, ca1 appropriate for age. Pain: Denies pain. Neuro: Level of Consciousness is awake, alert, obeys commands, Oriented to person, place, time, situation. Cardiovascular: Heart tones S1 S2 present Capillary refill < 3 seconds Patient's skin is warm and dry. Respiratory: Airway is patent Respiratory effort is even, unlabored, Respiratory pattern is regular, symmetrical, Breath sounds are clear bilaterally. GI: Abdomen is flat, non-distended, Bowel sounds present X 4 quads. Abd is soft and non tender X 4 quads. : No deficits noted. No signs and/or symptoms were reported regarding the genitourinary system. EENT: Eyes pt unable to open R eye due to swelling and bruising. Derm: Skin is intact, is healthy with good turgor, Skin is pink, warm \T\ dry. Bruising that is dark purple, on forehead, right eye and left eye. Musculoskeletal: Circulation, motion, and sensation intact. Capillary refill < 3 seconds, Range of motion: intact in all extremities. 16:07 Reassessment: Patient appears in no apparent distress at this time. Patient is alert, ca1 oriented x 3, equal unlabored respirations, skin warm/dry/pink. Vital Signs: 14:35 BP 104 / 60; Pulse 75; Resp 18; Temp 98.4(O); Pulse Ox 99% on R/A; Weight 54.88 kg; Height 5 ft. 8 in. (172.72 cm); Pain 1/10; 16:07 BP 110 / 62; Pulse 71; Resp 16 S; Pulse Ox 100% on R/A; ca1 14:35 Body Mass Index 18.40 (54.88 kg, 172.72 cm) ED Course: 14:29 Patient arrived in ED. mr 14:34 Triage completed. 14:34 Arm band placed on right wrist. 14:55 [facility] snw 14:56 Pepe Lovell MD is Attending Physician. snw 15:00 Patient has correct armband on for positive identification. Bed in low position. Call ca1 light in reach. Side rails up X2. Pulse ox on. NIBP on. 15:14 Tianna Rahman, RN is Primary Nurse. ca1 15:[address] via wheelchair. ca1 15:20 CT completed. Patient tolerated procedure well. Patient moved back from CT. bq 15:20 CT Head C Spine In Process Unspecified. EDMS 16:08 No provider procedures requiring assistance completed. Patient did not have IV access ca1 during this emergency room visit. Administered Medications: No medications were administered Outcome: 15:59 Discharge ordered by . snw 16:08 Discharged to home via wheelchair, with significant other. ca1 16:08 Condition: stable 16:08 Discharge instructions given to patient, Instructed on discharge instructions, follow up and referral plans. Demonstrated understanding of instructions, follow-up care. 16:09 Patient left the ED. ca1 Signatures: Dispatcher [employer] EDWY Delphine Rudd FNP-C [employer]ASKETBALL PLAYER-Csnw Phuong Dougherty Betty Arvin Dyson RN RN Tianna Rahman, HEATHER RN ca1 Corrections: (The following items were deleted from the chart) 14:37 14:32 Acuity: MELLISSA 4 hj hj 14:37 14:35 Pulse 97bpm; Resp 18bpm; Pulse Ox 99% RA; Temp 98.4F Oral; 54.88 kg; Height 5 ft. hj 8 in.; BMI: 18.4; Pain 1/10; hj 14:44 14:32 Presenting complaint: Patient states: i fell from a standing position and had a hj cut on my forehead and bruising on both my eyes, happened last Tuesday, i went to see my doctor Tuesday and was told to come to the ER for CAT scan; reports headache; hj
--- NOTE | 2019-02-04 16:00 | EDPHYS ---
Physician Documentation [facility] Name: Carli Alves Age: 63 yrs Sex: Female : 1955 Arrival Date: 02/04/2019 Time: 14:29 Bed 30 Private MD: ED Physician Pepe Lovell HPI: 02/04 16:01 This 63 yrs old Female presents to ER via Ambulatory with complaints of Fall snw Injury. 16:01 Details of fall: The patient fell from an upright position. Onset: The symptoms/episode snw began/occurred suddenly, 5 day(s) ago, and became persistent. Associated injuries: The patient sustained injury to the head. Severity of symptoms: At their worst the symptoms were moderate. The patient has not experienced similar symptoms in the past. The patient has been recently seen by a physician:. hx of recent CVA, pt fell onto face from standing on Tue. Contusion/laceration to forehead, noted to have bilateral raccoon eyes. No changes in EOM deficits. Pt was temporarily with triple vision post fall. Back now to "normal" double vision. No vomiting. + mild headache. Historical: - Allergies: 14:35 diphenhydramine HCl; hj 14:35 PENICILLINS; hj 14:35 Aspirin; hj 14:35 METOCLOPRAMIDE; hj - PMHx: 14:35 CHF; Atrial Fib; hj - PSHx: 14:35 Knee surgery; hj - Immunization history:: Adult Immunizations up to date. - Social history:: Smoking status: Patient uses tobacco products, smokes one-half pack cigarettes per day. - Ebola Screening: : Patient negative for fever greater than or equal to 101.5 degrees Fahrenheit, and additional compatible Ebola Virus Disease symptoms Patient denies exposure to infectious person Patient denies travel to an Ebola-affected area in the 21 days before illness onset No symptoms or risks identified at this time. ROS: 15:59 Constitutional: Negative for fever, chills, and weight loss, ENT: Negative for injury, snw pain, and discharge, Neck: Negative for injury, pain, and swelling, Cardiovascular: Negative for chest pain, palpitations, and edema, Respiratory: Negative for shortness of breath, cough, wheezing, and pleuritic chest pain, Abdomen/GI: Negative for abdominal pain, nausea, vomiting, diarrhea, and constipation, Back: Negative for injury and pain, : Negative for injury, bleeding, discharge, and swelling, MS/Extremity: Negative for injury and deformity, Skin: Negative for injury, rash, and discoloration. 15:59 Neuro: Positive for headache. Exam: 15:56 Constitutional: This is a well developed, well nourished patient who is awake, alert, snw and in no acute distress. 15:56 ENT: Nares patent. No nasal discharge, no septal abnormalities noted. Tympanic membranes are normal and external auditory canals are clear. Oropharynx with no redness, swelling, or masses, exudates, or evidence of obstruction, uvula midline. Mucous membranes moist. Neck: Trachea midline, no thyromegaly or masses palpated, and no cervical lymphadenopathy. Supple, full range of motion without nuchal rigidity, or vertebral point tenderness. No Meningismus. Chest/axilla: Normal chest wall appearance and motion. Nontender with no deformity. No lesions are appreciated. Cardiovascular: Regular rate and rhythm with a normal S1 and S2. No gallops, murmurs, or rubs. Normal PMI, no JVD. No pulse deficits. Respiratory: Lungs have equal breath sounds bilaterally, clear to auscultation and percussion. No rales, rhonchi or wheezes noted. No increased work of breathing, no retractions or nasal flaring. Abdomen/GI: Soft, non-tender, with normal bowel sounds. No distension or tympany. No guarding or rebound. No evidence of tenderness throughout. Back: No spinal tenderness. No costovertebral tenderness. Full range of motion. Skin: Warm, dry with normal turgor. Normal color with no rashes, no lesions, and no evidence of cellulitis. MS/ Extremity: Pulses equal, no cyanosis. Neurovascular intact. Full, normal range of motion. Neuro: Awake and alert, GCS 15, oriented to person, place, time, and situation. Cranial nerves II-XII grossly intact. no acute changes per Spouse Psych: Awake, alert, with orientation to person, place and time. Behavior, mood, and affect are within normal limits. 15:56 Head/face: Noted is raccoon eye(s), bilaterally, Sinus tenderness, is not appreciated. 15:56 Eyes: Periorbital structures: ecchymosis, that is marked, bilaterally, Pupils: no acute changes, Extraocular movements: gaze deviation towards the pt with double vision since CVA 2.5 months ago, unable to move eyes superiorly or inferiorly, Conjunctiva: normal. Vital Signs: 14:35 BP 104 / 60; Pulse 75; Resp 18; Temp 98.4(O); Pulse Ox 99% on R/A; Weight 54.88 kg; hj Height 5 ft. 8 in. (172.72 cm); Pain 1/10; 16:07 BP 110 / 62; Pulse 71; Resp 16 S; Pulse Ox 100% on R/A; ca1 14:35 Body Mass Index 18.40 (54.88 kg, 172.72 cm) hj MDM: 14:56 Patient medically screened. snw 16:00 Data reviewed: vital signs, nurses notes. Data interpreted: Pulse oximetry: on room air snw is 99 %. Interpretation: normal. 02/04 14:46 Order name: CT Head C Spine; Complete Time: 15:33 snw Administered Medications: No medications were administered Disposition: 17:13 Co-signature as Attending Physician, Pepe Lovell MD. rn Disposition: 02/04/19 15:59 Discharged to Home. Impression: Fall on same level, unspecified, Superficial injury of head, Headache. - Condition is Stable. - Discharge Instructions: Head Injury, Adult, Post-Concussion Syndrome, Rehydration, Adult. - Medication Reconciliation Form, Thank You Letter, Antibiotic Education, Prescription Opioid Use form. - Follow up: Private Physician; When: 1 - 2 days; Reason: Recheck today's complaints, Continuance of care, Re-evaluation by your physician. Follow up: Emergency Department; When: As needed; Reason: Worsening of condition. Signatures: Dispatcher [employer] EDMS Delphine Rudd, WATER PLUMBER-C WATER PLUMBER-Csnw Pepe Lovell MD MD rn Joaquin, Henry, RN RN hj Acob, Cheryl, RN RN ca1 Corrections: (The following items were deleted from the chart) 16:09 15:59 02/04/2019 15:59 Discharged to Home. Impression: Fall on same level, unspecified; ca1 Superficial injury of head; Headache. Condition is Stable. Forms are Medication Reconciliation Form, Thank You Letter, Antibiotic Education, Prescription Opioid Use. Follow up: Private Physician; When: 1 - 2 days; Reason: Recheck today's complaints, Continuance of care, Re-evaluation by your physician. Follow up: Emergency Department; When: As needed; Reason: Worsening of condition. w
[2019-02-04 16:17] VITALS: TEMP 98.4
[2019-02-04 16:18] VITALS: BP 110/62; O2SAT 100
== END 2019-02-04 16:09 | disposition home or self-care (01) ==
LOC: ER 14:25
DX: S00.90XA Unspecified superficial injury of unspecified part of head, initial encounter (principal); W18.30XA Fall on same level, unspecified, initial encounter; I48.91 Unspecified atrial fibrillation; I50.9 Heart failure, unspecified; Z88.6 Allergy status to analgesic agent; Z88.0 Allergy status to penicillin; Z88.8 Allergy status to other drugs, medicaments and biological substances; F17.210 Nicotine dependence, cigarettes, uncomplicated
CPT/HCPCS: 70450; 72125; 99284

== ENCOUNTER 2019-06-01 17:31 | Inpatient (IN) | payer OTHER ==
--- OUTSIDE RECORDS SUMMARY | 2019-06-01 17:34 | XMS REPORT ---
:1955 [facility] Address [address] [place] [address] [address] [place] [address] Care Team Providers Name Role Phone REBEKA [...] Facility Department ID 2017-08-17 2017-08-17 Outpatient [facility] [id number] 19:19:00 19:19:00 REBEKA 2017-02-25 2017-02-25 Outpatient [facility] [id number] 00:00:00 00:00:00 2017-01-27 2017-01-27 Outpatient [facility] [id number] 00:00:00 00:00:00 2017-01-27 2017-01-27 Outpatient [facility] [id number] 00:00:00 00:00:00 2016-11-30 2016-11-30 Outpatient [facility] [id number] 09:47:50 09:47:50 Results Test Description Test Time Test Comments Text Results Atomic Results Result Comments Thyroid Stimulating Hormone (TSH) 2017-08-18 00:14:00 Test Item Value Reference Range Comments TSH (test code=TSH) 1.86 mIU/mL 0.270-4.200 Sed Rate ESR ([place])2017-08-17 21:38:00 Test Item Value Reference Range Comments ESR (test code=HESR) 4 mm/Hr 0-20 Lipid [id number] 20:38:00 Test Item Value Reference Range Comments Cholesterol (test 169 mg/dL 0-200 code=CHOL) Triglycerides (test 323 mg/dL 9-200 Unable to calculate, Trig >400 code=TRIG) HDL (test code=HDL) 31 mg/dL 50-60 Chol/HDL (test 5.5 Ratio 0.0-4.4 code=CHOLPHDL) LDL, Calculated (test 73 mg/dL 0-130 (NOTE)RISK OF HEART code=LDLC) DISEASEPublished by [place]inames[place] Heart AssociationAnalyte Optimal Boderline Increased RiskCHOL <200 200-239 >240TRIG <150 150-199 >200HDL Male: >60 <40HDL Female: >60 <50LDL <100 130-159 >160LDL NEAR OPTIMAL IS 100-129 VLDL (test code=VLDL) 65 mg/dL 5-40 LDL/HDL (test code=LDLPHDL) 2 Comprehensive Metabolic [id number] 20:38:00 Test Item Value Reference Range Comments [...] race is not provided, and the patient isAfrican-Surinamese, multiply by 1.212. If sex is not provided, and thepatient is female, multiply by 0.742. Results for patients <18 years ofage have not been validated by the MDRD study and should be interpretedwith caution.eGFR Result Interpretation:eGFR > or=60 is in the Normal RangeeGFR < 60 may mean kidney diseaseeGFR < 15 may mean kidney failureRanges recommended by the National Kidney Foundation,http://nkdep.nih .gov [id number] 20:38:00 Test Item Value Reference Range Comments NT ProBnp (test code=PBNP) 775 pg/mL 0-124 Prothrombin [id number] 20:34:00 Test Item Value Reference Range Comments PT (test code=PT) 19.80 seconds 9.78-13.35 INR (test code=INR) 1.76 Ratio 0.6-1.2 CBC with [id number] 20:13:00 Test Item Value Reference Range Comments [...] Lymph Abs (test code=ALYMPH) 4.9 K/cumm 0.5-4.6 [place] Abs (test code=AMONO) 0.4 K/cumm 0.0-1.2 Eos Abs (test code=AEOS) 0.22 K/cumm 0.00-0.74 Baso Abs (test code=ABASO) 0.2 K/cumm 0.00-0.21 Anisocytosis (test code=ANISO) Slight Hypochromic (test code=HYPO) Slight
[2019-06-01 20:48] LABS: Urine Blood 2+ (NEG); Urine Glucose NEGATIVE (NEG); Urine Protein NEGATIVE (NEG)
--- NOTE | 2019-06-01 21:33 | ER ---
Nurse's Notes [facility] Name: Carli Alves Age: 63 yrs Sex: Female : 1955 Arrival Date: 06/01/2019 Time: 17:34 Bed 5 Private MD: Diagnosis: Cellulitis and acute lymphangitis of other parts of limb-left foot, dorsal;Fever, unspecified;Atrial fibrillation and flutter;Presence of automatic (implantable) cardiac defibrillator-firing x4 episodes Presentation: 06/01 17:54 Presenting complaint: Patient states: "my defibrillator went off yesterday and today aa5 around noon". Pt denies chest pain, denies SOB. Reports postnasal drainage. Pt reports fever up to 100.6 F last night. Pt states "I had a stroke back in September and my eyes have been rolled back since then but it's getting worse". Transition of care: patient was not received from another setting of care. Onset of symptoms was June 01, 2019. Risk Assessment: Do you want to hurt yourself or someone else? Patient reports no desire to harm self or others. Initial Sepsis Screen: Initial Sepsis Screen: Does the patient meet any 2 criteria? No. Patient's initial sepsis screen is negative. Does the patient have a suspected source of infection? No. Patient's initial sepsis screen is negative. Care prior to arrival: None. 17:54 Acuity: MELLISSA 2 aa5 17:54 Method Of Arrival: Wheelchair aa5 Historical: - Allergies: 17:58 Aspirin; aa5 17:58 diphenhydramine HCl; aa5 17:58 METOCLOPRAMIDE; aa5 17:58 PENICILLINS; aa5 - Home Meds: 17:58 Digoxin Oral [Active]; unknown antihypertensive [Active]; Effexor Oral [Active]; aa5 - PMHx: 17:58 Atrial Fib; CHF; CVA; Hypertension; aa5 - PSHx: 17:58 Knee surgery; Defibrillator/Pacemaker; aa5 - Immunization history:: Flu vaccine is not up to date. - Social history:: Smoking status: Patient/guardian denies using tobacco. - Ebola Screening: : No symptoms or risks identified at this time. - Family history:: not pertinent. Screenin/30 00:47 Abuse screen: Denies threats or abuse. Denies injuries from another. Nutritional lp1 screening: No deficits noted. Tuberculosis screening: No symptoms or risk factors identified. Fall Risk Total Lamb Fall Scale indicates High Risk Score (45 or more points). Fall prevention measures have been instituted. Side Rails Up X 2 As available patient and family educated on Fall Prevention Program and Strategies. Assessment: 06/01 18:30 Reassessment: Patient appears in no apparent distress at this time. Patient and/or sg family updated on plan of care and expected duration. Pain level reassessed. pt family at bedside at this time. General: Appears in no apparent distress. ill, well groomed, well developed, well nourished, Behavior is calm, cooperative, appropriate for age, smells of smoke. Pain: Denies pain. Neuro: Level of Consciousness is awake, alert, obeys commands, Oriented to person, place, time. Cardiovascular: Patient's skin is warm and dry. Chest pain is denied. Respiratory: Airway is patent Respiratory effort is even, unlabored, Respiratory pattern is regular, symmetrical. GI: Abdomen is round non-distended. : Urine is clear, Genitalia appear normal. EENT: No signs and/or symptoms were reported regarding the EENT system. Derm: Skin is pink, warm \\T\\ dry. Derm: Rash noted that is red. Musculoskeletal: Circulation, motion, and sensation intact. Range of motion: intact in all extremities, Swelling present in left foot. 20:00 General: Appears in no apparent distress. Behavior is calm, cooperative, appropriate lp1 for age. Pain: Complains of pain in left foot Pain currently is 6 out of 10 on a pain scale. Neuro: Level of Consciousness is awake, alert, obeys commands, Oriented to person, place, time, situation. Cardiovascular: Patient's skin is warm and dry. Respiratory: Respiratory effort is even, unlabored. GI: No signs and/or symptoms were reported involving the gastrointestinal system. : No signs and/or symptoms were reported regarding the genitourinary system. EENT: No signs and/or symptoms were reported regarding the EENT system. Derm: Skin is intact, Skin is dry, Skin is normal, redness, swelling noted to top of left foot. Musculoskeletal: Circulation, motion, and sensation intact. 21:42 Reassessment: Spoke with Gavi from [facility] about pending interrogation of lp1 defibrillator. 23:00 Reassessment: Patient appears in no apparent distress at this time. Patient and/or lp1 family updated on plan of care and expected duration. Pain level reassessed. Patient resting, eyes closed, respirations unlabored. 06/02 00:00 Reassessment: Patient appears in no apparent distress at this time. No changes from lp1 previously documented assessment. 01:00 Reassessment: Patient appears in no apparent distress at this time. Patient assisted to lp1 bedpan; brief changed at this time. 02:33 Reassessment: HEATHER España at bedside to transfer patient to floor. lp1 Vital Signs: 06/01 17:58 BP 113 / 65; Pulse 92; Resp 16 S; Temp 99.3(TE); Pulse Ox 99% on R/A; Weight 47.17 kg aa5 (R); Pain 0/10; 20:00 BP 120 / 75; Pulse 75; Resp 20; Pulse Ox 98% on R/A; lp1 20:45 BP 123 / 70; Pulse 73; Resp 20; Pulse Ox 98% on R/A; lp1 21:15 BP 130 / 67; Pulse 77; Resp 20; Pulse Ox 99% on R/A; lp1 22:00 BP 121 / 66; Pulse 88; Resp 17; Pulse Ox 95% on R/A; lp1 23:00 BP 127 / 77; Pulse 63; Resp 18; Pulse Ox 97% on R/A; lp1 06/02 00:30 BP 130 / 74; Pulse 61; Resp 20; Temp 99(O); Pulse Ox 97% on R/A; Pain 0/10; lp1 01:15 BP 136 / 70; Pulse 56; Resp 20; Pulse Ox 100% on R/A; lp1 02:15 BP 148 / 78; Pulse 60; Resp 19; Pulse Ox 100% on R/A; lp1 06/01 17:58 Unable to obtain oral temperature at this time, pt drank cold drink [employer]. aa5 ED Course: 17:34 Patient arrived in ED. mr 17:54 Arm band placed on. aa5 17:56 Triage completed. aa5 18:02 EKG completed in triage. Results shown to . aa5 18:11 EKG done, by ED staff, reviewed by Jaime Rincon MD. jb1 18:33 Charan Villa, HEATHER is Primary Nurse. sg 18:38 Patient has correct armband on for positive identification. Placed in gown. Bed in low sv position. Call light in reach. Side rails up X2. Adult w/ patient. phototypesetting equipment monitor on. Pulse ox on. NIBP on. Warm blanket given. 18:38 Urine collected: clean catch specimen, cloudy. sv 19:48 Serafin Knight MD is Attending Physician. demarcus 21:30 Neena Adams MD is Hospitalizing Provider. demarcus 22:43 Inserted saline lock: 22 gauge in left antecubital area, using aseptic technique. jd3 06/02 00:50 No provider procedures requiring assistance completed. Patient admitted, IV remains in lp1 place. Administered Medications: 06/01 22:00 Drug: Tylenol 650 mg Route: PO; lp1 23:00 Follow up: Response: No adverse reaction lp1 22:58 Drug: NS 0.9% 500 ml Route: IV; Rate: bolus; Site: left antecubital; lp1 23:30 Follow up: IV Status: Completed infusion; IV Intake: 500ml lp1 23:30 Drug: NS 0.9% 1000 ml Route: IV; Rate: 125 ml/hr; Site: left antecubital; lp1 06/02 00:12 Follow up: IV Status: Infusion continued upon admission lp1 06/01 23:55 Drug: LevaQUIN 500 mg Volume: 100 ml; Route: IVPB; Infused Over: 60 mins; Site: left lp1 antecubital; 06/02 01:03 Follow up: IV Status: Completed infusion; IV Intake: 100ml lp1 00:30 Drug: Digoxin 0.5 mg Route: IVP; Site: left antecubital; lp1 01:06 Follow up: Response: No adverse reaction lp1 00:47 Drug: vancoMYCIN 1 grams Route: IVPB; Infused Over: 2 hrs; Site: left antecubital; lp1 01:03 Follow up: IV Status: Infusion continued upon admission lp1 Intake: 06/01 23:30 IV: 500ml; Total: 500ml. lp1 06/02 01:03 IV: 100ml; Total: 600ml. lp1 Output: 06/01 18:38 Urine: 100ml (Voided); Total: 100ml. sv Outcome: 21:31 Decision to Hospitalize by Provider. demarcus 06/02 00:50 Condition: stable lp1 Instructed on the need for admit. 01:06 Admitted to Tele via wheelchair, room 405, with chart, Report called to HEATHER Mary lp1 02:33 Patient left the ED. lp1 Signatures: Matias Avelar Stephanie, RN RN Charan Malone RN RN Serafin Martin MD MD cha Rivera Phuong mr Del Valle, Rosemary, RN RN aa5 Doreen Calle RN RN lp1 Niraj Dawn RN RN jd3
--- NOTE | 2019-06-01 21:33 | EDPHYS ---
Physician Documentation [facility] Name: Carli Alves Age: 63 yrs Sex: Female : 1955 Arrival Date: 06/01/2019 Time: 17:34 Bed 5 Private MD: RYLEE Physician Serafin Knight HPI: 06/01 21:08 This 63 yrs old Female presents to ER via Wheelchair with complaints of Defib demarcus problem, Eye Problem. 21:08 This 63 yrs old Female presents to ER via Wheelchair with complaints of Defib demarcus problem, fever and red foot. 21:06 The patient is experiencing. demarcus 21:09 The patient presents with decreased range of motion, pain. The complaints affect the demarcus lateral aspect of left foot, medial aspect of left foot and dorsum of left foot. Context: The problem was sustained at home. Onset: The symptoms/episode began/occurred 1 day(s) ago. Modifying factors: The symptoms are alleviated by nothing. elevating leg, the symptoms are aggravated by movement, weight bearing. Associated signs and symptoms: Pertinent positives: fever. Onset: 1 day(s) ago. The patient presents with a history of irregular heart beat, defibrillator x 4 times/2 days. Historical: - Allergies: 17:58 Aspirin; aa5 17:58 diphenhydramine HCl; aa5 17:58 METOCLOPRAMIDE; aa5 17:58 PENICILLINS; aa5 - Home Meds: 17:58 Digoxin Oral [Active]; unknown antihypertensive [Active]; Effexor Oral [Active]; aa5 - PMHx: 17:58 Atrial Fib; CHF; CVA; Hypertension; aa5 - PSHx: 17:58 Knee surgery; Defibrillator/Pacemaker; aa5 - Immunization history:: Flu vaccine is not up to date. - Social history:: Smoking status: Patient/guardian denies using tobacco. - Ebola Screening: : No symptoms or risks identified at this time. - Family history:: not pertinent. ROS: 21:07 Constitutional: Negative for fever, chills, and weight loss, Eyes: Negative for injury, demarcus pain, redness, and discharge, ENT: Negative for injury, pain, and discharge, Neck: Negative for injury, pain, and swelling, Cardiovascular: Negative for chest pain, palpitations, and edema, Respiratory: Negative for shortness of breath, cough, wheezing, and pleuritic chest pain, Abdomen/GI: Negative for abdominal pain, nausea, vomiting, diarrhea, and constipation, Back: Negative for injury and pain, : Negative for injury, bleeding, discharge, and swelling, Neuro: Negative for headache, weakness, numbness, tingling, and seizure, Psych: Negative for depression, anxiety, suicide ideation, homicidal ideation, and hallucinations, Allergy/Immunology: Negative for hives, rash, and allergies, Endocrine: Negative for neck swelling, polydipsia, polyuria, polyphagia, and marked weight changes, Hematologic/Lymphatic: Negative for swollen nodes, abnormal bleeding, and unusual bruising. 21:07 MS/extremity: Positive for decreased range of motion, erythema, pain, of the lateral aspect of left foot and dorsum of left foot. Exam: 21:07 Constitutional: This is a well developed, well nourished patient who is awake, alert, demarcus and in no acute distress. Head/Face: Normocephalic, atraumatic. Eyes: Pupils equal round and reactive to light, extra-ocular motions intact. Lids and lashes normal. Conjunctiva and sclera are non-icteric and not injected. Cornea within normal limits. Periorbital areas with no swelling, redness, or edema. ENT: Nares patent. No nasal discharge, no septal abnormalities noted. Tympanic membranes are normal and external auditory canals are clear. Oropharynx with no redness, swelling, or masses, exudates, or evidence of obstruction, uvula midline. Mucous membranes moist. Neck: Trachea midline, no thyromegaly or masses palpated, and no cervical lymphadenopathy. Supple, full range of motion without nuchal rigidity, or vertebral point tenderness. No Meningismus. Chest/axilla: Normal chest wall appearance and motion. Nontender with no deformity. No lesions are appreciated. Cardiovascular: Regular rate and rhythm with a normal S1 and S2. No gallops, murmurs, or rubs. Normal PMI, no JVD. No pulse deficits. Respiratory: Lungs have equal breath sounds bilaterally, clear to auscultation and percussion. No rales, rhonchi or wheezes noted. No increased work of breathing, no retractions or nasal flaring. Abdomen/GI: Soft, non-tender, with normal bowel sounds. No distension or tympany. No guarding or rebound. No evidence of tenderness throughout. Back: No spinal tenderness. No costovertebral tenderness. Full range of motion. Female : Normal external genitalia. Skin: Warm, dry with normal turgor. Normal color with no rashes, no lesions, and no evidence of cellulitis. Neuro: Awake and alert, GCS 15, oriented to person, place, time, and situation. Cranial nerves II-XII grossly intact. Motor strength 5/5 in all extremities. Sensory grossly intact. Cerebellar exam normal. Normal gait. Psych: Awake, alert, with orientation to person, place and time. Behavior, mood, and affect are within normal limits. 21:07 Musculoskeletal/extremity: ROM: limited active range of motion, limited passive range of motion, Circulation is intact in all extremities. Sensation intact. Compartment Syndrome exam of affected extremity: is normal. DVT Exam: negative Homans' sign noted on exam, no appreciated bluish discoloration, pain, swelling, tenderness, erythema, increased warmth. Vital Signs: 17:58 BP 113 / 65; Pulse 92; Resp 16 S; Temp 99.3(TE); Pulse Ox 99% on R/A; Weight 47.17 kg aa5 (R); Pain 0/10; 20:00 BP 120 / 75; Pulse 75; Resp 20; Pulse Ox 98% on R/A; lp1 20:45 BP 123 / 70; Pulse 73; Resp 20; Pulse Ox 98% on R/A; lp1 21:15 BP 130 / 67; Pulse 77; Resp 20; Pulse Ox 99% on R/A; lp1 22:00 BP 121 / 66; Pulse 88; Resp 17; Pulse Ox 95% on R/A; lp1 23:00 BP 127 / 77; Pulse 63; Resp 18; Pulse Ox 97% on R/A; lp1 06/02 00:30 BP 130 / 74; Pulse 61; Resp 20; Temp 99(O); Pulse Ox 97% on R/A; Pain 0/10; lp1 01:15 BP 136 / 70; Pulse 56; Resp 20; Pulse Ox 100% on R/A; lp1 02:15 BP 148 / 78; Pulse 60; Resp 19; Pulse Ox 100% on R/A; lp1 06/01 17:58 Unable to obtain oral temperature at this time, pt drank cold drink [employer]. aa5 MDM: 19:48 Patient medically screened. [facility] 21:10 Data reviewed: vital signs, nurses notes, lab test result(s), EKG, radiologic studies, [facility] plain films. 06/01 18:39 Order name: Urine Dipstick--Ancillary (enter results) ar5 06/01 20:49 Order name: Urine Dipstick-Ancillary; Complete Time: 23:49 EDUT 06/01 21:02 Order name: Basic Metabolic Panel [facility] 06/01 21:02 Order name: CBC with Diff [facility] 06/01 21:02 Order name: LFT's [facility] 06/01 21:02 Order name: Magnesium [facility] 06/01 21:02 Order name: NT PRO-BNP [facility] 06/01 21:02 Order name: PT-INR [facility] 06/01 21:02 Order name: Troponin (emerg Dept Use Only) [facility] 06/01 21:02 Order name: Blood Culture Adult (2) [facility] 06/01 21:02 Order name: TSH [facility] 06/01 21:02 Order name: Digoxin [facility] 06/01 21:06 Order name: Lipase [facility] 06/01 22:45 Order name: Protime (+INR); Complete Time: 23:49 EDUT 06/01 21:02 Order name: XRAY Chest (1 view) [facility] 06/01 21:06 Order name: Foot Left 3 View XRAY [facility] 06/01 22:43 Order name: RAD; Complete Time: 23:49 EDMS 06/01 22:43 Order name: RAD; Complete Time: 23:49 EDUT 06/01 22:47 Order name: Lipase; Complete Time: 23:49 EDUT 06/01 22:48 Order name: CBC with Automated Diff [facility] 06/01 23:50 Order name: Basic Metabolic Panel; Complete Time: 23:50 EDUT 06/01 23:50 Order name: Liver (Hepatic) Function; Complete Time: 23:50 EDUT 06/01 23:50 Order name: Troponin (Emerg Dept Use Only); Complete Time: 23:50 EDUT 06/01 23:50 Order name: NT PRO-BNP; Complete Time: 23:50 EDUT 06/01 23:50 Order name: Magnesium; Complete Time: 23:50 EDUT 06/01 23:50 Order name: Digoxin Level; Complete Time: 23:50 EDUT 06/01 23:50 Order name: Thyroid Stimulating Hormone; Complete Time: 23:50 [facility] 06/02 00:52 Order name: Manual Differential EDUT 06/01 21:02 Order name: EKG; Complete Time: 21:03 [facility] 06/01 21:02 Order name: Cardiac monitoring; Complete Time: 23:49 [facility] 06/01 21:02 Order name: EKG - Nurse/Tech; Complete Time: 01:03 [facility] 06/01 21:02 Order name: IV Saline Lock; Complete Time: 23:49 [facility] 06/01 21:02 Order name: Labs collected and sent; Complete Time: 23:49 [facility] 06/01 21:02 Order name: O2 Per Protocol; Complete Time: 01:02 [facility] 06/01 21:02 Order name: O2 Sat Monitoring; Complete Time: 01:02 [facility] Administered Medications: 22:00 Drug: Tylenol 650 mg Route: PO; [facility] 23:00 Follow up: Response: No adverse reaction 1 22:58 Drug: NS 0.9% 500 ml Route: IV; Rate: bolus; Site: left antecubital; 1 23:30 Follow up: IV Status: Completed infusion; IV Intake: 500ml [facility] 23:30 Drug: NS 0.9% 1000 ml Route: IV; Rate: 125 ml/hr; Site: left antecubital; [facility] 06/02 00:12 Follow up: IV Status: Infusion continued upon admission [facility] 06/01 23:55 Drug: LevaQUIN 500 mg Volume: 100 ml; Route: IVPB; Infused Over: 60 mins; Site: left 1 antecubital; 06/02 01:03 Follow up: IV Status: Completed infusion; IV Intake: 100ml [facility] 00:30 Drug: Digoxin 0.5 mg Route: IVP; Site: left antecubital; 1 01:06 Follow up: Response: No adverse reaction 1 00:47 Drug: vancoMYCIN 1 grams Route: IVPB; Infused Over: 2 hrs; Site: left antecubital; 1 01:03 Follow up: IV Status: Infusion continued upon admission [facility] Disposition: 06/01/19 21:31 Hospitalization ordered by Neena Adams for Inpatient Admission. Preliminary diagnosis are Cellulitis and acute lymphangitis of other parts of limb - left foot, dorsal, Fever, unspecified, Atrial fibrillation and flutter, Presence of automatic (implantable) cardiac defibrillator - firing x4 episodes. - Bed requested for Telemetry/MedSurg (Inpatient). - Status is Inpatient Admission. lp1 - Condition is Fair. - Problem is new. - Symptoms have improved. UTI on Admission? No Signatures: Dispatcher [employer] Serafin Krueger MD MD cha Calderon, Audri RN RN aa5 Doreen Calle RN RN lp1 Maryana Ni RN RN cg Corrections: (The following items were deleted from the chart) 06/01 23:51 21:31 Hospitalization Ordered by Neena Adams MD for Inpatient Admission. Preliminary cg diagnosis is Cellulitis and acute lymphangitis of other parts of limb - left foot, dorsal; Fever, unspecified; Atrial fibrillation and flutter; Presence of automatic (implantable) cardiac defibrillator - firing x4 episodes. Bed requested for Telemetry/MedSurg (Inpatient). Status is Inpatient Admission. Condition is Fair. Problem is new. Symptoms have improved. UTI on Admission? No. demarcus 06/02 02:33 06/01 23:51 06/01/2019 21:31 Hospitalization Ordered by Neena Adams MD for Inpatient lp1 Admission. Preliminary diagnosis is Cellulitis and acute lymphangitis of other parts of limb - left foot, dorsal; Fever, unspecified; Atrial fibrillation and flutter; Presence of automatic (implantable) cardiac defibrillator - firing x4 episodes. Bed requested for Telemetry/MedSurg (Inpatient). Status is Inpatient Admission. Condition is Fair. Problem is new. Symptoms have improved. UTI on Admission? No. cg
[2019-06-01] MEDS ORDERED: Levofloxacin500mg IV 500 MG/100 ML BAG IV ONE (21:49)
[2019-06-01] MEDS ORDERED: ACETAMINOPHEN 325 MG TABLET ONE (21:49)
[2019-06-01] MEDS ORDERED: NA CHLORIDE 0.9% 1,000 ML ONE (21:49)
[2019-06-01 22:32] LABS: Protime INR 1.25
--- NOTE | 2019-06-01 22:37 | RAD REPORT ---
EXAM DESCRIPTION: Mike Single View06/01/2019 9:42 pm CLINICAL HISTORY: cough COMPARISON: 2012 FINDINGS: A calcified granulomas present the right lung base The lungs appear clear of acute infiltrate. The heart is normal in size. Pacemaker leads are in place . IMPRESSION: No acute abnormalities displayed
--- NOTE | 2019-06-01 22:41 | RAD REPORT ---
EXAM DESCRIPTION: RAD - Foot Left 3 View - 06/01/2019 9:37 pm CLINICAL HISTORY: Left Foot pain FINDINGS: No fracture or dislocation is seen. Hallux valgus deformity Osteoporosis
[2019-06-01 22:46] LABS: Absolute Lymphocytes (CBC) 2.7 K/uL (0.7-4.9); Basophils % 23.7 % (0-1.3); Hematocrit 32.7 % (36.0-45.0); Lymphocytes % 36.3 % (15.3-44.8); MPV 10.9 fL (7.6-11.3); RBC Red Blood Cell Count 4.28 M/uL (3.86-4.86)
[2019-06-01] MEDS ORDERED: MORPHINE 2 MG/ML SYR IV PRN (23:24)
[2019-06-01] MEDS ORDERED: ONDANSETRON 4 MG/2 ML VIAL IV PRN (23:24)
[2019-06-01] MEDS ORDERED: Oxycodone HCl/Acetaminophen 1 TAB TAB PO PRN (23:27)
[2019-06-01] MEDS ORDERED: GUAIFENESIN/DM 5 ML UCUP PO PRN (23:27)
[2019-06-01] MEDS ORDERED: HYDRALAZINE HCL 20 MG/ML VIAL IV PRN (23:27)
[2019-06-01] MEDS ORDERED: MELATONIN 5 MG TABLET PO PRN (23:27)
[2019-06-01 23:45] LABS: Albumin 2.8 g/dL (3.4-5.0); Bilirubin Direct 0.1 mg/dL (0-0.2); Bilirubin Total 0.3 mg/dL (0.2-1.0); Digoxin Level 0.4 ng/mL (0.80-2.00); Protein, Total 7.2 g/dL (6.4-8.2); Thyroid Stimulating Hormone 1.22 uIU/mL (0.360-3.740)
[2019-06-01] MEDS ORDERED: VANCOMYCIN 1.25 GM in NA CHLORIDE 0.9% 250 ML IVPB SCH (23:45)
[2019-06-01] MEDS: METOPROLOL TAR 25 MG TAB PO SCH (23:45)
[2019-06-01 23:49] LABS: Troponin (Emerg Dept Use Only) 0.71 ng/mL (0.0-0.045)
[2019-06-02] MEDS ORDERED: DIGOXIN 0.25 MG/ML AMP ONE (00:24)
[2019-06-02] MEDS ORDERED: VANCOMYCIN 1 GM/VIAL ONE (00:24)
[2019-06-02] MEDS ORDERED: NA CHLORIDE 0.9% 250 ML ONE (00:24)
[2019-06-02 00:52] LABS: Anisocytosis 1+; Blood Morphology Comment NOTED (NOT SEEN); Platelet Estimate ADEQ
--- NOTE | 2019-06-02 01:03 | HP ---
Date of Admission: 06/01/2019 Chief Complaint: Recurrent AICD firing. History Of Present Illness: Carli Alves, 63-year-old female with history of atrial fibrillation , CVA, status post AICD, who presented to the ED today. Carli experienced 2 AICD firing since . She denies any palpitation prior to the AICD firing. She admits to chest pain immediately post fire and that has since resolved. She denies any shortness of breath. Patient states that she had the AICD placed in about 3 years ago. She has not seen the Cardiology since the last 2 years due to financial issues but states she used to take her medications including digoxin and Eliquis. She is unsure of the dose of her medications and what other medication she takes. She denies any. She a dmit to exertional shortness of breath with easy fatigue now. She denies any body swelling. She den ies any fever or chills. In the ED, she was noted with rash over the left lower extremity and has be en admitted for cellulitis. Patient denies any fever. No nausea or vomiting. Past Medical History: Significant for history of atrial fibrillation, history of CVAs, history of AI CD placement, history of Hodgkin lymphoma, history of COPD, diet controlled diabetes mellitus. Past Surgical History: Knee surgery. Patient states her lymph nodes were also. AICD placed in 2005 . Social History: Patient still smokes. Patient is a chronic smoker. She smokes about half a pack pe r day. She denies any alcohol abuse. She denies any history of illicit drug use. Allergies: PENICILLIN AND REGLAN. Family History: Significant for diabetes. Review of Systems: All systems reviewed x14 was negative except for occasional dizziness, exertional dyspnea, and disori entation. Physical Examination: Current Vital Signs: Blood pressure of 130/67, pulse of 72, respiratory rate of 19, O2 saturation 10 0% on room air. Temperature of 99.6. General: Thin built, clinically ill-looking female appears very older than the stated age. HEENT: Head is atraumatic, normocephalic. Pupils equal, reactive to light, although patient intermi ttently closing one eye to enhance her vision. Neck: No JVD. No carotid bruit. Respiratory: Good air entry. No crepitation. Cardiovascular: Palpable AICD over the left chest wall. No area of tenderness elicited. GI: Abdomen full, soft, nontender. Bowel sounds positive. No epigastric tenderness. Musculoskeletal: Noted mild edema with erythema on the left foot. No area of focus of infection. T enderness to touch hallux valgus also noted. Right lower extremity, no pedal edema. No calf tendern ess. Neuro: Patient is alert, conversant. No neurological focal or motor deficits. Laboratory Data: X-ray of the left foot shows no acute fracture. Noted hallux valgus deformity as w ell as osteoporosis. Chest x-ray shows AICD in situ. No acute abnormalities. Rest of labs: WBC 7. 4, hemoglobin 10.7, platelet 205, neutrophils 34%, bands pending. Chemistry pending. Lipase 221. U rinalysis relatively negative. Serum digoxin level pending. Impression: 1.Left foot cellulitis, mild. 2.Abnormal AICD firing. 3.Presumed recurrent ventricular arrhythmias. 4.History of noncompliance. 5.Chronic tobacco use. Plan: 1.Left foot cellulitis. We start patient on empirical vancomycin with clindamycin. We will obtain blood culture. We do a serial set of CBC. We will do pain control with oxycodone and morphine as to lerated. 2.Abnormal AICD firing. AICD interrogation with [facility] has been consulted. We will consult Car diology to monitor patient, probably have underlying arrhythmias. We will continue Eliquis, since lionel langley unsure of dose, we will start at 2.5 b.i.d. We will also continue digoxin. The patient advise d to call and bring home medications. Follow digoxin level. 3.Chronic tobacco use. Cessation advised. We do need good feedback. 4.Diabetes mellitus, diet controlled. We will do Accu-Cheks with insulin sliding scale. 5.DVT prophylaxis, on Eliquis. 6.Advanced directive. Patient preferred full code. Total Time Spent: Review of record, discussion with patient, greater than 60 minutes. EO/MODL Voice ID: [id number]
[2019-06-02] MEDS: IPRATROPIUM BROM 0.5MG/2.5ML NEB SCH ×4 (03:10→20:00)
[2019-06-02] MEDS: FAMOTIDINE 20 MG TAB PO SCH ×3 (03:35→19:59)
[2019-06-02] MEDS: CLINDAMYCIN HCL 150 MG CAP PO SCH ×5 (03:35→23:45)
[2019-06-02] MEDS: APIXABAN 5 MG TABLET PO SCH ×3 (03:35→23:45)
[2019-06-02] MEDS: NA CHLORIDE 0.9% 1,000 ML IV SCH ×2 (03:36→16:59)
[2019-06-02 04:58] VITALS: BMI 17.9
[2019-06-02] MEDS: METOPROLOL TAR 25 MG TAB PO SCH (05:45)
[2019-06-02 06:25] LABS: Absolute Lymphocytes (CBC) 2.6 K/uL (0.7-4.9); Basophils % 0.8 % (0-1.3); Hematocrit 31.3 % (36.0-45.0); Lymphocytes % 36.3 % (15.3-44.8); MPV 10.7 fL (7.6-11.3)
[2019-06-02 06:55] LABS: Albumin 2.6 g/dL (3.4-5.0); Bilirubin Total 0.4 mg/dL (0.2-1.0); Potassium 4.1 mmol/L (3.5-5.1); Protein, Total 6.8 g/dL (6.4-8.2); Troponin I 0.22 ng/mL (0.0-0.045)
[2019-06-02] MEDS: INSULIN -REGULAR HUMAN 50 UNIT/0.5 ML ML SQ SCH ×4 (07:30→20:05)
[2019-06-02] MEDS: GUAIFENESIN 600 MG SA TAB PO SCH ×2 (08:22→19:59)
[2019-06-02] MEDS: GABAPENTIN 100 MG CAP PO SCH ×2 (08:22→14:00)
[2019-06-02] MEDS: VENLAFAXINE HCL XR 75 MG CAP PO SCH (08:23)
[2019-06-02] MEDS: AMLODIPINE 5 MG TAB PO SCH (08:23)
[2019-06-02] MEDS: lisinopriL 20 MG TAB PO SCH (08:23)
--- NOTE | 2019-06-02 08:24 | EKG ---
Test Date: 2019-06-01 Test Time: 18:01:14 Concrete Boom Pump Operator: YUMIKO MEASUREMENT RESULTS: Intervals: Rate: 91 KS: 202 QRSD: 72 QT: 374 QTc: 460 [place]: P: 79 KS: 202 QRS: 63 T: 258 INTERPRETIVE STATEMENTS: Normal sinus rhythm Septal infarct, age undetermined ST & T wave abnormality, non specific Abnormal ECG Compared to ECG 12/02/2018 00:23:02 Myocardial infarct finding now present Atrial fibrillation no longer present Left-axis deviation no longer present ST (T wave) deviation still present Possible ischemia still present Electronically Signed On 06-02-19 08:23:37 QUALITY PROCESS ENGINEER by Donny Valerio
[2019-06-02] MEDS ORDERED: DIGOXIN 0.125 MG TABLET PO SCH (09:00)
--- NOTE | 2019-06-02 10:16 | CON ---
History Of Present Illness: Ms. Alves is 63. She came to the hospital because her defibrillator sh ocked her twice yesterday and twice the day before. [facility] Her defibrillator was implanted somewhere around 2013. It was checked as recently as last [place] by Dr. Reyes and he made some kind of adjustment. I am not sure exactly what adjustment was made . We also do not know what brand of defibrillator it is, so it will very hard to have a checkup done , but we will try to find out what brand of defibrillator it is and perhaps that can tell us what was involved, but most likely she was shocked because she was in atrial fibrillation. She is back in si nus rhythm now. Ms. Alves had a cardiac cath before 2009. No interventions were done. At 1 point, her defibrillator was determined to be not necessary because there has been resolution of her cardio myopathy, but it was never removed. It is still in and still functional. In December this year, she was in atrial fibrillation, heart rate was controlled. In April 2013, she was in sinus rhythm. She i s in sinus rhythm now. When she initially showed up in the emergency room, her heart rate was 92. Physical Examination: General: The patient is older appearing than her stated age. She is 5 feet 6 inches, 110 pounds. S he has a disheveled appearance. HEENT: Her left eye has marked strabismus. Her vision is markedly impaired. She is able to count f ingers. Lungs: Clear. Heart: Regular rate and rhythm. Abdomen: Soft. Extremities: Revealed trace edema. The right foot has a little bit of cellulitis on the foot. Impression: The patient has defibrillator shocks for an unknown reason. I would be suspicious that she has atrial fibrillation triggering the spells and I will recommend that we get a defibrillator ch deidra, and see if we can confirm that if so an antiarrhythmic drug such as Betapace might be useful for her.. Outpatient Medications: Have been lisinopril, gabapentin, atorvastatin, amlodipine, albuterol, Effex or, furosemide, metoprolol, Advair, apixaban, vitamin B12, and digoxin, but we really do not know wha t medicines she is actually taking. 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 Allergies: SHE REPORTS DRUG INTOLERANCE TO ASPIRIN, DIPHENHYDRAMINE, METOCLOPRAMIDE, AND PENICILLIN. KALEY/WADE Voice ID: [id number] Report ID: [id number]
[2019-06-02] MEDS: ACETAMINOPHEN 500 MG TAB PO PRN (13:06)
--- NOTE | 2019-06-02 14:19 | RAD REPORT ---
EXAM DESCRIPTION: CT - Head Brain Wo Cont - 06/02/2019 1:19 pm CLINICAL HISTORY: Head injury status post fall COMPARISON: February 2019 TECHNIQUE: Computed axial tomography of the head was obtained. IV contrast was not requested. All CT scans are performed using dose optimization technique as appropriate and may include automated exposure control or mA/KV adjustment according to patient size. FINDINGS: An intracranial bleed is not seen . The ventricles are normal in caliber. No extra-axial fluid collection is noted. Old infarct involves the right thalamus Right frontal scalp swelling. No skull fracture noted. Cerebral atrophy is seen Fluid within the sinuses/ mastoids is not seen. IMPRESSION: No acute intracranial abnormality is seen. If patient's symptoms persist MRI of the bra in would be recommended.
[2019-06-02] MEDS: SOTALOL HCL 80 MG TAB PO SCH (16:59)
[2019-06-02] MEDS ORDERED: INFLUENZA VACCINE (for 3y+) 0.5 ML DOSE IMVAC ONE (17:00)
--- NOTE | 2019-06-02 19:21 | PN ---
Date of Progress Note: 06/02/2019 Subjective: Patient seen and examined. Chart reviewed and case discussed with RN and Dr. Valerio. P atient will need [facility] interrogation of pacemaker. Patient did unfortunately had a fall when husb and was trying to help her to the bedside commode and she did hit her head. Head CT scan was done, w hich was negative. We will continue with fall precautions. We will place her on fall precautions. Medications: List reviewed. Code Status: Full code. Physical Examination: Vital Signs: Temperature 98, heart rate 48, blood pressure 126/54, respirations 16, O2 of 100% on ro om air. General: Awake, alert, oriented x3. Appears older than stated age, frail cachectic female. BMI 17. CV: S1, S2. Regular rate and rhythm. Peripheral pulses present. Respiratory: Moving air well bilaterally. No wheezing or stridor. No use of accessory muscles. Gastrointestinal: Abdomen is soft, nontender, nondistended. Positive bowel sounds. Extremities: No clubbing, cyanosis. Patient has edema of the left foot. Neuro: Cranial nerves 2 through 12 intact grossly. No focal neurological deficit. Speech is normal . Skin: Patient has erythema of the left foot. Mild tenderness to palpation. Warm to touch. Somewha t decreased range of motion. Laboratory Data: Sodium 143, potassium 4.1, chloride 111, CO2 of 27, BUN 10, creatinine 0.89, glucos e 91, calcium 8.3, alkaline phosphatase 165. Troponin 0.71, 0.22. Albumin 2.6. WBC 7.1, H and H 10 .3 and 31.3, platelets 199, neutrophils 55.5%. Digoxin level is 0.4. Cultures are pending. Head CT scan shows no acute intracranial abnormality. X-ray of the foot does not show any acute fracture or dislocation. Patient has osteoporosis. Assessment And Plan: 1.Left foot cellulitis. We will continue with IV antibiotics. Follow up on culture results current ly pending. Pain control with IV analgesia. May also be worsened due to fall. Foot x-ray is negati ve for any acute fracture or dislocation. 2.Abnormal automatic implantable cardioverter defibrillator firing. Spoke with Dr. Valerio who feels that this may be related to her atrial fibrillation that is causing the device to go off, needs to b e interrogated. 3.Elevated troponin level, likely secondary to above. Doubt any sort of coronary syndrome. 4.Possible atrial fibrillation versus ventricular arrhythmias. We will go over interrogation result s of the automatic implantable cardioverter defibrillator. 5.Noncompliance. 6.Fall, mechanical. Patient will be placed on fall precautions. 7.Nicotine dependence with cigarette smoking, continuous, counseled. 8.Diabetes mellitus type 2, diet controlled. We will continue with sliding scale insulin and Accu-C heks. 9.History of cerebrovascular accident. 10.History of Hodgkin lymphoma. 11.History of chronic obstructive pulmonary disease, chronic bronchitis, stable. Plan: Resume home medications as appropriate. Patient is on Eliquis. Medications were updated. Kirit thanghelena not taking gabapentin or statin any longer, will be discontinued. Continue with IV fluids. Co ntinue to monitor. Follow up with Cardiology recommendations, likely discharge in the 24 to 48 hours depending on clinical improvement of the cellulitis. /WADE Voice ID: [id number] Report ID: [id number]
[2019-06-02] MEDS: ALBUTEROL 2.5 MG/3 ML NEB SOL NEB PRN (19:56)
[2019-06-02] MEDS ORDERED: ATORVASTATIN 80 MG TAB PO SCH (21:00)
[2019-06-03] MEDS ORDERED: VANCOMYCIN 1 GM in NA CHLORIDE 0.9% 250 ML IVPB SCH ×2 (02:00→20:00)
[2019-06-03] MEDS: IPRATROPIUM BROM 0.5MG/2.5ML NEB SCH ×3 (02:00→13:05)
[2019-06-03] MEDS: NA CHLORIDE 0.9% 1,000 ML IV SCH (02:25)
[2019-06-03] MEDS: CLINDAMYCIN HCL 150 MG CAP PO SCH ×2 (05:18→11:07)
[2019-06-03] MEDS: SOTALOL HCL 80 MG TAB PO SCH (05:18)
[2019-06-03 05:27] LABS: Absolute Lymphocytes (CBC) 2.2 K/uL (0.7-4.9); Basophils % 1.5 % (0-1.3); Hematocrit 28.4 % (36.0-45.0); Lymphocytes % 34.2 % (15.3-44.8); MPV 10.4 fL (7.6-11.3); RBC Red Blood Cell Count 3.76 M/uL (3.86-4.86)
[2019-06-03 05:43] LABS: Albumin 2.5 g/dL (3.4-5.0); Anisocytosis 1+; Bilirubin Total 0.4 mg/dL (0.2-1.0); Blood Morphology Comment NOTED (NOT SEEN); Platelet Estimate ADEQ; Poikilocytosis 1+; Potassium 3.7 mmol/L (3.5-5.1); Protein, Total 6.4 g/dL (6.4-8.2); Troponin I 0.1 ng/mL (0.0-0.045); Urine White Blood Cell Casts OK
[2019-06-03 05:44] LABS: Burr Cells 1+
[2019-06-03] MEDS: INSULIN -REGULAR HUMAN 50 UNIT/0.5 ML ML SQ SCH ×2 (07:30→11:30)
[2019-06-03] MEDS: FAMOTIDINE 20 MG TAB PO SCH (08:13)
[2019-06-03] MEDS: lisinopriL 20 MG TAB PO SCH (08:13)
[2019-06-03] MEDS: VENLAFAXINE HCL XR 75 MG CAP PO SCH (08:14)
[2019-06-03] MEDS: GUAIFENESIN 600 MG SA TAB PO SCH (08:14)
[2019-06-03] MEDS: AMLODIPINE 5 MG TAB PO SCH (08:14)
[2019-06-03] MEDS: ALBUTEROL 2.5 MG/3 ML NEB SOL NEB PRN ×2 (08:30→13:05)
[2019-06-03] MEDS: ACETAMINOPHEN 500 MG TAB PO PRN (10:51)
[2019-06-03] MEDS: APIXABAN 5 MG TABLET PO SCH (11:07)
[2019-06-03 12:22] VITALS: BP 140/65; TEMP 98.5
[2019-06-03 14:01] VITALS: O2SAT 95
--- NOTE | 2019-06-03 14:09 | PN ---
Ms. Alves's defibrillator interrogation indicated that her defibrillator responded to a heart rate i n the 120s when she was in AFib. She is now in sinus rhythm, sinus bradycardia, heart rate 53. I th ink we should continue her Betapace, stop digoxin and metoprolol, and now she could be discharged. S he should continue her anticoagulation with Eliquis and other medications, but she should really cons ider changing to the medicine other than venlafaxine for her psychiatric problems. CARMELO Voice ID: [id number] Report ID: [id number]
--- NOTE | 2019-06-04 05:20 | DS ---
Date of Discharge: 06/03/2019 Consultants: Dr. Valerio, Cardiology. Procedures: None. Admitting Diagnoses: 1.Left foot cellulitis. 2.Abnormal automatic implantable cardioverter-defibrillator firing. 3.Ventricular arrhythmia. 4.History of noncompliance. 5.Nicotine dependence. Discharge Diagnoses: 1.Left foot cellulitis, improved. 2.Abnormal automatic implantable cardioverter-defibrillator firing secondary to atrial fibrillation. 3.Elevated troponin level. 4.Atrial fibrillation with rapid ventricular rate. 5.Noncompliance. 6.Mechanical fall. 7.Nicotine dependence with cigarette smoking, continuous, counseled. 8.Diabetes mellitus type 2, diet controlled. 9.History of cerebrovascular accident. 10.History of Hodgkin lymphoma. 11.Chronic obstructive pulmonary disease, chronic bronchitis. Hospital Course: Patient is a 63-year-old female who came into the hospital for recurrent AICD firin g. Patient has a history of atrial fibrillation, CVA, AICD placement. Apparently, the AICD was supp osed to have been taken out after her cardiomyopathy improved; however, had not been done so. The lionel shivam has been on digoxin and Eliquis. The patient's AICD was interrogated and found to be firing du e to atrial fibrillation. She was started on Betapace by Dr. Valerio with Cardiology, who was consult ed on the case. Her Eliquis was resumed. From that standpoint, her AICD was stable and did not have any other problem. The patient will need to follow up and possibly have the AICD reprogrammed. In terms of her left foot cellulitis, x-ray was done to rule out any fracture. She was started on br oad-spectrum IV antibiotics. Her cultures were negative to date. Her foot showed significant improv ement and the patient was switched over to oral antibiotics. Patient otherwise did well. She did alcocer ve a mechanical fall when she tried to get up with the help of her , trying to use bedside com mode, fell and hit her head as the pulled the bedside commode from behind her. Patient had h ead CT scan done, did not show any bleed, did not complain of any other pain. Patient was then evalu ated by Physical Therapy. She was cleared for discharge from Cardiology standpoint. She was sent ho la in a stable condition. Activity: Fall precautions. Diet: Diabetic. Medications: As per medication reconciliation list. Followup: Follow up with PCP in 2-3 days. Follow up with data visualization developer, Dr. Valerio in 2 weeks. Retu rn to ER for worsening condition. Physical Examination: General: Awake, alert, oriented x3. Appears older than stated age, frail, cachectic female. BMI of 17. CV: S1, S2, irregularly irregular. Respiratory: Moving air well bilaterally. Gastrointestinal: Abdomen is soft, nontender, nondistended. Positive bowel sounds. Extremities: No clubbing, cyanosis, edema. Neurologic: Nonfocal. SA/MODL Voice ID: [id number] Report ID: [id number]
== END 2019-06-03 16:25 | disposition home or self-care (01) | DRG 315 ==
LOC: ER 17:31 → ERHOLD 23:38 → 4TH 06-02 01:18
PROVIDERS: ADMIT Internal Medicine; ATTEND Internal Medicine
DX: T82.198A Other mechanical complication of other cardiac electronic device, initial encounter (principal); L03.116 Cellulitis of left lower limb; I48.91 Unspecified atrial fibrillation; Z91.19 Patient's noncompliance with other medical treatment and regimen; Z86.73 Personal history of transient ischemic attack (TIA), and cerebral infarction without residual deficits; Z85.71 Personal history of Hodgkin lymphoma; J44.9 Chronic obstructive pulmonary disease, unspecified; W01.10XA Fall on same level from slipping, tripping and stumbling with subsequent striking against unspecified object, initial encounter; Y92.230 Patient room in hospital as the place of occurrence of the external cause; E11.9 Type 2 diabetes mellitus without complications
CPT/HCPCS: 36415; 70450; 71045; 80048; 80053; 80076; 80162; 80202; 81003; 82947; 83690; 83735; 83880; 84443; 84484; 85025; 85610; 87040; 87205; 93005; 94640; 94760; 96361; 96365; 96368; 96375; 97116; 97161; 97530; 99285; J1160; J7030

== ENCOUNTER 2020-05-11 20:21 | Inpatient (IN) | payer OTHER, SELFPAY ==
--- OUTSIDE RECORDS SUMMARY | 2020-05-11 20:23 | XMS REPORT | Continuity of Care Document ---
:1955 Author Organization [facility] t Address [address] [place] [address] Care Team Providers Name Role Phone ORI Primary Care Physician Unavailable ORI Attending Clinician Unavailable ORI Admitting Clinician Unavailable Problems This patient has no known problems. Allergies, Adverse Reactions, Alerts Allergy Allergy Status Severity Reaction(s) Onset Inactive Treating Comm ents Source Name Type Date Date Clinician Metoclop Propensi Active Hives [place] ramide ty to 14 Health Hcl adverse 00:00: reaction 00 s to drug Aspirin Propensi Active Rash [place] ty to 03 Health adverse 00:00: reaction 00 s to drug Penicill Propensi Active [place] in ty to 10-04 Health adverse 00:00: reaction 00 s to drug Social History Social Habit Start Date Stop Date Quantity Comments Source History of tobacco Cigarette Smoker [facility] use Sex Assigned At [place] [facility] Cigarettes smoked 2016-11-08 2016-11-08 [facility] current (pack per 00:00:00 00:00:00 day) - Reported Cigarette 2016-11-08 2016-11-08 [facility] pack-years 00:00:00 00:00:00 Smoking Status Start Date Stop Date Source Current every day smoker 2016-11-08 00:00:00 [facility] Medications Ordered Filled Start Stop Current Ordering Indication Dosage Frequency Signature Comments Components Source Medication Medication Date Date Medication? Clinician (SIG) Name Name warfarin Yes Anticoagula Take 1 and Valerio (COUMADIN) 7-10 tion 1/2 Health 4 mg tablet 00:00: monitoring, tablets po 00 INR range Q Tues/Fri 2-3 and 1 tablet po all other days or as instructed .. metoprolol Yes 100mg QD Take 100 Chambers rris succinate 4-14 mg by [employer] (TOPROL XL) 14:28: mouth 100 mg 11 daily. extended release tablet venlafaxine Yes 150mg QD Take 150 H arris (EFFEXOR 4-14 mg by [employer] XR) 150 mg 14:28: mouth extended 11 daily. release capsule furosemide Yes 40mg Q.5D Take 40 mg H arris (LASIX) 20 4-14 by mouth 2 [facility] mg tablet 14:28: times 11 daily. digoxin Yes Chronic 125ug QD Take 1 Jenni is (LANOXIN) 4-14 atrial tablet by [facility] 125 mcg 00:00: fibrillatio mouth tablet 00 n daily. Procedures This patient has no known procedures. Plan of Care Planned Activity Planned Date Details Comments Source Future Scheduled Test 2020-04-03 00:00:00 IMM Influenza [facility] Seasonal Apr to September (>/= 19 yrs) [code = IMM Influenza Seasonal Oct to September (>/= 19 yrs)] Future Scheduled Test 2017-10-04 00:00:00 Breast Cancer Scrn [facility] (Yearly) [code = Breast Cancer [facility] (Yearly)] Future Scheduled Test 2007 00:00:00 Screening for [facility] malignant neoplasm of colon (procedure) [code = 456141832] Future Scheduled Test 1987 00:00:00 Screening for [facility] malignant neoplasm of cervix (procedure) [code = 512011174] Future Scheduled Test 1987 00:00:00 Screening for [facility] malignant neoplasm of cervix (procedure) [code = 668324492] Encounters Start End Encounter Admission Attending Care Care Encounter Source Date/Time Date/Time Type Type Clinicians Facility Department ID 2017-08-17 2017-08-17 [id number] 19:19:00 19:19:00 [facility] 2017-02-25 2017-02-25 Outpatient [facility] [id number] [place] 00:00:00 00:00:00 Health 2017-01-27 2017-01-27 Outpatient [facility] [id number] [place] 00:00:00 00:00:00 Health 2017-01-27 2017-01-27 Outpatient [facility] [id number] [place] 00:00:00 00:00:00 Health 2016-11-30 2016-11-30 Outpatient [facility] [id number] [place] 09:47:50 09:47:50 Health Results Test Description Test Time Test Comments Results Result Comments Source Thyroid Stimulating Hormone (TSH) 2017-08-18 00:14:00 Test Item Value Reference Range Interpretation Comme nts TSH (test code = TSH) 1.86 mIU/mL 0.270-4.200 N Sed Rate ESR ([place])2017-08-17 21:38:00 Test Item Value Reference Range Interpretation Comments ESR (test code = HESR) 4 mm/Hr 0-20 N Lipid [id number] 20:38:00 Test Item Value Reference Range Interpretation Comments Cholesterol (test 169 mg/dL 0-200 N code = CHOL) Triglycerides (test 323 mg/dL 9-200 H Unable t o calculate, code = TRIG) Trig >400 HDL (test code = 31 mg/dL 50-60 L HDL) Chol/HDL (test code 5.5 Ratio 0.0-4.4 H = CHOLPHDL) LDL, Calculated 73 mg/dL 0-130 N (NOTE)RISK O F HEART (test code = LDLC) DISEASEPu blished by [place] Heart AssociationAnal yte Optim al Boderline Increased RiskC HOL <200 200-239 >240TRI G <150 150-199 >200HDL Male: >60 <40HDL Female: >60 <50 LDL < 100 130-15 9 >160 LDL NEAR OPTIMAL IS 100- 129 VLDL (test code = 65 mg/dL 5-40 H VLDL) LDL/HDL (test code = 2 LDLPHDL) Comprehensive Metabolic [id number] 20:38:00 Test Item Value Reference Range Interpretation Comments Sodium (test code = 141 mmol/L 135-145 N NA) Potassium (test 3.6 mmol/L 3.5-5.1 N code = K) Chloride (test code 100 mmol/L 98-105 N = CL) Carbon Dioxide 28 mmol/L 22-29 N (test code = CO2) Glucose (test code 105 mg/dL 70-115 N = GLU) Blood Urea Nitrogen 11 mg/dL 6-20 N (test code = BUN) Creatinine (test 1.1 mg/dL 0.5-0.9 H code = CREAT) Calcium (test code 9.1 mg/dL 8.3-10.5 N = CA) Prot Total (test 7.8 g/dL 6.4-8.3 N code = TP) Albumin (test code 4.3 g/dL 3.5-5.2 N = ALB) A/G Ratio (test 1.2 Ratio code = AGRATIO) Globulin (test code 3.5 2.9-3.1 H = GLOB) Bili Total (test 0.5 mg/dL 0.1-0.9 N code = TBIL) Alk Phos (test code 181 U/L 35-104 H = APHOS) AST (test code = 24 U/L 1-32 N AST) ALT (test code = 16 U/L 1-33 N ALT) BUN/Creatinine 10.0 Ratio (test code = BCRATIO) Anion Gap (test 13 mmol/L 7-16 N code = AGAP) Estimated GFR (test 54 eGFR (es timated code = GFR) mL/min/1.73m2 Glomerular Donell tration Rate) is an est imated value,calculate d from the patient's s garima creatinine usin g the MDRD equation.I t is NOT the patient 's actual GFR. The eGFR provides a more clinicallyusefu l measure of kidn ey disease than se rum creatinine alone.This calculation martinez es sex and race into account, if the informationis provided. If th e race is not provided , and the patient isAfrican-Ameri can, multiply by 1.2 12. If sex is not prov ided, and thepatient is female, multipl y by 0.742. Results for patients <18 ye ars ofage have not been validated by th e MDRD study and shoul d be interpretedwith caution.eGFR Re sult Interpretation: eGFR > or = 60 is in t he Normal RangeeGF R < 60 may mean kidney diseaseeGFR < 1 5 may mean kidney failureRange s recommended by the National Kidney Foundation,http ://nkd ep.nih.gov Vox-[id number] 20:38:00 Test Item Value Reference Range Interpretation Comments NT ProBnp (test code = PBNP) 775 pg/mL 0-124 H Prothrombin [id number] 20:34:00 Test Item Value Reference Range Interpretation Comments PT (test code = PT) 19.80 seconds 9.78-13.35 H INR (test code = INR) 1.76 Ratio 0.6-1.2 H CBC with [id number] 20:13:00 Test Item Value Reference Range Interpretation Comments WBC (test code = WBC) 11.8 K/cumm 4.4-10.5 H RBC (test code = RBC) 5.57 M/cumm 3.75-5.20 H Hemoglobin (test code = HGB) 14.4 gm/dL 12.2-14.8 N Hematocrit (test code = HCT) 47.5 % 36.5-44.4 H MCV (test code = MCV) 85.3 fL 80-100 N MCH (test code = MCH) 25.8 pg 27.0-32.5 L MCHC (test code = MCHC) 30.3 g/dL 32.0-37.5 L RDW (test code = RDW) 19.6 % 11.5-14.5 H Platelet Count (test code = 231 K/cumm 140-440 N PLTCT) MPV (test code = MPV) 14.8 fL Diff Method (test code = DIFFM) Auto Neutrophil (test code = NEUT) 51.6 % 36-70 N Lymphocyte (test code = LYMPH) 41.7 % 12-44 N Monocyte (test code = MONO) 3.2 % 0-11 N Eosinophil (test code = EOS) 1.9 % 0-7 N Basophil (test code = BASO) 1.6 % 0-2 N Neutro Abs (test code = ANEUT) 6.1 K/cumm 1.6-7.4 N Lymph Abs (test code = ALYMPH) 4.9 K/cumm 0.5-4.6 H [place] Abs (test code = AMONO) 0.4 K/cumm 0.0-1.2 N Eos Abs (test code = AEOS) 0.22 K/cumm 0.00-0.74 N Baso Abs (test code = ABASO) 0.2 K/cumm 0.00-0.21 N Anisocytosis (test code = ANISO) Slight Hypochromic (test code = HYPO) Slight
--- OUTSIDE RECORDS SUMMARY | 2020-05-11 20:23 | XMS REPORT | Clinical Summary ---
:1955 Author Organization [facility] Address [address] [place] [address] Care Team Providers Name Role Phone Unavailable Primary Care Provider Unavailable Allergies Not on File Medications Not on file Active Problems Not on file Social History Tobacco Use Types Packs/Day Years Used Date Never Assessed Sex Assigned at Date Recorded Not on file Last Filed Vital Signs Not on file Plan of Treatment Not on file Results Not on fileafter 05/11/2019
--- OUTSIDE RECORDS SUMMARY | 2020-05-11 20:23 | XMS REPORT | Clinical Summary ---
:1955 Author Organization [facility] Address [address] [place] [address] Care Team Providers Name Role Phone Prakash Calhoun Unavailable [phone] Allergies Active Allergy Reactions Severity Noted Date Comments Aspirin Rash 10/04/2016 Penicillin 10/04/2016 Metoclopramide Hcl Hives 10/15/2016 Medications Medication Sig Dispensed Refills Start Date End Date Status metoprolol succinate Take 100 mg by 0 Active (TOPROL XL) 100 mg mouth daily. extended release tablet venlafaxine (EFFEXOR XR) Take 150 mg by 0 Active 150 mg extended release mouth daily. capsule furosemide (LASIX) 20 mg Take 40 mg by 0 Active tablet mouth 2 times daily. digoxin (LANOXIN) 125 Take 1 tablet by 30 tablet 3 10/15/2016 Active mcg tabletIndications: mouth daily. Chronic atrial fibrillation warfarin (COUMADIN) 4 mg Take 1 and 1/2 45 tablet 2 01/10/2017 Active tabletIndications: tablets po Q Anticoagulation Tues/Fri and 1 monitoring, INR range tablet po all 2-3 other days or as instructed.. Active Problems Not on file Social History Tobacco Use Types Packs/Day Years Used Date Current Every Day Smoker Cigarettes 1 50 Sex Assigned at Date Recorded Not on file Job Start Date Occupation Industry Not on file Not on file Not on file Travel History Travel Start Travel End No recent travel history available. Last Filed Vital Signs Not on file Plan of Treatment Health Maintenance Due Date Last Done Comments HPV Cervical Cancer Scrn 1987 Pap Cervical Cancer Scrn 1987 Colorectal Cancer Scrn Annual (FIT/FOBT) Age 50 to 75 2007 Breast Cancer Scrn (Yearly) 10/04/2017 10/04/2016 IMM Influenza Seasonal Apr to September (>/= 19 yrs) 04/03/2020 Results Not on fileafter 05/11/2019 Insurance Payer Benefit Plan / Subscriber ID Effective Phone Address T e Group Dates [facility] xxxxxxxxxxxx 2016-07/03 [phone] [facility] [employer] CHOICE [phone] [place] [address] (Home) [place] [address]
[2020-05-11 20:48] LABS: Absolute Lymphocytes (CBC) 2.3 K/uL (0.7-4.9); Hematocrit 37.8 % (36.0-45.0); Lymphocytes % 22.8 % (15.3-44.8); MPV 9.8 fL (7.6-11.3); RBC Red Blood Cell Count 5.31 M/uL (3.86-4.86)
[2020-05-11 20:49] LABS: Protime INR 1.1
[2020-05-11 21:03] LABS: ALT/SGPT 12 U/L (12-78); AST/SGOT 16 U/L (15-37); Albumin 3.7 g/dL (3.4-5.0); Alkaline Phosphatase 117 U/L (45-117); BUN Blood Urea Nitrogen 14 mg/dL (7-18); Bicarbonate 29 mmol/L (21-32); Bilirubin Direct 0.2 mg/dL (0-0.2); Bilirubin Total 0.9 mg/dL (0.2-1.0); Creatine Phosphokinase 32 U/L (26-192); Glucose Level 97 mg/dL (74-106); Lipase 116 U/L (73-393); Potassium 3.1 mmol/L (3.5-5.1); Sodium Level 137 mmol/L (136-145); Troponin (Emerg Dept Use Only) < 0.02 ng/mL (0.0-0.045)
--- NOTE | 2020-05-11 21:28 | RAD REPORT ---
EXAM DESCRIPTION: CT - Ct Stroke Brain Wo Cont - 05/11/2020 8:47 pm CLINICAL HISTORY: CONFUSED Headache, drowsiness CVA symptomology COMPARISON: Head Brain Wo Cont dated 06/02/2019; Head Brain Wo Cont dated 12/11/2018 TECHNIQUE: All CT scans are performed using dose optimization technique as appropriate and may inclu de automated exposure control or mA/KV adjustment according to patient size. FINDINGS: No intracranial hemorrhage, hydrocephalus or extra-axial fluid collection.Diminished densi ty is seen in the distribution of the left temporoparietal lobe. This is compatible with subacute non hemorrhagic infarct. Moderate generalized brain atrophy is seen. Moderate mucoperiosteal thickening of the right maxillary antrum. The paranasal sinuses and mastoids are otherwise clear. The calvarium is intact. IMPRESSION: Nonhemorrhagic subacute 5 cm infarct left temporoparietal region. The findings were discussed with Dr Jansen in the ER on 05/11/2020 at 8:29 p.m. by telephone.
[2020-05-11 21:36] LABS: White Blood Cell Scan OK (OK)
--- NOTE | 2020-05-11 21:36 | RAD REPORT ---
EXAM DESCRIPTION: RAD - Chest Single View - 05/11/2020 8:52 pm CLINICAL HISTORY: AMS Chest pain. COMPARISON: Chest Single View dated 06/01/2019; Chest Single View dated 12/02/2018; CHEST SINGLE VIEW dated 04/10/2013; CHEST SINGLE VIEW dated 08/27/2012 FINDINGS: Portable technique limits examination quality. Rounded mass in the right lower lobe demonstrates long-term stability. The lungs are mildly emphysema tous without acute process. The heart is normal in size. Single lead pacer/defibrillator device. IMPRESSION: No acute intrathoracic process suspected.
[2020-05-11 21:37] LABS: Anisocytosis 1+; Blood Morphology Comment NOTED (NOT SEEN); Ovalocytes 1+; Platelet Estimate ADEQ; Platelets, Giant SEEN
[2020-05-11 21:38] LABS: Poikilocytosis 1+
--- NOTE | 2020-05-11 21:41 | ER ---
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 20:20 Coronavirus screen: Client denies travel out of the [place] in the last 14 days. At this lp1 time, the client does not indicate any symptoms associated with coronavirus-19. Ebola Screen: No symptoms or risks identified at this time. Initial Sepsis Screen: Does the patient meet any 2 criteria? No. Patient's initial sepsis screen is negative. Does the patient have a suspected source of infection? No. Patient's initial sepsis screen is negative. Risk Assessment: Do you want to hurt yourself or someone else? Patient reports no desire to harm self or others. Onset of symptoms was May 10, 2020. 20:20 Method Of Arrival: EMS: [facility] lp1 20:20 Acuity: MELLISSA 1 lp1 20:20 The patients blood glucose was checked before arriving to the hospital and was found to lp1 be normal. 20:20 Care prior to arrival: Glucose check: 104. lp1 20:[address] with [facility], nurse at bedside. lp1 21:16 Note Ardne at bedside; . lp1 Triage Assessment: 21:00 The onset of the patients symptoms was more than six hours ago. lp1 Historical: - Allergies: 21:19 Aspirin; lp1 21:19 diphenhydramine HCl; lp1 21:19 METOCLOPRAMIDE; lp1 21:19 PENICILLINS; lp1 - Home Meds: 21:19 Albuterol Inhl [Active]; amlodipine 5 mg tab 1 tab once daily [Active]; digoxin 125 mcg lp1 oral tab once daily [Active]; furosemide 40 mg Oral tab 1 tab 2 times per day [Active]; metoprolol tartrate 100 mg Oral tab 1 tab once daily [Active]; venlafaxine 225 mg oral tr24 1 tab once daily [Active]; - PMHx: 21:19 Atrial Fib; CHF; CVA; Hypertension; lp1 21:33 Hodgkin's lymphoma; COPD; lp1 - PSHx: 21:33 Pacemaker/Defib; Left leg surgery; lp1 - Immunization history:: Adult Immunizations up to date. - Social history:: Smoking status: Patient reports the use of cigarette tobacco products, smokes one-half pack cigarettes per day. Screenin:00 Nutritional screening: reports patient with no desire to eat or drink x 2 days. lp1 21:00 Abuse screen: Denies threats or abuse. Denies injuries from another. Tuberculosis lp1 screening: No symptoms or risk factors identified. Fall Risk Total Lamb Fall Scale indicates High Risk Score (45 or more points). Fall prevention measures have been instituted. Side Rails Up X 2 Frequent Obs/Assessments Occuring Family Present and informed to notify staff if the need to leave the bedside As available patient and family educated on Fall Prevention Program and Strategies. Assessment: 20:20 VAN Scoring: Arm Drift: Patients demonstrates NO arm weakness. Patient is VAN Negative. lp1 Visual Disturbance: No visual disturbance noted. Aphasia: Patient exhibits both expressive and receptive aphasia. Provider notified of +VAN scoring. Neglect: Forced gaze noted or unable to track to one side. Provider notified of +VAN scoring. 20:35 Reassessment: lab at bedside for blood draw. lp1 20:40 T-PA (Activase) Screening: Contraindications: Patient reports onset of signs and lp1 symptoms of stroke greater than 6 hours ago: Yes. 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 21:00 Patient has been NPO before screening. The patient is alert, and able to follow lp1 commands. The patient exhibits slurred or garbled speech. Patient had slurred speech from previous CVA The patient is not exhibiting difficulty speaking. The patient does not exhibit difficulty understanding words. The patient is able to swallow own secretions with no drooling or need for suction. Patient tolerated one teaspoon of water. No drooling, immediate coughing, gurgling, or clearing of the throat was noted. The patient tolerated 90mL of water. No drooling, immediate coughing, gurgling, or clearing of the throat was noted. The patient passed the bedside swallow screening. Oral medications may be given as ordered. Contact Physician for further diet orders. Provider notified of bedside swallow screening results: Pio Jansen MD. 21:00 General: Appears in no apparent distress. slender, unkempt, Behavior is calm. Pain: lp1 Unable to use pain scale. FLACC scale score is 0 out of 10. Neuro: Level of Consciousness is obeys commands, Oriented to person, Carbider are equal bilaterally Moves all extremities. Full function Speech is slurred, with expressive aphasia noted, Intact. Cardiovascular: Capillary refill < 3 seconds in bilateral fingers toes Patient's skin is warm and dry. Respiratory: Airway is patent Respiratory effort is even, unlabored, Breath sounds are clear bilaterally. GI: Abdomen is flat. : No signs and/or symptoms were reported regarding the genitourinary system. EENT: No signs and/or symptoms were reported regarding the EENT system. Derm: Skin is fragile, is thin, Skin is dry, Skin is normal. Musculoskeletal: No deficits noted. 21:30 Reassessment: Patient resting, eyes closed, respirations unlabored; at bedside; lp1 aware of admission. 22:18 Reassessment: Dr. Barnes at bedside to discuss plan of care with patient and , lp1 [place]. Vital Signs: 20:20 BP 136 / 88; Pulse 61; Resp 20; Temp 98.3(O); Pulse Ox 97% on R/A; Weight 43.09 kg; lp1 21:00 BP 131 / 77; Pulse 68; Resp 20; Pulse Ox 96% on R/A; lp1 21:45 BP 110 / 96; Pulse 53; Resp 19; Pulse Ox 96% on R/A; lp1 NIH Stroke Scale Scores: 20:35 NIHSS Score: 5 lp1 ED Course: 20:23 Patient arrived in ED. ag3 20:29 Pio Jansen MD is Attending Physician. tw4 20:30 Arm band placed on right wrist. lp1 20:35 Patient has correct armband on for positive identification. Placed in gown. Bed in low lp1 position. Call light in reach. Side rails up X2. alarm security or surveillance monitor on. Pulse ox on. NIBP on. 20:44 Doreen Calle RN is Primary Nurse. lp1 20:46 CT Stroke Brain w/o Contrast In Process Unspecified. EDMS 20:51 EKG done, by ED staff, reviewed by Pio Jansen MD. lp1 20:52 Stroke CXR 1 View In Process Unspecified. EDMS 20:55 Missed attempt(s): 22 gauge in left forearm. lp1 21:16 Triage completed. lp1 21:39 Kevon Barnes MD is Hospitalizing Provider. tw4 22:00 Patient admitted, IV remains in place. lp1 22:00 No provider procedures requiring assistance completed. lp1 Administered Medications: No medications were administered Outcome: 21:40 Decision to Hospitalize by Provider. tw4 23:00 Admitted to ER Hold. [facility]. lp1 23:00 Condition: stable 23:00 Instructed on the need for admit. 05/12 08:49 Patient left the ED. ll2 NIH Stroke Scale - NIH Stroke Score Date: 05/11/2020 Time: 20:35 Total Score = 5 1a. Level of Consciousness (LOC) - 0(Alert) 1b. Level of Consciousness (LOC) (Year \T\ Age) - 1(One) 1c. LOC Commands (Open \T\ Closes Eyes/Role Player) - 0(Both) 2. Best Gaze (Lateral Gaze Paresis) - 0(Normal) 3. Visual Field Loss - 0(No visual loss) 4. Facial Palsy - 0(Normal) 5a. Left Arm: Motor (10-second hold) - 0(No drift) 5b. Right Arm: Motor (10-second hold) - 0(No drift) 6a. Left Leg: Motor (5-second hold - always test supine) - 0(No drift) 6b. Right Leg: Motor (5-second hold - always test supine) - 0(No drift) 7. Limb Ataxia (finger/nose \T\ heel/beach - test with eyes open) - 0(Absent) 8. Sensory Loss (pinprick arms/legs/face) - 0(Normal) 9. Best Language: Aphasia (description/naming/reading) - 2(Severe aphasia) 10. Dysarthria (speech clarity - read or repeat words) - 2(Severe) 11. Extinction and Inattention (visual/tactile/auditory/spatial/personal) - 0(No abnormality) Initials: lp1 Signatures: Dispatcher [employer] Doreen Watkins, RN RN lp1 Pio Jansen MD MD tw4 Rosie Jones ag3 Flory Tatum RN RN ll2 Corrections: (The following items were deleted from the chart) 03:20 05/11 20:35 NIHSS Score: 4 lp1 lp1
--- NOTE | 2020-05-11 21:41 | EDPHYS ---
Physician Documentation [facility] Name: Carli Alves Age: 64 yrs Sex: Female : 1955 Arrival Date: 05/11/2020 Time: 20:23 Bed 20 Private MD: ED Physician Pio Jansen Historical: - Allergies: 05/11 21:19 Aspirin; lp1 21:19 diphenhydramine HCl; lp1 21:19 METOCLOPRAMIDE; lp1 21:19 PENICILLINS; lp1 - Home Meds: 21:19 Albuterol Inhl [Active]; amlodipine 5 mg tab 1 tab once daily [Active]; digoxin 125 mcg lp1 oral tab once daily [Active]; furosemide 40 mg Oral tab 1 tab 2 times per day [Active]; metoprolol tartrate 100 mg Oral tab 1 tab once daily [Active]; venlafaxine 225 mg oral tr24 1 tab once daily [Active]; - PMHx: 21:19 Atrial Fib; CHF; CVA; Hypertension; lp1 21:33 Hodgkin's lymphoma; COPD; lp1 - PSHx: 21:33 Pacemaker/Defib; Left leg surgery; lp1 - Immunization history:: Adult Immunizations up to date. - Social history:: Smoking status: Patient reports the use of cigarette tobacco products, smokes one-half pack cigarettes per day. Vital Signs: 20:20 BP 136 / 88; Pulse 61; Resp 20; Temp 98.3(O); Pulse Ox 97% on R/A; Weight 43.09 kg; lp1 21:00 BP 131 / 77; Pulse 68; Resp 20; Pulse Ox 96% on R/A; lp1 21:45 BP 110 / 96; Pulse 53; Resp 19; Pulse Ox 96% on R/A; lp1 NIH Stroke Scale Scores: 20:35 NIHSS Score: 5 lp1 MDM: 20:29 Patient medically screened. tw4 05/11 20:30 Order name: CPK; Complete Time: 21:36 tw4 05/11 21:36 Interpretation: Within normal limits: CPK 32. tw4 05/11 20:30 Order name: Hepatic Function; Complete Time: 21:36 tw4 05/11 21:36 Interpretation: Normal except: GLOB 4.3; A/G 0.9. tw4 05/11 20:30 Order name: Lipase; Complete Time: 21:36 tw 05/11 21:36 Interpretation: Within normal limits: LIP 116. tw 05/11 20:30 Order name: Troponin (emerg Dept Use Only); Complete Time: 21:36 tw 05/11 21:36 Interpretation: Within normal limits: TROPED < 0.02. tw 05/11 20:30 Order name: Basic Metabolic Panel; Complete Time: 21:36 [facility] 05/11 21:36 Interpretation: Normal except: K 3.1; GFR 47. tw 05/11 20:30 Order name: CBC with Diff tw 05/11 20:30 Order name: Protime (+inr); Complete Time: 21:36 [facility] 05/11 21:36 Interpretation: Normal except: PT 13.0. tw 05/11 20:30 Order name: Ptt, Activated; Complete Time: 21:36 [facility] 05/11 21:36 Interpretation: Within normal limits: PTT 27.2. [facility] 05/11 20:48 Order name: Glucose, Ancillary Testing; Complete Time: 21:36 [facility] 05/11 21:37 Order name: CBC Smear Scan EDKS 05/11 22:41 Order name: Lipid Profile [facility] 05/11 22:41 Order name: Lipid Profile [facility] 05/12 00:48 Order name: SARS-COV-2 RT PCR [facility] 05/11 20:30 Order name: Call for Old EKG; Complete Time: 21:23 [facility] 05/11 20:30 Order name: CT Stroke Brain w/o Contrast; Complete Time: 21:36 [facility] 05/11 20:30 Order name: Stroke CXR 1 View tw 05/11 20:30 Order name: EKG; Complete Time: 20:31 tw 05/11 20:30 Order name: Accucheck; Complete Time: 21:20 [facility] 05/11 20:30 Order name: Cardiac monitoring; Complete Time: 21:20 [facility] 05/11 20:30 Order name: EKG - Nurse/Tech; Complete Time: 21:20 [facility] 05/11 20:30 Order name: IV Saline Lock; Complete Time: 02:03 [facility] 05/11 20:30 Order name: Labs collected and sent; Complete Time: 21:20 tw4 05/11 20:30 Order name: NPO; Complete Time: 21:20 tw4 05/11 22:41 Order name: NPO EDKS 05/11 22:41 Order name: Stroke Protocol [facility] 05/11 22:41 Order name: Carotid Artery Bilateral EDKS 05/11 22:42 Order name: Social Service Consult [facility] 05/11 22:43 Order name: Speech Therapy Consult [facility] 05/11 20:30 Order name: O2 Per Protocol; Complete Time: 21:20 tw4 05/11 20:30 Order name: O2 Sat Monitoring; Complete Time: 21:20 tw4 05/11 20:30 Order name: Stroke Swallow Screen; Complete Time: 22:20 tw4 Administered Medications: No medications were administered Disposition: 05/11/20 21:40 Hospitalization ordered by Kevon Barnes for Inpatient Admission. Preliminary diagnosis are Cerebrovascular disease, unspecified, Altered mental status, unspecified, Subacute CVA. - Bed requested for Telemetry/MedSurg (Inpatient). - Status is Inpatient Admission. ll2 - Condition is Stable. - Problem is new. - Symptoms are unchanged. NIH Stroke Scale - NIH Stroke Score Date: 05/11/2020 Time: 20:35 Total Score = 5 1a. Level of Consciousness (LOC) - 0(Alert) 1b. Level of Consciousness (LOC) (Year \T\ Age) - 1(One) 1c. LOC Commands (Open \T\ Closes Eyes/Automotive Service Management Teacher) - 0(Both) 2. Best Gaze (Lateral Gaze Paresis) - 0(Normal) 3. Visual Field Loss - 0(No visual loss) 4. Facial Palsy - 0(Normal) 5a. Left Arm: Motor (10-second hold) - 0(No drift) 5b. Right Arm: Motor (10-second hold) - 0(No drift) 6a. Left Leg: Motor (5-second hold - always test supine) - 0(No drift) 6b. Right Leg: Motor (5-second hold - always test supine) - 0(No drift) 7. Limb Ataxia (finger/nose \T\ heel/beach - test with eyes open) - 0(Absent) 8. Sensory Loss (pinprick arms/legs/face) - 0(Normal) 9. Best Language: Aphasia (description/naming/reading) - 2(Severe aphasia) 10. Dysarthria (speech clarity - read or repeat words) - 2(Severe) 11. Extinction and Inattention (visual/tactile/auditory/spatial/personal) - 0(No abnormality) Initials: lp1 Signatures: Dispatcher [employer] [facility] Consuelo Lloyd, RN RN Doreen Calle RN RN lp1 Pio Jansen MD MD tw4 Flory Tatum RN RN ll2 Dereck Branch tt3 Corrections: (The following items were deleted from the chart) 22:42 21:40 Hospitalization Ordered by Kevon Barnes MD for Inpatient Admission. lp1 Preliminary diagnosis is Cerebrovascular disease, unspecified; Altered mental status, unspecified; Subacute CVA. Bed requested for Telemetry/MedSurg (Inpatient). Status is Inpatient Admission. Condition is Stable. Problem is new. Symptoms are unchanged. tw4 23:30 22:31 CORONAVIRUS+MR.LAB.BRZ ordered. [facility] 05/12 06:02 05/11 22:42 05/11/2020 21:40 Hospitalization Ordered by Kevon Barnes MD for Inpatient Admission. Preliminary diagnosis is Cerebrovascular disease, unspecified; Altered mental status, unspecified; Subacute CVA. Bed requested for [facility] ER HOLD. Status is Inpatient Admission. Condition is Stable. Problem is new. Symptoms are unchanged. lp1 05/12 08:49 06:02 05/11/2020 21:40 Hospitalization Ordered by Kevon Barnes MD for ll2 Inpatient Admission. Preliminary diagnosis is Cerebrovascular disease, unspecified; Altered mental status, unspecified; Subacute CVA. Bed requested for Telemetry/MedSurg (Inpatient). Status is Inpatient Admission. Condition is Stable. Problem is new. Symptoms are unchanged.
--- NOTE | 2020-05-11 22:34 | P.HP ---
Certification for Inpatient Patient admitted to: Inpatient With expected LOS: >2 Midnights Patient will require the following post-hospital care: Home Health Services Practitioner: I am a practitioner with admitting privileges, knowledge of patient current condition, hospital course, and medical plan of care. Services: Services provided to patient in accordance with Admission requirements found in Title 42 Section 412.3 of the Code of Federal Regulations Patient History Date of Service: 05/11/20 (Hospitalist) Reason for admission: Stroke History of Present Illness: Patient is 64 years of age admitted with expressive dysphasia as per this started yesterday morning he could understand what brought her to the emergency room and was found to have Nonhemorrhagic subacute 5 cm infarct left temporoparietal region. History of strokes before usually she can communicate fairly well patient does obey commands lifting her limbs Profound expressive dysphasia Allergies aspirin Allergy (Verified 11/26/18 15:24) Itching diphenhydramine HCl [From Benadryl] Allergy (Verified 11/26/18 15:24) unknown metoclopramide [From Reglan] Allergy (Verified 11/29/18 15:53) Rash Penicillins Allergy (Verified 11/26/18 15:24) Unknown Home Medications: Amlodipine [Norvasc*] 5 mg PO DAILY 06/02/19 Apixaban [Eliquis] 5 mg PO BID 06/02/19 Doxepin HCl [Sinequan] 50 mg PO BEDTIME 06/02/19 Furosemide [Lasix] 40 mg PO BID 06/02/19 Venlafaxine HCl [Venlafaxine HCl ER] 225 mg PO DAILY 06/02/19 Amlodipine [Norvasc*] 5 mg PO DAILY #30 tab 06/03/19 Sotalol HCl [Betapace*] 40 mg PO BID 6AM 6PM #30 tab 06/03/19 clindamycin HCL [Clindamycin HCl] 300 mg PO Q6HR #32 capsule 06/03/19 lisinopriL [Prinivil*] 20 mg PO DAILY #30 tab 06/03/19 - Past Medical/Surgical History Diabetic: No -: htn -: copd -: asthma -: chf -: smoker -: pacemaker icd -: depression -: thrombectomy -: left leg surgery - Family History Mother -: Hypertension - Social History Alcohol use: No CD- Drugs: No Caffeine use: Yes Review of Systems is unable to be obtained Physical Examination - Vital Signs Temperature: 98.3 F Blood Pressure: 136/88 Pulse: 61 Respirations: 20 Pulse Ox (%): 97 - Physical Exam General: Alert, Cooperative HEENT: Atraumatic Neck: Supple Respiratory: Clear to auscultation bilaterally, Diminished Cardiovascular: No edema, Regular rate/rhythm, Normal S1 S2 Gastrointestinal: Normal bowel sounds, Soft and benign Musculoskeletal: No clubbing, No swelling Integumentary: No rashes, No breakdown Neurological: Abnormal speech (Patient is able to lift both her legs without any problems right arm this appears to be normal she is unable to lift her left arm up patient has a problem with the [place] in her left eye the 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 as per has been able to look at the ceiling and show her teeth) - Studies Laboratory Data (last 24 hrs) 05/11/20 20:35: PT 13.0 H, INR 1.10, APTT 27.2 05/11/20 20:35: WBC 9.9, Hgb 12.8, Hct 37.8, Plt Count 157 05/11/20 20:35: Sodium 137, Potassium 3.1 L, BUN 14, Creatinine 1.17, Glucose 97, Total Bilirubin 0.9, AST 16, ALT 12, Alkaline Phosphatase 117, Lipase 116 Assessment and Plan - Problems (Diagnosis) (1) Stroke Current Visit: Yes Status: Acute Plan: Patient is 64 years of age admitted with nonhemorrhagic subacute 5 cm infarct in the left temporoparietal region he has profound expressive dysphasia Appears to have weakness of the left arm history of strokes before history of COPD history of PA /patient is outside the the window to give tPA labs reviewed mild hypokalemia microcytic anemia which is chronic will to the floor consult neurology will give patient 1 dose of aspirin MRI of the brain evaluation of the carotid arteries lipid profile although in December her lipid profile was unremarkable NPO after midnight speech therapy evaluation Qualifiers: CVA mechanism: unspecified Qualified Code(s): I63.9 - Cerebral infarction, unspecified - Advance Directives Does patient have a Living Will: Yes Does patient have a Durable POA for Healthcare: No
[2020-05-11] MEDS ORDERED: ASPIRIN EC 81 MG TAB PO ONE (22:41)
[2020-05-11] MEDS: NA CHLORIDE 0.9% 1,000 ML IV SCH (23:00)
[2020-05-12] MEDS ORDERED: NA CHLORIDE 0.9% 1,000 ML ONE (02:49)
[2020-05-12 05:01] VITALS: BMI 16.2
--- NOTE | 2020-05-12 07:23 | EKG ---
Test Date: 2020-05-11 Test Time: 20:51:38 [employer] Operations Agent: JENARO MEASUREMENT RESULTS: Intervals: Rate: 62 IA: QRSD: 80 QT: 372 QTc: 377 [facility]: P: IA: QRS: -22 T: 185 INTERPRETIVE STATEMENTS: Atrial fibrillation ST & T wave abnormality, consider inferolateral ischemia or digitalis effect Abnormal ECG Compared to ECG 06/01/2019 18:01:14 Possible ischemia now present Sinus rhythm no longer present Myocardial infarct finding no longer present ST (T wave) deviation still present Electronically Signed On 05-12-20 07:22:22 HOTEL MANAGER by Mukul Seaman
[2020-05-12] MEDS ORDERED: PNEUMOCOCCAL VACCINE 0.5 ML IMVAC ONE (08:00)
--- NOTE | 2020-05-12 08:50 | RAD REPORT ---
EXAM DESCRIPTION: USCarotid Artery [id number]/9/2020 8:37 am CLINICAL HISTORY: CVA COMPARISON: None FINDINGS: The velocity of the right internal carotid artery equals 84 cm/sec. The right ICA/CCA rati o 1 point The velocity of the left internal carotid artery equals 73 cm/sec. The left ICA/CCA ratio 1.1 Severe soft plaque is present within the left carotid bulb. Moderate soft plaque is present within th e right carotid bulb The vertebral arteries demonstrate antegrade flow IMPRESSION: Severe soft plaque left carotid bulb. The low velocity may indicate an impending occlusi on. Moderate soft plaque right carotid bulb MRA neck may be helpful for further evaluation NASCET criteria used. Mild 0-49% stenosis Moderate 50-69% stenosis Severe 70-99% stenosis
[2020-05-12] MEDS ORDERED: ENOXAPARIN 40 MG/0.4 ML SQ SCH (09:00)
--- NOTE | 2020-05-12 11:48 | P.PN ---
Subjective Date of Service: 05/12/20 Chief Complaint: Stroke Patient is aphasic. She is awake. Physical Examination - Vital Signs Temperature: 97.2 F Blood Pressure: 122/68 Pulse: 50 Respirations: 18 Pulse Ox (%): 96 - Physical Exam General: Other (Awake) HEENT: Mucous membr. moist/pink Neck: Supple, JVD not distended Respiratory: Clear to auscultation bilaterally, Normal air movement Cardiovascular: No edema, Irregular heart rate/rhythm Gastrointestinal: Normal bowel sounds, Soft and benign, No tenderness Musculoskeletal: No swelling, No erythema Integumentary: No rashes, No tenderness/swelling Neurological: Other (Aphasic, moves all extremities spontaneous.) - Studies Laboratory Data (last 24 hrs) 05/11/20 20:35: PT 13.0 H, INR 1.10, APTT 27.2 05/11/20 20:35: WBC 9.9, Hgb 12.8, Hct 37.8, Plt Count 157 05/11/20 20:35: Sodium 137, Potassium 3.1 L, BUN 14, Creatinine 1.17, Glucose 97, Total Bilirubin 0.9, AST 16, ALT 12, Alkaline Phosphatase 117, Lipase 116 Assessment And Plan - Current Problems (Diagnosis) (1) Acute CVA (cerebrovascular accident) Current Visit: Yes Status: Acute (2) History of atrial fibrillation Current Visit: Yes Status: Acute (3) Hypertension Current Visit: Yes Status: Acute - Plan According to the spouse patient still taking anticoagulation. Reason for the discontinuation is unknown. I called her PCP Dr. Reyes who stated patient's anticoagulation was not discontinued. Will start coumadin and monitor PT/INR. Cannot obtain MRI given that patient has an AICD in place. CT head demonstrated subacute 5 cm infarct left temporoparietal region. Continue aspirin. Started lipitor Echocardiogram requested. Carotid Doppler result is pending. Speech therapy and PT to evaluate. Neurology consult is pending.
[2020-05-12] MEDS: NA CHLORIDE 0.9% 1,000 ML IV SCH (12:12)
[2020-05-12] MEDS: ALBUTEROL SULFATE IH SCH ×2 (17:00→21:00)
--- NOTE | 2020-05-12 20:07 | CON ---
Reason For Consultation: Consultation called because of stroke. History Of Present Illness: Ms. Alves is a 64-year-old patient with history of multiple strokes, wh o actually did rehabilitation 1 year ago at the [facility] on the fifth floor. S he did fairly well until about 2 days ago when she had significant headaches and worsening blurred vi alexandra and slurred speech. The stroke 2 years ago did produce some left eye deviation to the left and persistent double vision. However, those symptoms worsen. At [facility] on 05/11/2020, her CT scan done at 8:47 p.m., which is a few days after onset, showed a nonhemorrhagic subacute 5 cm in farct in the left temporoparietal region. Prior evidence of stroke also identified in the brain. In addition, there was a moderate generalized atrophy seen. There was no hemorrhagic conversion. She did receive IV hydration and noted that her slurred speech and vision issues despite the large stroke with some aphasia actually did seem to stabilize and she did not have an obvious asymmetry of her fa ce, arm, or leg. It should be noted that she keeps her left eye closed to help avoid seeing 2 object s, but when asked to, she can fully open the left eye, which is deviated towards the left, but she ca n get towards midline if closely following objects with the left eye. Past Medical History: Includes atrial fibrillation, congestive heart failure, strokes, hypertension. Past Surgical History: Defibrillator placement, left leg surgery. Allergies: ASPIRIN, DIPHENHYDRAMINE, METOCLOPRAMIDE, PENICILLIN. Medications: At home, albuterol inhaler, amlodipine 5 mg daily, digoxin 125 mcg daily, furosemide 40 mg daily, metoprolol 100 mg daily, venlafaxine 225 mg daily. Family History: Noncontributory. Social History: The patient smokes tobacco, cigarettes half a pack per day. Denies any recent alcoh ol use. Review of Systems: Aside from mentioned, no recent fevers, chills, nausea, vomiting, myalgias, arthralgias, headache, we ight change, rash. No psychiatric complaints. No gastrointestinal issues other than mentioned above . Physical Examination: Vital Signs: Blood pressure 122/68, pulse 50, respiratory rate 18, temperature 98.8, saturation 99% room air. Weight 95 pounds, height 5 feet 4 inches, BMI low at 16.3. General: Ms. Alves is resting in bed. She does hold the left eye close and squints to the right, b ut if again asked to open the left eye, she would and it is deviated to the left. The right eye look s straight ahead and has obvious asymmetry of deviation. HEENT: She is normocephalic, atraumatic. Sclerae anicteric. Oropharynx is moist and pink. Neck: Supple. Chest: Clear. Heart: Regular. Extremities: No edema or cyanosis. Neurological: She is alert and oriented to situation and person. She does have significant difficul ty understanding speech, but if activity actually is mimicked, she can do it for instance. When aske d to stick her tongue out and move from [id number] verbally, she is unable to do it, but when shown what to do, she quickly does that and same with moving the arms and legs. When asked to lift the ar ms and legs up, she looks confused, but when she is shown what to do, she clearly follows commands ap propriately. Face is symmetric with good excursions. Tongue in midline. Palate midline. Hearing i ntact. Motor examination, she despite her strokes has no obvious asymmetry. Some mild diffuse weakn ess at 4+ proximally and distally in upper and lower extremities. Sensation difficult to assess, she does have the deficits [id number]. Coordination is slow, but intact. Gait, she will be ambulated with the physical therapist. Reflexes are symmetric. Laboratory Studies: Complete blood count with differential shows white blood cell count 9.9, hemoglo bin 12.8, platelets 157. INR 1.10. Chemistries show slightly low potassium of 3.1, otherwise unrema rkable; glucose 103. Liver function studies are normal. LDL cholesterol of 83, HDL cholesterol low at 34, triglycerides 141. Assessment: Ms. Carli Alves is a 64-year-old patient with multiple stroke risk factors includin g atrial fibrillation. She is on digoxin for rate control. She does take aspirin and she is on now Coumadin 5 mg daily with a subtherapeutic INR and actually she does admit to being noncompliant with medications and smoking. She is on Norvasc 5 mg daily and not yet on a statin, which she should be o n a high dose statin since her LDL is greater than 70. She was told the importance of compliance of medications. Plan: 1.Strict compliance with all medications including Coumadin to get INR 2.5 to 3. 2.She will be given aspirin 81 mg daily, Norvasc 5 mg daily, digoxin as indicated 0.125 mg daily. H ydration is very important. The patient was instructed on the importance of that. 3.She should follow up after she leaves clinic with Dr. Paniagua. She needs to have INR checked as per protocol. 4.She may benefit from speech therapy to help with her aphasic component of the stroke, especially joanie marie the location of the stroke, which is 5 cm in the left temporoparietal region, which likely affec ts some of Wernicke's area. TABITHA/WADE Voice ID: [id number] Report ID: [id number]
[2020-05-12] MEDS ORDERED: MIRTAZAPINE 15 MG TAB PO SCH (21:00)
[2020-05-12] MEDS: ENSURE ENLIVE 237 ML CAN PO SCH (21:16)
[2020-05-13] MEDS: NA CHLORIDE 0.9% 1,000 ML IV SCH (01:30)
[2020-05-13 01:34] VITALS: O2SAT 96
[2020-05-13 05:57] LABS: Protime INR 1.12
[2020-05-13 06:13] LABS: Magnesium 1.9 mg/dL (1.8-2.4)
[2020-05-13 06:15] LABS: Potassium 2.8 mmol/L (3.5-5.1)
[2020-05-13] MEDS: KCL 20 MEQ/100 mL IVPB 20 MEQ/100 ML BAG IV SCH ×3 (06:38→12:29)
[2020-05-13] MEDS: ENSURE ENLIVE 237 ML CAN PO SCH (08:55)
[2020-05-13] MEDS ORDERED: AMLODIPINE 5 MG TAB PO SCH (09:00)
[2020-05-13] MEDS ORDERED: DIGOXIN 0.125 MG TABLET PO SCH (09:00)
[2020-05-13] MEDS: ALBUTEROL SULFATE IH SCH ×2 (09:00→12:34)
[2020-05-13] MEDS ORDERED: HOME MED 1 EA UNK (Venlafaxine Hcl [Venlafaxine Hcl Er] 225 MG) PO SCH (09:00)
[2020-05-13] MEDS ORDERED: VENLAFAXINE HCL XR 75 MG CAP PO SCH (09:00)
[2020-05-13] MEDS ORDERED: ASPIRIN EC 81 MG TAB PO SCH (09:00)
[2020-05-13] MEDS ORDERED: CLOPIDOGREL 75 MG TABLET PO SCH (11:30)
[2020-05-13 12:59] VITALS: BP 129/62; TEMP 98.7
--- NOTE | 2020-05-13 13:21 | ECHO ---
HEIGHT: 5 ft 4 in WEIGHT: 95 lb 0 oz DATE OF STUDY: 05/13/[address]: keon hannon 2-DIMENSIONAL: YES M.MODE: YES DOPPLER: YES COLOR FLOW: YES TDS: YES PORTABLE: DEFINITY: BUBBLE STUDY: DIAGNOSIS: ACUTE CEREBRAL VASCULAR ACCIDENT CARDIAC HISTORY: CATHERIZATION: SURGERY: PROSTHETIC VALVE: PACEMAKER: MEASUREMENTS (cm) DIASTOLIC (NORMALS) SYSTOLIC (NORMALS) IVSd (0.6-1.2) LA Diam (1.9-4.0) LVEF % LVIDd (3.5-5.7) LVIDs (2.0-3.5) %FS % LVPWd (0.6-1.2) Ao Diam 2.8 (2.0-3.7) 2 DIMENSIONAL ASSESSMENT: RIGHT ATRIUM: LEFT ATRIUM: RIGHT VENTRICLE: LEFT VENTRICLE: TRICUSPID VALVE: MITRAL VALVE: PULMONIC VALVE: AORTIC VALVE: PERICARDIAL EFFUSION: AORTIC ROOT: LEFT VENTRICULAR WALL MOTION: DOPPLER/COLOR FLOW: COMMENTS: NORMAL 2-DIMENSIONAL ECHOCARDIOGRAM WITH DOPPLER. NO WALL MOTION ABNORMALITY. NO EFFUSION. NO THROMBUS. NO VENEGTATION. TECHNOLOGIST: JONH KHAN
--- NOTE | 2020-05-13 14:12 | P.DS ---
Admission Date: 05/11/20 Discharge Date: 05/13/20 Primary Care Provider: Dr. Reyes Disposition: ROUTINE DISCHARGE Discharge Condition: FAIR Reason for Admission: Stroke Consultations: Neurology - Dr. Paniagua Cardiology - Dr. Seaman Procedures: CXR (05/11): Rounded mass in the right lower lobe demonstrates long-term stability. The lungs are mildly emphysematous without acute process. CT Brain (05/11): Nonhemorrhagic subacute 5 cm infarct left temporoparietal region. Carotid U/S (05/12): Severe soft plaque left carotid bulb. The low velocity may indicate an impending occlusion. Moderate soft plaque right carotid bulb TTE (05/13): normal 2D echo with doppler, no wall motion abnormality, no effusion, no thrombus, no vegetation. Problem List: Subacute CVA ( L temporoparietal region) Prior CVA Paroxysmal Afib HTN Brief History of Present Illness: 64yo female, PMH: prior CVA, atrial fibrillation, who presented to ED with worsening symptoms of prior CVA and new expressive/receptive aphasia. In the ED, she was found to have a subacute 5cm infarct of her left temporoparietal region. Hospital Course: She was outside of the tpa window and was admitted for further evaluation. Neurology was consulted and workup revealed severe left carotid bulb stenosis with possible impending occlusion. Cardiology was consulted and recommended waiting 4-6 weeks before undergoing a procedure. This information was conveyed to the patient and her . It was discussed to possibly transfer to patient to a tertiary hospital for earlier intervention, however, the patient and her decided to be discharged home and have this done in a few weeks. The stated he wouldn't have any money to drive back and forth to visit the patient in [place], and he's currently trying to get her insurance figured out. He believes he will have a better idea of their insurance situation / coverage after June 03, and would like to hold off until then. The risks were explained to him and the patient - regarding risk of another CVA until the carotid stenosis is fixed. They both expressed understanding and requested to be discharged home. Patient was discharged home on plavix & warfarin (aspirin allergy), atorvastatin 40mg, folic acid, and KCL (noted to be hypokalemic during hospitalization). INR on discharge was 1.12, she will need to f/u with PCP and have routine INR's checked until therapeutic 2.5-3 Vital Signs/Physical Exam: Temp Pulse Resp BP Pulse Ox 98.7 F 57 16 129/62 97 05/13/20 12:00 05/13/20 12:00 05/13/20 12:00 05/13/20 12:00 05/13/20 12:00 General: Alert, In no apparent distress, Oriented x3 HEENT: Mucous membr. moist/pink, Sclerae nonicteric Neck: Supple Respiratory: Clear to auscultation bilaterally, Normal air movement Cardiovascular: No edema, Regular rate/rhythm, Normal S1 S2 Gastrointestinal: Soft and benign, Non-distended, No tenderness Integumentary: No rashes Neurological: Other (she has difficulty understanding speech at times but better if repeated slowly.), Abnormal speech (slurred, difficulty finding words), Abnormal strength (4+/5 in bilaterall upper and lower extremities, no asymmetry) Other Physical/Emotional Findings: PT note (05/13): Patient transfers sit <> stand at [facility], and supine <> sit at Min A for trunk and B LEs. Patient ambulated 86' x2, Iv tow, RW, at CGA Laboratory Data at Discharge: WBC 9.9 K/uL (4.3-10.9) 05/11/20 20:35 Hgb 12.8 g/dL (12.0-15.0) 05/11/20 20:35 Hct 37.8 % (36.0-45.0) 05/11/20 20:35 Plt Count 157 K/uL (152-406) 05/11/20 20:35 PT 13.2 SECONDS (9.5-12.5) H 05/13/20 05:24 INR 1.12 05/13/20 05:24 APTT 27.2 SECONDS (24.3-36.9) 05/11/20 20:35 Sodium 144 mmol/L (136-145) 05/13/20 05:24 Potassium 2.8 mmol/L (3.5-5.1) L* 05/13/20 05:24 BUN 13 mg/dL (7-18) 05/13/20 05:24 Creatinine 0.87 mg/dL (0.55-1.3) 05/13/20 05:24 Glucose 76 mg/dL (74-106) 05/13/20 05:24 Magnesium 1.9 mg/dL (1.8-2.4) 05/13/20 05:24 Total Bilirubin 0.9 mg/dL (0.2-1.0) 05/11/20 20:35 AST 16 U/L (15-37) 05/11/20 20:35 ALT 12 U/L (12-78) 05/11/20 20:35 Alkaline Phosphatase 117 U/L (45-117) 05/11/20 20:35 Triglycerides 141 mg/dL (<150) 05/12/20 04:01 Cholesterol 145 mg/dL (<200) 05/12/20 04:01 HDL Cholesterol 34 mg/dL (40-60) L 05/12/20 04:01 Cholesterol/HDL Ratio 4.26 05/12/20 04:01 Lipase 116 U/L (73-393) 05/11/20 20:35 Home Medications: Amlodipine [Norvasc*] 5 mg PO DAILY 06/02/19 Furosemide [Lasix] 40 mg PO BID 06/02/19 Venlafaxine HCl [Venlafaxine HCl ER] 225 mg PO DAILY 06/02/19 Albuterol Sulfate [Proair Digihaler] 2 puff IH QID 05/12/20 Digoxin [Lanoxin*] 0.125 mg PO DAILY 05/12/20 Mirtazapine [Remeron*] 15 mg PO BEDTIME 05/12/20 Atorvastatin Calcium [Lipitor] 40 mg PO DAILY 30 Days #30 tablet 05/13/20 Clopidogrel Bisulfate [Plavix*] 75 mg PO DAILY 30 Days #30 tablet 05/13/20 Folic Acid 1 mg PO DAILY 30 Days #30 tablet 05/13/20 Potassium Chloride 10 meq PO DAILY 30 Days #30 tablet.er 05/13/20 Warfarin Sodium [Coumadin*] 5 mg PO DAILY 5 PM 30 Days #30 tab 05/13/20 New Medications: Warfarin Sodium [Coumadin*] 5 mg PO DAILY 5 PM 30 Days #30 tab Folic Acid 1 mg PO DAILY 30 Days #30 tablet Atorvastatin Calcium [Lipitor] 40 mg PO DAILY 30 Days #30 tablet Clopidogrel Bisulfate [Plavix*] 75 mg PO DAILY 30 Days #30 tablet Potassium Chloride 10 meq PO DAILY 30 Days #30 tablet.er Patient Discharge Instructions: follow up with PCP within 1 week - you will need your INR (for coumadin) checked. follow up with Dr. Paniagua (neurology) in the next few weeks - call his office to schedule apponitment. New Medications on discharge: Plavix (Clopidogrel) 75mg tablet once a day -- Coumadin 5mg every night -- atorvastatin 40mg every night -- potassium 10meq daily -- folic acid 1mg tablet once a day. STOP taking metoprolol (was 100mg) until you see your PCP. You will need to see vascular surgery for surgery of the plaque in your left carotid artery Diet: mechanical soft diet (Mechanical soft solids, chopped meats, thin liquids, whole medications) Activity: Fall precautions Followup: Kevin Paniagua MD [ASSOCIATE-ACTIVE - CAN ADMIT] - Unknown,U [Primary Care Provider] - Time spent managing pt's care (in minutes): 35
[2020-05-13] MEDS ORDERED: WARFARIN SODIUM 5 MG TAB PO SCH (17:59)
== END 2020-05-13 16:29 | disposition home or self-care (01) | DRG 65 ==
LOC: ER 20:21 → ERHOLD 23:45 → 2ND 05-12 08:10
PROVIDERS: ADMIT Internal Medicine Sleep Medicine; ATTEND Hospitalist
DX: I63.9 Cerebral infarction, unspecified (principal); I69.354 Hemiplegia and hemiparesis following cerebral infarction affecting left non-dominant side; I10 Essential (primary) hypertension; F17.210 Nicotine dependence, cigarettes, uncomplicated; D64.9 Anemia, unspecified; E87.6 Hypokalemia; I48.0 Paroxysmal atrial fibrillation; J44.9 Chronic obstructive pulmonary disease, unspecified; Q15.8 Other specified congenital malformations of eye; I65.22 Occlusion and stenosis of left carotid artery; I69.328 Other speech and language deficits following cerebral infarction; I25.2 Old myocardial infarction; H53.2 Diplopia; R47.01 Aphasia; R47.02 Dysphasia; R29.705 NIHSS score 5; Z88.8 Allergy status to other drugs, medicaments and biological substances; Z88.0 Allergy status to penicillin; Z79.899 Other long term (current) drug therapy; Z79.02 Long term (current) use of antithrombotics/antiplatelets; Z91.14 Patient's other noncompliance with medication regimen; Z95.810 Presence of automatic (implantable) cardiac defibrillator; Z79.01 Long term (current) use of anticoagulants; Z20.828 Contact with and (suspected) exposure to other viral communicable diseases; Z23 Encounter for immunization
CPT/HCPCS: 36415; 70450; 71045; 80048; 80061; 80076; 82550; 82947; 83690; 83735; 84484; 85025; 85610; 85730; 90471; 90732; 92610; 93005; 93306; 93880; 97116; 97161; 97530; 99291; J1650; J3480; J7030; U0003

== ENCOUNTER 2020-06-14 13:03 | Emergency (ER) | payer SELFPAY ==
--- OUTSIDE RECORDS SUMMARY | 2020-06-14 13:05 | XMS REPORT | Clinical Summary ---
:1955 Author Organization [facility] Address [address] [place] [address] Care Team Providers Name Role Phone Prakash Calhoun Unavailable [phone] Allergies Active Allergy Reactions Severity Noted [...] 21 yrs) 04/03/2020 Results Not on fileafter 06/14/2019 Insurance Payer Benefit Plan / Subscriber ID Effective Phone Address T e Group Dates [facility] xxxxxxxxxxxx 2016-07/03 [phone] [facility] CHOICE /[phone] [place] [address] (Home) [place] [address]
--- OUTSIDE RECORDS SUMMARY | 2020-06-14 13:05 | XMS REPORT | Clinical Summary ---
:1955 Author Organization [facility] Address [address] [place] [address] Care Team Providers Name Role Phone Unavailable Primary Care Provider Unavailable Allergies Not on File Medications Not on file Active Problems Not on file Social History Tobacco Use Types Packs/Day Years Used Date Never Assessed Sex Assigned at Date Recorded Not on file Last Filed Vital Signs Not on file Plan of Treatment Not on file Results Not on fileafter 06/14/2019
--- OUTSIDE RECORDS SUMMARY | 2020-06-14 13:06 | XMS REPORT | Continuity of Care Document ---
:[address] [facility] t Address [address] [place] [address] Care Team Providers Name Role Phone ORI Primary Care Physician Unavailable ORI Attending Clinician Unavailable ORI Admitting Clinician Unavailable Problems This patient has no known problems. Allergies, Adverse Reactions, Alerts Allergy Allergy Status Severity Reaction(s) Onset Inactive Treating Comm ents Source Name Type Date Date Clinician Metoclop Propensi Active Hives [facility] ramide ty to 14 Health Hcl adverse 00:00: reaction 00 s to drug Aspirin Propensi Active Rash [facility] ty to 03 Health adverse 00:00: reaction 00 s to drug Penicill Propensi Active [facility] in ty to 03 Health adverse 00:00: reaction 00 s to drug Social History Social Habit Start Date Stop Date Quantity Comments Source History of tobacco Cigarette Smoker [facility] use Sex Assigned At [facility] Cigarettes smoked 2016-11-08 2016-11-08 [facility] current (pack per 00:00:00 00:00:00 day) - Reported Cigarette 2016-11-08 2016-11-08 [facility] pack-years 00:00:00 00:00:00 Smoking Status Start Date Stop Date Source Current every day smoker 2016-11-08 00:00:00 [facility] Medications Ordered Filled Start Stop Current Ordering [...] 100 Chambers rris succinate 4-14 mg by [facility] (TOPROL XL) 14:28: mouth 100 mg 11 daily. extended release tablet venlafaxine Yes 150mg QD Take 150 H arris (EFFEXOR 4-14 mg by [facility] XR) 150 mg 14:28: mouth extended 11 [...] Future Scheduled Test 2020-04-03 00:00:00 IMM Influenza [facility] Seasonal Apr to September (>/= 19 yrs) [code = IMM Influenza Seasonal Oct to September (>/= 19 yrs)] Future Scheduled Test 2017-10-04 00:00:00 Breast Cancer Scrn [facility] (Yearly) [code = Breast Cancer [facility] (Yearly)] Future Scheduled Test 2007 00:00:00 Screening for [facility] malignant neoplasm of colon (procedure) [code = 838968094] Future Scheduled Test 1987 00:00:00 Screening for [facility] malignant neoplasm of cervix (procedure) [code = 765370768] Future Scheduled Test 1987 00:00:00 Screening for [facility] malignant neoplasm of cervix (procedure) [code = 675334402] Encounters Start End Encounter Admission Attending Care Care Encounter Source Date/Time Date/Time Type Type Clinicians Facility Department ID 2017-08-17 2017-08-17 [id number] [facility] 19:19:00 19:19:00 [place] 2017-02-25 2017-02-25 Outpatient [facility] [id number] [place] 00:00:00 00:00:00 Health 2017-01-27 2017-01-27 Outpatient [facility] [id number] [facility] 00:00:00 00:00:00 Health 2017-01-27 2017-01-27 Outpatient [facility] [id number] [place] 00:00:00 00:00:00 Health 2016-11-30 2016-11-30 Outpatient [facility] [id number] [place] 09:47:50 09:47:50 Health Results Test Description Test Time Test Comments Results Result Comments Source Thyroid Stimulating Hormone (TSH) 2017-08-18 00:14:00 Test Item Value Reference Range Interpretation Comme nts TSH (test code = TSH) 1.86 mIU/mL 0.270-4.200 N Sed Rate ESR ([place])2017-08-17 21:38:00 Test Item Value Reference Range Interpretation Comments ESR (test code = HESR) 4 mm/Hr 0-20 N Lipid [id number] 20:38:00 Test Item Value Reference Range Interpretation [...] (test code = LDLC) DISEASEPu blished by [place] Heart AssociationAnal yte Optim al Boderline Increased RiskC HOL <200 200-239 >240TRI G <150 150-199 >200HDL Male: >60 <40HDL Female: >60 <50 LDL < 100 130-15 9 >160 LDL NEAR OPTIMAL IS 100- 129 VLDL (test code = 65 mg/dL 5-40 H VLDL) LDL/HDL (test code = 2 LDLPHDL) Comprehensive Metabolic [id number] 20:38:00 Test Item Value Reference Range Interpretation [...] by the National Kidney Foundation,http ://nkd ep.nih.gov [id number] 20:38:00 Test Item Value Reference Range Interpretation Comments NT ProBnp (test code = PBNP) 775 pg/mL 0-124 H Prothrombin [id number] 20:34:00 Test Item Value Reference Range Interpretation Comments PT (test code = PT) 19.80 seconds 9.78-13.35 H INR (test code = INR) 1.76 Ratio 0.6-1.2 H CBC with [id number] 20:13:00 Test Item Value Reference Range Interpretation [...] code = ALYMPH) 4.9 K/cumm 0.5-4.6 H [place] Abs (test code = AMONO) 0.4 K/cumm 0.0-1.2 N Eos Abs (test code = AEOS) 0.22 K/cumm 0.00-0.74 N Baso Abs (test code = ABASO) 0.2 K/cumm 0.00-0.21 N Anisocytosis (test code = ANISO) Slight Hypochromic (test code = HYPO) Slight
[2020-06-14] MEDS ORDERED: OXYMETAZOLINE HCL 0.05% 15ML NAS ONE (16:48)
--- NOTE | 2020-06-14 17:28 | RAD REPORT ---
EXAM DESCRIPTION: Mike Single View06/14/2020 5:11 pm CLINICAL HISTORY: Shortness of breath COMPARISON: May 2020 FINDINGS: Calcified lung granulomas are present. The lungs appear clear of acute infiltrate. The lungs are hyperaerated. The heart appears small which can be seen with dehydration. Pacemaker lead is in place
[2020-06-14 17:30] LABS: ALT/SGPT 10 U/L (12-78); AST/SGOT 18 U/L (15-37); Albumin 3.3 g/dL (3.4-5.0); Alkaline Phosphatase 115 U/L (45-117); BUN Blood Urea Nitrogen 45 mg/dL (7-18); Bicarbonate 29 mmol/L (21-32); Bilirubin Direct 0.2 mg/dL (0-0.2); Bilirubin Total 0.6 mg/dL (0.2-1.0); Glucose Level 122 mg/dL (74-106); NT PRO-BNP 526 pg/mL (<125); Potassium 3.5 mmol/L (3.5-5.1); Protein, Total 7.7 g/dL (6.4-8.2); Sodium Level 138 mmol/L (136-145); Troponin (Emerg Dept Use Only) < 0.02 ng/mL (0.0-0.045)
[2020-06-14 17:31] LABS: Absolute Lymphocytes (CBC) 2.3 K/uL (0.7-4.9); Basophils % 0.1 % (0-1.3); Hematocrit 28.4 % (36.0-45.0); Lymphocytes % 16.7 % (15.3-44.8); MPV 11.7 fL (7.6-11.3); RBC Red Blood Cell Count 4.07 M/uL (3.86-4.86)
[2020-06-14 17:39] LABS: Protime INR 6.76
[2020-06-14] MEDS ORDERED: NA CHLORIDE 0.9% 500 ML ONE (18:16)
--- NOTE | 2020-06-14 18:20 | RAD REPORT ---
EXAM DESCRIPTION: CT - Head Brain Wo Cont - 06/14/2020 6:10 pm CLINICAL HISTORY: CVA/weakness COMPARISON: May 2020 TECHNIQUE: Computed axial tomography of the head was obtained. IV contrast was not requested. All CT scans are performed using dose optimization technique as appropriate and may include automated exposure control or mA/KV adjustment according to patient size. FINDINGS: An intracranial bleed is not seen . The ventricles are normal in caliber. No extra-axial fluid collection is noted. Late subacute left cerebral infarction. Old right thalamic infarct. Fluid within the maxillary sinus may indicate acute sinusitis IMPRESSION: No acute intracranial abnormality is seen
[2020-06-14] MEDS ORDERED: VITAMIN K (ADULT) 10 MG/ML ONE (19:16)
[2020-06-14 19:45] LABS: Anisocytosis 1+; Blood Morphology Comment NOTED (NOT SEEN); Ovalocytes 1+; Platelet Estimate ADEQ; Poikilocytosis 1+; Polychromasia 1+
[2020-06-14] MEDS ORDERED: NA CHLORIDE 0.9% 250 ML ONE (22:44)
[2020-06-15 01:53] LABS: Protime INR 1.79
--- NOTE | 2020-06-15 02:15 | EDPHYS ---
Physician Documentation [facility] Name: Carli Alves Age: 64 yrs Sex: Female : 1955 Arrival Date: 06/14/2020 Time: 13:04 Bed 15 Private MD: ED Physician Serafin Knight HPI: 06/14 16:12 This 64 yrs old Female presents to ER via Wheelchair with complaints of Nose cp Bleed, Shortness Of Breath. 16:12 The patient presents with a nose bleed, that is continuous bright red, causative cp factors include: Coumadin therapy, and the bleeding resolved prior to arrival. 16:13 Onset: The symptoms/episode began/occurred 5 day(s) ago. Associated signs and symptoms: cp Pertinent positives: shortness of breath. Historical: - Allergies: 13:44 Aspirin; jl7 13:44 diphenhydramine HCl; jl7 13:44 METOCLOPRAMIDE; jl7 13:44 PENICILLINS; jl7 - Home Meds: 13:44 digoxin 125 mcg Oral tab once daily [Active]; furosemide 40 mg Oral tab 1 tab 2 times jl7 per day [Active]; venlafaxine 225 mg Oral tr24 1 tab once daily [Active]; - PMHx: 13:44 Atrial Fib; CHF; COPD; CVA; Hodgkin's Lymphoma; Hypertension; jl7 - PSHx: 13:44 Pacemaker/Defib; Left leg surgery; jl7 - Immunization history:: Adult Immunizations unknown. - Social history:: Smoking status: Patient reports the use of cigarette tobacco products, smokes one pack cigarettes per day. ROS: 16:20 Constitutional: Negative for body aches, chills, fever, poor PO intake. cp 16:20 Eyes: Negative for injury, pain, redness, and discharge. cp 16:20 ENT: Positive for nose bleed. 16:20 Cardiovascular: Negative for chest pain. 16:20 Respiratory: Negative for cough, shortness of breath, wheezing. 16:20 Abdomen/GI: Negative for abdominal pain, nausea, vomiting, and diarrhea. 16:20 Neuro: Negative for altered mental status, dizziness, headache, syncope. 16:20 All other systems are negative. Exam: 16:25 Constitutional: The patient appears in no acute distress, alert, awake, cp non-diaphoretic, non-toxic, well developed, frail. 16:25 Head/Face: Normocephalic, atraumatic. cp 16:25 Eyes: Periorbital structures: appear normal, Conjunctiva: normal, no exudate, no injection, Sclera: no appreciated abnormality, Lids and lashes: appear normal, bilaterally. 16:25 ENT: External ear(s): are unremarkable, Nose: bleeding, is seen from the left nare, and is minimal, no septal hematoma is appreciated, Mouth: Lips: moist, Oral mucosa: moist, Posterior pharynx: Airway: no evidence of obstruction, patent. 16:25 Chest/axilla: Inspection: normal, Palpation: is normal, no crepitus, no tenderness. 16:25 Cardiovascular: Rate: normal, Rhythm: regular. 16:25 Respiratory: the patient does not display signs of respiratory distress, Respirations: normal, no use of accessory muscles, no retractions, labored breathing, is not present, Breath sounds: are clear throughout. 16:25 Abdomen/GI: Inspection: abdomen appears normal, Palpation: abdomen is soft and non-tender. 16:25 Neuro: Orientation: to person, place \T\ time. Mentation: able to follow commands, slow to respond. 16:30 ECG was reviewed by the Attending Physician. cp Vital Signs: 13:41 BP 119 / 59; Pulse 80; Resp 21; Temp 98; Pulse Ox 100% ; Weight 53.52 kg; Height 5 ft. jl7 4 in. (162.56 cm); Pain 0/10; 15:30 BP 140 / 89; Pulse 77; Resp 18; Pulse Ox 100% on R/A; zb 17:20 BP 130 / 87; Pulse 95; Resp 18; Pulse Ox 100% on R/A; zb 21:40 BP 118 / 84; Pulse 81; Resp 16; Pulse Ox 99% on R/A; Pain 0/10; zb 22:43 BP 117 / 80; Pulse 94; Resp 17 S; Pulse Ox 100% on R/A; zb 1213 01:10 BP 107 / 63; Pulse 84; Resp 18; Temp 97.6; Pulse Ox 100% on R/A; mg2 02:27 BP 106 / 76; Pulse 82; Resp 18; Temp 98; Pulse Ox 100% on R/A; mg2 06/14 13:41 Body Mass Index 20.25 (53.52 kg, 162.56 cm) jl7 MDM: 06/14 16:05 Patient medically screened. cp 18:35 Data reviewed: vital signs, nurses notes, lab test result(s), EKG, radiologic studies, cp plain films. 18:35 Test interpretation: by ED physician or midlevel provider: ECG. cp 19:10 Physician consultation: was contacted at 19:00, DR Alexis Reyes wants patient to be cp given 10 units Vitamin K and 2 units FFP and will f/u in clinic next week. 06/14 16:06 Order name: Basic Metabolic Panel; Complete Time: 17:31 cp 06/14 18:24 Interpretation: Normal except: GLUC 122; BUN 45; CRE 1.39; GFR 38. cp 06/14 16:06 Order name: CBC with Diff; Complete Time: 21:55 cp 06/14 17:41 Interpretation: Normal except: WBC 13.5; HGB 9.5; HCT 28.4; MCV 69.7; MCH 23.4; RDW cp 21.7; MPV 11.7; EOSINOPHIL % 7.3; NEUT A 9.8; EOSA 1.0. 06/14 16:06 Order name: LFT's; Complete Time: 17:31 cp 06/14 16:06 Order name: Magnesium; Complete Time: 17:31 cp 06/14 16:06 Order name: NT PRO-BNP; Complete Time: 17:31 cp 06/14 16:06 Order name: PT-INR; Complete Time: 17:40 cp 06/14 16:06 Order name: Troponin (emerg Dept Use Only); Complete Time: 17:31 cp 06/14 19:45 Order name: Manual Differential; Complete Time: 21:55 EDMS 06/14 20:08 Order name: Type And Screen zb 06/14 21:36 Order name: Fresh Frozen Plasma EDMS 06/14 21:53 Order name: ABO/RH no charge; Complete Time: 21:55 EDMS 06/15 01:11 Order name: PT-INR mg2 06/14 16:06 Order name: XRAY Chest (1 view); Complete Time: 17:31 cp 06/14 16:06 Order name: EKG; Complete Time: 16:07 cp 06/14 16:06 Order name: Cardiac monitoring; Complete Time: 16:50 cp 06/14 16:06 Order name: EKG - Nurse/Tech; Complete Time: 17:05 cp 06/14 16:06 Order name: IV Saline Lock; Complete Time: 17:05 cp 12 16:06 Order name: Labs collected and sent; Complete Time: 16:51 cp 06/14 16:06 Order name: O2 Per Protocol; Complete Time: 17:05 cp 06/14 16:06 Order name: O2 Sat Monitoring; Complete Time: 17:05 cp 12 17:52 Order name: CT Head Brain wo Cont; Complete Time: 18:23 cp EC:30 Rate is 90 beats/min. Rhythm is regular. NC interval is normal. QRS interval is normal. cp QT interval is normal. T waves are Inverted in leads II, III, V4, V5, V6. Interpreted by me. Reviewed by me. Administered Medications: 16:41 Drug: Afrin Drops (0.05 %) 1 sprays Route: Intranasal; Site: both nares; zb 19:08 Drug: NS 0.9% 500 ml Route: IV; Rate: bolus; Site: right hand; zb 19:09 Drug: Vitamin K1 10 mg Route: Sub-Q; Site: right lower abdomen; zb 19:30 Follow up: Response: No adverse reaction zb Disposition: 06/15 17:51 Co-signature as Attending Physician, Serafin Knight MD I agree with the assessment and demarcus plan of care. Disposition: 06/15/20 02:14 Discharged to Home. Impression: Epistaxis - resolved, Anemia in other chronic diseases classified elsewhere, Abnormal coagulation profile. - Condition is Stable. - Discharge Instructions: Anemia, Nonspecific, Nosebleed, Adult, Warfarin Coagulopathy, Nosebleed, [id number]. - Medication Reconciliation Form, Thank You Letter, Antibiotic Education, Prescription Opioid Use form. - Follow up: Private Physician; When: 1 - 2 days; Reason: Recheck today's complaints. - Problem is new. - Symptoms have improved. Signatures: Dispatcher [employer] Serafin Krueger MD MD cha Attema, Lee, SKILLS AUDITOR-C SKILLS AUDITOR-Cla1 Serafin Marshall PA PA cp Leal, Jahala, RN RN jl7 Pio Jansen MD MD tw4 Bubba Howard RN RN mg2 Delisa Tran RN RN zb Corrections: (The following items were deleted from the chart) 06/14 17:41 17:41 Normal except: WBC 13.5; HGB 9.5; HCT 28.4; MCV 69.7; MCH 23.4; RDW 21.7; MPV cp 11.7; EOSINOPHIL % 7.3; NEUT A 9.8. cp 20:58 20:09 TYPE AND SCREEN+BB.LAB.BRZ ordered. EDMS EDMS 06/15 02:28 02:14 06/15/2020 02:14 Discharged to Home. Impression: Epistaxis - resolved; Anemia in mg2 other chronic diseases classified elsewhere; Abnormal coagulation profile. Condition is Stable. Discharge Instructions: Anemia, Nonspecific, Nosebleed, Adult, Warfarin Coagulopathy. Forms are Medication Reconciliation Form, Thank You Letter, Antibiotic Education, Prescription Opioid Use. Follow up: Private Physician; When: 1 - 2 days; Reason: Recheck today's complaints. Problem is new. Symptoms have improved. tw4
--- NOTE | 2020-06-15 02:15 | ER ---
Nurse's Notes [facility] Name: Carli Alves Age: 64 yrs Sex: Female : 1955 Arrival Date: 06/14/2020 Time: 13:04 Bed 15 Private MD: Diagnosis: Epistaxis-resolved;Anemia in other chronic diseases classified elsewhere;Abnormal coagulation profile Presentation: 06/14 13:41 Chief complaint: Patient states: nose bleeding for 5 days, SOB started today, jl7 reports stopping Warfarin 2 days ago due to continued bleeding, pt denies pain. Coronavirus screen: Client denies travel out of the [place] in the last 14 days. At this time, the client does not indicate any symptoms associated with coronavirus-19. Ebola Screen: No symptoms or risks identified at this time. Initial Sepsis Screen: Does the patient meet any 2 criteria? No. Patient's initial sepsis screen is negative. Does the patient have a suspected source of infection? No. Patient's initial sepsis screen is negative. Risk Assessment: Do you want to hurt yourself or someone else? Patient reports no desire to harm self or others. Onset of symptoms was June 09, 2020. Care prior to arrival: None. 13:41 Method Of Arrival: Wheelchair [facility] 13:41 Acuity: MELLISSA 3 jl7 Triage Assessment: 13:44 General: Appears in no apparent distress. uncomfortable, Behavior is calm, cooperative. jl7 Pain: Denies pain. EENT: Nares dried blood noted, no active bleeding in triage. Respiratory: Reports shortness of breath Airway is patent Respiratory effort is even, unlabored, Respiratory pattern is symmetrical, tachypnea Onset: The symptoms/episode began/occurred this morning, the patient has mild shortness of breath. Historical: - Allergies: 13:44 Aspirin; jl7 13:44 diphenhydramine HCl; jl7 13:44 METOCLOPRAMIDE; jl7 13:44 PENICILLINS; jl7 - Home Meds: 13:44 digoxin 125 mcg Oral tab once daily [Active]; furosemide 40 mg Oral tab 1 tab 2 times jl7 per day [Active]; venlafaxine 225 mg Oral tr24 1 tab once daily [Active]; - PMHx: 13:44 Atrial Fib; CHF; COPD; CVA; Hodgkin's Lymphoma; Hypertension; jl7 - PSHx: 13:44 Pacemaker/Defib; Left leg surgery; jl7 - Immunization history:: Adult Immunizations unknown. - Social history:: Smoking status: Patient reports the use of cigarette tobacco products, smokes one pack cigarettes per day. Screenin:30 Fall Risk None identified. No fall in past 12 months (0 pts). No secondary diagnosis (0 zb pts). IV access (20 points). Ambulatory Aid- Crutches/Cane/Walker (15 pts). Gait- Weak (10 pts.). Mental Status- Oriented to own ability (0 pts). Total Lamb Fall Scale indicates High Risk Score (45 or more points). Fall prevention measures have been instituted. Side Rails Up X 2 Placed Close to Nursing Station Frequent Obs/Assessments Occuring Family Present and informed to notify staff if the need to leave the bedside As available patient and family educated on Fall Prevention Program and Strategies. 18:22 Abuse screen: Denies threats or abuse. Denies injuries from another. Nutritional zb screening: No deficits noted. Tuberculosis screening: No symptoms or risk factors identified. Assessment: 13:30 General: Appears in no apparent distress. uncomfortable, Behavior is calm, cooperative, zb appropriate for age, Reports fatigue for SOB. Pain: Denies pain. Neuro: Level of Consciousness is awake, alert, obeys commands, Oriented to person, place, time. Cardiovascular: Capillary refill < 3 seconds in bilateral fingers Patient's skin is warm and dry. Pulses are all present. Cardiovascular: Rhythm is irregular. Respiratory: Airway is patent Respiratory effort is even, unlabored, Respiratory pattern is regular, Breath sounds are clear bilaterally. GI: Abdomen is flat. : No signs and/or symptoms were reported regarding the genitourinary system. EENT: Nares crusted dried blood noted. Derm: Skin is thin. Musculoskeletal: Circulation, motion, and sensation intact. Capillary refill < 3 seconds, in bilateral Range of motion: intact in all extremities. 14:30 Reassessment: Patient appears in no apparent distress at this time. Patient and/or zb family updated on plan of care and expected duration. Pain level reassessed. Patient is alert, oriented x 3, equal unlabored respirations, skin warm/dry/pink. famliy at bedside. 15:30 Reassessment: Patient appears in no apparent distress at this time. Patient and/or zb family updated on plan of care and expected duration. Pain level reassessed. Patient is alert, oriented x 3, equal unlabored respirations, skin warm/dry/pink. family at bedside. pt in no apparent distress. no pain at this time. 16:30 Reassessment: Patient appears in no apparent distress at this time. Patient and/or zb family updated on plan of care and expected duration. Pain level reassessed. Patient is alert, oriented x 3, equal unlabored respirations, skin warm/dry/pink. 17:30 Reassessment: Patient appears in no apparent distress at this time. Patient and/or zb family updated on plan of care and expected duration. Pain level reassessed. Patient is alert, oriented x 3, equal unlabored respirations, skin warm/dry/pink. 18:30 Reassessment: Patient appears in no apparent distress at this time. Patient and/or zb family updated on plan of care and expected duration. Pain level reassessed. Patient is alert, oriented x 3, equal unlabored respirations, skin warm/dry/pink. 21:08 Reassessment: Patient appears in no apparent distress at this time. Patient and/or zb family updated on plan of care and expected duration. Pain level reassessed. Patient is alert, oriented x 3, equal unlabored respirations, skin warm/dry/pink. pt nose continues to bleed. given wash cloth to help. 22:40 Reassessment: Patient appears in no apparent distress at this time. Patient and/or zb family updated on plan of care and expected duration. Pain level reassessed. Patient is alert, oriented x 3, equal unlabored respirations, skin warm/dry/pink. plasma transfusion started at this time. 06/15 01:00 Reassessment: verified FFP with primary nurse Bubba ROMERO. 02:28 Reassessment: no active bleeding with the patient. mg2 Vital Signs: 06/14 13:41 BP 119 / 59; Pulse 80; Resp 21; Temp 98; Pulse Ox 100% ; Weight 53.52 kg; Height 5 ft. jl7 4 in. (162.56 cm); Pain 0/10; 15:30 BP 140 / 89; Pulse 77; Resp 18; Pulse Ox 100% on R/A; zb 17:20 BP 130 / 87; Pulse 95; Resp 18; Pulse Ox 100% on R/A; zb 21:40 BP 118 / 84; Pulse 81; Resp 16; Pulse Ox 99% on R/A; Pain 0/10; zb 22:43 BP 117 / 80; Pulse 94; Resp 17 S; Pulse Ox 100% on R/A; zb 06/15 01:10 BP 107 / 63; Pulse 84; Resp 18; Temp 97.6; Pulse Ox 100% on R/A; mg2 02:27 BP 106 / 76; Pulse 82; Resp 18; Temp 98; Pulse Ox 100% on R/A; mg2 06/14 13:41 Body Mass Index 20.25 (53.52 kg, 162.56 cm) jl7 ED Course: 06/14 13:04 Patient arrived in ED. ag5 13:43 Triage completed. jl7 13:44 Arm band placed on right wrist. jl7 15:59 Serafin Marshall PA is PHCP. cp 15:59 Serafin Knight MD is Attending Physician. cp 16:10 Delisa Tran, HEATHER is Primary Nurse. zb 16:55 Missed attempt(s): 22 gauge in left forearm. Bleeding controlled, band aid applied, jd3 catheter tip intact. 17:02 Inserted saline lock: 22 gauge in right wrist, using aseptic technique. Blood collected.jd3 17:11 XRAY Chest (1 view) In Process Unspecified. EDMS 17:42 Notified Nurse Practitioner and/or Physician Neurology Technologist of a critical lab result(s), INR aa5 6.76. 18:11 CT Head Brain wo Cont In Process Unspecified. EDMS 06/15 01:36 No provider procedures requiring assistance completed. mg2 01:37 Repeat lab(s) drawn. by de, sent to lab. mg2 02:28 IV discontinued, intact, bleeding controlled, No redness/swelling at site. Pressure mg2 dressing applied. Administered Medications: 06/14 16:41 Drug: Afrin Drops (0.05 %) 1 sprays Route: Intranasal; Site: both nares; zb 19:08 Drug: NS 0.9% 500 ml Route: IV; Rate: bolus; Site: right hand; zb 19:09 Drug: Vitamin K1 10 mg Route: Sub-Q; Site: right lower abdomen; zb 19:30 Follow up: Response: No adverse reaction zcruz Medication: 06/15 02:28 Blood products: FFP X 2 units given. See transfusion record. mg2 Outcome: 02:14 Discharge ordered by . tw4 02:28 Discharged to home via wheelchair, with family. mg2 02:28 Condition: stable 02:28 Discharge instructions given to patient, family, Instructed on discharge instructions, follow up and referral plans. Demonstrated understanding of instructions, follow-up care. 02:28 Patient left the ED. mg2 Signatures: Dispatcher [employer] EDMS Charan Villa, RN RN sg Rosemary Del Valle RN RN aa5 Serafin Marshall PA PA cp Leal, Jahala RN RN jl7 Niraj Dawn RN RN jd3 Pio Jansen MD MD tw4 Bubba Howard, RN RN mg2 Joy Sharif Zipporah, RN RN zb
[2020-06-18 22:25] VITALS: O2SAT 100
[2020-06-18 22:28] VITALS: BP 106/76; TEMP 98
== END 2020-06-15 02:28 | disposition home or self-care (01) ==
LOC: ER 13:03
PROC: 30233K1 Transfusion of Nonautologous Frozen Plasma into Peripheral Vein, Percutaneous Approach (ICD-10-PCS; principal; 2020-06-15)
DX: D64.9 Anemia, unspecified (principal); R79.1 Abnormal coagulation profile; Z85.72 Personal history of non-Hodgkin lymphomas; Z85.71 Personal history of Hodgkin lymphoma; I10 Essential (primary) hypertension; I48.91 Unspecified atrial fibrillation; I50.9 Heart failure, unspecified; Z95.810 Presence of automatic (implantable) cardiac defibrillator; F17.210 Nicotine dependence, cigarettes, uncomplicated; Z88.0 Allergy status to penicillin; Z88.6 Allergy status to analgesic agent; Z88.8 Allergy status to other drugs, medicaments and biological substances
CPT/HCPCS: 36415; 36430; 70450; 71045; 80048; 80076; 83735; 83880; 84484; 85025; 85610; 86850; 86900; 86901; 93005; 96372; 99284; J3430; J7040; J7050; P9059

== ENCOUNTER 2021-06-21 21:46 | Inpatient (IN) | payer SELFPAY ==
--- OUTSIDE RECORDS SUMMARY | 2021-06-21 21:50 | XMS REPORT | Continuity of Care Document ---
:1955 Author Organization [facility] t Address [address] [place] [place] [address] Care Team Providers Name Role Phone ORI Primary Care Physician Unavailable Noe BAUTISTA, S Attending Clinician Doctor Unassigned, Name Attending Clinician Unavailable ORI Attending Clinician Unavailable ORI Admitting Clinician Unavailable Problems Condition Condition Condition Status Onset Resolution Last Treating Co mments Source Name Details Category Date Date Treatment Clinician Date NICM NICM Disease Active Univers (nonischem (nonischem 4-11 it y of ic ic 00:00: [place] cardiomyop cardiomyop 00 Me dical athy) athy) Branch Other Other Disease Active Univers specified specified 4-11 ity of cardiac cardiac 00:00: [place] dysrhythmi dysrhythmi 00 Me dical as(427.89) as(427.89) Br anch Chest pain Chest pain Disease Active Overview : Univers 9-27 Formattin ity of 00:00: g of this 00 note Medical might be Branch different from the original. 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[employer] Essential Essential Disease Active Uni vers hypertensi hypertensi 03-30 it y of on, benign [place], benign [place] 00 [place] Left heart Left heart Disease Active U nivers failure failure 03-30 ity of 00:00: [place] 00 Medical Branch Paroxysmal Paroxysmal Disease Active U nivers ventricula ventricula it y of r r [place] tachycardi tachycardi Me dical a a Branch Allergies, Adverse Reactions, Alerts Allergy Allergy Status Severity Reaction(s) Onset Inactive Treating Comm ents Source Name Type Date Date Clinician ASPIRIN DRUG Active Hives Univers INGREDI 03-31 ity of 00:00: [place] 00 Medical Branch Aspirin Propensi Active Hives Univers ty to 03-31 ity of adverse 00:00: [place] reaction 00 Medical s Branch DIPHENHY DRUG Active Hives Univers DRAMINE INGREDI 03-30 ity of HCL 00:00: [place] 00 Medical Branch PENICILL Drug Active Hives 2005- Univers INS Class 03-30 ity of 00:00: [place] 00 Medical Branch METHYLPH DRUG Active Hives Univers ENIDATE INGREDI 03-30 ity of HCL 00:00: [place] 00 Medical Branch Diphenhy Propensi Active Hives 2005- Univer s dramine ty to 03-30 ity of Hcl adverse 00:00: [place] reaction 00 Medical s Branch Penicill Propensi Active Hives 2005- Univer s ins ty to 03-30 ity of adverse 00:00: [place] reaction 00 Medical s Branch Methylph Propensi Active Hives 2005- Univer s enidate ty to 03-30 ity of Hcl adverse 00:00: [place] reaction 00 [facility] Social History Social Habit Start Date Stop Date Quantity Comments Source Exposure to Unable to assess Univers ity of SARS-CoV-2 (event) [facility] History of tobacco Cigarette Smoker University of use [facility] Cigarettes smoked 2017-03-11 2017-03-11 Univers ity of current (pack per 00:00:00 00:00:00 ) - Reported [place] Cigarette 2017-03-11 2017-03-11 University of pack-years 00:00:00 00:00:00 [facility] Alcohol intake 2017-03-11 2017-03-11 Current University of 00:00:00 00:00:00 non-drinker of [facility] alcohol [place] (finding) Sex Ass[birth year] Universit y of 00:00:00 00:00:00 [facility] Smoking Status Start Date Stop Date Source Current every day smoker 2017-03-11 00:00:00 Uni versity of [facility] Medications Ordered Filled Start Stop Current Ordering Indication Dosage Frequency Signature Comments Components Source Medication Medication Date Date Medication? Clinician (SIG) Name Name HYDROcodone 2020- No 1{tbl} 1 tablet, Univers -acetaminop 03-10 Oral, ONCE i ty of hen (NORCO) 06:30: 05:53 NOW, 1 [place] as 10-325 mg 00 :00 dose, Tue Medic al tablet 1 03/10/21 at [place] tablet 0130, Routine metoprolol No 5mg 5 mg, Slow Univers (LOPRESSOR) 03-10 IV Push, ity of injection 5 06:30: 05:53 ONCE, 1 [place] mg 00 :00 dose, [facility] 03/10/21 at [place] 0130, [place] HYDROcodone 2020- No 1{tbl} 1 tablet, Univers -acetaminop 03-10 Oral, ONCE i ty of hen (NORCO) 06:30: 05:53 NOW, 1 [place] as 10-325 mg 00 :00 dose, [facility] Medic al tablet 1 03/10/21 at [place] tablet 0130, Routine metoprolol No 5mg 5 mg, Slow Univers (LOPRESSOR) 03-10 IV Push, ity of injection 5 06:30: 05:53 ONCE, 1 [place] mg 00 :00 dose, [facility] 03/10/21 at [place] [address], [place] traMADoL Yes [id number] 50mg Take 1 Univers (ULTRAM) 50 - tablet by ity of mg tablet 00:00: mouth [place] 00 every 6 Medical (six) Branch hours as needed for Pain (scale 7-10). Indication s: acute pain metoprolol Yes [id number] 100mg Take 1 Univers succinate 9-07 tablet by ity o f XL 100 mg 00:00: mouth [place] 24 hr 00 daily. Medical tablet Branch amLODIPine Yes [id number] 5mg Take 1 Univers 5 mg tablet 9-07 tablet by ity of 00:00: mouth [place] 00 daily. Medical Branch digoxin 125 Yes [id number] .125mg Take 1 Univers mcg tablet 9-07 tablet by ity of 00:00: mouth [place] 00 daily. Medical Branch furosemide Yes [id number] 40mg Take 2 Univers 20 mg 9-07 tablets by ity of tablet 00:00: mouth [place] 00 every Medical morning Branch and evening. ipratropium Yes [id number] 1{puff} Inhale 1 Univers 17 9-07 Puff 4 ity of mcg/actuati 00:00: (four) [place] inhaler 00 times Medical daily. Branch traMADoL Yes [id number] 50mg Take 1 Univers (ULTRAM) 50 9-07 tablet by ity of mg tablet 00:00: mouth [place] 00 every 6 Medical (six) Branch hours as needed for Pain (scale 7-10). Indication s: acute pain metoprolol Yes [id number] 100mg Take 1 Univers succinate 9-07 tablet by ity o f XL 100 mg 00:00: mouth [place] 24 hr 00 daily. Medical tablet Branch amLODIPine Yes [id number] 5mg Take 1 Univers 5 mg tablet 9-07 tablet by ity of 00:00: mouth [place] 00 daily. Medical Branch digoxin 125 Yes [id number] .125mg Take 1 Univers mcg tablet 9-07 tablet by ity of 00:00: mouth [place] 00 daily. Medical Branch furosemide Yes [id number] 40mg Take 2 Univers 20 mg 9-07 tablets by ity of tablet 00:00: mouth [place] 00 every Medical morning Branch and evening. ipratropium Yes [id number] 1{puff} Inhale 1 Univers 17 9-07 Puff 4 ity of mcg/actuati 00:00: (four[place] inhal[place] 00 times Medical daily. Branch digoxin 125 Yes 125ug Take 1 Uni vers mcg tablet 1-18 tablet by ity of 00:00: mouth [place] 00 daily. Medical Branch digoxin 125 Yes 125ug Take 1 Uni vers mcg tablet 1-18 tablet by ity of 00:00: mouth [place] 00 daily. Medical Branch digoxin 125 Yes 125ug Take 1 Uni vers mcg tablet 1-18 tablet by ity of 00:00: mouth [place] 00 daily. Medical Branch furosemide 2016-07 Yes 40mg Take 2 Unive rs 20 mg 2-18 tablets by ity of tablet 00:00: mouth [place] 00 every Medical morning Branch and evening. amLODIPine 2016-07 Yes 5mg Take 1 Unive rs 5 mg tablet 2-18 tablet by ity of 00:00: mouth [place] 00 daily. Medical Branch furosemide 2016-07 Yes 40mg Take 2 Unive rs 20 mg 2-18 tablets by ity of tablet 00:00: mouth [place] 00 every Medical morning Branch and evening. amLODIPine 2016-07 Yes 5mg Take 1 Unive rs 5 mg tablet 2-18 tablet by ity of 00:00: mouth [place] 00 daily. Medical Branch furosemide 2016-07 Yes 40mg Take 2 Unive rs 20 mg 2-18 tablets by ity of tablet 00:00: mouth [place] 00 every Medical morning Branch and evening. amLODIPine 2016-07 Yes 5mg Take 1 Unive rs 5 mg tablet 2-18 tablet by ity of 00:00: mouth [place] 00 daily. Medical Branch venlafaxine Yes 175mg Take 175 U nivers XR (EFFEXOR 9-08 mg by ity of XR) 75 mg 15:35: mouth [place] 24 hr 26 daily with Medical capsule breakfast. Branch doxepin 25 Yes 25mg Take 25 mg U nivers mg capsule 9-08 by mouth ity o f 15:35: at [place] [address] bedtime. Medical Branch venlafaxine Yes 175mg Take 175 U nivers XR (EFFEXOR 9-08 mg by ity of XR) 75 mg 15:35: mouth [place] 24 hr 26 daily with Medical capsule breakfast. Branch doxepin 25 Yes 25mg Take 25 mg U nivers mg capsule 908 by mouth ity o f 15:35: at [place] [address] bedtime. Medical Branch venlafaxine Yes 175mg Take 175 U nivers XR (EFFEXOR 9-08 mg by ity of XR) 75 mg 15:35: mouth [place] 24 hr 26 daily with Medical capsule breakfast. Branch doxepin 25 Yes 25mg Take 25 mg U nivers mg capsule 9-08 by mouth ity o f 15:35: at [place] [address] bedtime. Medical Branch metoprolol 2012-07 Yes [id number] 100mg Take 1 Tab Univers succinate 0-30 by mouth ity of XL (TOPROL 00:00: daily. [place] XL) 100 mg 00 Medical 24 hr Branch tablet metoprolol 2012-07 Yes [id number] 100mg Take 1 Tab Univers succinate 0-30 by mouth ity of XL (TOPROL 00:00: daily. [place] XL) 100 mg 00 Medical 24 hr Branch tablet metoprolol 2012-07 Yes [id number] 100mg Take 1 Tab Univers succinate 0-30 by mouth ity of XL (TOPROL 00:00: daily. [place] XL) 100 mg 00 Medical 24 hr Branch tablet warfarin Yes 4mg Take 1 Tab Uni vers (COUMADIN) 9-23 by mouth ity o f 4 mg tablet 00:00: every 00 evening. Medical Branch warfarin 2012- Yes 4mg Take 1 Tab Uni vers (COUMADIN) 9-23 by mouth ity o f 4 mg tablet 00:00: every 00 evening. Medical Branch warfarin 2012- Yes 4mg Take 1 Tab Uni vers (COUMADIN) 9-23 by mouth ity o f 4 mg tablet 00:00: every 00 evening. Medical Branch NITROGLYCER 2005-07 Yes 1 Tab SL Un cameron IN 0.4 MG 0-05 Q5MIN PRN ity o f SL SUBL 00:00: [place] 00 Medical Branch IPRATROPIUM 2005- Yes 1 Puff Univ ers BROMIDE 17 0-05 Inhale QID ity of MCG/ACTUATI 00:00: prn sob [place] ON INHALE 00 Medical AERO Branch TRAZODONE 2005-07 Yes 2 Tab Oral Un [place] 100 MG ORAL 0-05 QHS for 1 ity of TAB 00:00: wk, then 1 tab po qhs Medical for 1wk Branch then stop NITROGLYCER 2005-07 Yes 1 Tab SL Un [place] IN 0.4 MG 0-05 Q5MIN PRN ity o f SL SUBL 00:00: [place] 00 Medical Branch IPRATROPIUM 2005- Yes 1 Puff Univ ers BROMIDE 17 0-05 Inhale QID ity of MCG/ACTUATI 00:00: prn sob [place] as ON INHALE 00 Medical AERO Branch TRAZODONE 2005-07 Yes 2 Tab Oral Un [place] 100 MG ORAL 0-05 QHS for 1 ity of TAB 00:00: wk, then 1 tab po qhs Medical for 1wk Branch then stop NITROGLYCER 2005-07 Yes 1 Tab SL Un cameron IN 0.4 MG 0-05 Q5MIN PRN ity o f SL SUBL 00:00: [place] 00 Medical Branch IPRATROPIUM 2005- Yes 1 Puff Univ ers BROMIDE 17 0-05 Inhale QID ity of MCG/ACTUATI 00:00: prn sob [place] ON INHALE 00 Medical AERO Branch TRAZODONE 2005-07 Yes 2 Tab Oral Un [place] 100 MG ORAL 0-05 QHS for 1 ity of TAB 00:00: wk, then 1 [place] 00 tab po qhs Medical for 1wk Branch then stop Immunizations Ordered Filled Immunization Date Status Comments Sourc e Immunization Name Name Pneumococcal 2013-03-26 Completed [place] o f Polysaccharide, 00:00:00 [place] Med ical PPSV23 (PNEUMOVAX) Branch Pneumococcal 2013-03-26 Completed [place] o f Polysaccharide, 00:00:00 [place] Med ical PPSV23 (PNEUMOVAX) Branch Pneumococcal 2013-03-26 Completed [place] o f Polysaccharide, 00:00:00 [place] Med ical PPSV23 (PNEUMOVAX) Branch Vital Signs Vital Name Observation Time Observation Value Comments Source Systolic blood 2021-03-10 09:10:00 138 mm[Hg] [facility] Diastolic blood 2021-03-10 09:10:00 101 mm[Hg] [facility] Heart rate 2021-03-10 09:10:00 77 /min [facility] Respiratory rate 2021-03-10 09:10:00 16 /min [facility] Oxygen saturation in 2021-03-10 09:10:00 98 /min [facility] Arterial blood by [facility] Pulse oximetry [place] Body temperature 2021-03-10 02:47:00 37.39 Ania [facility] Body height 2021-03-10 02:47:00 167.6 cm [facility] Body weight 2021-03-10 02:47:00 48.943 kg [facility] BMI 2021-03-10 02:47:00 17.42 kg/m2 [facility] Procedures Procedure Date / Time Performed Performing Clinician Giuseppe gilbert XR KNEE <3 VW LEFT 2021-03-10 08:10:55 Ying Shaffer [facility] CONSENT/REFUSAL FOR 2021-03-10 02:27:57 Doctor Unassigned, No Un [facility] DIAGNOSIS AND Name Medical Branch TREATMENT Encounters Start End Encounter Admission Attending Care Care Encounter Source Date/Time Date/Time Type Type Clinicians Facility Department ID 2021-05-04 Emergency [facility] [id number] Univers 20:41:38 ity [facility] 2021-03-09 2021-03-10 Emergency ELISHA Shaffer [id number] Univers 21:57:00 04:13:00 Ying Wen [id number] ity of [place] [id number] [facility] [id number] [facility] 084 Branch 2021-03-09 2021-03-09 Orders Doctor ETHEL [id number] Univers 00:00:00 00:00:00 Only Unassigned, BULMARO [id number] ity of [place] [facility] [id number] [facility] [id number] [facility] 009 Branch 2017-08-17 2017-08-17 Outpatient [facility] [id number] 19:19:00 19:19:00 [facility] 2017-02-25 2017-02-25 Outpatient [facility] [id number] [place] 00:00:00 00:00:00 Health 2017-01-27 2017-01-27 Outpatient [facility] [id number] [place] 00:00:00 00:00:00 Health 2017-01-27 2017-01-27 Outpatient [facility] [id number] [place] 00:00:00 00:00:00 Health 2016-11-30 2016-11-30 Outpatient [facility] [id number] [place] 09:47:50 09:47:50 Health Results Test Test Test Results Result Source Description Time Comments Comments XR KNEE <3 VW 2021-03- Postsurgical changes University of [facility] 07 with no acute fractures [place] 08:35:07 or dislocations are Branc h seen. RL: 135 END OF REPORT ORDERING PHYSICIAN:YING DIMAS CLINICAL INFORMATION: ? knee pain COMPARISON: None Technique: ? 4 views of the left knee Findings: Mineralization is age appropriate. No acute fractures or dislocations areseen. There is no suprapatellar effusion. Proximal aspect of anintramedullary chelo is seen in the proximal left tibia. [facility], Radiant Results Inft User - 03/10/2021 3:36 AM CDT ORDERING PHYSICIAN:YING SHAFFER CLINICAL INFORMATION: knee pain COMPARISON: NoneTechnique: 4 views of the left kneeFindings:Mineralizat ion is age appropriate. No acute fractures or dislocations areseen. There is no suprapatellar effusion. Proximal aspect of anintramedullary chelo is seen in the proximal left tibia.IMPRESSIONPostsurg ical changes with no acute fractures or dislocations are seen.RL: 135END OF REPORT KNEE <3 VW 2021-03- Postsurgical changes University of LEFT 07 with no acute fractures [place] 08:35:07 or dislocations are Branc h seen. RL: 135 END OF REPORT ORDERING PHYSICIAN:YING DIMAS CLINICAL INFORMATION: ? knee pain COMPARISON: None Technique: ? 4 views of the left knee Findings: Mineralization is age appropriate. No acute fractures or dislocations areseen. There is no suprapatellar effusion. Proximal aspect of anintramedullary chelo is seen in the proximal left tibia. [facility], Radiant Results Inft User - 03/10/2021 3:36 AM CDT ORDERING PHYSICIAN:YING SHAFFER CLINICAL INFORMATION: knee pain COMPARISON: NoneTechnique: 4 views of the left kneeFindings:Mineralizat ion is age appropriate. No acute fractures or dislocations areseen. There is no suprapatellar effusion. Proximal aspect of anintramedullary chelo is seen in the proximal left tibia.IMPRESSIONPostsurg ical changes with no acute fractures or dislocations are seen.RL: 135END OF REPORT Thyroid Stimulating Hormone (TSH) 2017-08-18 00:14:00 Test Item Value Reference Range Interpretation Comme nts TSH (test code = TSH) 1.86 mIU/mL 0.270-4.200 N Sed Rate ESR ([place])2017-08-17 21:38:00 Test Item Value Reference Range Interpretation Comments ESR (test code = HESR) 4 mm/Hr 0-20 N Lipid [id number] 20:38:00 Test Item Value Reference Range Interpretation [...] (test code = LDLC) DISEASEPu blished by [place] Heart AssociationAnal yte Optim al Boderline Increased RiskC HOL <200 200-239 >240TRI G <150 150-199 >200HDL Male: >60 <40HDL Female: >60 <50 LDL < 100 130-15 9 >160 LDL NEAR OPTIMAL IS 100- 129 VLDL (test code = 65 mg/dL 5-40 H VLDL) LDL/HDL (test code = 2 LDLPHDL) Comprehensive Metabolic [id number] 20:38:00 Test Item Value Reference Range Interpretation [...] by the National Kidney Foundation,http ://nkd ep.nih.gov [id number] 20:38:00 Test Item Value Reference Range Interpretation Comments NT ProBnp (test code = PBNP) 775 pg/mL 0-124 H Prothrombin [id number] 20:34:00 Test Item Value Reference Range Interpretation Comments PT (test code = PT) 19.80 seconds 9.78-13.35 H INR (test code = INR) 1.76 Ratio 0.6-1.2 H CBC with [id number] 20:13:00 Test Item Value Reference Range Interpretation [...] code = ALYMPH) 4.9 K/cumm 0.5-4.6 H [place] Abs (test code = AMONO) 0.4 K/cumm 0.0-1.2 N Eos Abs (test code = AEOS) 0.22 K/cumm 0.00-0.74 N Baso Abs (test code = ABASO) 0.2 K/cumm 0.00-0.21 N Anisocytosis (test code = ANISO) Slight Hypochromic (test code = HYPO) Slight
[2021-06-21] MEDS ORDERED: ALBUTEROL 2.5 MG/3 ML NEB SOL ONE (22:18)
[2021-06-21] MEDS ORDERED: IPRATROPIUM BROM 0.5MG/2.5ML ONE (22:18)
[2021-06-21 22:40] LABS: Protime INR 0.97
[2021-06-21 22:56] LABS: Basophils % 3.5 % (0-1.3); Hematocrit 35.9 % (36.0-45.0); Lymphocytes % 47.4 % (15.3-44.8); MPV 9.7 fL (7.6-11.3); RBC Red Blood Cell Count 4.87 M/uL (3.86-4.86)
[2021-06-21 23:05] LABS: Albumin 3.4 g/dL (3.4-5.0); Bilirubin Direct 0.1 mg/dL (0-0.2); Bilirubin Total 0.4 mg/dL (0.2-1.0); Potassium 3.4 mmol/L (3.5-5.1); Troponin (Emerg Dept Use Only) 0.05 ng/mL (0.0-0.045)
[2021-06-21 23:10] LABS: Urine Blood 1+ (Negative); Urine Glucose Negative (Negative); Urine Protein Negative (Negative); Urine Specific Gravity 1.015 (1.005-1.030)
[2021-06-21 23:11] LABS: SARS-COV-2 RT PCR NEGATIVE (NEGATIVE)
[2021-06-21 23:30] LABS: Anisocytosis 1+; Blood Morphology Comment NOTED (NOT SEEN); Platelet Estimate ADEQ
[2021-06-21] MEDS ORDERED: FUROSEMIDE 40 MG/4 ML VIAL ONE (23:38)
[2021-06-21] MEDS ORDERED: NITROGLYCERIN 1 GM PKT TD ONE (23:38)
--- NOTE | 2021-06-21 23:59 | ER ---
Nurse's Notes [facility] Name: Carli Alves Age: 65 yrs Sex: Female : 1955 Arrival Date: 06/21/2021 Time: 21:47 Bed 7 Private MD: Diagnosis: Acute on chronic combined systolic (congestive) and diastolic (congestive) heart failure;Elevated troponin level Presentation: 06/21 21:53 Chief complaint: Patient states: SOB began yesterday. Upon arrival to ER pt SpO2 99% ld1 RA. Pt reports not taking any of her medications because she ran out and she can not afford them. Coronavirus screen: At this time, the client does not indicate any symptoms associated with coronavirus-19. Ebola Screen: No symptoms or risks identified at this time. Initial Sepsis Screen: Does the patient meet any 2 criteria? No. Patient's initial sepsis screen is negative. Does the patient have a suspected source of infection? No. Patient's initial sepsis screen is negative. Risk Assessment: Do you want to hurt yourself or someone else? Patient reports no desire to harm self or others. Onset of symptoms was June 21, 2021. 21:53 Method Of Arrival: Wheelchair ld1 21:53 Acuity: MELLISSA 3 ld1 Triage Assessment: 21:56 General: Appears in no apparent distress. comfortable, Behavior is calm, cooperative, ld1 appropriate for age. General: Appears Behavior is. Pain: Denies pain. EENT: No signs and/or symptoms were reported regarding the EENT system. EENT:. Neuro: Level of Consciousness is awake, alert, obeys commands, Oriented to person, place, time, situation. Neuro: Speech is slurred.. Cardiovascular: Capillary refill < 3 seconds Patient's skin is warm and dry. Respiratory: Reports shortness of breath Onset: The symptoms/episode began/occurred gradually, the patient has mild shortness of breath. GI: Abdomen is flat, non-distended. : No signs and/or symptoms were reported regarding the genitourinary system. Derm: No signs and/or symptoms reported regarding the dermatologic system. Musculoskeletal: No signs and/or symptoms reported regarding the musculoskeletal system. Historical: - Allergies: 21:56 Aspirin; ld1 21:56 diphenhydramine HCl; ld1 21:56 Metoclopramide; ld1 21:56 PENICILLINS; ld1 - Home Meds: 21:56 None [Active]; ld1 - PMHx: 21:56 Atrial Fib; CHF; COPD; CVA; Hodgkin's Lymphoma; Hypertension; ld1 - PSHx: 21:56 None; ld1 - Immunization history:: Adult Immunizations up to date, Client reports receiving the 2nd dose of the Covid vaccine. - Social history:: Smoking status: Patient reports the use of cigarette tobacco products, smokes one pack cigarettes per day. Patient/guardian denies using alcohol, street drugs. Screenin:26 Abuse screen: Denies threats or abuse. Nutritional screening: No deficits noted. as6 Tuberculosis screening: No symptoms or risk factors identified. Fall Risk. Assessment: 22:27 General: Appears slender, unkempt, Behavior is calm, cooperative, appropriate for age. tw5 Cardiovascular: Rhythm is sinus rhythm with unifocal PVCs. Respiratory: Airway is patent Trachea midline Respiratory effort is labored, Respiratory pattern is regular, Breath sounds are coarse bilaterally. 22:55 Reassessment: Patient appears in no apparent distress at this time. No changes from tw5 previously documented assessment. Patient and/or family updated on plan of care and expected duration. Pain level reassessed. 23:46 Reassessment: Patient appears in no apparent distress at this time. No changes from tw5 previously documented assessment. Patient and/or family updated on plan of care and expected duration. Pain level reassessed. General: Behavior is calm, cooperative, appropriate for age. Vital Signs: 21:53 BP 179 / 107; Pulse 75; Resp 20; Temp 98.6(TE); Pulse Ox 99% on R/A; Weight 47.63 kg; ld1 Height 5 ft. 1 in. (154.94 cm); Pain 0/10; 22:27 BP 175 / 101; Pulse 78; Resp 18; Pulse Ox 100% on R/A; tw5 22:55 BP 175 / 104; Pulse 77; Resp 18; Pulse Ox 97% on R/A; tw5 23:46 BP 170 / 99; Pulse 76; Resp 27; Pulse Ox 97% on R/A; tw5 21:53 Body Mass Index 19.84 (47.63 kg, 154.94 cm) ld1 ED Course: 21:47 Patient arrived in ED. cf2 21:56 Triage completed. ld1 21:56 Arm band placed on right wrist. ld1 22:04 Christopher Kerr MD is Attending Physician. mh7 22:11 Milly Layton is Primary Nurse. tw5 22:25 COVID-19/FLU A+B/RSV (Document "Date of Onset" if Symptomatic) Sent. as6 22:26 Inserted saline lock: 22 gauge in left hand, using aseptic technique. Blood collected. as6 22:27 Awaiting lab results, Awaiting for x-ray. tw5 22:27 Patient has correct armband on for positive identification. Placed in gown. Bed in low tw5 position. Call light in reach. Side rails up X2. Adult w/ patient. hall monitor on. Pulse ox on. NIBP on. Door closed. Moved to private room. Pillow given. Verbal reassurance given. 22:27 Initial lab(s) drawn, by me, sent to lab. EKG done, by ED staff, reviewed by Christopher Kerr MD. 22:36 XRAY Chest (1 view) In Process Unspecified. EDMS 22:55 COVID-19/FLU A+B/RSV (Document "Date of Onset" if Symptomatic) Sent. tw5 22:55 Basic Metabolic Panel Sent. tw5 22:55 CBC with Diff Sent. tw5 22:55 LFT's Sent. tw5 22:55 Magnesium Sent. tw5 22:55 NT PRO-BNP Sent. tw5 22:55 Troponin (emerg Dept Use Only) Sent. tw5 23:47 Basic Metabolic Panel Sent. tw5 23:52 Oxygen administration via nasal cannula \\T\\ 2L/min. tw5 23:57 Neena Adams MD is Hospitalizing Provider. [facility] 06/22 01:08 No provider procedures requiring assistance completed. Patient admitted, IV remains in as6 place. Administered Medications: 06/21 22:25 Drug: Albuterol 2.5 mg Route: Inhalation; as6 06/22 01:09 Follow up: Response: No adverse reaction as6 06/21 22:25 Drug: AtroVENT (ipratropium) Aerosol 0.5 mg Route: Inhalation; as6 06/22 01:09 Follow up: Response: No adverse reaction as6 06/21 23:44 Drug: Nitro-Bid (nitroglycerin) Ointment 2 % 0.5 inches Route: Transdermal; Site: tw5 anterior chest wall; 06/22 01:09 Follow up: Response: No adverse reaction as6 06/21 23:46 Drug: Lasix (furosemide) 40 mg Route: IVP; Site: left hand; tw5 06/22 01:09 Follow up: Response: No adverse reaction as6 Outcome: 06/21 23:58 Decision to Hospitalize by Provider. [facility] 06/22 00:49 Admitted to Med/surg Report called to Attempted to called to report. Spoke to Kirti 5 she stated she would find the nurse and have them call back. 01:08 Condition: stable as6 01:08 Patient left the ED. as6 Signatures: Dispatcher [employer] EDMS Geraldo Ryan 2 Christopher Kerr MD MD 7 Hailey Womack RN RN ld1 Milly Layton 5 Turner Fallon RN RN as6 Corrections: (The following items were deleted from the chart) 06/21 21:57 21:53 Chief complaint: Patient states: SOB began yesterday. Upon arrival to ER pt SpO2 ld1 99% RA. ld1 21:57 21:56 Home Meds: Albuterol Inhl; ld1 ld1 21:57 21:56 Home Meds: amlodipine 5 mg tab 1 tab once daily; ld1 ld1 21:57 21:56 Home Meds: digoxin 125 mcg Oral tab once daily; ld1 ld1 21:57 21:56 Home Meds: furosemide 40 mg Oral tab 1 tab 2 times per day; ld1 ld1
--- NOTE | 2021-06-21 23:59 | EDPHYS ---
Physician Documentation [facility] Name: Carli Alves Age: 65 yrs Sex: Female : 1955 Arrival Date: 06/21/2021 Time: 21:47 Bed 7 Private MD: ED Physician Christopher Kerr HPI: 06/21 22:28 This 65 yrs old Female presents to ER via Wheelchair with complaints of Breathing mh7 Difficulty, Fever, High Blood Pressure. 22:28 The patient has shortness of breath at rest, with light activity. Onset: The mh7 symptoms/episode began/occurred yesterday. Duration: The symptoms are intermittent, with no pattern. The patient's shortness of breath is aggravated by coughing, light activity, is alleviated by nebulizer treatment. Associated signs and symptoms: Pertinent positives: productive cough, Pertinent negatives: chest pain, non-productive cough, diaphoresis, dizziness, fever, hemoptysis, loss of consciousness, nausea, numbness in extremities, visual changes, vomiting. Severity of symptoms: At their worst the symptoms were moderate last night, in the emergency department the symptoms have improved moderately. Historical: - Allergies: 21:56 Aspirin; ld1 21:56 diphenhydramine HCl; ld1 21:56 Metoclopramide; ld1 21:56 PENICILLINS; ld1 - Home Meds: 21:56 None [Active]; ld1 - PMHx: 21:56 Atrial Fib; CHF; COPD; CVA; Hodgkin's Lymphoma; Hypertension; ld1 - PSHx: 21:56 None; ld1 - Immunization history:: Adult Immunizations up to date, Client reports receiving the 2nd dose of the Covid vaccine. - Social history:: Smoking status: Patient reports the use of cigarette tobacco products, smokes one pack cigarettes per day. Patient/guardian denies using alcohol, street drugs. ROS: 22:28 Constitutional: Negative for fever, chills, and weight loss, Eyes: Negative for injury, mh7 pain, redness, and discharge, ENT: Negative for injury, pain, and discharge, Neck: Negative for injury, pain, and swelling, Cardiovascular: Negative for chest pain, palpitations, and edema, Abdomen/GI: Negative for abdominal pain, nausea, vomiting, diarrhea, and constipation, Back: Negative for injury and pain, : Negative for injury, bleeding, discharge, and swelling, MS/Extremity: Negative for injury and deformity, Skin: Negative for injury, rash, and discoloration, Neuro: Negative for headache, weakness, numbness, tingling, and seizure, Psych: Negative for depression, anxiety, suicide ideation, homicidal ideation, and hallucinations, Allergy/Immunology: Negative for hives, rash, and allergies, Endocrine: Negative for neck swelling, polydipsia, polyuria, polyphagia, and marked weight changes, Hematologic/Lymphatic: Negative for swollen nodes, abnormal bleeding, and unusual bruising. Exam: 22:28 Constitutional: This is a well developed, well nourished patient who is awake, alert, mh7 and in no acute distress. Head/Face: Normocephalic, atraumatic. Eyes: Pupils equal round and reactive to light, extra-ocular motions intact. Lids and lashes normal. Conjunctiva and sclera are non-icteric and not injected. Cornea within normal limits. Periorbital areas with no swelling, redness, or edema. Neck: Trachea midline, no thyromegaly or masses palpated, and no cervical lymphadenopathy. Supple, full range of motion without nuchal rigidity, or vertebral point tenderness. No Meningismus. Chest/axilla: Normal chest wall appearance and motion. Nontender with no deformity. No lesions are appreciated. Cardiovascular: Regular rate and rhythm with a normal S1 and S2. No gallops, murmurs, or rubs. Normal PMI, no JVD. No pulse deficits. 22:28 Abdomen/GI: Soft, non-tender, with normal bowel sounds. No distension or tympany. No guarding or rebound. No evidence of tenderness throughout. Back: No spinal tenderness. No costovertebral tenderness. Full range of motion. Skin: Warm, dry with normal turgor. Normal color with no rashes, no lesions, and no evidence of cellulitis. MS/ Extremity: Pulses equal, no cyanosis. Neurovascular intact. Full, normal range of motion. Neuro: Awake and alert, GCS 15, oriented to person, place, time, and situation. Cranial nerves II-XII grossly intact. Motor strength 5/5 in all extremities. Sensory grossly intact. Cerebellar exam normal. Normal gait. Psych: Awake, alert, with orientation to person, place and time. Behavior, mood, and affect are within normal limits. 22:28 Respiratory: the patient does not display signs of respiratory distress, Respirations: prolonged exhalation, that is mild, Breath sounds: rhonchi, that are mild, are scattered, Respiratory rate: 18 Vital Signs: 21:53 BP 179 / 107; Pulse 75; Resp 20; Temp 98.6(TE); Pulse Ox 99% on R/A; Weight 47.63 kg; ld1 Height 5 ft. 1 in. (154.94 cm); Pain 0/10; 22:27 BP 175 / 101; Pulse 78; Resp 18; Pulse Ox 100% on R/A; tw5 22:55 BP 175 / 104; Pulse 77; Resp 18; Pulse Ox 97% on R/A; tw5 23:46 BP 170 / 99; Pulse 76; Resp 27; Pulse Ox 97% on R/A; tw5 21:53 Body Mass Index 19.84 (47.63 kg, 154.94 cm) ld1 MDM: 23:56 Differential diagnosis: Anemia Anxiety Reaction asthma, Bronchitis CHF exacerbation, 7 Chronic Obstructive Pulmonary Disease Myocardial Infarction pneumonia, Psychogenic pulmonary edema, reactive airway disease, Unstable Angina. Data reviewed: vital signs, nurses notes, old medical records, lab test result(s), cardiac enzymes, CBC, electrolytes, EKG, radiologic studies, plain films. Data interpreted: Pulse oximetry: on room air is 97 %. Interpretation: normal. Counseling: I had a detailed discussion with the patient and/or guardian regarding: the historical points, exam findings, and any diagnostic results supporting the discharge/admit diagnosis, the presence of at least one elevated blood pressure reading (>120/80) during this emergency department visit, lab results, radiology results, the need for further work-up and treatment in the hospital. Response to treatment: the patient's symptoms have mildly improved after treatment. 23:58 Patient medically screened. [facility] 06/21 22:11 Order name: Basic Metabolic Panel [facility] 06/21 22:11 Order name: CBC with Diff; Complete Time: 23:45 [facility] 06/21 22:11 Order name: LFT's; Complete Time: 23:12 [facility] 06/21 22:11 Order name: Magnesium; Complete Time: 23:12 [facility] 06/21 22:11 Order name: NT PRO-BNP; Complete Time: 23:12 [facility] 06/21 22:11 Order name: PT-INR; Complete Time: 23:12 7 06/21 22:11 Order name: Troponin (emerg Dept Use Only); Complete Time: 23:12 7 06/21 22:11 Order name: XRAY Chest (1 view) [facility] 06/21 22:11 Order name: Basic Metabolic Panel; Complete Time: 23:12 EDMS 06/21 22:12 Order name: COVID-19/FLU A+B/RSV (Document "Date of Onset" if Symptomatic); Complete 7 Time: 23:12 06/21 22:57 Order name: Manual Differential; Complete Time: 23:45 EDMS 06/21 23:10 Order name: Urine Dipstick-Ancillary; Complete Time: 23:12 EDMS 06/21 22:11 Order name: EKG; Complete Time: 22:12 7 06/21 22:11 Order name: Cardiac monitoring; Complete Time: 22:25 7 06/21 22:11 Order name: EKG - Nurse/Tech; Complete Time: 22:23 7 06/21 22:11 Order name: IV Saline Lock; Complete Time: 22:25 7 06/21 22:11 Order name: Labs collected and sent; Complete Time: 22:25 7 06/21 22:11 Order name: O2 Per Protocol; Complete Time: 22:25 7 06/21 22:11 Order name: O2 Sat Monitoring; Complete Time: 22:25 7 06/21 22:12 Order name: Urine Dipstick-Ancillary (obtain specimen); Complete Time: 23:10 mh7 Administered Medications: 22:25 Drug: Albuterol 2.5 mg Route: Inhalation; 06/22 01:09 Follow up: Response: No adverse reaction 06/21 22:25 Drug: AtroVENT (ipratropium) Aerosol 0.5 mg Route: Inhalation; 06/22 01:09 Follow up: Response: No adverse reaction 06/21 23:44 Drug: Nitro-Bid (nitroglycerin) Ointment 2 % 0.5 inches Route: Transdermal; Site: tw5 anterior chest wall; 06/22 01:09 Follow up: Response: No adverse reaction 06/21 23:46 Drug: Lasix (furosemide) 40 mg Route: IVP; Site: left hand; tw5 06/22 01:09 Follow up: Response: No adverse reaction as6 Disposition Summary: 06/21/21 23:58 Hospitalization Ordered Hospitalization Status: Inpatient Admission [facility] Provider: Neena Adams Location: Telemetry/MedSurg (Inpatient) [facility] Condition: Stable [facility] Problem: an acute exacerbation [facility] Symptoms: have improved [facility] Bed/Room Type: Standard [facility] Room Assignment: 213(06/22/21 00:34) Diagnosis - Acute on chronic combined systolic (congestive) and diastolic (congestive) heart [facility] failure - Elevated troponin level [facility] Forms: - Medication Reconciliation Form [facility] - SBAR form [facility] Signatures: Dispatcher [employer] EDConsuelo Osborn RN RN mw Holmes, Maurice, MD MD [facility] Hailey Womack RN RN ld1 Milly Layton tw5 Turner Fallon RN RN as6 Corrections: (The following items were deleted from the chart) 06/21 21:57 21:56 Home Meds: Albuterol Inhl; 21:57 21:56 Home Meds: amlodipine 5 mg tab 1 tab once daily; ld1 1 21:57 21:56 Home Meds: digoxin 125 mcg Oral tab once daily; ld1 21:57 21:56 Home Meds: furosemide 40 mg Oral tab 1 tab 2 times per day; 1 ld1 06/22 00:34 06/21 23:58 [facility] mw
[2021-06-22] MEDS ORDERED: HYDRALAZINE HCL 20 MG/ML VIAL IV PRN (01:01)
[2021-06-22] MEDS ORDERED: ACETAMINOPHEN 500 MG TAB PO PRN (01:01)
[2021-06-22] MEDS ORDERED: IPRATROPIUM BROM 0.5MG/2.5ML NEB PRN (01:01)
[2021-06-22] MEDS ORDERED: ALBUTEROL 2.5 MG/3 ML NEB SOL NEB PRN (01:01)
[2021-06-22] MEDS ORDERED: ONDANSETRON 4 MG/2 ML VIAL IV PRN (01:01)
[2021-06-22] MEDS ORDERED: HEPARIN 5000 UNIT/ML 1 ML VIAL SQ SCH (01:01)
[2021-06-22 01:27] VITALS: BMI 17.2
--- NOTE | 2021-06-22 01:42 | P.HP ---
Certification for Inpatient Patient admitted to: Inpatient With expected LOS: <2 Midnights Patient will require the following post-hospital care: None Practitioner: I am a practitioner with admitting privileges, knowledge of patient current condition, hospital course, and medical plan of care. Services: Services provided to patient in accordance with Admission requirements found in Title 42 Section 412.3 of the Code of Federal Regulations Patient History Date of Service: 06/22/21 Reason for admission: SOB, elevated BP History of Present Illness: Ms. Alves is a 65 yo F with CHF, HTN, atrial fibrillation with ICD who presents with one day of SOB and TERRAZAS beginning this morning. She also reports nonproductive cough. Denies fever, wheezing, pleuritic pain, orthopnea, PND, edema. Her blood pressure was noted to be elevated to 179/80 upon arrival. She says she has not taken her medications for 4 months because she is waiting for health insurance to begin in July. Troponin 0.05 K 3.4 BNP 3189. Given IV Lasix in the ED. Allergies aspirin Allergy (Verified 11/26/18 15:24) Itching diphenhydramine HCl [From Benadryl] Allergy (Verified 11/26/18 15:24) unknown metoclopramide [From Reglan] Allergy (Verified 11/29/18 15:53) Rash Penicillins Allergy (Verified 11/26/18 15:24) Unknown Home Medications: Amlodipine [Norvasc*] 5 mg PO DAILY 06/02/19 Furosemide [Lasix] 40 mg PO BID 06/02/19 Venlafaxine HCl [Venlafaxine HCl ER] 225 mg PO DAILY 06/02/19 Albuterol Sulfate [Proair Digihaler] 2 puff IH QID 05/12/20 Digoxin [Lanoxin*] 0.125 mg PO DAILY 05/12/20 Mirtazapine [Remeron*] 15 mg PO BEDTIME 05/12/20 Atorvastatin Calcium [Lipitor] 40 mg PO DAILY 30 Days #30 tablet 05/13/20 Clopidogrel Bisulfate [Plavix*] 75 mg PO DAILY 30 Days #30 tablet 05/13/20 Folic Acid 1 mg PO DAILY 30 Days #30 tablet 05/13/20 Potassium Chloride 10 meq PO DAILY 30 Days #30 tablet.er 05/13/20 Warfarin Sodium [Coumadin*] 5 mg PO DAILY 5 PM 30 Days #30 tab 05/13/20 - Past Medical/Surgical History Diabetic: No -: htn -: copd -: asthma -: chf -: smoker -: pacemaker icd -: depression -: thrombectomy -: left leg surgery - Family History Mother -: Hypertension - Social History Smoking Status: Current every day smoker Alcohol use: No CD- Drugs: No Caffeine use: Yes Place of Residence: Home Review of Systems 10-point ROS is otherwise unremarkable General: Unremarkable Eyes: Unremarkable ENT: Unremarkable Respiratory: Cough, Shortness of Breath, SOB with Excertion Cardiovascular: Unremarkable Gastrointestinal: Unremarkable Genitourinary: Unremarkable Musculoskeletal: Unremarkable Integumentary: Unremarkable Neurological: Unremarkable Lymphatics: Unremarkable Physical Examination - Vital Signs Temperature: 98.6 F Blood Pressure: 170/99 Pulse: 76 Respirations: 27 - Physical Exam General: Alert, In no apparent distress HEENT: Atraumatic, PERRLA, Mucous membr. moist/pink, EOMI, Sclerae nonicteric Neck: Supple, 2+ carotid pulse no bruit, No LAD, Without JVD or thyroid abnormality Respiratory: Normal air movement, Crackles/rales Cardiovascular: No edema, Normal S1 S2, Irregular heart rate/rhythm Gastrointestinal: Normal bowel sounds, No tenderness Musculoskeletal: No tenderness Integumentary: No rashes Neurological: Normal speech, Normal strength at 5/5 x4 extr, Normal tone, Normal affect Lymphatics: No axilla or inguinal lymphadenopathy - Studies Laboratory Data (last 24 hrs) 06/21/21 22:23: PT 11.1, INR 0.97 06/21/21 22:23: WBC 6.30, Hgb 11.7 L, Hct 35.9 L, Plt Count 164 06/21/21 22:23: Sodium 144, Potassium 3.4 L, BUN 15, Creatinine 0.98, Glucose 100, Magnesium 2.0, Total Bilirubin 0.4, AST 21, ALT 16, Alkaline Phosphatase 138 H Assessment and Plan - Problems (Diagnosis) (1) History of stroke Current Visit: Yes Status: Chronic (2) CHF (congestive heart failure) Current Visit: Yes Status: Acute Qualifiers: Heart failure type: unspecified Heart failure chronicity: acute on chronic Qualified Code(s): I50.9 - Heart failure, unspecified (3) History of atrial fibrillation Current Visit: No Status: Acute (4) Hypertension Current Visit: No Status: Chronic Qualifiers: Hypertension type: primary hypertension Qualified Code(s): I10 - Essential (primary) hypertension - Plan repeat EKG trend troponins, ECHO pending continue IV lasix daily weights, fluid restrict 1500cc daily, O2 as needed breathing treatments as needed hydralazine PRN for BP spikes restart eliquis, restart metoprolol potassium replacement protocol social work consulted Discharge Plan: Home Plan to discharge in: 48 Hours - Advance Directives Does patient have a Living Will: No Does patient have a Durable POA for Healthcare: No - Code Status/Comfort Care Code Status Assessed: Yes (full code ) Critical Care: No Time Spent Managing Pts Care (In Minutes): 70
[2021-06-22] MEDS: METOPROLOL TAR 25 MG TAB PO SCH ×2 (02:31→06:21)
[2021-06-22 02:58] LABS: Ferritin 46.7 ng/mL (8-388); Thyroid Stimulating Hormone 2.55 uIU/mL (0.360-3.740)
[2021-06-22 06:29] LABS: Hematocrit 36.8 % (36.0-45.0); MPV 10.6 fL (7.6-11.3); RBC Red Blood Cell Count 5.04 M/uL (3.86-4.86)
[2021-06-22 06:43] LABS: Albumin 3.5 g/dL (3.4-5.0); Bilirubin Total 0.5 mg/dL (0.2-1.0); Potassium 3.2 mmol/L (3.5-5.1); Protein, Total 8.2 g/dL (6.4-8.2)
[2021-06-22 07:08] LABS: Phosphorus 3.4 mg/dL (2.5-4.9)
[2021-06-22 07:16] LABS: Anisocytosis 1+; Blood Morphology Comment NOTED (NOT SEEN); Platelet Estimate ADEQ
--- NOTE | 2021-06-22 08:02 | RAD REPORT ---
EXAM DESCRIPTION: RAD - Chest Single View - 06/21/2021 10:36 pm CLINICAL HISTORY: Cough;SOB COMPARISON: Chest Single View dated 06/14/2020; Chest Single View dated 05/11/2020; Chest Single View dated 06/01/2019; Chest Single View dated 12/02/2018 FINDINGS: Lines: ICD. Lungs: No evidence of edema or pneumonia. Calcified nodule peripherally in the right lower lobe. Pleural: No significant pleural effusions or pneumothorax. Cardiac: The heart size is within normal limits. Bones: No acute fractures. Other: IMPRESSION: No acute cardiopulmonary disease.
--- NOTE | 2021-06-22 08:09 | EKG ---
Test Date: 2021-06-21 Test Time: 22:20:29 Research Food Technologist: ALYSSA MEASUREMENT RESULTS: Intervals: Rate: 87 NJ: 206 QRSD: 78 QT: 420 QTc: 505 Parachute: P: 92 NJ: 206 QRS: -58 T: 84 INTERPRETIVE STATEMENTS: Sinus rhythm with premature atrial complexes with aberrant conduction Left axis deviation Septal infarct, age undetermined Abnormal ECG Compared to ECG 06/14/2020 16:24:36 Aberrant conduction of supraventricular beat(s) now present ST (T wave) deviation no longer present Possible ischemia no longer present Myocardial infarct finding still present Electronically Signed On 06-22-21 08:08:41 [employer] PROFESSIONAL by Mukul Seaman
[2021-06-22 08:48] VITALS: O2SAT 97
[2021-06-22] MEDS ORDERED: APIXABAN 5 MG TABLET PO SCH (09:00)
[2021-06-22] MEDS ORDERED: FUROSEMIDE 40 MG/4 ML VIAL IV SCH (09:00)
[2021-06-22] MEDS ORDERED: POTASSIUM CL SA 10 MEQ TAB PO ONE (09:00)
--- NOTE | 2021-06-22 09:34 | P.DS ---
Admission Date: 06/22/21 Discharge Date: 06/22/21 Primary Care Provider: none Disposition: ROUTINE DISCHARGE Discharge Condition: GOOD Reason for Admission: SOB, elevated BP Consultations: none Procedures: COVID: Negative Influenza: Negative CXR: COMPARISON: Chest Single View dated 06/14/2020; Chest Single View dated 05/11/2020; Chest Single View dated 06/01/2019; Chest Single View dated 12/02/2018 FINDINGS: Lines: ICD. Lungs: No evidence of edema or pneumonia. Calcified nodule peripherally in the right lower lobe. Pleural: No significant pleural effusions or pneumothorax. Cardiac: The heart size is within normal limits. Bones: No acute fractures. IMPRESSION: No acute cardiopulmonary disease. Medical Problem List: Dyspnea secondary to acute on chronic diastolic CHF Atrial fibrillation on chronic anticoagulation therapy COPD Hypertension History of CVA Hyperlipidemia Tobacco abuse Depression with anxiety GERD CAD with prior internal cardiac defibrillator Poor compliance with follow-up Brief History of Present Illness: 65-year-old with CHF, hypertension and atrial fibrillation with internal carotid defibrillator. Patient reported shortness of breath. Patient admitted not taking her medications for several months due to lack of insurance. This is to begin in July. Patient is a smoker. Patient admitted for treatment. Hospital Course: Patient presented secondary to acute on chronic diastolic CHF. Patient has done well. Patient received IV diuretic therapy with improvement. Did noncompliance with her medications. Chest x-ray unremarkable. Patient on room air. Compli ance with medications addressed in detail. Patient is to get insurance within the next month. At discharge patient will continue with 1500 cc/day fluid restriction and low-salt diet. Recommend to monitor her weight daily. At discharge patient will continue with Lasix 40 mg 1 pill twice daily and potassium supplementation Klor-Con 10 mEq daily. Recommend follow-up with her PCP in 1 week to follow-up his hospitalization. Recommend recheck labBMP in 1 week to monitor progress. Education on CHF and compliance with her medications addressed in detail. Patient with history of atrial fibrillation on chronic anticoagulation therapy. Patient has used Eliquis, digoxin and Coumadin in the past. Compliance addressed in detail. Digoxin was discontinued as patient did well with metoprolol and Eliquis. At discharge will recommend to continue metoprolol 25 mg 1 pill twice daily along with Eliquis 5 mg 1 pill twice daily. Will make sure patient is able to get her medications. Recommend follow-up with cardiology in 1 week to follow-up his hospitalization. Will discuss with social services assistant to make sure patient will be able to get her medications. Patient with COPD. Patient on room air. At discharge patient will continue with Symbicort 2 puffs twice daily and albuterol 2 puffs 3 times a day as needed for shortness of breath. Patient also with tobacco abuse. Tobacco cessation addressed in detail. Patient with hypertension. Blood pressure stable on metoprolol. At discharge patient will continue with metoprolol 25 mg 1 pill twice daily. Recommend to maintain blood pressure less than 130/80. Further adjustment can be done by her PCP. Patient with hyperlipidemia. At discharge she will continue with Lipitor 40 mg daily. Recommend to recheck labCMP and fasting lipid panel in 1 month to monitor her progress. Patient with GERD. At discharge patient will continue with Protonix 40 mg daily. Patient with history of CVA. At discharge the patient will continue with folic acid 1 mg daily and Plavix 75 mg daily. Patient with depression with anxiety. At discharge patient may continue with her current medication of Remeron 15 mg at bedtime and venlafaxine 225 mg daily. Vital Signs/Physical Exam: Temp Pulse Resp BP Pulse Ox 97.0 F 70 18 127/89 96 06/22/21 08:00 06/22/21 08:43 06/22/21 08:00 06/22/21 08:43 06/22/21 08:00 General: Alert, In no apparent distress, Oriented x3, Cooperative HEENT: Atraumatic Neck: Supple Respiratory: Clear to auscultation bilaterally, Normal air movement Cardiovascular: Irregular heart rate/rhythm (Atrial fibrillation rate controlled ) Gastrointestinal: Normal bowel sounds, No tenderness, No masses, No rebound, No guarding Musculoskeletal: No erythema, No tenderness, No warmth Integumentary: No tenderness/swelling Neurological: Normal speech, Normal strength at 5/5 x4 extr, Normal tone, Normal affect Laboratory Data at Discharge: WBC 6.60 K/uL (4.3-10.9) 06/22/21 06:13 Hgb 11.8 g/dL (12.0-15.0) L 06/22/21 06:13 Hct 36.8 % (36.0-45.0) 06/22/21 06:13 Plt Count 198 K/uL (152-406) D 06/22/21 06:13 PT 11.1 SECONDS (9.5-12.5) 06/21/21 22:23 INR 0.97 06/21/21 22:23 Sodium 144 mmol/L (136-145) 06/22/21 06:13 Potassium 3.2 mmol/L (3.5-5.1) L 06/22/21 06:13 BUN 14 mg/dL (7-18) 06/22/21 06:13 Creatinine 1.01 mg/dL (0.55-1.3) 06/22/21 06:13 Glucose 88 mg/dL (74-106) 06/22/21 06:13 Phosphorus Cancelled 06/22/21 07:11 Magnesium 2.0 mg/dL (1.8-2.4) 06/21/21 22:23 Total Bilirubin 0.5 mg/dL (0.2-1.0) 06/22/21 06:13 AST 19 U/L (15-37) 06/22/21 06:13 ALT 18 U/L (12-78) 06/22/21 06:13 Alkaline Phosphatase 148 U/L (45-117) H 06/22/21 06:13 Troponin I 0.03 ng/mL (0.0-0.045) 06/22/21 06:13 Triglycerides 123 mg/dL (<150) 06/22/21 06:13 Cholesterol 141 mg/dL (<200) 06/22/21 06:13 HDL Cholesterol 45 mg/dL (40-60) 06/22/21 06:13 Cholesterol/HDL Ratio 3.13 06/22/21 06:13 Home Medications: Albuterol Sulfate [Proair Digihaler] 2 puff IH TID PRN #1 06/22/21 Apixaban [Eliquis] 5 mg PO BID #60 tablet 06/22/21 Atorvastatin Calcium [Lipitor] 40 mg PO DAILY #30 tablet 06/22/21 Budesonide/Formoterol Fumarate [Symbicort 160-4.5 Mcg Inhaler] 2 puff IH BID #1 hfa.aer.ad 06/22/21 Clopidogrel Bisulfate [Plavix*] 75 mg PO DAILY #30 tablet 06/22/21 Folic Acid 1 mg PO DAILY #30 tablet 06/22/21 Furosemide [Lasix] 40 mg PO BID #60 06/22/21 Metoprolol Tartrate [Lopressor*] 25 mg PO BID 6AM 6PM #60 tab 06/22/21 Mirtazapine [Remeron*] 15 mg PO BEDTIME #30 tab 06/22/21 Pantoprazole [Protonix Tab] 40 mg PO DAILY #30 tab 06/22/21 Potassium Chloride 10 meq PO DAILY #30 tablet.er 06/22/21 Venlafaxine HCl [Venlafaxine HCl ER] 225 mg PO DAILY #30 06/22/21 New Medications: Apixaban [Eliquis] 5 mg PO BID #60 tablet Folic Acid 1 mg PO DAILY #30 tablet Furosemide [Lasix] 40 mg PO BID #60 Atorvastatin Calcium [Lipitor] 40 mg PO DAILY #30 tablet Metoprolol Tartrate [Lopressor*] 25 mg PO BID 6AM 6PM #60 tab Clopidogrel Bisulfate [Plavix*] 75 mg PO DAILY #30 tablet Potassium Chloride 10 meq PO DAILY #30 tablet.er Albuterol Sulfate [Proair Digihaler] 2 puff IH TID PRN #1 PRN Reason: Shortness Of Breath Pantoprazole [Protonix Tab] 40 mg PO DAILY #30 tab Mirtazapine [Remeron*] 15 mg PO BEDTIME #30 tab Budesonide/Formoterol Fumarate [Symbicort 160-4.5 Mcg Inhaler] 2 puff IH BID #1 hfa.aer.ad Venlafaxine HCl [Venlafaxine HCl ER] 225 mg PO DAILY #30 Physician Discharge Instructions: Patient presented secondary to acute on chronic diastolic CHF. Patient has done well. Patient received IV diuretic therapy with improvement. Did noncompliance with her medications. Chest x-ray unremarkable. Patient on room air. Compl iance with medications addressed in detail. Patient is to get insurance within the next month. At discharge patient will continue with 1500 cc/day fluid restriction and low-salt diet. Recommend to monitor her weight daily. At discharge patient will continue with Lasix 40 mg 1 pill twice daily and potassium supplementation Klor-Con 10 mEq daily. Recommend follow-up with her PCP in 1 week to follow-up his hospitalization. Recommend recheck labBMP in 1 week to monitor progress. Education on CHF and compliance with her medications addressed in detail. Patient with history of atrial fibrillation on chronic anticoagulation therapy. Patient has used Eliquis, digoxin and Coumadin in the past. Compliance addressed in detail. Digoxin was discontinued as patient did well with metoprolol and Eliquis. At discharge will recommend to continue metoprolol 25 mg 1 pill twice daily along with Eliquis 5 mg 1 pill twice daily. Will make sure patient is able to get her medications. Recommend follow-up with cardiology in 1 week to follow-up his hospitalization. Will discuss with social services assistant to make sure patient will be able to get her medications. Patient with COPD. Patient on room air. At discharge patient will continue with Symbicort 2 puffs twice daily and albuterol 2 puffs 3 times a day as needed for shortness of breath. Patient also with tobacco abuse. Tobacco cessation addressed in detail. Patient with hypertension. Blood pressure stable on metoprolol. At discharge patient will continue with metoprolol 25 mg 1 pill twice daily. Recommend to maintain blood pressure less than 130/80. Further adjustment can be done by her PCP. Patient with hyperlipidemia. At discharge she will continue with Lipitor 40 mg daily. Recommend to recheck labCMP and fasting lipid panel in 1 month to monitor her progress. Patient with GERD. At discharge patient will continue with Protonix 40 mg daily. Patient with history of CVA. At discharge the patient will continue with folic acid 1 mg daily and Plavix 75 mg daily. Patient with depression with anxiety. At discharge patient may continue with her current medication of Remeron 15 mg at bedtime and venlafaxine 225 mg daily. Diet: AHA Activity: Fall precautions Followup: NONE,NONE [Primary Care Provider] - Time spent managing pt's care (in minutes): 55
[2021-06-22 11:43] VITALS: BP 137/85; TEMP 97.2
[2021-06-22] MEDS ORDERED: PNEUMOCOCCAL VACCINE 0.5 ML IMVAC ONE (12:00)
--- NOTE | 2021-06-22 14:03 | ECHO ---
HEIGHT: 5 ft 3 in WEIGHT: 142 lb 0 oz DATE OF STUDY: 06/22/[address]: Mukul Seaman MD 2-DIMENSIONAL: YES M.MODE: YES DOPPLER: YES COLOR FLOW: YES TDS: PORTABLE: DEFINITY: BUBBLE STUDY: DIAGNOSIS: CONGESTIVE HEART FAILURE EXACERBATION CARDIAC HISTORY: CATHERIZATION: NO SURGERY: NO PROSTHETIC VALVE: NO PACEMAKER: YES MEASUREMENTS (cm) DIASTOLIC (NORMALS) SYSTOLIC (NORMALS) IVSd 1.0 (0.6-1.2) LA Diam 3.5 (1.9-4.0) LVEF 35-40% LVIDd 4.2 (3.5-5.7) LVIDs 3.0 (2.0-3.5) %FS 29% LVPWd 1.0 (0.6-1.2) Ao Diam 2.7 (2.0-3.7) 2 DIMENSIONAL ASSESSMENT: RIGHT ATRIUM: NORMAL LEFT ATRIUM: NORMAL RIGHT VENTRICLE: PACEMAKER WIRE LEFT VENTRICLE: DEPRESSED TRICUSPID VALVE: NORMAL MITRAL VALVE: MILD MITRAL REGURGITATION PULMONIC VALVE: NORMAL AORTIC VALVE: NORMAL PERICARDIAL EFFUSION: NONE AORTIC ROOT: NORMAL LEFT VENTRICULAR WALL MOTION: MODERATE GLOBAL HYPOKINESIS DOPPLER/COLOR FLOW: SEE BELOW COMMENTS: MODERATELY DEPRESSED LEFT VENTRICULAR EJECTION FRACTION 35-40%. MODERATELY GLOBAL HYPOKINESIS. MILD MITRAL REGURGITATION. TECHNOLOGIST: CAMILA HOLLIS
--- NOTE | 2021-06-23 07:38 | EKG ---
Test Date: 2021-06-22 Test Time: 09:37:49 Associate Professor Computer Science: BISMARK MEASUREMENT RESULTS: Intervals: Rate: 79 VA: QRSD: 84 QT: 520 QTc: 596 [place]: P: VA: QRS: -24 T: -46 INTERPRETIVE STATEMENTS: Atrial fibrillation Nonspecific T wave abnormality, probably digitalis effect Prolonged QT Abnormal ECG Compared to ECG 06/21/2021 22:20:29 T-wave abnormality now present Prolonged QT interval now present Sinus rhythm no longer present Atrial premature complex(es) no longer present Aberrant conduction of supraventricular beat(s) no longer present Left-axis deviation no longer present Myocardial infarct finding no longer present Electronically Signed On 06-23-21 07:35:10 LOAD MIXER by Mukul Seaman
== END 2021-06-22 01:30 | disposition home or self-care (01) | DRG 291 ==
LOC: ER 21:46 → ERHOLD 06-22 00:22 → 2ND 06-22 00:54
PROVIDERS: ADMIT Family Medicine; ATTEND Family Medicine
DX: I11.0 Hypertensive heart disease with heart failure (principal); I50.33 Acute on chronic diastolic (congestive) heart failure; J44.9 Chronic obstructive pulmonary disease, unspecified; F41.8 Other specified anxiety disorders; I48.91 Unspecified atrial fibrillation; I25.10 Atherosclerotic heart disease of native coronary artery without angina pectoris; E78.5 Hyperlipidemia, unspecified; K21.9 Gastro-esophageal reflux disease without esophagitis; F17.210 Nicotine dependence, cigarettes, uncomplicated; Z79.82 Long term (current) use of aspirin; Z88.0 Allergy status to penicillin; Z88.8 Allergy status to other drugs, medicaments and biological substances; Z86.73 Personal history of transient ischemic attack (TIA), and cerebral infarction without residual deficits; Z95.810 Presence of automatic (implantable) cardiac defibrillator; Z79.02 Long term (current) use of antithrombotics/antiplatelets; Z79.01 Long term (current) use of anticoagulants; Z79.899 Other long term (current) drug therapy; Z91.19 Patient's noncompliance with other medical treatment and regimen; Z91.14 Patient's other noncompliance with medication regimen; Z20.822 Contact with and (suspected) exposure to COVID-19; Z23 Encounter for immunization
CPT/HCPCS: 0241U; 36415; 71045; 80048; 80053; 80061; 80076; 81003; 82728; 83540; 83735; 83880; 84100; 84439; 84443; 84466; 84484; 85025; 85610; 90471; 90732; 93005; 93306; 94760; 96374; 99285; J1940

== ENCOUNTER → 2023-08-02 | Emergency (ER) | payer OTHER, SELFPAY ==
[~2023-08-02] MED LIST: lisinopriL 20 MG TAB ONE
--- NOTE | 2023-08-02 11:45 | RAD REPORT ---
EXAM DESCRIPTION: AMELIEChest Single View08/02/2023 11:14 am CLINICAL HISTORY: hypertension COMPARISON: Chest Single View dated 06/21/2021; Chest Single View dated 06/14/2020; Chest Single Vie w dated 05/11/2020; Chest Single View dated 06/01/2019 TECHNIQUE: Portable AP view of the chest. FINDINGS: The lungs are clear apart from stable right costophrenic angle probably calcified mass. N o pneumothorax or effusion. The cardiomediastinal contours are unremarkable. Left chest wall pacer. IMPRESSION: No acute cardiopulmonary process.
[2023-08-02 12:08] LABS: Hematocrit 37.8 % (36.0-45.0); MCV 72.3 fL (80-100); MPV 9.9 fL (7.6-11.3); Platelets 164 thou/uL (152-406); RBC Red Blood Cell Count 5.23 M/uL (3.86-4.86)
[2023-08-02 12:26] LABS: Albumin 3.8 g/dL (3.4-5.0); Bilirubin Direct 0.1 mg/dL (0-0.2); Bilirubin Indirect, Calculated 0.4 mg/dL (0.2-0.8); Bilirubin Total 0.5 mg/dL (0.2-1.0); Protein, Total 8.3 g/dL (6.4-8.2); Troponin High Sensitivity 7.1 pg/mL (<58.9)
--- NOTE | 2023-08-02 13:38 | ER ---
Nurse's Notes [facility] Name: Carli Alves Age: 68 yrs Sex: Female : 1955 Arrival Date: 08/02/2023 Time: 10:41 Bed 11 Private MD: Diagnosis: Essential (primary) hypertension Presentation: 08/02 10:58 Chief complaint: Patient states: she was sent by pcp for elevated blood pressure. ap3 patient denies chest pain at this time. Coronavirus screen: At this time, the client does not indicate any symptoms associated with coronavirus-19. Ebola Screen: No symptoms or risks identified at this time. Initial Sepsis Screen: Does the patient meet any 2 criteria? HR > 90 bpm. Does the patient have a suspected source of infection? No. Patient's initial sepsis screen is negative. Risk Assessment: Do you want to hurt yourself or someone else? Patient reports no desire to harm self or others. Onset of symptoms is unknown. 10:58 Method Of Arrival: Wheelchair ap3 10:58 Acuity: MELLISSA 3 ap3 Triage Assessment: 11:01 General: Appears in no apparent distress. Behavior is appropriate for age. Pain: Denies ap3 pain. Neuro: Level of Consciousness is awake, alert, obeys commands, Oriented to person, place, time, situation. Cardiovascular: Patient's skin is warm and dry. Respiratory: Airway is patent Respiratory effort is even, unlabored, Respiratory pattern is regular, symmetrical. Historical: - Allergies: 10:59 Aspirin; ap3 10:59 diphenhydramine HCl; ap3 10:59 Metoclopramide; ap3 10:59 PENICILLINS; ap3 - PMHx: 10:59 Atrial Fib; CHF; COPD; CVA; Hodgkin's Lymphoma; Hypertension; ap3 - Immunization history:: Adult Immunizations unknown. - Social history:: Smoking status: Patient reports the use of cigarette tobacco products, smokes one-half pack cigarettes per day. - Family history:: not pertinent. Screenin:01 Abuse screen: Denies threats or abuse. Nutritional screening: No deficits noted. ap3 Tuberculosis screening: No symptoms or risk factors identified. 12:10 [facility] ED Fall Risk Assessment (Adult) Score/Fall Risk Level 3 or more points = High nj1 Risk Oriented to surroundings, Maintained a safe environment, Educated pt \T\ family on fall prevention, incl call for assistance when getting out of bed, Assessed \T\ reinforced patient's understanding of fall precautions, Hourly rounding (assess needs \T\ fall precautionary measures) done, Used ambulatory aids as needed (educated on \T\ assisted with), Remained w/in arm's length of patient and in sight while toileting, Offered frequent toileting (1:1 observation), Remained with patient while ambulating, Utilized family, sitter, or virtual manager of training and development as indicated. Assessment: 11:30 Reassessment: See triage assessment. nj1 13:00 Reassessment: Patient appears in no apparent distress at this time. No changes from nj1 previously documented assessment. Pt resting/sleeping. at bedside. 13:45 Reassessment: Patient appears in no apparent distress at this time. Patient is alert, nj1 oriented x 3, equal unlabored respirations, skin warm/dry/pink. Vital Signs: 10:58 BP 163 / 115; Pulse 100; Resp 18; Pulse Ox 96% on R/A; Weight 48.53 kg; Pain 0/10; ap3 11:43 BP 166 / 120; Pulse 91; Resp 17; Pulse Ox 98% on R/A; nj1 13:00 BP 145 / 100; Pulse 82; Resp 16; Pulse Ox 97% on R/A; nj1 13:48 BP 160 / 82; Pulse 78; Resp 16; Pulse Ox 100% on R/A; Pain 0/10; nj1 10:58 Pain Scale: Adult ap3 13:48 Pain Scale: Adult nj1 ED Course: 10:48 Patient arrived in ED. mg5 10:53 Michele Lawson MD is Attending Physician. rt 10:59 Triage completed. ap3 11:01 Arm band placed on left wrist. ap3 11:16 XRAY Chest (1 view) In Process Unspecified. EDMS 11:29 Wilma Alexandre, HEATHER is Primary Nurse. nj1 11:40 Patient has correct armband on for positive identification. Bed in low position. Call nj1 light in reach. Adult w/ patient. Provided Education on: Call light, fall precautions. 11:50 Missed attempt(s): 22 gauge in left forearm. Bleeding controlled, band aid applied, nj1 catheter tip intact. 12:00 Inserted saline lock: 20 gauge in right antecubital area, using aseptic technique. nj1 ,using aseptic technique. Ultrasound guided. Catheter tip well visualized within vasculature during placement. Blood collected. 13:12 Notified ED physician of other Lab has called to inform us that the cbc differential nj1 will be a manual one, please disregard prior exam and make sure ED physician is aware the differential is manual. 13:50 No provider procedures requiring assistance completed. IV discontinued, intact, nj1 bleeding controlled. Administered Medications: 11:50 Drug: Lisinopril PO 20 mg PO once Route: PO; nj1 13:48 Follow up: Response: No adverse reaction; Blood pressure is lowered nj1 Medication: 13:51 VIS not applicable for this client. nj1 Outcome: 13:37 Discharge ordered by . rt 13:50 Discharged to home via wheelchair, with significant other, nj1 13:50 Condition: stable 13:50 Discharge instructions given to patient, significant other, Instructed on discharge instructions, follow up and referral plans. medication usage, Demonstrated understanding of instructions, follow-up care, medications, Prescriptions given X 1, 13:51 Patient left the ED. nj1 Signatures: Dispatcher [employer] EDMS Dorothy Fierro, RN RN ap3 Michele Lawson MD MD rt Wilma Alexandre RN RN nj1 Charlette Henderson mg5
--- NOTE | 2023-08-02 13:38 | EDPHYS ---
Physician Documentation [facility] Name: Carli Alves Age: 68 yrs Sex: Female : 1955 Arrival Date: 08/02/2023 Time: 10:41 Bed 11 Private MD: ED Physician Michele Lawson HPI: 08/02 14:31 This 68 yrs old Female presents to ER via Wheelchair with complaints of High Blood rt Pressure. 14:31 Patient presents to the ED with reported hypertension. She had prior stroke, A-fib. She rt states that it was noted to be elevated to about 160/110. Denies chest pain, shortness of breath, new symptoms. Symptoms are mild severity, no other aggravating elevating factors.. Historical: - Allergies: 10:59 Aspirin; ap3 10:59 diphenhydramine HCl; ap3 10:59 Metoclopramide; ap3 10:59 PENICILLINS; ap3 - PMHx: 10:59 Atrial Fib; CHF; COPD; CVA; Hodgkin's Lymphoma; Hypertension; ap3 - Immunization history:: Adult Immunizations unknown. - Social history:: Smoking status: Patient reports the use of cigarette tobacco products, smokes one-half pack cigarettes per day. - Family history:: not pertinent. ROS: 14:31 Constitutional: Negative for fever, chills, and weight loss, Cardiovascular: Negative rt for chest pain, palpitations, and edema, Respiratory: Negative for shortness of breath, cough, wheezing, and pleuritic chest pain, Abdomen/GI: Negative for abdominal pain, nausea, vomiting, diarrhea, and constipation, Skin: Negative for injury, rash, and discoloration, Psych: Negative for depression, anxiety, suicide ideation, homicidal ideation, and hallucinations, Exam: 14:31 Constitutional: This is a well developed, well nourished patient who is awake, alert, rt and in no acute distress. Head/Face: Normocephalic, atraumatic. Chest/axilla: Normal chest wall appearance and motion. Nontender with no deformity. No lesions are appreciated. Cardiovascular: Regular rate and rhythm with a normal S1 and S2. No gallops, murmurs, or rubs. Normal PMI, no JVD. No pulse deficits. Respiratory: Lungs have equal breath sounds bilaterally, clear to auscultation and percussion. No rales, rhonchi or wheezes noted. No increased work of breathing, no retractions or nasal flaring. Abdomen/GI: Soft, non-tender, with normal bowel sounds. No distension or tympany. No guarding or rebound. No evidence of tenderness throughout. Skin: Warm, dry with normal turgor. Normal color with no rashes, no lesions, and no evidence of cellulitis. 14:31 ECG was reviewed by the Attending Physician. Vital Signs: 10:58 BP 163 / 115; Pulse 100; Resp 18; Pulse Ox 96% on R/A; Weight 48.53 kg; Pain 0/10; ap3 11:43 BP 166 / 120; Pulse 91; Resp 17; Pulse Ox 98% on R/A; nj1 13:00 BP 145 / 100; Pulse 82; Resp 16; Pulse Ox 97% on R/A; nj1 13:48 BP 160 / 82; Pulse 78; Resp 16; Pulse Ox 100% on R/A; Pain 0/10; nj1 10:58 Pain Scale: Adult ap3 13:48 Pain Scale: Adult nj1 MDM: 11:01 Patient medically screened. rt 14:34 Differential diagnosis: Hypertension, renal dysfunction, coronary syndrome. Data rt reviewed: vital signs, nurses notes, lab test result(s), EKG, radiologic studies. Consideration of Admission/Observation Escalation of care including admission/observation considered. No evidence of endorgan dysfunction, blood pressure is improving, stable for outpatient care. Independent interpretation of the following test(s) in the Emergency Department X-Ray: My interpretation is No pneumonia seen on interpretation of x-ray images. Care significantly affected by the following chronic conditions: Hypertension. Counseling: I had a detailed discussion with the patient and/or guardian regarding the historical points, exam findings, and any diagnostic results supporting the discharge/admit diagnosis, lab results, radiology results, the need for outpatient follow up, to return to the emergency department if symptoms worsen or persist or if there are any questions or concerns that arise at home. 08/02 11:03 Order name: Basic Metabolic Panel; Complete Time: 13:31 rt 08/02 11:03 Order name: CBC with Diff; Complete Time: 13:51 rt 08/02 11:03 Order name: LFT's; Complete Time: 13: rt 08/02 11:03 Order name: Magnesium; Complete Time: 13:31 rt 08/02 11:03 Order name: Troponin HS; Complete Time: 13:31 rt 08/02 12:19 Order name: Manual Differential; Complete Time: 13:51 EDMS 08/02 11:03 Order name: XRAY Chest (1 view); Complete Time: 11:46 rt 08/02 11:03 Order name: EKG; Complete Time: 11:04 rt 08/02 11:03 Order name: Cardiac monitoring; Complete Time: 12:08 rt 08/02 11:03 Order name: EKG - Nurse/Tech; Complete Time: 13:00 rt 08/02 11:03 Order name: IV Saline Lock; Complete Time: 12:07 rt 08/02 11:03 Order name: Labs collected and sent; Complete Time: 12:07 rt 08/02 11:03 Order name: O2 Per Protocol; Complete Time: 12:07 rt 08/02 11:03 Order name: O2 Sat Monitoring; Complete Time: 12:07 rt EC:31 Rate is 82 beats/min. Rhythm is irregularly irregular, A fib with No ectopy. QRS [place] rt is Normal. QRS interval is normal. QT interval is normal. No Q waves. Administered Medications: 11:50 Drug: Lisinopril PO 20 mg PO once Route: PO; nj1 13:48 Follow up: Response: No adverse reaction; Blood pressure is lowered nj1 Disposition Summary: 08/02/23 13:37 Discharge Ordered Notes: Location: Home rt Problem: new rt Symptoms: have improved rt Condition: Stable rt Diagnosis - Essential (primary) hypertension rt Followup: rt - With: Private Physician - When: 5 - 6 days - Reason: Discharge Instructions: - Discharge Summary Sheet rt - Hypertension, Adult rt Forms: - Medication Reconciliation Form rt - Thank You Letter rt - Antibiotic Education rt - Prescription Opioid Use rt - Patient Portal Instructions rt - Leadership Thank You Letter rt Prescriptions: - Lisinopril 10 mg Oral tablet - take 1 tablet ORAL route once daily; 30 tablet; Refills: 0, Product Selection rt Permitted Signatures: Dispatcher [employer] Dorothy Wilcox RN RN ap3 Michele Lawson MD MD rt Wilma Alexandre RN RN nj1
[2023-08-02 13:43] LABS: Platelet Estimate ADEQ; Platelets, Giant RARE
[2023-08-02 13:44] LABS: Anisocytosis 1+; Blood Morphology Comment NOTED (NOT SEEN); Poikilocytosis 1+
[2023-08-02 21:11] VITALS: BP 160/82; O2SAT 100
== END ==
LOC: ER 10:41
DX: I10 Essential (primary) hypertension (principal); F17.210 Nicotine dependence, cigarettes, uncomplicated; Z88.0 Allergy status to penicillin; Z88.6 Allergy status to analgesic agent; Z88.8 Allergy status to other drugs, medicaments and biological substances
CPT/HCPCS: 36415; 71045; 80048; 80076; 83735; 84484; 85025; 93005